=== PATIENT | female | born 1955 | race African-American/Black ===

== ENCOUNTER 2019-03-15 11:57 | Inpatient (IN) | payer MEDICAID ==
[~2019-03-15] VITALS: Ht 162.6 cm; Wt 83.0 kg
[2019-03-15] VITALS (11 sets, daily range): BP systolic 100–129
[~2019-03-15 11:57] MED LIST: BACL20TA GT; COL250 GT; CRAN450T7 GT; FAMO-132 PO; KETAMINE 30 MG/3 ML SYRINGE IV ONE; LEVE500V GT; LR 1,000 ML IV.SOLN IV ONE; MIDAZOLAM HCL 5 MG/5 ML VIAL IVP ONE; NS IRRIG SOLN 1000 ML IR ONE; POTA20TA83 GT; PROP50TA3 GT; ROCURONIUM BROMIDE 10 MG/ML (ZEMURON) IV ONE; SEVOFLURANE 15 MIN GAS INH ONE; fentaNYL CITRATE 250 MCG/5 ML AMP IV ONE; fentaNYL CITRATE/PF 100 MCG/2 ML AMP IVP ONE
--- NOTE | 2019-03-15 12:10 | NUR ---
Placed in room 1 . Placed on environmental monitoring specialist, blood pressure machine and pulse oximeter. To gown for exam. Side rails up.
--- NOTE | 2019-03-15 12:15 | NUR ---
pt arrived from [facility]. request the pt come to the ED for low Hgb of 5.2. Pt is on a chronic vent. Pt is nonverbal. Responds to voice. Able to open her eyes
--- NOTE | 2019-03-15 12:30 | NUR ---
Current vent settings AC 10, TV 500, Peep 5, FiO2 40%. O2 sat is 100%
[2019-03-15 12:41] LABS: BILIRUBIN,URINE NEGATIVE (NEGATIVE); BLOOD, URINE NEGATIVE (NEGATIVE); CLARITY/URINE CLEAR (CLEAR); COLOR,URINE YELLOW (YELLOW); GLUCOSE,URINE NEGATIVE (NEGATIVE); KETONES,URINE NEGATIVE (NEGATIVE); LEUKOCYTE ESTERASE ,URINE TRACE (NEGATIVE); NITRITE, URINE POSITIVE (NEGATIVE); PROTEIN URINE NEGATIVE (NEGATIVE); UROBILINOGEN,URINE 0.2 (0.2-1.0)
--- NOTE | 2019-03-15 12:46 | NUR ---
Inserted 156fr kellogg cath. UA collected and sent to the lab
--- NOTE | 2019-03-15 13:00 | NUR ---
# 20 gauge angiocath placed to LAC. Use of asceptic technique. Opsite placed over site. Blood return noted. Blood for lab drawn from site. Flushed with 10 cc of normal saline. No evidence of infiltration noted. Patient tolerated well.
[2019-03-15 13:02] LABS: RBC,URINE 0-3 /HPF (0-3)
[2019-03-15 13:03] LABS: BACTERIA,URINE MODERATE /HPF (None Seen)
[2019-03-15 13:06] LABS: BASOPHILS % (AUTO) 0.7 % (0.0-2.0); EOSINOPHILS # (AUTO) 0.2 K/uL (0.0-0.4); EOSINOPHILS % (AUTO) 3.3 % (0.0-4.0); HEMATOCRIT 22.2 % (36-48); LYMPHOCYTES # (AUTO) 2.5 K/uL (1.0-5.5); LYMPHOCYTES % (AUTO) 38.6 % (20.5-51.5); MEAN CORPUSCULAR HEMOGLOBIN 17 pg (27-31); MEAN CORPUSCULAR HGB CONC 26 % (32-36); MEAN CORPUSCULAR VOLUME 63 fL (79.0-98.0); MONOCYTES # (AUTO) 0.5 K/uL (0.0-1.0); MONOCYTES % (AUTO) 7.1 % (1.7-9.3); NEUTROPHILS # (AUTO) 3.3 K/uL (1.8-7.7); NEUTROPHILS % (AUTO) 50.3 % (40.0-70.0); PLATELET COUNT (AUTO) 379 K/uL (130-430); RED BLOOD CELL COUNT(AUTO) 3.54 MIL/uL (4.2-6.2); RED CELL DISTRIBUTION WIDTH 19.9 % (9.0-15.0); WHITE BLOOD COUNT (AUTO) 6.5 K/uL (4.8-10.8)
[2019-03-15 13:10] LABS: HEMOGLOBIN 5.9 g/dL (12.0-16.0)
[2019-03-15 13:23] LABS: CALCIUM 8.5 mg/dL (8.4-11.0); CHLORIDE 104 mmol/L (98-107); CREATININE 0.66 mg/dL (0.55-1.30); GLUCOSE 90 mg/dL (70-99); INR 1.1 (0.8-1.2); POTASSIUM 3.7 mmol/L (3.5-5.1); PROTHROMBIN TIME 10.8 SECS (9.5-12.5); SODIUM SERUM 136 mmol/L (136-145); UREA NITROGEN, BLOOD 11 mg/dL (8-21)
[2019-03-15 13:24] LABS: ANION GAP < 3 (5-15); GFR AFRICAN AMERICAN 117 mL/min (>90)
[2019-03-15 13:29] LABS: ALANINE AMINOTRANSFERASE 62 U/L (12-78); ALBUMIN 2.7 g/dL (3.4-4.8); ASPARTATE AMINOTRANSFERASE 75 U/L (10-37); TOTAL BILIRUBIN 0.2 mg/dL (0.0-1.0)
--- NOTE | 2019-03-15 14:08 | NUR ---
Currently infusing Levaquin per MD order. IV is patent and flushing well.
[2019-03-15] MEDS ORDERED: LEVOFLOXACIN 500 MG/D5W 100 ML IV ONE (14:15)
[2019-03-15] MEDS ORDERED: KCL 20 mEq in D5/0.45NS 1000mL 1,000 ML IV ONE (14:45)
--- NOTE | 2019-03-15 14:45 | NUR ---
Currently waiting for an ICU bed. Spoke w/ hSeree ROONEY.
[2019-03-15] MEDS ORDERED: FER300L GT (14:58)
[2019-03-15] MEDS ORDERED: ATRMDI INH ×2 (14:58)
[2019-03-15] MEDS ORDERED: DEXT30DR6 EACH EYE (14:58)
[2019-03-15] MEDS ORDERED: LEVE100S2 GT (14:58)
[2019-03-15] MEDS ORDERED: ALBU2.5V7 INH ×2 (14:58)
--- NOTE | 2019-03-15 14:58 | NUR ---
Medication reconciliation completed with information provided by [facility]. Any prior medication reconciliation on file was reviewed and corrected.
--- NOTE | 2019-03-15 15:55 | NUR ---
Opening Patient received via gurney and placed in ICU-6. Patient connected to child monitor with NSR. Patient on a ventilator with settings of AC 10, tidal volume 500, FiO2 40%, and PEEP 5. No signs of distress noted. Patient has a left forearm 20 gauge patent and saline locked. Patient has a g-tube clamped at this time. Patient has a kellogg catheter in place draining yellow urine. Patient skin non-intact. Safety precautions enforced.
--- NOTE | 2019-03-15 16:00 | NUR ---
Transfer to ICU bed 6 via ACLS protocol. Licensed nurse present. IV present no signs or symptoms of infiltration. Bedside report given Valerie VILLALBA
--- NOTE | 2019-03-15 16:01 | NUR ---
CONSULT PULMO. DR. YUN CALLED SPOKE TO DONAL DIALED [phone] CREWS
--- NOTE | 2019-03-15 16:02 | NUR ---
CONSULT GI DR. HOOKER CALLED SPOKE TO REJI DIALED [phone] CREWS
[2019-03-15] MEDS ORDERED: NACL 0.9% 1,000 ML IV SCH (17:00)
[2019-03-15 18:00] LABS: HEMATOCRIT 22.6 % (36-48); HEMOGLOBIN 5.9 g/dL (12.0-16.0)
--- NOTE | 2019-03-15 18:15 | NUR ---
MD Rounds Dr. Mckeon @ bedside. New orders received.
--- NOTE | 2019-03-15 18:30 | NUR ---
MD Rounds Dr. Mariano @ bedside. New orders received.
--- NOTE | 2019-03-15 18:45 | NUR ---
MD Rounds Dr. Houston @ bedside. New orders received.
[2019-03-15] MEDS ORDERED: LORazepam 2 MG/ML VIAL IVP PRN (19:15)
[2019-03-15] MEDS ORDERED: IPRATROPIUM BROM 0.5 MG/2.5 ML VIAL.NEB (ATROVENT) INH PRN (19:15)
[2019-03-15] MEDS ORDERED: PIPERACILLIN/TAZO 3.375/DEX-IS 50 ML IV ONE (19:30)
[2019-03-15] MEDS ORDERED: PANTOPRAZOLE SODIUM 80 MG in NS 100 ML IV ONE (19:30)
[2019-03-15] MEDS: IPRATROPIUM BROM 0.5 MG/2.5 ML VIAL.NEB (ATROVENT) INH SCH (19:43)
[2019-03-15] MEDS: ALBUTEROL SULFATE 0.083% 2.5 MG/3 ML VIAL.NEB INH SCH (19:43)
[2019-03-15] MEDS: D5LR 1,000 ML IV SCH (20:00)
--- NOTE | 2019-03-15 20:00 | NUR ---
AT 1917 P.M, RECEIVED NURSING REPORT FROM LESA ALCANTARA R.N
[2019-03-15] MEDS: PANTOPRAZOLE SODIUM 40 MG in NS 50 ML IV SCH (20:40)
[2019-03-15] MEDS: FERROUS SULFATE 300 MG/5 ML UDC GT SCH (21:00)
[2019-03-15] MEDS ORDERED: PANTOPRAZOLE SODIUM 40 MG/VIAL (PROTONIX) IVP SCH (21:00)
[2019-03-15] MEDS: BACLOFEN 10 MG TABLET GT SCH (21:00)
[2019-03-15] MEDS: LevETIRAcetam 500 MG/5 ML UDC ORAL LIQUID GT SCH (21:00)
--- NOTE | 2019-03-15 22:00 | NUR ---
ORDERED WILL FOLLOWUP EGD IN TOMORROW 0800 A.M, AT 2150 P.M, CALLED PATIENT,S DAUGHTER ALESSIA, GOT PHONE CONSENT IN THE CHART
[2019-03-15] MEDS: PEG 400/HYPROMELLOSE/GLYCERIN 15 ML DROPS EACH EYE SCH (22:24)
[2019-03-15 22:56] LABS: HEMATOCRIT 19.9 % (36-48); HEMOGLOBIN 5.3 g/dL (12.0-16.0)
[2019-03-15] MEDS: PIPERACILLIN/TAZO 3.375/DEX-IS 50 ML IV SCH (23:22)
[2019-03-15 23:26] LABS: TOTAL IRON BIND. CAPACITY 352 ug/dL (250-450)
--- NOTE | 2019-03-15 23:30 | NUR ---
AT 2215 P.M, FINISHED INSERTED PICC LINE IN LEFT UPPER ARM BY PICC LINE NURSE JOHNY Garcia, ORDERED FOLLOW UP STAT CHEST X-RAY AT 2225 P.M, AFTER X-RAY RESULT , IS O.K FOR USE
[2019-03-16] VITALS (24 sets, daily range): BP systolic 97–138
--- NOTE | 2019-03-16 00:30 | NUR ---
AT 0007 A.M, ORDERED GIVE BLOOD TRANSFUSION P-RBC FIRST UNIT, NO S/S OF ADVERSE REACTION AT THIS TIME, KEEP CLOSE MONITOR
[2019-03-16] MEDS: ALBUTEROL SULFATE 0.083% 2.5 MG/3 ML VIAL.NEB INH SCH ×4 (01:18→19:20)
[2019-03-16] MEDS: IPRATROPIUM BROM 0.5 MG/2.5 ML VIAL.NEB (ATROVENT) INH SCH ×4 (01:18→19:20)
[2019-03-16] MEDS: PANTOPRAZOLE SODIUM 40 MG in NS 50 ML IV SCH ×5 (01:49→22:01)
--- NOTE | 2019-03-16 03:30 | NUR ---
AT 0300 A.M, FINISHED BLOOD TRANSFUSION P-RBC FIRST UNIT, NO S/S OF ADVERSE REACTION, AT 0317 A.M, START BLOOD TRANSFUSION P-RBC SECOND UNIT, NO S/S OF ADVERSE REACTION AT THIS TIME, KEEP CLOSE MONITOR
[2019-03-16] MEDS: D5LR 1,000 ML IV SCH (05:14)
[2019-03-16] MEDS: PIPERACILLIN/TAZO 3.375/DEX-IS 50 ML IV SCH ×4 (05:14→23:46)
--- NOTE | 2019-03-16 05:30 | NUR ---
AT 0530 A.M FINISHED BLOOD TRANSFUSION, NO S/S OF ADVERSE REACTION, PATIENT HAD ONE TIME BOWEL MOVEMENT: TARRY STOOL
[2019-03-16 07:06] LABS: BASOPHILS # (AUTO) 0.1 K/uL (0.0-0.2); EOSINOPHILS # (AUTO) 0.2 K/uL (0.0-0.4); HEMOGLOBIN 7.8 g/dL (12.0-16.0)
[2019-03-16 07:13] LABS: EOSINOPHILS % (AUTO) 2.9 % (0.0-4.0); LYMPHOCYTES # (AUTO) 0.5 K/uL (1.0-5.5); LYMPHOCYTES % (AUTO) 6.4 % (20.5-51.5); MEAN CORPUSCULAR HEMOGLOBIN 21 pg (27-31); MEAN CORPUSCULAR HGB CONC 30 % (32-36); MEAN CORPUSCULAR VOLUME 69 fL (79.0-98.0); MONOCYTES # (AUTO) 0.4 K/uL (0.0-1.0); MONOCYTES % (AUTO) 5.5 % (1.7-9.3); NEUTROPHILS # (AUTO) 6.5 K/uL (1.8-7.7); NEUTROPHILS % (AUTO) 84.2 % (40.0-70.0); PLATELET COUNT (AUTO) 292 K/uL (130-430); RED BLOOD CELL COUNT(AUTO) 3.78 MIL/uL (4.2-6.2); RED CELL DISTRIBUTION WIDTH 26.8 % (9.0-15.0); WHITE BLOOD COUNT (AUTO) 7.7 K/uL (4.8-10.8)
--- NOTE | 2019-03-16 07:18 | NUR ---
GIVE COMPLETE NURSING REPORT TO DAY SHIFT PAUL Garcia
[2019-03-16 07:26] LABS: INR 1.1 (0.8-1.2); PROTHROMBIN TIME 11.4 SECS (9.5-12.5)
[2019-03-16] MEDS: MIDAZOLAM HCL 5 MG/5 ML VIAL ONE ×5 (07:35→08:53)
[2019-03-16] MEDS: MEPERIDINE HCL/PF 100 MG/ML AMP ONE ×3 (07:35→08:47)
[2019-03-16] MEDS ORDERED: SIMETHICONE 40 MG/0.6 ML ML ONE (07:35)
[2019-03-16 07:38] LABS: ALBUMIN 2.2 g/dL (3.4-4.8); CALCIUM 7.4 mg/dL (8.4-11.0); CREATININE 0.76 mg/dL (0.55-1.30); PHOSPHORUS 2.6 mg/dL (2.7-4.5); POTASSIUM 3.4 mmol/L (3.5-5.1); TOTAL BILIRUBIN 1.2 mg/dL (0.0-1.0)
--- NOTE | 2019-03-16 07:59 | NUR ---
report recieved/pt being prepped for egd/gi nurses in room, pt is not coherent/pupils equal eusebio/pt contracted and not following commands/consent from daughter in chart/pt h/h stable, pt RT next door awaiting MD/pt vs stable/trache stable/pt npo for now/holding til post procedure//mw
--- NOTE | 2019-03-16 08:45 | NUR ---
RT NOTES Standby for EGD procedure, T.T remained secure/patent. Pt's saturation remained 100% t/o the procedure.
--- NOTE | 2019-03-16 08:57 | NUR ---
Nutrition Update Nate Scale 13 noted. Pt admitted for lower GI bleed. Diet: NPO BMI: 31.2 kg/m2 RD to follow per nutrition care standards.
[2019-03-16] MEDS ORDERED: POTASSIUM CHLORIDE 40 MEQ, LIDOCAINE JECT 2% PF 100 MG 50 MG in NS 250 ML IV ONE (10:00)
[2019-03-16] MEDS: PEG 400/HYPROMELLOSE/GLYCERIN 15 ML DROPS EACH EYE SCH ×2 (10:01→22:02)
[2019-03-16] MEDS: POTASSIUM CHLORIDE 20 MEQ/PKT PACKET GT SCH (10:02)
[2019-03-16] MEDS: FERROUS SULFATE 300 MG/5 ML UDC GT SCH ×2 (10:02→22:40)
[2019-03-16] MEDS: BACLOFEN 10 MG TABLET GT SCH ×2 (10:02→22:40)
[2019-03-16] MEDS: LevETIRAcetam 500 MG/5 ML UDC ORAL LIQUID GT SCH ×2 (10:02→22:40)
[2019-03-16] MEDS: SOD FERRIC GLUC COMPLEX/SUC 125 MG in NS 100 ML IV SCH (11:32)
[2019-03-16] MEDS: MVI 10 ML in D5LR 1,000 ML IV SCH ×2 (11:45→19:55)
--- NOTE | 2019-03-16 13:40 | NUR ---
SS Note: DURABLE MEDICAL EQUIPMENT TECHNICIAN was referred to see pt or phone collateral for assessment. DURABLE MEDICAL EQUIPMENT TECHNICIAN verified and update demographic information. Person to Notify is Deana Chun @ [phone], and NOK is Warren Chun @ [phone]. DURABLE MEDICAL EQUIPMENT TECHNICIAN phoned Deana Cuhn (dtr) @ [phone] who states pt had a heart attack in 2003 and has been in and out of hospitals and sub-acute's since. Pt has been comatose and on vent since. Pt has been a resident at [facility] since 2006. When discharged, family wishes for pt to go back to [facility]. Pt is not on dialysis. Pt does not have an advanced directive or POLST and is interested in formulating one; DURABLE MEDICAL EQUIPMENT TECHNICIAN left POLST form at bedside and informed family. SS will remain available for additional support when needed.
--- NOTE | 2019-03-16 13:59 | NUR ---
Dietitian Recommendations * Consider EN support if/when medically appropriate: Vital AF 1.2 at 50 ml/hr, Free Water Flush: 200 ml Q4h via GT Provides: 1440 kcal/day, 90 gm protein/day, and 2173 ml free water/day Meets: 90% of lower end of estimated caloric needs and 82% of estimated protein needs LP, RD Please refer to Nutrition Assessment for details. Addendum: 03/16/19 at [address] Amended: Links added.
[2019-03-16 16:37] LABS: HEMATOCRIT 26.6 % (36-48); HEMOGLOBIN 7.8 g/dL (12.0-16.0)
--- NOTE | 2019-03-16 19:16 | NUR ---
Late entry due to pt care: Pt arrived from ICU via bed in stable condition. Pt opens her eyes, but she is non-verbal. Pt has tracheostomy tube in place and connected to mechanical ventilator with settings of AC 10, TV 500, FIO2 40% and Peep 5. No respiratory distress noted. IVF of D5LR with MVI is infusing well via WILLIAMS PICC at 120ml/hr. Protonix Drip is also infusing well via PICC's second lumen at 10ml/hr. PICC dressing is dry and intact. G tube is clamped with 0ml residual. Capellan cath to gravity drainage is draining clear yellowish urine.
[2019-03-16] MEDS ORDERED: MVI 10 ML in D5LR 1,000 ML IV SCH (19:30)
--- NOTE | 2019-03-16 21:00 | NUR ---
Pt remains non-verbal and she is tolerating vent settings well. No respiratory distress noted. Oxygen saturation is 100%. Fall and safety precautions are in place.
--- NOTE | 2019-03-16 21:45 | NUR ---
No orders seen for G Tube Feeding starting time or date and if okay to give medications through the G tube. Will page Dr. Love.
--- NOTE | 2019-03-16 21:47 | NUR ---
Paged Dr. Love s/w Mary Alice
--- NOTE | 2019-03-16 22:10 | NUR ---
Dr. Love called back and stated it is okay to give medications through G Tube, but not to start GT feeding yet until he sees pt tomorrow.
--- NOTE | 2019-03-17 | NUR ---
G tube remains clamped. Pt is tolerating vent settings well. No acute distress noted at this time. IVF with MVI and Protonix drip are infusing well via WILLIAMS PICC. Fall, seizure and safety precautions are in place.
[2019-03-17] MEDS: ALBUTEROL SULFATE 0.083% 2.5 MG/3 ML VIAL.NEB INH SCH ×4 (00:45→21:02)
[2019-03-17] MEDS: IPRATROPIUM BROM 0.5 MG/2.5 ML VIAL.NEB (ATROVENT) INH SCH ×4 (00:45→21:02)
[2019-03-17 00:51] VITALS: BP_SYST 127
--- NOTE | 2019-03-17 02:00 | NUR ---
Pt is tolerating vent settings well. No respiratory distress or seizure activity noted. G tube remains clamped with the dressing dry and intact. IVF with MVI and Protonix drip are infusing well. Fall, seizure and safety precautions are in place.
[2019-03-17] MEDS: PANTOPRAZOLE SODIUM 40 MG in NS 50 ML IV SCH ×5 (02:37→23:41)
[2019-03-17] MEDS: MVI 10 ML in D5LR 1,000 ML IV SCH ×2 (03:26→14:03)
--- NOTE | 2019-03-17 04:00 | NUR ---
Pt is sleeping without any distress noted. IVF and Protonix drips are infusing well. Pt is tolerating vent settings and no respiratory distress noted. Fall, seizure and safety precautions are in place.
[2019-03-17] MEDS: PIPERACILLIN/TAZO 3.375/DEX-IS 50 ML IV SCH ×3 (05:16→17:33)
--- NOTE | 2019-03-17 06:21 | NUR ---
Pt is awake and resting quietly in bed. Pt remains non-verbal. All pt's needs were attended to. IVF and Protonix Drip are infusing well via WILLIAMS PICC. Pt is tolerating vent settings well and G Tube remains clamped. Fall, seizure and safety precautions are in place. Will endorse to day shift nurse.
--- NOTE | 2019-03-17 06:46 | NUR ---
RN called [facility] and spoke with Monisha who stated pt has not received flu vaccine this year.
[2019-03-17 07:31] LABS: EOSINOPHILS # (AUTO) 0.4 K/uL (0.0-0.4); HEMOGLOBIN 8.5 g/dL (12.0-16.0); MONOCYTES # (AUTO) 0.5 K/uL (0.0-1.0); MONOCYTES % (AUTO) 9.3 % (1.7-9.3); RETICULOCYTE COUNT 3.3 % (0.5-1.5)
--- NOTE | 2019-03-17 07:32 | NUR ---
Rn rounding Report was endorsed by night nurse. Patient is laying in bed no signs of any distress,breathing is equal and non labored. patient has all safety precautions in pace. patient is on ventilator as ordered. iv fluid running as ordered. patient has no other needs at this time. will continue to monitor.
[2019-03-17 07:34] LABS: ALBUMIN 2.3 g/dL (3.4-4.8); CALCIUM 7.4 mg/dL (8.4-11.0); CREATININE 0.85 mg/dL (0.55-1.30); POTASSIUM 3.8 mmol/L (3.5-5.1); TOTAL BILIRUBIN 0.7 mg/dL (0.0-1.0)
[2019-03-17 07:37] VITALS: BP_SYST 118
[2019-03-17 07:38] LABS: BASOPHILS % (AUTO) 0.3 % (0.0-2.0); HEMATOCRIT 29.7 % (36-48); LYMPHOCYTES # (AUTO) 1.7 K/uL (1.0-5.5); LYMPHOCYTES % (AUTO) 30.5 % (20.5-51.5); MEAN CORPUSCULAR HEMOGLOBIN 20 pg (27-31); MEAN CORPUSCULAR HGB CONC 29 % (32-36); MEAN CORPUSCULAR VOLUME 71 fL (79.0-98.0); NEUTROPHILS % (AUTO) 52.9 % (40.0-70.0); PLATELET COUNT (AUTO) 300 K/uL (130-430); RED CELL DISTRIBUTION WIDTH 26.8 % (9.0-15.0); WHITE BLOOD COUNT (AUTO) 5.6 K/uL (4.8-10.8)
[2019-03-17] MEDS: BACLOFEN 10 MG TABLET GT SCH ×2 (08:41→20:45)
[2019-03-17] MEDS: FERROUS SULFATE 300 MG/5 ML UDC GT SCH ×2 (08:41→20:44)
[2019-03-17] MEDS: POTASSIUM CHLORIDE 20 MEQ/PKT PACKET GT SCH (08:41)
[2019-03-17] MEDS: LevETIRAcetam 500 MG/5 ML UDC ORAL LIQUID GT SCH ×2 (08:41→20:45)
[2019-03-17] MEDS: PEG 400/HYPROMELLOSE/GLYCERIN 15 ML DROPS EACH EYE SCH ×2 (08:42→20:44)
--- NOTE | 2019-03-17 08:42 | NUR ---
medication Patients scheduled medication given per order. patient is awake and no signs of any distress,breathing is equal and non labored. patient has all safety precautions in place. no other needs at this time. GI at bedside.
[2019-03-17] MEDS ORDERED: FLU VACC QS2019-20 36MOS UP/PF 60 MCG/0.5 ML SYRINGE I.M. PRN (09:00)
[2019-03-17 10:16] LABS: FOLATE (FOLIC ACID) >20.0 ng/mL (>3.0)
[2019-03-17] MEDS: SOD FERRIC GLUC COMPLEX/SUC 125 MG in NS 100 ML IV SCH (11:22)
--- NOTE | 2019-03-17 11:23 | NUR ---
at bed side Patient is awake and shows no signs of any distress, breathing is equal and non labored. patient has all safety precautions in place. no other needs at this time.
[2019-03-17 12:48] VITALS: BP_SYST 100
--- NOTE | 2019-03-17 13:00 | NUR ---
Medication Patient is awake and no signs of any distress,breathing is equal and non labored. patient has all safety precautions in place. scheduled medication given as ordered. patient has no other needs at this time. will continue to monitor.
--- NOTE | 2019-03-17 14:04 | NUR ---
Medication Patients scheduled medication given as ordered. patient shows no signs of any distress, breathing is equal and non labored. patient has all safety precautions in place. seizure precautions are also in place. patient has no other needs at this time. will continue to monitor.
[2019-03-17] MEDS: 0.45% NACL 1,000 ML IV SCH (15:39)
--- NOTE | 2019-03-17 15:41 | NUR ---
iv fluid Patients iv fluid, started as ordered. patient has all safety , and seizure precautions in place. no signs of distress,breathing is equal and nonlabored. no other needs at this time. will continue to monitor.
--- NOTE | 2019-03-17 16:37 | NUR ---
Wound Evaluation: Wound Consult ordered for Low Nate Score. Patient evaluated for a low Nate score of an 11. Patient was awake, obtunded and received in a Hampton Bed with an Atmos-Air 9000 mattress. Patient needs to be turned in bed. Recommend reposition patient side to side only every 2 hours with pillow support. Elevate, off-load and float bilateral heels with pillows. Offload pressure areas with pillows for pressure re-distribution. Perform skin care and monitor skin integrity Q shift. Use moisture barrier cream on moisture susceptible areas QID and PRN for soiling. Place patient on a low air-loss mattress. Skin assessment: 1. Sacral-Coccygeal area: Scar tissue, present on admission. Recommend: Cleanse involved area with mild soap and water. Pat dry. Apply Hydraguard barrier cream to involved area. Cover with foam dressing. Perform site care daily, and prn for dressing soiling or dislodgment.
[2019-03-17 16:57] LABS: HEMOGLOBIN 7.7 g/dL (12.0-16.0)
[2019-03-17] MEDS ORDERED: BISACODYL 5 MG TABLET.DR (DULCOLAX) PO ONE ×2 (17:00)
[2019-03-17 17:08] LABS: HEMATOCRIT 26.9 % (36-48)
--- NOTE | 2019-03-17 17:21 | NUR ---
Medication Patients scheduled medication given per order. patient is awake and non labored breathing or signs of distress, patient has all safety precautions and seizure precautions in place. will continue to monitor.
[2019-03-17] MEDS ORDERED: GOLYTELY / COLYTE SOLUTION 4 LITERS PO ONE ×2 (18:00)
[2019-03-17 18:22] VITALS: BP_SYST 101
--- NOTE | 2019-03-17 19:04 | NUR ---
rn closing note Called patients daughter to get consent for colonoscopy patients daughter states md hs not called her yet. informed her we need to have md talk to her before we are able to get consent. patient scheduled medication given as ordered. patient has all safety and seizure precautions in place. patient shows no signs of any distress, breathing is equal non labored. paged economic forecaster GI , to inform of correct number of daughter [phone]. patient has no other needs at this time.
--- NOTE | 2019-03-17 19:25 | NUR ---
OPENING NOTES Bedside report received from dayshift nurse. Patient received lying in bed, eyes closed, appears to be asleep, no s/s of acute distress noted. Breathing is even and unlabored. Trach to vent attached, settings at: AC 10, FiO2 40%, TV 500 ml, PEEP 5. Patient tolerating well, SPO2 100. HOB raised. Capellan attached, secured and draining by gravity. PICC line on left upper arm, dressing intact, clean and dry. Seizure pads attached. Bed alarm on. Bed is locked and at lowest position. Will continue to monitor.
[2019-03-17 20:00] VITALS: BP_SYST 116
--- NOTE | 2019-03-17 21:00 | NUR ---
ROUNDS Patient in bed, no s/s of acute distress noted. Breathing even and unlabored. IVF infusing well. All needs met. Bed alarm on. Will continue to monitor.
--- NOTE | 2019-03-17 23:00 | NUR ---
ROUNDS Patient in bed sleeping. No sings of discomfort noted. Chest rise and fall even bilaterally. Trach to vent attached. IVF infusing well. All needs met at this time. Bed alarm on. Will continue to monitor.
[2019-03-18] VITALS (7 sets, daily range): BP systolic 99–118
[2019-03-18] MEDS: PIPERACILLIN/TAZO 3.375/DEX-IS 50 ML IV SCH ×5 (00:56→23:28)
[2019-03-18] MEDS: 0.45% NACL 1,000 ML IV SCH ×3 (00:56→21:59)
--- NOTE | 2019-03-18 01:00 | NUR ---
ROUNDS Patient in bed sleeping. No s/s of acute distress noted. Breathing even and unlabored. IVF infusing well. Bed alarm on. Will continue to monitor.
[2019-03-18] MEDS: ALBUTEROL SULFATE 0.083% 2.5 MG/3 ML VIAL.NEB INH SCH ×4 (01:39→20:38)
[2019-03-18] MEDS: IPRATROPIUM BROM 0.5 MG/2.5 ML VIAL.NEB (ATROVENT) INH SCH ×4 (01:40→20:38)
--- NOTE | 2019-03-18 03:00 | NUR ---
TRANSFERRED TO AIR MATTRESS/PERICARE Patient transferred to air mattress at this time, assisted by DRY TRANSFER WORKER,RN, AN, and RT. Addie care rendered by RN and DRY TRANSFER WORKER. Patient tolerated well. IVF infusing well. HOB raised. Trach to vent attached, SPO2 at 99. All needs met. Bed alarm on. Will continue to monitor.
[2019-03-18] MEDS: PANTOPRAZOLE SODIUM 40 MG in NS 50 ML IV SCH ×5 (04:22→23:29)
--- NOTE | 2019-03-18 05:00 | NUR ---
TAP WATER ENEMA Tap water enema done at this time. Patient's output is light green with scant sediments. Patient tolerated well. IVF infusing well. All needs met. Bed alarm on. Will continue to monitor.
--- NOTE | 2019-03-18 06:43 | NUR ---
CLOSING NOTES/SPOKE TO DR MILLER Spoke with Dr. Miller, informed him that consent has yet to be signed and output was light green with scant sediments. Dr. Miller stated that Dr. Love will come in and talk to patient's family members and asked if patient took all of the GOLYTELY, informed him that the patient got all of the GOLYTELY, and he replied ," it should be ok". Patient shows no s/s of acute distress. Breathing even and unlabored. Trach to vent attached. IVF infusing well. Capellan attached, secured, and draining by gravity. HOB raised. Seizure pads attached. All needs met throughout shift. Fall and safety precautions maintained throughout the shift. Will continue to monitor until patient care is endorsed to oncoming dayshift nurse.
[2019-03-18] MEDS ORDERED: MEPERIDINE HCL/PF 100 MG/ML AMP ONE ×2 (06:58→06:59)
[2019-03-18] MEDS ORDERED: MIDAZOLAM HCL 5 MG/5 ML VIAL ONE ×2 (06:59)
[2019-03-18] MEDS ORDERED: SIMETHICONE 40 MG/0.6 ML ML ONE (07:00)
[2019-03-18 07:21] LABS: BASOPHILS # (AUTO) 0.1 K/uL (0.0-0.2); BASOPHILS % (AUTO) 0.7 % (0.0-2.0); EOSINOPHILS # (AUTO) 0.4 K/uL (0.0-0.4); EOSINOPHILS % (AUTO) 5.4 % (0.0-4.0); HEMATOCRIT 28.6 % (36-48); HEMOGLOBIN 8.3 g/dL (12.0-16.0); LYMPHOCYTES # (AUTO) 1.7 K/uL (1.0-5.5); LYMPHOCYTES % (AUTO) 25.1 % (20.5-51.5); MEAN CORPUSCULAR HEMOGLOBIN 20 pg (27-31); MEAN CORPUSCULAR HGB CONC 29 % (32-36); MEAN CORPUSCULAR VOLUME 70 fL (79.0-98.0); MONOCYTES # (AUTO) 0.8 K/uL (0.0-1.0); MONOCYTES % (AUTO) 11.1 % (1.7-9.3); NEUTROPHILS # (AUTO) 3.9 K/uL (1.8-7.7); NEUTROPHILS % (AUTO) 57.7 % (40.0-70.0); PLATELET COUNT (AUTO) 284 K/uL (130-430); RED BLOOD CELL COUNT(AUTO) 4.08 MIL/uL (4.2-6.2); RED CELL DISTRIBUTION WIDTH 27.5 % (9.0-15.0); WHITE BLOOD COUNT (AUTO) 6.8 K/uL (4.8-10.8)
--- NOTE | 2019-03-18 07:37 | NUR ---
Opening Note received bedside SBAR report from slot shift manager RN, patient resting in bed, respirations even and unlabored on mechanical ventilator, no acute distress noted, side rails padded, kellogg catheter draining to gravity, educated patient on use of call light and asked to call for assistance, call light in reach, bed in low and locked position, bed alarm on.
[2019-03-18 07:53] LABS: CALCIUM 7.7 mg/dL (8.4-11.0); CREATININE 0.79 mg/dL (0.55-1.30); POTASSIUM 3.4 mmol/L (3.5-5.1)
[2019-03-18 07:54] LABS: ALBUMIN 2.4 g/dL (3.4-4.8); TOTAL BILIRUBIN 0.7 mg/dL (0.0-1.0)
--- NOTE | 2019-03-18 08:34 | NUR ---
Colonoscopy Dr. Love at bedside for colonoscopy, GI floating labor gang supervisor at bedside, respiratory therapist at bedside for respiratory support, no acute distress noted.
[2019-03-18] MEDS ORDERED: MEPERIDINE HCL/PF 100 MG/ML AMP IV ONE ×2 (09:00→09:04)
[2019-03-18] MEDS ORDERED: MIDAZOLAM HCL 5 MG/5 ML VIAL IVP ONE ×2 (09:00→09:04)
--- NOTE | 2019-03-18 09:26 | NUR ---
Colonoscopy colonoscopy completed at this time, respirations even and unlabored on mechanical ventilator, no acute distress noted, per Dr. Ivan kang to give patient medications via g-tube at this time.
--- NOTE | 2019-03-18 09:36 | NUR ---
CT scan per radiology they will not be able to complete the CT scan due to contracted legs, informed pearl Murillo per Dr. Love.
[2019-03-18] MEDS: SOD FERRIC GLUC COMPLEX/SUC 125 MG in NS 100 ML IV SCH (09:47)
[2019-03-18] MEDS: BACLOFEN 10 MG TABLET GT SCH ×2 (09:47→22:01)
[2019-03-18] MEDS: POTASSIUM CHLORIDE 20 MEQ/PKT PACKET GT SCH (09:47)
[2019-03-18] MEDS: FERROUS SULFATE 300 MG/5 ML UDC GT SCH ×2 (09:47→22:00)
[2019-03-18] MEDS: LevETIRAcetam 500 MG/5 ML UDC ORAL LIQUID GT SCH ×2 (09:47→22:00)
[2019-03-18] MEDS: PEG 400/HYPROMELLOSE/GLYCERIN 15 ML DROPS EACH EYE SCH ×2 (09:47→22:00)
--- NOTE | 2019-03-18 12:10 | NUR ---
RN Rounds patient resting in bed, respirations even and unlabored on mechanical ventilator, no acute distress noted.
--- NOTE | 2019-03-18 13:08 | NUR ---
Physician Spoke with Family Dr. Mariano speaking with patients daughter Deana on telephone providing update on patients plan of care.
--- NOTE | 2019-03-18 14:02 | NUR ---
Repositioned patient repositioned and face cleaned with damp washcloth, tolerated well, no acute distress noted.
--- NOTE | 2019-03-18 16:09 | NUR ---
RN Rounds patient resting in bed, respirations even and unlabored on mechanical ventilator, kellogg catheter draining to gravity, no acute distress noted.
--- NOTE | 2019-03-18 18:33 | NUR ---
Spoke with Physician spoke with Dr. Hansen, he is aware of consult and will be in to see the patient.
--- NOTE | 2019-03-18 19:19 | NUR ---
Closing Note bedside SBAR report given to receiving RN, patient resting in bed, respirations even and unlabored on mechanical ventilator, no acute distress noted, side rails padded, kellogg catheter draining to gravity, educated patient on use of call light and asked to call for assistance, call light in reach, bed in low and locked position, bed alarm on, care endorsed to security shift supervisor RN.
--- NOTE | 2019-03-18 19:20 | NUR ---
OPENING NOTES Receive report from AM nurse. Patient is awake, non verbal. NO acute respiratory distress noted, HOB slightly elevated, on mechanical ventilator. No signs of pain and discomfort noted. Patient in NPO except for oral medication per MD order. Padded rails. SCD's operating well. Capellan catheter is draining by gravity. Call light within reach, educated to use call light when assistance is needed.Bed in locked and in lowest position. Safety precautions in place, will continue to monitor
--- NOTE | 2019-03-18 22:01 | NUR ---
MED PASS/SUCTIONED Medication given though G-tube, on NPO, except PO medication. Suctioned patient, patient tolerated well. All needs met and attended. Will continue to monitor.
--- NOTE | 2019-03-19 | NUR ---
RN ROUNDS Patient appears to be sleeping at this time. No signs of respiratory distress noted, breathing even and unlabored, on mechanical ventilator, operating well. IVF infusing well. Will continue to monitor patient.
[2019-03-19] MEDS: ALBUTEROL SULFATE 0.083% 2.5 MG/3 ML VIAL.NEB INH SCH ×4 (01:05→19:59)
[2019-03-19] MEDS: IPRATROPIUM BROM 0.5 MG/2.5 ML VIAL.NEB (ATROVENT) INH SCH ×4 (01:05→19:59)
--- NOTE | 2019-03-19 02:12 | NUR ---
RN ROUNDS Patient asleep at this time. No signs of respiratory distress and discomfort noted, breathing even and unlabored. On mechanical ventilator, operating well. IVF infusing well. Will continue to monitor patient
[2019-03-19 04:02] VITALS: BP_SYST 112
[2019-03-19] MEDS: PANTOPRAZOLE SODIUM 40 MG in NS 50 ML IV SCH ×4 (05:04→21:24)
[2019-03-19] MEDS: PIPERACILLIN/TAZO 3.375/DEX-IS 50 ML IV SCH ×4 (05:05→23:46)
--- NOTE | 2019-03-19 05:20 | NUR ---
ORAL CARE/PROTONIX/ZOSYN Due medication given. Patient tolerated well. Oral care done, patient tolerated well. Safety precautions in place. All needs met and attended. Suctioned trach. No signs of respiratory distress noted. No signs of discomfort noted. Will continue to monitor.
[2019-03-19] MEDS: 0.45% NACL 1,000 ML IV SCH ×3 (06:30→21:25)
--- NOTE | 2019-03-19 06:58 | NUR ---
CLOSING NOTES Patient eyes open, looked when called by name, non verbal. No signs of respiratory distress and discomfort noted. Capellan catheter draining by gravity. IVF infusing well. On mechanical ventilator operating well. SCD's attached and operating well. Call light within reach. Bed locked and lowest position. Safety precautions in place. All needs met through out the shift will continue to monitor until endorse to oncoming nurse.
--- NOTE | 2019-03-19 08:00 | NUR ---
Rounds Patient open eyes to verbal stimuli on mechanical ventilator , minimal secretion oxygen saturation 100%,, aspiration /seizure precaution, repositioned, with spastic quadriplegia , all extremities supported by pillow, will monitor.
[2019-03-19 08:03] LABS: BASOPHILS % (AUTO) 0.6 % (0.0-2.0); EOSINOPHILS # (AUTO) 0.3 K/uL (0.0-0.4); EOSINOPHILS % (AUTO) 4.9 % (0.0-4.0); HEMATOCRIT 29.8 % (36-48); HEMOGLOBIN 8.3 g/dL (12.0-16.0); LYMPHOCYTES # (AUTO) 1.5 K/uL (1.0-5.5); LYMPHOCYTES % (AUTO) 28.7 % (20.5-51.5); MEAN CORPUSCULAR HEMOGLOBIN 21 pg (27-31); MEAN CORPUSCULAR HGB CONC 28 % (32-36); MEAN CORPUSCULAR VOLUME 75 fL (79.0-98.0); MONOCYTES # (AUTO) 0.6 K/uL (0.0-1.0); NEUTROPHILS # (AUTO) 2.8 K/uL (1.8-7.7); NEUTROPHILS % (AUTO) 54.8 % (40.0-70.0); PLATELET COUNT (AUTO) 254 K/uL (130-430); RED BLOOD CELL COUNT(AUTO) 3.99 MIL/uL (4.2-6.2); WHITE BLOOD COUNT (AUTO) 5.2 K/uL (4.8-10.8)
[2019-03-19 08:10] VITALS: BP_SYST 113
[2019-03-19 08:10] LABS: ALBUMIN 2.1 g/dL (3.4-4.8); CALCIUM 7.5 mg/dL (8.4-11.0); CREATININE 0.72 mg/dL (0.55-1.30); POTASSIUM 3.9 mmol/L (3.5-5.1); TOTAL BILIRUBIN 0.8 mg/dL (0.0-1.0)
[2019-03-19] MEDS: BACLOFEN 10 MG TABLET GT SCH ×2 (08:19→21:27)
[2019-03-19] MEDS: PEG 400/HYPROMELLOSE/GLYCERIN 15 ML DROPS EACH EYE SCH ×2 (08:19→21:26)
[2019-03-19] MEDS: LevETIRAcetam 500 MG/5 ML UDC ORAL LIQUID GT SCH (08:19)
[2019-03-19] MEDS: POTASSIUM CHLORIDE 20 MEQ/PKT PACKET GT SCH (08:19)
[2019-03-19] MEDS: FERROUS SULFATE 300 MG/5 ML UDC GT SCH ×2 (08:19→21:26)
[2019-03-19] MEDS: SOD FERRIC GLUC COMPLEX/SUC 125 MG in NS 100 ML IV SCH (09:49)
--- NOTE | 2019-03-19 11:00 | NUR ---
Perineal/oral care given ,Patient repositioned by staff every 2 hours with pillow support.
[2019-03-19] MEDS ORDERED: *TPN PER PHARMACY XX PRN (11:15)
[2019-03-19] MEDS ORDERED: DEXTROSE 50% JECT 50 ML DISP.SYRIN IVP PRN (11:15)
[2019-03-19] MEDS ORDERED: levETIRAcetam 500 MG in NS 100 ML IV ONE (12:15)
[2019-03-19 12:45] VITALS: BP_SYST 98
--- NOTE | 2019-03-19 15:45 | NUR ---
SKIN CARE/COMFORT Perineal /oral care given, trache care given by RT Mari Patient repositioned by staff every 2 hours with pillow support., head of bed kept semi fowlers.
--- NOTE | 2019-03-19 16:32 | NUR ---
Nutrition Follow Up RD reviewed pt's current EMR including diet Hx, physician notes, nursing notes, pertinent labs/m,eds/procedures, care trends and care activity. Current diet order: NPO Subjective Information: Pt s/p intubation. Pt had CT abd and pelvis scan to evaluate for metastasis, pending biopsy results of colon mass per physician notes. Pt noted to have dysphagia and history of G-tube. Pt resting comfortably, trach in place upon RD visit. Per DEEJAY Wynne, pt will start TPN soon, possibly tonight. Estimated Energy Expenditure (kcals/day) 1607 kcal/day (PSU 2009 for critical illness) Estimated Protein Required (g/day) 83-110 gm/day (1.5-2 gm/kg IBW for critical illness, obesity) Estimated Fluid Required (l/day) 2.5-2.9 L/day (30-35 ml/kg/day for adult maintenance) Problem/Etiology/Signs/Symptoms Inadequate enteral nutrition support related to critical illness as evidenced by current NPO status and inability to meet estimated nutritional requirements. *ongoing* Expected Outcomes/Goals - Monitor parental nutrition support, advancement of TF, labs trending WNL, normal GI function, and skin integrity/wt maintenance Dietitian Recommendations * If/when medically appropriate, consider TPN at 60ml/hr at D17%, AA6.0% with IL20% at 10ml/hr. This will provide 1678kcal and 86gPro, meeting 100% of kcal and 100% of protein est nutrition needs. GIR 0.9. Follow Up High Risk: F/U in 2-3days LT, RD
[2019-03-19 16:35] VITALS: BP_SYST 104
--- NOTE | 2019-03-19 16:54 | NUR ---
Dietitian Recommendations * If/when medically appropriate, consider TPN at 60ml/hr at D17%, AA6.0% with IL20% at 10ml/hr. This will provide 1678kcal and 86gPro, meeting 100% of kcal and 100% of protein est nutrition needs. GIR 0.9. Please see Nutrition Follow Up for further details. LT, RD
--- NOTE | 2019-03-19 17:15 | NUR ---
Hypoglycemia Blood sugar rechecked 68 mg/dl ,awake no sweating , D50 given slowly , Dr. Mariano informed post D50 sugar 111 mg/dl , will monitor.
--- NOTE | 2019-03-19 19:25 | NUR ---
OPENING NOTES Receive report from Sherrell VILLALBA. Patient is awake, non verbal. NO acute respiratory distress and discomfort noted, HOB slightly elevated, on mechanical ventilator. No signs of pain and discomfort noted. Padded rails. SCD's operating well. IVF's infusing well. Skin warm to touch. Capellan catheter is draining by gravity. Call light within reach. Bed in locked and in lowest position. Bed alarm on Safety precautions in place, will continue to monitor
[2019-03-19] MEDS ORDERED: SODIUM ACETATE IV SCH ×6 (21:00)
[2019-03-19] MEDS ORDERED: [UNRECOGNIZED DRUG - OTHER] IV SCH ×6 (21:00)
[2019-03-19] MEDS ORDERED: TPN CENTRAL IV SCH ×6 (21:00)
[2019-03-19] MEDS ORDERED: MVI IV SCH ×6 (21:00)
[2019-03-19] MEDS ORDERED: TRACE ELEMENTS IV SCH ×6 (21:00)
--- NOTE | 2019-03-19 21:27 | NUR ---
MED PASS Due Medication given. Patient tolerated well. Safety precautions in place. Will continue to monitor.
--- NOTE | 2019-03-19 21:28 | NUR ---
STARTED TPN AND LIPIDS Started TPN and Lipids, infusing well. Patient tolerating well. Will continue to monitor.
[2019-03-19] MEDS: FAT EMULSIONS 250 ML IV SCH (21:29)
[2019-03-19] MEDS: levETIRAcetam 500 MG in NS 100 ML IV SCH ×2 (21:39→22:01)
[2019-03-19] MEDS: INSULIN REGULAR, HUMAN 100 UNITS/ML, 10 ML VIAL (humuLIN R) SUBCUT PRN (22:16)
--- NOTE | 2019-03-19 22:30 | NUR ---
BS= 101. Skin warm and dry, No signs of respiratory distress noted. Repositioned for comfort. Safety precautions on place.Will continue to monitor
[2019-03-19 23:52] VITALS: BP_SYST 102
[2019-03-20] MEDS: PANTOPRAZOLE SODIUM 40 MG in NS 50 ML IV SCH ×4 (00:44→16:00)
[2019-03-20] MEDS: IPRATROPIUM BROM 0.5 MG/2.5 ML VIAL.NEB (ATROVENT) INH SCH ×4 (00:50→20:05)
[2019-03-20] MEDS: ALBUTEROL SULFATE 0.083% 2.5 MG/3 ML VIAL.NEB INH SCH ×4 (00:50→20:05)
--- NOTE | 2019-03-20 02:40 | NUR ---
PERINEAL CARE/BRISENO CARE Bed bath done with the help of TOLL TEST WORKER. Repositioned patient for comfort. Briseno and perineal care done. Change foam dressing in the healing wound in sacrum, no drainage and odor noted. Suctioning done as needed. Patient tolerated well. No signs of respiratory distress and discomfort noted. Safety precautions in place. Will continue to monitor
--- NOTE | 2019-03-20 04:03 | NUR ---
RN ROUNDS Patient appears to be sleeping. No signs of respiratory and discomfort noted. Breathing even and unlabored, on mechanical ventilator. IVF's infusing well. Safety precautions in place. Will continue to monitor patient.
[2019-03-20 05:01] VITALS: BP_SYST 109
--- NOTE | 2019-03-20 05:01 | NUR ---
SEIZURE HR 45 per Telemonitor, went and checked patient. Patient had an episode of seizure for 1 minute. Vital Signs were taken and recorded. Maintained aspiration precaution. Seizure pads in place. No respiratory distress noted. Will continue to monitor.
[2019-03-20] MEDS: PIPERACILLIN/TAZO 3.375/DEX-IS 50 ML IV SCH ×4 (05:17→23:40)
[2019-03-20] MEDS: INSULIN REGULAR, HUMAN 100 UNITS/ML, 10 ML VIAL (humuLIN R) SUBCUT PRN ×2 (05:29→23:42)
[2019-03-20 06:17] LABS: BASOPHILS # (AUTO) 0.1 K/uL (0.0-0.2); BASOPHILS % (AUTO) 1.3 % (0.0-2.0); EOSINOPHILS # (AUTO) 0.4 K/uL (0.0-0.4); EOSINOPHILS % (AUTO) 8.7 % (0.0-4.0); HEMATOCRIT 26.6 % (36-48); HEMOGLOBIN 7.8 g/dL (12.0-16.0); LYMPHOCYTES # (AUTO) 1.4 K/uL (1.0-5.5); MEAN CORPUSCULAR HEMOGLOBIN 21 pg (27-31); MEAN CORPUSCULAR HGB CONC 29 % (32-36); MEAN CORPUSCULAR VOLUME 72 fL (79.0-98.0); MONOCYTES # (AUTO) 0.5 K/uL (0.0-1.0); MONOCYTES % (AUTO) 10.3 % (1.7-9.3); NEUTROPHILS # (AUTO) 2.3 K/uL (1.8-7.7); NEUTROPHILS % (AUTO) 49.7 % (40.0-70.0); PLATELET COUNT (AUTO) 246 K/uL (130-430); RED BLOOD CELL COUNT(AUTO) 3.69 MIL/uL (4.2-6.2); RED CELL DISTRIBUTION WIDTH 28.8 % (9.0-15.0); WHITE BLOOD COUNT (AUTO) 4.7 K/uL (4.8-10.8)
--- NOTE | 2019-03-20 07:10 | NUR ---
CLOSING NOTES Patient appears to be asleep. Breathing even and unlabored. No signs of respiratory distress and discomfort noted. Capellan catheter draining by gravity. IVF, TPN, Lipids infusing well. On mechanical ventilator operating well. SCD's attached and operating well. Call light within reach. Bed locked and lowest position. Safety precautions in place. All needs met through out the shift will continue to monitor until endorse to oncoming nurse
[2019-03-20 07:12] LABS: ALBUMIN 2.1 g/dL (3.4-4.8); CALCIUM 7.6 mg/dL (8.4-11.0); CREATININE 0.75 mg/dL (0.55-1.30); PHOSPHORUS 1.9 mg/dL (2.7-4.5); TOTAL BILIRUBIN 0.4 mg/dL (0.0-1.0)
[2019-03-20 07:20] LABS: POTASSIUM 2.8 mmol/L (3.5-5.1)
--- NOTE | 2019-03-20 07:21 | NUR ---
Nicole Mariano for critical lab result spoke to
[2019-03-20] MEDS ORDERED: POTASSIUM CHLORIDE 40 MEQ in NS 250 ML IV ONE (07:30)
[2019-03-20 07:35] VITALS: BP_SYST 93
[2019-03-20] MEDS: FERROUS SULFATE 300 MG/5 ML UDC GT SCH ×2 (08:36→20:58)
[2019-03-20] MEDS: levETIRAcetam 500 MG in NS 100 ML IV SCH (08:36)
[2019-03-20] MEDS: BACLOFEN 10 MG TABLET GT SCH ×2 (08:36→20:58)
[2019-03-20] MEDS: PEG 400/HYPROMELLOSE/GLYCERIN 15 ML DROPS EACH EYE SCH ×2 (08:37→20:59)
[2019-03-20] MEDS: 0.45% NACL 1,000 ML IV SCH (08:48)
[2019-03-20] MEDS: SOD FERRIC GLUC COMPLEX/SUC 125 MG in NS 100 ML IV SCH (09:56)
[2019-03-20 12:00] VITALS: BP_SYST 109
--- NOTE | 2019-03-20 12:10 | NUR ---
1140 TITRATED FIO2 DOWN TO 30% PER MD HERNANDEZ. SPO2 99%, HR 85. WILL CONTINUE TO MONITOR PT.
[2019-03-20] MEDS ORDERED: K PHOS 30 MM in NS 250 ML IV ONE (13:00)
--- NOTE | 2019-03-20 14:42 | NUR ---
BT INITIATION:H/H 78.8 /26.6 Consent signed per agreeing to administration of blood. Blood has been type and crossmatched. Blood sent from blood bank. Information on unit of blood checked against patient wristband at bedside by two nurses. All information matches. Patient or responsible alliance party informed of potential complications associated with blood transfusion. Informed of possible transfusion reaction symptoms. Aware of need to notify nurse at once of itching, shortness of breath, flushing, feeling of impending doom, or other symptoms not previously present. Vital signs taken within 5 minutes prior to initiation of transfusion. RN will remain with patient for first 15 minutes of transfusion at which time vital signs will be re-assessed.
[2019-03-20 15:52] VITALS: BP_SYST 130
--- NOTE | 2019-03-20 16:27 | NUR ---
Patient FIO2 30% tolerating well oxygen saturation 99% , no sign of acute distress ; 1 unit of PRBC still infusing no sign of blood transfusion reaction, will monitor.
--- NOTE | 2019-03-20 17:00 | NUR ---
Blood transfusion completed no sign of fluid overload or transfusion reaction ,with good urine output, vitals sign stable.
--- NOTE | 2019-03-20 17:30 | NUR ---
Patient had a bowel movement loose stool dark color moderate amount , perineal/oral given , dressing sacral area dry/intact , skin cream barrier applied , repositoned , all extremities supported by pillow , will monitor.
--- NOTE | 2019-03-20 19:13 | NUR ---
OPENING NOTES Receive report from AM nurse. Patient appears to be sleeping, breathing even and unlabored, patient is non verbal. NO acute respiratory distress and discomfort noted, HOB slightly elevated, on mechanical ventilator. No signs of pain and discomfort noted. Padded rails. IVF's infusing well. Skin warm to touch. Capellan catheter is draining by gravity. SCD's operating well. Call light within reach. Bed in locked and in lowest position. Bed alarm on. Safety precautions in place, will continue to monitor
[2019-03-20 20:53] VITALS: BP_SYST 121
--- NOTE | 2019-03-20 20:59 | NUR ---
MED PASS/HUNG NEW TPN/LIPIDS Lipids, TPN hung at this time. Patient tolerated well. On ventilator, operating well. No signs of respiratory distress noted. No signs of discomfort noted. Safety precautions in place. Will continue to monitor.
[2019-03-20] MEDS ORDERED: 0.45% NACL 1,000 ML IV SCH (21:00)
[2019-03-20] MEDS ORDERED: TRACE ELEMENTS IV SCH ×9 (21:00)
[2019-03-20] MEDS ORDERED: TPN CENTRAL IV SCH ×9 (21:00)
[2019-03-20] MEDS ORDERED: MVI IV SCH ×9 (21:00)
[2019-03-20] MEDS: FAT EMULSIONS 250 ML IV SCH (21:00)
[2019-03-20] MEDS ORDERED: SODIUM ACETATE IV SCH ×9 (21:00)
[2019-03-20] MEDS ORDERED: [UNRECOGNIZED DRUG - OTHER] IV SCH ×9 (21:00)
--- NOTE | 2019-03-20 23:10 | NUR ---
ORAL CARE/ SUCTIONED Suctioned patient and oral care done. Patient tolerated well. No signs of respiratory distress and discomfort noted. Repositioned for comfort. Safety precautions in place. Will continue to monitor.
[2019-03-21] MEDS: ALBUTEROL SULFATE 0.083% 2.5 MG/3 ML VIAL.NEB INH SCH ×4 (01:05→19:35)
[2019-03-21] MEDS: IPRATROPIUM BROM 0.5 MG/2.5 ML VIAL.NEB (ATROVENT) INH SCH ×4 (01:05→19:35)
--- NOTE | 2019-03-21 01:09 | NUR ---
RN ROUNDS Patient asleep at this time. No signs of respiratory distress and discomfort noted, breathing even and unlabored. On mechanical ventilator, operating well. IVF's infusing well. Will continue to monitor patient
--- NOTE | 2019-03-21 03:50 | NUR ---
RN ROUNDS Patient appears to be sleeping. No signs of respiratory distress and discomfort noted, chest raised and fall evenly. On mechanical ventilator, operating well. IVF's infusing well. Will continue to monitor patient
[2019-03-21] MEDS: PIPERACILLIN/TAZO 3.375/DEX-IS 50 ML IV SCH ×4 (05:07→23:23)
[2019-03-21] MEDS: INSULIN REGULAR, HUMAN 100 UNITS/ML, 10 ML VIAL (humuLIN R) SUBCUT PRN (05:10)
--- NOTE | 2019-03-21 05:10 | NUR ---
BS checked 114
--- NOTE | 2019-03-21 07:00 | NUR ---
CLOSING NOTES Patient asleep, no signs and symptoms of acute distress noted, all needs met throughout the shift. Safety precautions maintained. Will endorse.
--- NOTE | 2019-03-21 07:25 | NUR ---
AM ROUNDS: BEDSIDE REPORT GIVEN BY NIGHT NURSE SANJIV/DARLYN.ON TRACH VENT DEPENDENT,FIO2=30%,TOLERATED WELL.LEFT UPPER ARM PICC LINE ,TPN AND LIPIDS RUNNING WELL. QUADRIPLEGIC. G TUBE CLAMPED,FOR MEDS USE ORDERED. BRISENO IN SITU.NON RESPONSIVE. RESTING THIS TIME. BED LOCKED AT LOWEST POSITION. CONDITION GUARDED.
[2019-03-21 08:11] LABS: BASOPHILS # (AUTO) 0.1 K/uL (0.0-0.2); BASOPHILS % (AUTO) 1.1 % (0.0-2.0); EOSINOPHILS # (AUTO) 0.5 K/uL (0.0-0.4); EOSINOPHILS % (AUTO) 9.8 % (0.0-4.0); HEMOGLOBIN 9.5 g/dL (12.0-16.0); LYMPHOCYTES # (AUTO) 1.9 K/uL (1.0-5.5); LYMPHOCYTES % (AUTO) 34.9 % (20.5-51.5); MEAN CORPUSCULAR HEMOGLOBIN 22 pg (27-31); MEAN CORPUSCULAR HGB CONC 30 % (32-36); MEAN CORPUSCULAR VOLUME 74 fL (79.0-98.0); MONOCYTES # (AUTO) 0.7 K/uL (0.0-1.0); MONOCYTES % (AUTO) 12.4 % (1.7-9.3); NEUTROPHILS # (AUTO) 2.3 K/uL (1.8-7.7); NEUTROPHILS % (AUTO) 41.8 % (40.0-70.0); PLATELET COUNT (AUTO) 254 K/uL (130-430); RED BLOOD CELL COUNT(AUTO) 4.32 MIL/uL (4.2-6.2); RED CELL DISTRIBUTION WIDTH 30.2 % (9.0-15.0); WHITE BLOOD COUNT (AUTO) 5.5 K/uL (4.8-10.8)
[2019-03-21 08:43] LABS: ALBUMIN 2.2 g/dL (3.4-4.8); CALCIUM 8.1 mg/dL (8.4-11.0); CREATININE 0.78 mg/dL (0.55-1.30); PHOSPHORUS 2.4 mg/dL (2.7-4.5); POTASSIUM 3.3 mmol/L (3.5-5.1); TOTAL BILIRUBIN 0.4 mg/dL (0.0-1.0)
[2019-03-21] MEDS: FERROUS SULFATE 300 MG/5 ML UDC GT SCH ×2 (08:59→21:46)
[2019-03-21] MEDS: PANTOPRAZOLE SODIUM 40 MG/VIAL (PROTONIX) IVP SCH (08:59)
[2019-03-21] MEDS: BACLOFEN 10 MG TABLET GT SCH ×2 (08:59→21:47)
[2019-03-21] MEDS: PEG 400/HYPROMELLOSE/GLYCERIN 15 ML DROPS EACH EYE SCH ×2 (08:59→21:47)
[2019-03-21] MEDS: levETIRAcetam 500 MG in NS 100 ML IV SCH ×2 (09:00→21:47)
[2019-03-21] MEDS: SOD FERRIC GLUC COMPLEX/SUC 125 MG in NS 100 ML IV SCH (09:18)
[2019-03-21 09:20] VITALS: BP_SYST 138
[2019-03-21 09:21] VITALS: BP_SYST 138
--- NOTE | 2019-03-21 09:50 | NUR ---
MEDS/G TUBE: NO RESIDUALS PRIOR TO GIVING MEDS.CRUSHED MEDS GIVEN PER G TUBE. FLUSHED WITH WATER AFTER GIVING MEDS.NO PROBLEM.
--- NOTE | 2019-03-21 11:49 | NUR ---
Blood Sugar: Blood sugar taken,no insulin needed per sliding scale.
[2019-03-21 12:34] VITALS: BP_SYST 120
--- NOTE | 2019-03-21 13:15 | NUR ---
RN ROUNDS: STILL ON FIO2 =30%,TOLERATED WELL. CONTINUE TO MONITOR.
[2019-03-21] MEDS ORDERED: KCL 40 mEq in 100 mL (PREMIX) 100 ML IV ONE (16:15)
[2019-03-21 16:17] VITALS: BP_SYST 121
--- NOTE | 2019-03-21 17:03 | NUR ---
BLOOD SUGAR: BLOOD SUGAR TAKEN,NO INSULIN NEEDED PER SLIDING SCALE.
[2019-03-21] MEDS ORDERED: K PHOS 15 MM in NS 250 ML IV ONE (17:30)
--- NOTE | 2019-03-21 18:35 | NUR ---
END OF SHIFT: CALLED PATIENT'S DAUGHTER ALESSIA,LEFT MESSAGE THRU HER PHONE #[phone] TO CALL US BACK FOR CONSENT FOR SURGERY. WITH SAME VENT SETTINGS.PATIENT TOLERATED WELL.G TUBE CLAMPED,FOR MEDS USED ONLY THIS TIME. TPN/LIPIDS ON GOING. NO ACUTE DISTRESS. PRACTICE GUIDELINE MET THROUGH OUT THE SHIFT.
--- NOTE | 2019-03-21 19:39 | NUR ---
Pt is awake and non-verbal. Pt has tracheostomy tube in place and connected to mechanical ventilator with settings of AC 10, TV 500, FIO2 30% and Peep 5. No respiratory distress noted. TPN and Lipids are infusing well via WILLIAMS PICC at 52ml/hr and 10ml/hr respectively. PICC dressing is dry and intact. G tube is clamped with 0ml residual. Capellan cath to gravity drainage is draining clear yellowish urine. Fall, seizure and safety precautions are in place.
[2019-03-21 20:00] VITALS: BP_SYST 124
[2019-03-21] MEDS ORDERED: [UNRECOGNIZED DRUG - OTHER] IV SCH ×9 (21:00)
[2019-03-21] MEDS ORDERED: MVI IV SCH ×9 (21:00)
[2019-03-21] MEDS ORDERED: TPN CENTRAL IV SCH ×9 (21:00)
[2019-03-21] MEDS ORDERED: TRACE ELEMENTS IV SCH ×9 (21:00)
[2019-03-21] MEDS ORDERED: SODIUM ACETATE IV SCH ×9 (21:00)
--- NOTE | 2019-03-21 21:00 | NUR ---
Pt is tolerating vent settings well. No respiratory distress or seizure activity noted. G tube remains clamped with the dressing dry and intact. TPN and Lipids are infusing well via WILLIAMS PICC. Fall, seizure and safety precautions are in place.
[2019-03-21] MEDS: FAT EMULSIONS 250 ML IV SCH (21:50)
--- NOTE | 2019-03-21 23:00 | NUR ---
Pt is sleeping without any distress noted and pt is tolerating vent settings well. No respiratory distress or seizure activity noted. TPN and Lipids are infusing well via WILLIAMS PICC. Fall, seizure and safety precautions are in place.
[2019-03-22] MEDS: IPRATROPIUM BROM 0.5 MG/2.5 ML VIAL.NEB (ATROVENT) INH SCH ×4 (01:00→20:01)
[2019-03-22] MEDS: ALBUTEROL SULFATE 0.083% 2.5 MG/3 ML VIAL.NEB INH SCH ×4 (01:00→20:00)
--- NOTE | 2019-03-22 03:00 | NUR ---
Pt is sleeping without any distress noted. TPN and Lipids are are infusing well via WILLIAMS PICC. Pt is tolerating vent settings and no respiratory distress noted. Fall, seizure and safety precautions are in place.
--- NOTE | 2019-03-22 05:00 | NUR ---
Pt is awake and resting in bed without any distress noted. Pt is tolerating vent settings well.
[2019-03-22] MEDS: PIPERACILLIN/TAZO 3.375/DEX-IS 50 ML IV SCH (05:43)
--- NOTE | 2019-03-22 06:48 | NUR ---
Pt is awake and remains non-verbal. All pt's needs were attended to. TPN and Lipids are infusing well via WILLIAMS PICC. Pt is tolerating vent settings well and G Tube remains clamped. Fall, seizure and safety precautions are in place. Will endorse to day shift nurse.
--- NOTE | 2019-03-22 07:25 | NUR ---
sbar report received at this time. patient aphasic. non verbal. has mechanical ventilator ac 10, tv 500, peep 5 and Fi02 30%. lungs bilaterally diminished at the bases. has left arm upper picc line with tpn at 60 and lipids 10cc/hr infusing on well. has kellogg catheter draining well. clear yellow urine. has bilateral scds on. still npo status. hourly monitorting.
[2019-03-22 07:31] LABS: ALBUMIN 2.1 g/dL (3.4-4.8); CALCIUM 7.9 mg/dL (8.4-11.0); CREATININE 0.75 mg/dL (0.55-1.30); PHOSPHORUS 2.9 mg/dL (2.7-4.5); POTASSIUM 3.5 mmol/L (3.5-5.1); TOTAL BILIRUBIN 0.3 mg/dL (0.0-1.0)
[2019-03-22 07:40] VITALS: BP_SYST 101
--- NOTE | 2019-03-22 07:58 | NUR ---
has g tube clamped.
[2019-03-22] MEDS: PEG 400/HYPROMELLOSE/GLYCERIN 15 ML DROPS EACH EYE SCH ×2 (09:00→22:40)
--- NOTE | 2019-03-22 09:00 | NUR ---
DUE MEDICATION GIVEN.
--- NOTE | 2019-03-22 10:30 | NUR ---
dr fung came made orders for surgery in am.
[2019-03-22] MEDS ORDERED: BISACODYL 5 MG TABLET.DR (DULCOLAX) PO ONE (10:45)
[2019-03-22] MEDS ORDERED: MAGNESIUM CITRATE 300 ML ORAL SOLUTION PO ONE (10:45)
--- NOTE | 2019-03-22 11:27 | NUR ---
started bowel preparation with dulcolax tablets, neomycin tablet, flagyl tablet and magnesium citrate. via g tube flush with water.
[2019-03-22] MEDS ORDERED: NEOMYCIN SULFATE 500 MG TABLET PO ONE (11:45)
[2019-03-22] MEDS ORDERED: metroNIDAZOLE 500 MG TABLET PO ONE (11:45)
[2019-03-22] MEDS: FERROUS SULFATE 300 MG/5 ML UDC GT SCH ×2 (11:56→22:38)
[2019-03-22] MEDS: SOD FERRIC GLUC COMPLEX/SUC 125 MG in NS 100 ML IV SCH (11:57)
[2019-03-22] MEDS: PANTOPRAZOLE SODIUM 40 MG/VIAL (PROTONIX) IVP SCH (11:57)
[2019-03-22] MEDS: BACLOFEN 10 MG TABLET GT SCH ×2 (11:58→22:38)
[2019-03-22] MEDS: levETIRAcetam 500 MG in NS 100 ML IV SCH ×2 (11:59→22:41)
--- NOTE | 2019-03-22 12:00 | NUR ---
latest bs 101 mg/dl. no coverage given.
[2019-03-22 12:27] VITALS: BP_SYST 126
--- NOTE | 2019-03-22 14:00 | NUR ---
oral care and suctioning done. frequently with the rt and rn
[2019-03-22] MEDS ORDERED: NEOMYCIN SULFATE 500 MG TABLET PO SCH (15:00)
--- NOTE | 2019-03-22 15:39 | NUR ---
Nutrition F/U RD reviewed pt's current EMR including diet Hx, physician notes, nursing notes, pertinent labs/m,eds/procedures, care trends, and care activity. Current diet order: NPO x4 days Current Nutrition Support: TPN D40, AA8.5% at 60 ml/hr, IL20% at 10 ml/hr daily via central line Subjective Information: Pt was seen resting in bed, +trach to vent, +non-verbal, w/ TPN infusing at 60 ml/hr, IL20% at 10 ml/hr via central line. 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 NEW Estimated Energy Expenditure (kcals/day) 4309-5328 kcal/day (MSJ x 1.2-1.5 d/t possible CA and pending Sx) Estimated Protein Required (g/day) 83-110 gm/day (1.5-2 gm/kg IBW for critical illness, obesity, pending Sx) NEW Estimated Fluid Required (l/day) 1.7-2 L/day (1 ml/kcal/day for adult maintenance) Problem/Etiology/Signs/Symptoms Inadequate enteral nutrition support related to critical illness as evidenced by current NPO status and inability to meet estimated nutritional requirements. *ongoing* Expected Outcomes/Goals - Monitor parental nutrition support, advancement of TF, labs trending WNL, normal GI function, and skin integrity/wt maintenance Dietitian Recommendations * Recommend continuing TPN D40, AA8.5% at 70 ml/hr, IL20% at 10 ml/hr daily via central line Provides: 1908 kcal/day, 71 gm protein/day, 1920 ml total volume/day, and GIR: 2.8 gm CHO/kg/min Meets: 92% of upper end of estimated caloric needs and 86% of lower end of estimated protein needs Follow Up High Risk: F/U in 2-3 days
--- NOTE | 2019-03-22 15:46 | NUR ---
Dietitian Recommendations * Recommend continuing TPN D40%, AA8.5% at 70 ml/hr, IL20% at 10 ml/hr daily via central line Provides: 1908 kcal/day, 71 gm protein/day, 1920 ml total volume/day, and GIR: 2.8 gm CHO/kg/min Meets: 92% of upper end of estimated caloric needs and 86% of lower end of estimated protein needs LP, RD Please refer to Nutrition F/U for details.
--- NOTE | 2019-03-22 16:19 | NUR ---
pre op checklist started and please complete
[2019-03-22 16:32] VITALS: BP_SYST 121
--- NOTE | 2019-03-22 17:34 | NUR ---
LATEST BS 88MG/DL. NO COVERAGE GIVEN. TURN TO SIDES.
--- NOTE | 2019-03-22 18:40 | NUR ---
turn to sides. made comfortable. hob elevated.
--- NOTE | 2019-03-22 19:20 | NUR ---
endorsed to incoming nurse Samiar RN/Enio student nurse
--- NOTE | 2019-03-22 19:25 | NUR ---
Opening notes: Pt is awake and non-verbal. Pt has tracheostomy tube in place and connected to mechanical ventilator with settings of AC 10, TV 500, FIO2 30% and Peep 5. No respiratory distress noted. TPN and Lipids are infusing well via WILLIAMS PICC at 60ml/hr and 10ml/hr respectively. PICC dressing is dry and intact. G tube is clamped with 0ml residual. Capellan cath to gravity drainage is draining clear yellowish urine. Fall, seizure and safety precautions are in place.
--- NOTE | 2019-03-22 19:45 | NUR ---
PICC dsg change: WILLIAMS PICC dsg was changed, utilizing sterile technique. Caps on both lumens were also changed.
[2019-03-22 20:00] VITALS: BP_SYST 153
[2019-03-22] MEDS ORDERED: TRACE ELEMENTS IV SCH ×9 (21:00)
[2019-03-22] MEDS ORDERED: MVI IV SCH ×9 (21:00)
[2019-03-22] MEDS ORDERED: [UNRECOGNIZED DRUG - OTHER] IV SCH ×9 (21:00)
[2019-03-22] MEDS ORDERED: TPN CENTRAL IV SCH ×9 (21:00)
[2019-03-22] MEDS ORDERED: SODIUM ACETATE IV SCH ×9 (21:00)
--- NOTE | 2019-03-22 22:15 | NUR ---
Wound Care: Sacral/coccygeal scar-tissue dressing change done. Area was cleansed with normal saline and pat dried. Hydraguard cream was applied to the area and covered with foam dressing. No drainage or odor noted. Addendum: 03/23/19 at 0207 by SN Mikel SN G-Tube site dressing was changed. Small amount of pinkish drainage noted. No odor noted. Site was cleansed with normal saline and pat dried, followed by pre-cut drain sponge dressing.
[2019-03-22] MEDS: NEOMYCIN SULFATE 500 MG TABLET PO SCH (22:38)
[2019-03-22] MEDS: metroNIDAZOLE 500 MG TABLET PO SCH (22:39)
[2019-03-22] MEDS: FAT EMULSIONS 250 ML IV SCH (22:51)
--- NOTE | 2019-03-23 | NUR ---
Pt is sleeping and tolerating vent settings well. No respiratory distress or seizure activity noted. G tube remains clamped with the dressing dry and intact. TPN and Lipids are infusing well via WILLIAMS PICC. Fall, seizure and safety precautions are in place.
[2019-03-23] MEDS: IPRATROPIUM BROM 0.5 MG/2.5 ML VIAL.NEB (ATROVENT) INH SCH ×4 (00:57→19:53)
[2019-03-23] MEDS: ALBUTEROL SULFATE 0.083% 2.5 MG/3 ML VIAL.NEB INH SCH ×4 (00:57→19:52)
--- NOTE | 2019-03-23 02:00 | NUR ---
Patient is sleeping. No signs of distress noted. Fall, seizure, and safety precautions are in place.
--- NOTE | 2019-03-23 02:10 | NUR ---
Pt is tolerating vent settings well. No respiratory distress or seizure activity noted. G tube remains clamped with the dressing dry and intact. Fall, seizure and safety precautions are in place.
--- NOTE | 2019-03-23 05:40 | NUR ---
Pt was incontinent of large amount of watery brownish green stool. Addie care was given. Sacral/coccygeal scar-tissue dressing change was done due to soilage. The site was cleansed with normal saline and pat dried. Hydraguard cream was applied to the area and covered with foam dressing. No drainage or odor noted.
[2019-03-23 06:13] LABS: INR 1.1 (0.8-1.2); PROTHROMBIN TIME 11.1 SECS (9.5-12.5)
[2019-03-23 06:21] LABS: HEMATOCRIT 33.7 % (36-48); HEMOGLOBIN 10.1 g/dL (12.0-16.0); MEAN CORPUSCULAR HEMOGLOBIN 23 pg (27-31); MEAN CORPUSCULAR HGB CONC 30 % (32-36); MEAN CORPUSCULAR VOLUME 77 fL (79.0-98.0); RED CELL DISTRIBUTION WIDTH 30.5 % (9.0-15.0)
[2019-03-23 06:25] LABS: ALBUMIN 2.3 g/dL (3.4-4.8); CALCIUM 7.7 mg/dL (8.4-11.0); CREATININE 0.69 mg/dL (0.55-1.30); PHOSPHORUS 2.9 mg/dL (2.7-4.5); POTASSIUM 3.4 mmol/L (3.5-5.1); TOTAL BILIRUBIN 0.4 mg/dL (0.0-1.0)
--- NOTE | 2019-03-23 07:45 | NUR ---
am notes received pt in bed. res even and unlabored. vitals stable. pt has tracheostomy tube [facility] to [facility] vent settingAC 10, TV500,FIO2 30,PEEP. tolerating well. hob elevated no s/s of distress noted.karen picc line dressing dry and intact. tpn and lipid infusing as ordered. no s/s of infiltartion noted.fall ald safety precautions in place call light with in reach, will continue to monitor
[2019-03-23 09:38] LABS: ATYPICAL LYMPHOCYTES % 0 % (0-0); BAND % (MANUAL) 0 % (0-6); BASOPHILS % (MANUAL) 0 % (0-2); EOSINOPHILS % (MANUAL) 4 % (0-7); LYMPHOCYTES % (MANUAL) 36 % (20-46)
[2019-03-23 09:40] LABS: PLATELET COUNT (AUTO) 262 K/uL (130-430)
[2019-03-23 09:41] LABS: MONOCYTES % (MANUAL) 10 % (0-11)
[2019-03-23] MEDS: PANTOPRAZOLE SODIUM 40 MG/VIAL (PROTONIX) IVP SCH (10:22)
[2019-03-23] MEDS: FERROUS SULFATE 300 MG/5 ML UDC GT SCH ×2 (10:22→22:57)
[2019-03-23] MEDS: levETIRAcetam 500 MG in NS 100 ML IV SCH ×2 (10:23→23:05)
[2019-03-23] MEDS: metroNIDAZOLE 500 MG TABLET PO SCH ×3 (10:23→22:58)
[2019-03-23] MEDS: NEOMYCIN SULFATE 500 MG TABLET PO SCH ×3 (10:24→22:58)
[2019-03-23] MEDS: BACLOFEN 10 MG TABLET GT SCH ×2 (10:24→22:57)
[2019-03-23] MEDS ORDERED: DIATR MEGLU/DIATRIZ SOD 30 ML SOLUTION PO ONE (10:38)
[2019-03-23] MEDS: PEG 400/HYPROMELLOSE/GLYCERIN 15 ML DROPS EACH EYE SCH ×2 (10:44→22:57)
[2019-03-23 11:06] VITALS: BP_SYST 124
--- NOTE | 2019-03-23 11:45 | NUR ---
Nutrition Note RD relayed recent TPN rec to pharmD: TPN D40%, AA8.5% at 70 ml/hr, IL20% at 10 ml/hr daily via central line.
--- NOTE | 2019-03-23 12:00 | NUR ---
ROUNDS PT STABLE NOTIN ACUTE DISTRESS. TOLERATING VENT WITH SAME SETTING. SAFETY AND FALL PRECAUTIONS IN PLACE. DAUGHTER AT BED SIDE. POC DISCUSSED. VERBALIZED UNDER STANDING.TPN AND LIPD CONYINUE INFUSING WELL. G TUBE FLUSHED NO RESIDUAL NOTED. WILL CONTINUE TO MONITOR
[2019-03-23] MEDS: SOD FERRIC GLUC COMPLEX/SUC 125 MG in NS 100 ML IV SCH (12:22)
[2019-03-23] MEDS ORDERED: POTASSIUM CHLORIDE 40 MEQ in D5W 250 ML IV ONE (14:00)
[2019-03-23 15:56] VITALS: BP_SYST 116
--- NOTE | 2019-03-23 16:00 | NUR ---
rounds PT STABLE NOTIN ACUTE DISTRESS. TOLERATING VENT WITH SAME SETTING. SAFETY AND FALL PRECAUTIONS IN PLACE. DAUGHTER AT BED SIDE. TPN AND LIPD CONTINUE INFUSING WELL. SEEN BY DR ALVAREZ .WILL CONTINUE TO MONITOR
--- NOTE | 2019-03-23 17:01 | NUR ---
BLOOD SUGAR BLOOD SUGAR 126 NO COVERAGE NEEDED. PT RESTING COMFORTABLY. NO S/S OF DISTRESS NOTED
--- NOTE | 2019-03-23 19:30 | NUR ---
closing notes PT STABLE NOTIN ACUTE DISTRESS. TOLERATING VENT WITH SAME SETTING. SAFETY AND FALL PRECAUTIONS IN PLACE.TPN AND LIPiD CONTINUE INFUSING WELL. HOB ELEVATED. REPOSITIONED WITH PILLOW. REPORT GIVEN TO NIGHT NURSE
[2019-03-23 20:00] VITALS: BP_SYST 138
--- NOTE | 2019-03-23 20:00 | NUR ---
Pt is awake and non-verbal. Pt has tracheostomy tube in place and connected to mechanical ventilator with settings of AC 10, TV 500, FIO2 30% and Peep 5. No respiratory distress noted. TPN and Lipids are infusing well via WILLIAMS PICC at 70ml/hr and 10ml/hr respectively. PICC dressing is dry and intact. G tube is clamped with 0ml residual. Capellan cath to gravity drainage is draining clear yellowish urine. Fall, seizure and safety precautions are in place.
[2019-03-23] MEDS ORDERED: TPN CENTRAL IV SCH ×9 (21:00)
[2019-03-23] MEDS ORDERED: [UNRECOGNIZED DRUG - OTHER] IV SCH ×9 (21:00)
[2019-03-23] MEDS ORDERED: SODIUM CHLORIDE IV SCH ×9 (21:00)
[2019-03-23] MEDS ORDERED: NA PHOS IV SCH ×9 (21:00)
--- NOTE | 2019-03-23 22:30 | NUR ---
Sacral/coccygeal scar-tissue dressing change done. Area was cleansed with normal saline and pat dried. Hydraguard cream was applied to the area and covered with foam dressing. No drainage or odor noted. Photo of the site was taken.
[2019-03-23] MEDS: FAT EMULSIONS 250 ML IV SCH (23:13)
[2019-03-24] VITALS (23 sets, daily range): BP systolic 117–163
--- NOTE | 2019-03-24 01:00 | NUR ---
Patient is sleeping comfortably in bed. No signs of distress noted. Fall, seizure, and safety precautions are in place.
[2019-03-24] MEDS: ALBUTEROL SULFATE 0.083% 2.5 MG/3 ML VIAL.NEB INH SCH ×4 (01:44→20:21)
[2019-03-24] MEDS: IPRATROPIUM BROM 0.5 MG/2.5 ML VIAL.NEB (ATROVENT) INH SCH ×4 (01:45→20:21)
--- NOTE | 2019-03-24 03:00 | NUR ---
TPN and Lipids are infusing well in WILLIAMS. Pt is tolerating vent settings well. No respiratory distress or seizure activity noted. G tube remains clamped with the dressing dry and intact. Fall, seizure and safety precautions are in place.
--- NOTE | 2019-03-24 05:30 | NUR ---
Sacral/coccygeal scar-tissue dressing change was done due to soilage of the dressing with bowel movement. Area was cleansed with normal saline and pat dried. Hydraguard cream was applied to the area and covered with foam dressing. No drainage or odor noted.
--- NOTE | 2019-03-24 06:30 | NUR ---
Pt is awake and resting quietly in bedl. All pt's needs were attended to. TPN and Lipids are infusing well via WILLIAMS PICC. Pt is tolerating vent settings well and G Tube remains clamped. Fall, seizure and safety precautions are in place. Will endorse to day shift nurse.
[2019-03-24] MEDS ORDERED: 0.45% NACL 1,000 ML IV SCH (07:15)
[2019-03-24 07:16] LABS: BASOPHILS # (AUTO) 0.1 K/uL (0.0-0.2); BASOPHILS % (AUTO) 1.6 % (0.0-2.0); EOSINOPHILS # (AUTO) 0.3 K/uL (0.0-0.4); EOSINOPHILS % (AUTO) 6.2 % (0.0-4.0); HEMATOCRIT 33.1 % (36-48); HEMOGLOBIN 9.9 g/dL (12.0-16.0); LYMPHOCYTES # (AUTO) 2.1 K/uL (1.0-5.5); LYMPHOCYTES % (AUTO) 38.4 % (20.5-51.5); MEAN CORPUSCULAR HEMOGLOBIN 23 pg (27-31); MEAN CORPUSCULAR HGB CONC 30 % (32-36); MEAN CORPUSCULAR VOLUME 76 fL (79.0-98.0); MONOCYTES # (AUTO) 0.5 K/uL (0.0-1.0); MONOCYTES % (AUTO) 9.5 % (1.7-9.3); NEUTROPHILS # (AUTO) 2.4 K/uL (1.8-7.7); PLATELET COUNT (AUTO) 261 K/uL (130-430); RED BLOOD CELL COUNT(AUTO) 4.35 MIL/uL (4.2-6.2); RED CELL DISTRIBUTION WIDTH 31.2 % (9.0-15.0); WHITE BLOOD COUNT (AUTO) 5.5 K/uL (4.8-10.8)
--- NOTE | 2019-03-24 07:25 | NUR ---
Pt was taken to OR via bed in stable condition. Pt was accompanied by 1 OR nurse and 2 Respiratory Therapists. Pt was on continuous cardiac monitoring during transfer to OR. coil builder was given to Drill Sharpener Operator.
--- NOTE | 2019-03-24 07:30 | NUR ---
RN OPENING NOTE RECEIVED SBAR REPORT AT BEDSIDE BY ENDORSING NURSE. PT IS NOT AT BEDSIDE, SHE HAS BEEN TRANSPORTED TO PRE-OP FOR SCHEDULED SX
[2019-03-24 07:32] LABS: CREATININE 0.68 mg/dL (0.55-1.30); PHOSPHORUS 2.1 mg/dL (2.7-4.5); POTASSIUM 3.8 mmol/L (3.5-5.1)
[2019-03-24 07:33] LABS: NEUTROPHILS % (AUTO) 44.3 % (40.0-70.0)
--- NOTE | 2019-03-24 08:20 | NUR ---
VERBAL CONSENT FOR ANESTHESIA SECURED PT'S DAUGHTER, ALESSIA, PROVIDED CONSENT OVER THE TELEPHONE, WITNESSED BY TWO RNS.
[2019-03-24] MEDS ORDERED: LR 1,000 ML IV SCH (08:49)
[2019-03-24] MEDS: PEG 400/HYPROMELLOSE/GLYCERIN 15 ML DROPS EACH EYE SCH ×2 (09:00→20:20)
[2019-03-24] MEDS: BACLOFEN 10 MG TABLET GT SCH ×2 (09:00→20:18)
[2019-03-24] MEDS: FERROUS SULFATE 300 MG/5 ML UDC GT SCH ×2 (09:00→20:20)
[2019-03-24] MEDS ORDERED: ONDANSETRON HCL 4 MG/2 ML VIAL IVP PRN ×2 (09:00→13:45)
[2019-03-24] MEDS: NEOMYCIN SULFATE 500 MG TABLET PO SCH ×3 (09:00→20:19)
[2019-03-24] MEDS ORDERED: MORPHINE 4 MG/ML INJ. SYRINGE IVP PRN ×3 (09:00)
--- NOTE | 2019-03-24 09:45 | NUR ---
Pt arrived from OR Pt placed in ICU 8, connected to in room monitor. Vent in room connected to pt via trach. No signs of acute distress. Surgical dressing on abd is dry and intact. Will continue to stay bedside with pt.
--- NOTE | 2019-03-24 10:20 | NUR ---
Seizure Pads Removed previous seizure precaution pads and applied a new set.
[2019-03-24] MEDS: PANTOPRAZOLE SODIUM 40 MG/VIAL (PROTONIX) IVP SCH (11:02)
[2019-03-24] MEDS: levETIRAcetam 500 MG in NS 100 ML IV SCH ×2 (11:03→20:18)
[2019-03-24] MEDS: D5LR 1,000 ML IV SCH (11:18)
[2019-03-24] MEDS ORDERED: NA PHOS 15 MM in NS 250 ML IV ONE (11:30)
[2019-03-24] MEDS ORDERED: COMMUNICATION ORDER XX ONE (11:30)
[2019-03-24] MEDS: metroNIDAZOLE 500 mg/NS 100 ML IV SCH ×2 (12:24→20:17)
--- NOTE | 2019-03-24 12:40 | NUR ---
PATIENT RESTING: Patient resting quietly. No acute distress noted. Vital signs within normal range.
--- NOTE | 2019-03-24 13:16 | NUR ---
Paged Dr. Mariano, spoke to Lance, awaiting MD call back.
[2019-03-24] MEDS ORDERED: ACETAMINOPHEN 650 MG/20.3 ML UDC PO PRN (13:45)
--- NOTE | 2019-03-24 14:45 | NUR ---
Hand off report received from day shift DYE MIXER.
[2019-03-24] MEDS: MORPHINE 2 MG/ML INJ. SYRINGE IVP PRN ×2 (15:17→18:24)
--- NOTE | 2019-03-24 16:00 | NUR ---
Provided oral care. Pt tolerated well. Scant sputum amount.
--- NOTE | 2019-03-24 19:10 | NUR ---
SHIFT REPORT Provided handoff report to night RN using SBAR
--- NOTE | 2019-03-24 19:25 | NUR ---
Pt resting comfortably, no signs of distress or pain. Bedside with night RN. Bed locked in lowest position and call light in place with side rail padding.
--- NOTE | 2019-03-24 19:30 | NUR ---
PM ASSESSMENT REPORT RECEIVED FROM JARED RN. PT RECEIVED IN BED WITH EYES OPEN, RESPONDING TO VERBAL STIMULATION. PT TRACH TO VENT, SETTINGS: AC 10, TV 500, FIO2 50%, PEEP 5. ST ON MONITOR. WILLIAMS PICC IN PLACE INFUSING D5 LR @ 100 CC/HR. G-TUBE IN PLACE CLAMPED. ABD DRESSING IN PLACE FOR SURGICAL INCISION, DRESSING CDI. BRISENO CATH IN PLACE DRAINING YELLOW URINE TO GRAVITY. SCDS IN PLACE. HOB ELEVATED, BED IN LOWEST POSITION, CALL LIGHT IN REACH. WILL CONTINUE TO MONITOR PT.
[2019-03-24] MEDS ORDERED: TPN CENTRAL IV SCH ×9 (21:00)
[2019-03-24] MEDS ORDERED: SODIUM CHLORIDE IV SCH ×9 (21:00)
[2019-03-24] MEDS ORDERED: [UNRECOGNIZED DRUG - OTHER] IV SCH ×9 (21:00)
[2019-03-24] MEDS ORDERED: NA PHOS IV SCH ×9 (21:00)
[2019-03-24] MEDS: MORPHINE 4 MG/ML INJ. SYRINGE IVP PRN (21:45)
--- NOTE | 2019-03-24 23:00 | NUR ---
FLU SHOT PER PTS DAUGHTER ALESSIA, SHE WANTS HER MOM "TO GET A LITTLE BETTER FROM SURGERY" BEFORE SHE GETS A FLU SHOT. WILL ENDORSE TO ONCOMING NURSE.
[2019-03-25] VITALS (29 sets, daily range): BP systolic 115–158
[2019-03-25] MEDS: D5LR 1,000 ML IV SCH ×3 (00:06→17:33)
[2019-03-25] MEDS: MORPHINE 4 MG/ML INJ. SYRINGE IVP PRN ×3 (04:40→14:17)
[2019-03-25] MEDS: metroNIDAZOLE 500 mg/NS 100 ML IV SCH ×2 (04:41→22:51)
[2019-03-25 05:45] LABS: BASOPHILS # (AUTO) 0.1 K/uL (0.0-0.2); BASOPHILS % (AUTO) 0.6 % (0.0-2.0); EOSINOPHILS % (AUTO) 0.2 % (0.0-4.0); HEMATOCRIT 32.1 % (36-48); HEMOGLOBIN 9.7 g/dL (12.0-16.0); LYMPHOCYTES # (AUTO) 1.6 K/uL (1.0-5.5); LYMPHOCYTES % (AUTO) 9.9 % (20.5-51.5); MEAN CORPUSCULAR HEMOGLOBIN 23 pg (27-31); MEAN CORPUSCULAR HGB CONC 30 % (32-36); MEAN CORPUSCULAR VOLUME 76 fL (79.0-98.0); MONOCYTES % (AUTO) 6.5 % (1.7-9.3); NEUTROPHILS % (AUTO) 82.8 % (40.0-70.0); PLATELET COUNT (AUTO) 247 K/uL (130-430); RED BLOOD CELL COUNT(AUTO) 4.22 MIL/uL (4.2-6.2); RED CELL DISTRIBUTION WIDTH 32.6 % (9.0-15.0); WHITE BLOOD COUNT (AUTO) 15.7 K/uL (4.8-10.8)
[2019-03-25 06:06] LABS: CALCIUM 7.8 mg/dL (8.4-11.0); CREATININE 0.75 mg/dL (0.55-1.30); PHOSPHORUS 2.5 mg/dL (2.7-4.5); POTASSIUM 4.3 mmol/L (3.5-5.1)
--- NOTE | 2019-03-25 07:10 | NUR ---
Shift report Received shift report from night RN using SBAR.
--- NOTE | 2019-03-25 07:26 | NUR ---
ENDORSEMENT BEDSIDE REPORT GIVEN TO KRUPA/JARED RN USING SBAR APPROACH.
[2019-03-25] MEDS: ALBUTEROL SULFATE 0.083% 2.5 MG/3 ML VIAL.NEB INH SCH ×3 (07:40→20:26)
[2019-03-25] MEDS: IPRATROPIUM BROM 0.5 MG/2.5 ML VIAL.NEB (ATROVENT) INH SCH ×3 (07:40→20:27)
--- NOTE | 2019-03-25 08:30 | NUR ---
Performed oral care. Pt is clenching teeth and is uncooperative. Will reassess again later.
--- NOTE | 2019-03-25 08:30 | NUR ---
AM Assessment Pt is alert with random eye movement. PT is posturing to her right side with contractures of right arm and bilateral lower extremities. Left arm is decerebrate. No signs of edema. Pt right left eye NOT PERRLA. Pt bed is locked and in the lowest position. HR is Sinus Tach 127 BPM. Will administer PRN pain medication.
--- NOTE | 2019-03-25 08:40 | NUR ---
MD Rounds Dr Hansen Bedside. removed surgical dressing and ordered to replace dressing. MD also stated to continue NPO status until further notice.
[2019-03-25] MEDS: PEG 400/HYPROMELLOSE/GLYCERIN 15 ML DROPS EACH EYE SCH ×2 (09:00→20:48)
[2019-03-25] MEDS: levETIRAcetam 500 MG in NS 100 ML IV SCH ×2 (09:01→20:35)
[2019-03-25] MEDS: PANTOPRAZOLE SODIUM 40 MG/VIAL (PROTONIX) IVP SCH (09:02)
[2019-03-25] MEDS: FERROUS SULFATE 300 MG/5 ML UDC GT SCH ×2 (09:02→20:47)
[2019-03-25] MEDS: BACLOFEN 10 MG TABLET GT SCH ×2 (09:04→20:46)
[2019-03-25] MEDS: NEOMYCIN SULFATE 500 MG TABLET PO SCH ×3 (09:04→20:47)
[2019-03-25] MEDS ORDERED: metroNIDAZOLE 500 mg/NS 100 ML IV ONE (09:45)
[2019-03-25] MEDS ORDERED: CEFEPIME 1 GM in D5W 50 ML IV ONE (09:45)
--- NOTE | 2019-03-25 10:13 | NUR ---
RT Note: 1000 Decreased FiO2 from 50% to 40% per titration order. Pt tolerating change well. SpO2 is between 98% to 100%. RN made aware.
--- NOTE | 2019-03-25 10:53 | NUR ---
LATE ENTRY-- Discharge Planning: DCP faxed pt referral to [facility] (f [phone] p [phone]) on 03/24/2019. DCP spoke to Constantine on 03/25/20199 if patient DC'd on weekend she will go to bed 32B
--- NOTE | 2019-03-25 11:33 | NUR ---
RT Note: 1133 Titrated FiO2 from 40% to 30%. Pt tolerating change well. Will continue to monitor. RN made aware. Addendum: 03/25/19 at 1155 by Tennille Voss RT Amended: Links added.
--- NOTE | 2019-03-25 12:00 | NUR ---
Performed Oral Care. Pt tolerated well.
[2019-03-25] MEDS ORDERED: metroNIDAZOLE 500 mg/NS 100 ML IV SCH (14:00)
[2019-03-25] MEDS: LORazepam 2 MG/ML VIAL IVP PRN (14:17)
--- NOTE | 2019-03-25 15:05 | NUR ---
Wound Re-Evaluation: Wound Consult ordered for Low Nate Score. Patient evaluated for a low Nate score of a 13. Patient was awake, obtunded and received in a [place] Bed with an IsoFlex SERGIO mattress with low air-loss therapy. Patient needs to be turned in bed. Recommend reposition patient side to side only every 2 hours with pillow support. Elevate, off-load and float bilateral heels with pillows. Offload pressure areas with pillows for pressure re-distribution. Perform skin care and monitor skin integrity Q shift. Use moisture barrier cream on moisture susceptible areas QID and PRN for soiling. Place patient on a low air-loss mattress. Skin assessment: 1. Sacral-Coccygeal area: Scar tissue, present on admission. Skin still intact. Recommend continue: Cleanse involved area with mild soap and water. Pat dry. Apply Hydraguard barrier cream to involved area. Cover with foam dressing. Perform site care daily, and prn for dressing soiling or dislodgment.
[2019-03-25] MEDS ORDERED: METOPROLOL TARTRATE 25 MG TABLET GT ONE (16:00)
--- NOTE | 2019-03-25 16:30 | NUR ---
Changed sacral dressing. Cleans with NS, wiped dry. Applied hydraguard with a foam dressing. Performed CHG, changed bedding, gown, cleaned perineal Capellan care.
[2019-03-25] MEDS ORDERED: NACL 0.9% 1,000 ML IV ONE (17:15)
--- NOTE | 2019-03-25 17:20 | NUR ---
Nutrition F/U RD reviewed pt's current EMR including diet Hx, physician notes, nursing notes, pertinent labs/meds/procedures, care trends, and care activity. Current diet order: NPO x1 day Subjective Information: Pt was seen resting in bed, +trach to vent, +non-verbal. Bed scale wt 215.5X - may be inaccurate d/t linens. RN reported pt will remain NPO until MD evaluation possible plan to re-start TPN per surgeon. Pt is POD 1 s/p hemicolectomy Sx on 03/24/19. Pt is not meeting her nutritional requirements. NEW: Estimated Energy Expenditure (kcals/day) 1680 kcal/day ([id number]: CBW for critical illness and intubation) Estimated Protein Required (g/day) 83-110 gm/day (1.5-2 gm/kg IBW for critical illness, obesity, pending Sx) NEW Estimated Fluid Required (l/day) 1.7-2 L/day (1 ml/kcal/day for adult maintenance) Problem/Etiology/Signs/Symptoms Inadequate enteral nutrition support related to critical illness as evidenced by current NPO status and inability to meet estimated nutritional requirements. *ongoing* Expected Outcomes/Goals - Monitor parental nutrition support, advancement of TF, labs trending WNL, normal GI function, and skin integrity/wt maintenance Dietitian Recommendations * Continue NPO if/when medically appropriate * Consider TPN D40%, AA8.5% at 60 ml/hr (goal rate), IL20% at 10 ml/hr daily via central line Provides: 1704 kcal/day, 61 gm protein/day, 1680 ml total volume/day, and GIR: 2.4 gm CHO/kg/min Meets: 101% of upper end of estimated caloric needs and 73% of lower end of estimated protein needs Follow Up High Risk: F/U in 2-3 days Signed: 03/25/19 at 1721 by Demi DIMAS <Co-Signature Required> Co-Signed: 03/25/19 at [address]
--- NOTE | 2019-03-25 17:24 | NUR ---
Dietitian Recommendations * Continue NPO if/when medically appropriate * Consider TPN D40%, AA8.5% at 60 ml/hr (goal rate), IL20% at 10 ml/hr daily via central line Provides: 1704 kcal/day, 61 gm protein/day, 1680 ml total volume/day, and GIR: 2.4 gm CHO/kg/min Meets: 101% of upper end of estimated caloric needs and 73% of lower end of estimated protein needs LP, RD Please refer to Nutrition F/U for details. Signed: 03/25/19 at 1725 by Demi DIMAS <Co-Signature Required> Co-Signed: 03/25/19 at [address]
--- NOTE | 2019-03-25 19:22 | NUR ---
ASSUMPTION OF CARE RECEIVED BED SIDE REPORT WAS GIVEN BY ICU NURSE AT THIS TIME.
--- NOTE | 2019-03-25 19:22 | NUR ---
Transferred Pt transferred to TELE 110-A, report given bedside to night RN.
--- NOTE | 2019-03-25 19:25 | NUR ---
INITIAL ASSESSMENT PATIENT IS LAYING IN BED AND STABLE. NO SIGNS OR SYMPTOMS OF RESPIRATORY DISTRESS NOTED. PATIENT UNSUCCESSFULLY DEMONSTRATES USAGE OF CALL LIGHT AT THIS TIME DUE TO LIMITED MOBILITY. WILL CONTINUE TO EDUCATE AND ROUND. PLAN OF CARE IS DISCUSSED WITH THE PATIENT AT THIS TIME. BED IS LOCKED, ALARMED, AND AT THE LOWEST POSITION. RESPIRATORY, FALL, SEIZURE, SAFETY, AND ASPIRATION PRECAUTIONS WILL BE PLACED THROUGHOUT THE SHIFT.
[2019-03-25] MEDS: METOPROLOL TARTRATE 25 MG TABLET GT SCH (20:47)
--- NOTE | 2019-03-25 21:25 | NUR ---
ROUNDING PATIENT IS STABLE AND LAYING IN BED. NO SIGNS OR SYMPTOMS OF RESPIRATORY DISTRESS NOTED. CALL LIGHT IS WITHIN REACH. BED IS LOCKED, ALARMED, AND AT THE LOWEST POSITION. WILL CONTINUE TO MONITOR.
[2019-03-25] MEDS: CEFEPIME 1 GM in D5W 50 ML IV SCH (21:44)
--- NOTE | 2019-03-25 23:25 | NUR ---
ROUNDING PATIENT IS SLEEPING AND STABLE IN BED. NO SIGNS OR SYMPTOMS OF RESPIRATORY DISTRESS NOTED. CALL LIGHT IS WITHIN REACH. BED IS LOCKED, ALARMED, AND AT THE LOWEST POSITION. WILL CONTINUE TO MONITOR.
--- NOTE | 2019-03-26 | NUR ---
ROUNDING PATIENT IS SLEEPING AND IS STABLE. NO SIGNS OR SYMPTOMS OF RESPIRATORY DISTRESS. CALL LIGHT IS WITHIN REACH. BED IS LOCKED AND AT THE LOWEST POSITION. WILL CONTINUE TO MONITOR.
[2019-03-26] MEDS: ALBUTEROL SULFATE 0.083% 2.5 MG/3 ML VIAL.NEB INH SCH ×4 (01:13→19:42)
[2019-03-26] MEDS: IPRATROPIUM BROM 0.5 MG/2.5 ML VIAL.NEB (ATROVENT) INH SCH ×4 (01:14→19:42)
[2019-03-26 01:30] VITALS: BP_SYST 122
[2019-03-26] MEDS: D5LR 1,000 ML IV SCH ×3 (02:21→20:25)
[2019-03-26] MEDS: metroNIDAZOLE 500 mg/NS 100 ML IV SCH ×3 (05:32→23:49)
[2019-03-26] MEDS ORDERED: metroNIDAZOLE 500 mg/NS 100 ML IV ONE (05:44)
--- NOTE | 2019-03-26 06:05 | NUR ---
CLOSING NOTES PATIENT IS RESTING IN BED AND IS STABLE. NO SIGNS OR SYMPTOMS OF RESPIRATORY DISTRESS DURING THE SHIFT. FALL, SAFETY, RESPIRATORY, SEIZURE AND ASPIRATION PRECAUTION HAS BEEN PLACED THROUGHOUT THE SHIFT. BED IS LOCKED, ALARMED, AND AT THE LOWEST POSITION. CALL LIGHT IS WITHIN REACH. WILL CONTINUE TO MONITOR UNTIL BED SIDE REPORT IS GIVEN TO AM NURSE AT BED SIDE.
[2019-03-26 06:17] VITALS: BP_SYST 122
[2019-03-26 07:01] LABS: ALBUMIN 1.8 g/dL (3.4-4.8); CALCIUM 7.9 mg/dL (8.4-11.0); CREATININE 0.82 mg/dL (0.55-1.30); TOTAL BILIRUBIN 1.2 mg/dL (0.0-1.0)
[2019-03-26 07:33] LABS: BASOPHILS # (AUTO) 0.1 K/uL (0.0-0.2); BASOPHILS % (AUTO) 0.5 % (0.0-2.0); EOSINOPHILS % (AUTO) 0.1 % (0.0-4.0); HEMATOCRIT 32.6 % (36-48); LYMPHOCYTES % (AUTO) 14.2 % (20.5-51.5); MEAN CORPUSCULAR HEMOGLOBIN 24 pg (27-31); MEAN CORPUSCULAR HGB CONC 31 % (32-36); MONOCYTES # (AUTO) 1.3 K/uL (0.0-1.0); MONOCYTES % (AUTO) 9.2 % (1.7-9.3); NEUTROPHILS # (AUTO) 10.7 K/uL (1.8-7.7); PLATELET COUNT (AUTO) 185 K/uL (130-430); RED BLOOD CELL COUNT(AUTO) 4.15 MIL/uL (4.2-6.2); RED CELL DISTRIBUTION WIDTH 33.7 % (9.0-15.0); WHITE BLOOD COUNT (AUTO) 14.1 K/uL (4.8-10.8)
[2019-03-26 07:45] LABS: MEAN CORPUSCULAR VOLUME 78 fL (79.0-98.0)
[2019-03-26 08:00] VITALS: BP_SYST 106
[2019-03-26] MEDS: CEFEPIME 1 GM in D5W 50 ML IV SCH ×2 (09:56→20:26)
[2019-03-26] MEDS: levETIRAcetam 500 MG in NS 100 ML IV SCH ×2 (09:57→23:01)
[2019-03-26] MEDS: FERROUS SULFATE 300 MG/5 ML UDC GT SCH ×2 (09:57→20:30)
[2019-03-26] MEDS: BACLOFEN 10 MG TABLET GT SCH ×2 (09:57→20:28)
[2019-03-26] MEDS: PANTOPRAZOLE SODIUM 40 MG/VIAL (PROTONIX) IVP SCH (09:58)
[2019-03-26] MEDS: METOPROLOL TARTRATE 25 MG TABLET GT SCH ×2 (09:59→20:29)
[2019-03-26] MEDS: NEOMYCIN SULFATE 500 MG TABLET PO SCH ×3 (09:59→20:28)
[2019-03-26] MEDS: PEG 400/HYPROMELLOSE/GLYCERIN 15 ML DROPS EACH EYE SCH ×2 (10:00→20:30)
[2019-03-26 11:29] VITALS: BP_SYST 109
[2019-03-26] MEDS ORDERED: FUROSEMIDE 20 MG/2 ML VIAL IVP ONE ×2 (11:45→12:30)
[2019-03-26] MEDS ORDERED: DEXTROSE 50% JECT 50 ML DISP.SYRIN IVP PRN (12:00)
[2019-03-26] MEDS ORDERED: *TPN PER PHARMACY XX PRN (12:00)
--- NOTE | 2019-03-26 12:28 | NUR ---
CONSULTATION PAGED REASON FOR CONSULTATION:CA COLON WAS CONSULT CALLED?Y PERSON WHO WAS NOTIFIED:CYRUS CONSULTING PHYSICIAN:HECTOR BALDERRAMA EXTRACORPOREAL TECHNICIAN SPECIALTY:LONG DISTANCE OPERATOR PHONE NUMBER:[phone] REQUESTING PHYSICIAN:SARAH BETH SALDAÑA
[2019-03-26] MEDS ORDERED: MULTIVITAMINS,THERAPEUTIC 5 ML UDC GT SCH (13:15)
[2019-03-26] MEDS ORDERED: MULTIVIT-MINERALS/FERROUS GLUC 15 ML UDC GT ONE (13:45)
[2019-03-26 15:08] VITALS: BP_SYST 117
[2019-03-26] MEDS: MAG-AL HYDROX/SIMETH 30 ML UDC GT SCH ×2 (15:25→23:01)
[2019-03-26] MEDS: ERGOCALCIFEROL 8000 UNITS/ML ORAL SOLUTION, 60 ML BOTTLE GT SCH ×2 (15:28→20:32)
[2019-03-26 19:40] VITALS: BP_SYST 117
--- NOTE | 2019-03-26 19:40 | NUR ---
INITIAL ASSESSMENT PATIENT IS LAYING IN BED AND STABLE. NO SIGNS OR SYMPTOMS OF RESPIRATORY DISTRESS NOTED. PATIENT UNSUCCESSFULLY DEMONSTRATES USAGE OF CALL LIGHT AT THIS TIME DUE TO LIMITED MOBILITY. WILL CONTINUE TO ROUND AND ASSESS. PLAN OF CARE IS DISCUSSED WITH THE PATIENT AT THIS TIME. BED IS LOCKED, ALARMED, AND AT THE LOWEST POSITION. RESPIRATORY, FALL, SEIZURE, SAFETY, AND ASPIRATION PRECAUTIONS WILL BE PLACED THROUGHOUT THE SHIFT.
[2019-03-26] MEDS: MULTIVIT-MINERALS/FERROUS GLUC 15 ML UDC GT SCH (20:30)
--- NOTE | 2019-03-26 21:40 | NUR ---
ROUNDING PATIENT IS SLEEPING AND IS STABLE. NO SIGNS OR SYMPTOMS OF RESPIRATORY DISTRESS. CALL LIGHT IS WITHIN REACH. BED IS LOCKED, ALARMED, AND AT THE LOWEST POSITION. WILL CONTINUE TO MONITOR.
[2019-03-27] MEDS: IPRATROPIUM BROM 0.5 MG/2.5 ML VIAL.NEB (ATROVENT) INH SCH ×4 (01:42→19:50)
[2019-03-27] MEDS: ALBUTEROL SULFATE 0.083% 2.5 MG/3 ML VIAL.NEB INH SCH ×2 (01:42→07:38)
[2019-03-27 02:40] VITALS: BP_SYST 110
--- NOTE | 2019-03-27 03:40 | NUR ---
ROUNDING PATIENT IS SLEEPING IN BED WITH FAMILY MEMBER BY BEDSIDE. PATIENT IS STABLE AND SHOWS NO SIGNS OR SYMPTOMS OF RESPIRATORY DISTRESS. CALL LIGHT IS WITHIN REACH. BED IS LOCKED, ALARMED, AND AT THE LOWEST POSITION. WILL CONTINUE TO MONITOR. Addendum: 03/28/19 at 0504 by Jayla Flowers RN FAMILY MEMBER IS NOT BY BEDSIDE.
--- NOTE | 2019-03-27 04:15 | NUR ---
CARRI PATIENT IS SLEEPING IN BED WITH FAMILY MEMBER BY BEDSIDE. PATIENT IS STABLE AND SHOWS NO SIGNS OR SYMPTOMS OF RESPIRATORY DISTRESS. CALL LIGHT IS WITHIN REACH. BED IS LOCKED, ALARMED, AND AT THE LOWEST POSITION. WILL CONTINUE TO MONITOR. Addendum: 03/28/19 at 0505 by Jayla Flowers RN FAMILY MEMBER IS NOT BY BEDSIDE
[2019-03-27] MEDS: metroNIDAZOLE 500 mg/NS 100 ML IV SCH ×2 (05:05→13:25)
[2019-03-27] MEDS: MAG-AL HYDROX/SIMETH 30 ML UDC GT SCH ×3 (05:12→22:06)
[2019-03-27] MEDS: ERGOCALCIFEROL 8000 UNITS/ML ORAL SOLUTION, 60 ML BOTTLE GT SCH ×3 (05:13→22:10)
[2019-03-27 07:16] LABS: BASOPHILS # (AUTO) 0.1 K/uL (0.0-0.2); BASOPHILS % (AUTO) 0.5 % (0.0-2.0); HEMATOCRIT 35.7 % (36-48); LYMPHOCYTES # (AUTO) 1.2 K/uL (1.0-5.5); LYMPHOCYTES % (AUTO) 7.5 % (20.5-51.5); MEAN CORPUSCULAR HEMOGLOBIN 24 pg (27-31); MEAN CORPUSCULAR HGB CONC 31 % (32-36); MEAN CORPUSCULAR VOLUME 77 fL (79.0-98.0); MONOCYTES # (AUTO) 0.8 K/uL (0.0-1.0); MONOCYTES % (AUTO) 5.5 % (1.7-9.3); NEUTROPHILS # (AUTO) 13.4 K/uL (1.8-7.7); NEUTROPHILS % (AUTO) 86.5 % (40.0-70.0); PLATELET COUNT (AUTO) 289 K/uL (130-430); RED BLOOD CELL COUNT(AUTO) 4.64 MIL/uL (4.2-6.2); RED CELL DISTRIBUTION WIDTH 34.2 % (9.0-15.0); WHITE BLOOD COUNT (AUTO) 15.5 K/uL (4.8-10.8)
[2019-03-27 07:27] LABS: ALBUMIN 1.7 g/dL (3.4-4.8); CALCIUM 7.8 mg/dL (8.4-11.0); PHOSPHORUS 2.4 mg/dL (2.7-4.5); POTASSIUM 3.4 mmol/L (3.5-5.1); TOTAL BILIRUBIN 1.3 mg/dL (0.0-1.0)
[2019-03-27 08:00] VITALS: BP_SYST 125
--- NOTE | 2019-03-27 08:00 | NUR ---
PT OPENS EYES WHEN STIMULATE, ON TRACH SAT AT 96-97, ST ON CAST IRON DIPPER, PT IS OBESE, DRESSING ON THE ABDOMEN, DRY AND INTACT, VERY HYPOACTIVE BOWEL SOUNDS ON ALL QUADRANT, ABDOMEN DISTENDED, , BRISENO CATH IN PLACE DRAING DARK MILKA URINE, IV FLUID INFUSING ON LEFT PICC LINE, DRESSING ON PIC DRY AND INTACT, REVIEWED PLAN OF CARE, CALL LIGHT WITHIN REACH
[2019-03-27] MEDS: METOPROLOL TARTRATE 25 MG TABLET GT SCH ×2 (08:05→22:14)
[2019-03-27] MEDS: PEG 400/HYPROMELLOSE/GLYCERIN 15 ML DROPS EACH EYE SCH ×2 (08:41→22:07)
[2019-03-27] MEDS: BACLOFEN 10 MG TABLET GT SCH ×2 (08:42→22:06)
[2019-03-27] MEDS: NEOMYCIN SULFATE 500 MG TABLET PO SCH ×3 (08:42→22:06)
[2019-03-27] MEDS: FERROUS SULFATE 300 MG/5 ML UDC GT SCH ×2 (08:43→22:06)
[2019-03-27] MEDS: MULTIVIT-MINERALS/FERROUS GLUC 15 ML UDC GT SCH (08:51)
[2019-03-27] MEDS: CEFEPIME 1 GM in D5W 50 ML IV SCH ×2 (08:53→21:56)
[2019-03-27] MEDS: PANTOPRAZOLE SODIUM 40 MG/VIAL (PROTONIX) IVP SCH (08:53)
--- NOTE | 2019-03-27 09:00 | NUR ---
MD RAOUL YUN IS ASSESSING PT AT BEDSIDE AND PT IS ST ON STROKE BELT SANDER OPERATOR, AND BREATHING TREATMENT WAS NOT GIVEN
[2019-03-27] MEDS: levETIRAcetam 500 MG in NS 100 ML IV SCH ×2 (09:57→23:24)
--- NOTE | 2019-03-27 10:37 | NUR ---
Nutrition F/U RD reviewed pt's current EMR including diet Hx, physician notes, nursing notes, pertinent labs/meds/procedures, care trends and care activity. Current Diet Order/Nutrition Support: NPO x 9 days + D40% AA8.5% at 42ml/hr, IL20% at 10ml/hr via central line Subjective information: RD received TPN notification. Pt seen in bed. RD s/w Kellie yoderD, and she stated that TPN will start today at 1800 and to infuse at a rate of 42ml/hr. RD verbalized recommendation. PharmD to note. Pt w/ increased protein needs for wound healing. Pt may benefit from an increase in amino acid concentration to better meet nutrient needs. Current PO intake: N/A on TPN NEW: Estimated Energy Expenditure (kcals/day) 9584-0167 kcal/day (MSJ x 1.2-1.3 for vent support) Estimated Protein Required (g/day) 83-110 gm/day (1.5-2 gm/kg IBW for critical illness, obesity, pending Sx) Estimated Fluid Required (l/day) 1.7-2 L/day (1 ml/kcal/day for adult maintenance) Problem/Etiology/Signs/Symptoms Inadequate enteral nutrition support related to critical illness as evidenced by current NPO status and inability to meet estimated nutritional requirements. *no longer applicable, on TPN* Expected Outcomes/Goals - Monitor parental nutrition support and intake w/ goal of pt meeting at least 75% of estimated needs, labs trending WNL, normal GI function, and skin integrity/wt maintenance Dietitian Recommendations * Continue NPO per MD orders. * Recommend: TPN D40%, AA10% at 60 ml/hr (goal rate), IL20% at 10 ml/hr daily via central line Provides: 1747 kcal/day, 72 gm protein/day, 1680 ml total volume/day, and GIR: 2.4 gm CHO/kg/min Meets: 97% of upper end of estimated caloric needs and 87% of lower end of estimated protein needs Follow Up High Risk: F/U in 2-3 days
--- NOTE | 2019-03-27 10:49 | NUR ---
Dietitian Recommendations * Continue NPO per MD orders. * Recommend: TPN D40%, AA10% at 60 ml/hr (goal rate), IL20% at 10 ml/hr daily via central line Provides: 1747 kcal/day, 72 gm protein/day, 1680 ml total volume/day, and GIR: 2.4 gm CHO/kg/min Meets: 97% of upper end of estimated caloric needs and 87% of lower end of estimated protein needs Please see nutrition F/U note for details. EUGENE, RD
--- NOTE | 2019-03-27 12:00 | NUR ---
ROUNDS REPOSITIONED PT FOR COMFORT, AFEBRILE, SAT AT 94-96 %, CALL LIGHT WITHIN REACH
[2019-03-27 12:51] VITALS: BP_SYST 124
[2019-03-27] MEDS: LevALBUTEROL HCL 1.25 MG/0.5 ML *CONC.* VIAL.NEB (XOPENEX CONC.) INH SCH ×2 (13:40→19:50)
--- NOTE | 2019-03-27 14:00 | NUR ---
BM PT HAD SMALL AMOUNT OF DARK BROWN LOOSE STOOL, CLEANED PT AND REPOSITIONED FOR COMFORT
[2019-03-27] MEDS ORDERED: KCL 40 mEq in 100 mL (PREMIX) 100 ML IV ONE (15:00)
[2019-03-27] MEDS ORDERED: POTASSIUM CHLORIDE 40 MEQ in NS 250 ML IV ONE (15:02)
--- NOTE | 2019-03-27 15:10 | NUR ---
DRESSING CHANGE CHANGED DRESSING ON THE ABDOMEN.
[2019-03-27 16:00] VITALS: BP_SYST 105
--- NOTE | 2019-03-27 18:25 | NUR ---
CLOSING PT REMAINS STABLE, NOT IN DISTRESS. ON VENT, ST 105-112 ON MORTGAGE CONSULTANT, CALL LIGHT WITHIN REACH
[2019-03-27 19:40] VITALS: BP_SYST 148
[2019-03-27] MEDS ORDERED: TPN CENTRAL IV SCH ×9 (21:00)
[2019-03-27] MEDS ORDERED: [UNRECOGNIZED DRUG - OTHER] IV SCH ×9 (21:00)
[2019-03-27] MEDS ORDERED: MVI IV SCH ×9 (21:00)
[2019-03-27] MEDS ORDERED: MAGNESIUM SULFATE IV SCH ×9 (21:00)
[2019-03-27] MEDS ORDERED: D5LR 1,000 ML IV SCH (21:00)
[2019-03-27] MEDS ORDERED: TRACE ELEMENTS IV SCH ×9 (21:00)
[2019-03-27] MEDS: FAT EMULSIONS 250 ML IV SCH (22:09)
--- NOTE | 2019-03-27 23:40 | NUR ---
ROUNDING PATIENT IS LAYING IN BED AND IS STABLE. HYGIENE CARE IS PROVIDED AT THIS TIME. PATIENT IS REPOSITION FOR COMFORT. PATIENT TOLERATED WELL. NO SIGNS OR SYMPTOMS OF RESPIRATORY DISTRESS. CALL LIGHT IS WITHIN REACH. BED IS LOCKED, ALARMED, AND AT THE LOWEST POSITION. WILL CONTINUE TO MONITOR.
[2019-03-28 00:18] VITALS: BP_SYST 154
[2019-03-28] MEDS: metroNIDAZOLE 500 mg/NS 100 ML IV SCH ×4 (00:32→22:27)
[2019-03-28] MEDS ORDERED: cefTRIAXone 1 GM IVPB PREMIX 0 ML IV ONE (00:58)
[2019-03-28] MEDS: IPRATROPIUM BROM 0.5 MG/2.5 ML VIAL.NEB (ATROVENT) INH SCH ×4 (01:19→19:42)
[2019-03-28] MEDS: LevALBUTEROL HCL 1.25 MG/0.5 ML *CONC.* VIAL.NEB (XOPENEX CONC.) INH SCH ×4 (01:19→19:42)
[2019-03-28] MEDS: MAG-AL HYDROX/SIMETH 30 ML UDC GT SCH ×3 (05:12→22:27)
[2019-03-28] MEDS: ERGOCALCIFEROL 8000 UNITS/ML ORAL SOLUTION, 60 ML BOTTLE GT SCH ×3 (05:12→20:27)
[2019-03-28] MEDS: INSULIN REGULAR, HUMAN 100 UNITS/ML, 10 ML VIAL (humuLIN R) SUBCUT PRN ×2 (05:34→12:14)
--- NOTE | 2019-03-28 07:15 | NUR ---
Assumed care of patient, SBAR report and plan of care received from night time nanny RN
[2019-03-28 07:30] LABS: BASOPHILS % (AUTO) 0.5 % (0.0-2.0); HEMATOCRIT 35.3 % (36-48); HEMOGLOBIN 10.8 g/dL (12.0-16.0); MEAN CORPUSCULAR HEMOGLOBIN 24 pg (27-31); MEAN CORPUSCULAR HGB CONC 31 % (32-36); MEAN CORPUSCULAR VOLUME 77 fL (79.0-98.0); MONOCYTES # (AUTO) 0.9 K/uL (0.0-1.0); MONOCYTES % (AUTO) 8.5 % (1.7-9.3); NEUTROPHILS # (AUTO) 8.5 K/uL (1.8-7.7); PLATELET COUNT (AUTO) 405 K/uL (130-430); RED BLOOD CELL COUNT(AUTO) 4.57 MIL/uL (4.2-6.2); RED CELL DISTRIBUTION WIDTH 33.5 % (9.0-15.0)
[2019-03-28 07:38] LABS: ALBUMIN 1.6 g/dL (3.4-4.8); CREATININE 1.01 mg/dL (0.55-1.30); PHOSPHORUS 2.1 mg/dL (2.7-4.5); POTASSIUM 3.6 mmol/L (3.5-5.1); TOTAL BILIRUBIN 0.9 mg/dL (0.0-1.0)
[2019-03-28 07:44] LABS: WHITE BLOOD COUNT (AUTO) 10.5 K/uL (4.8-10.8)
[2019-03-28 07:47] LABS: CALCIUM 7.6 mg/dL (8.4-11.0)
[2019-03-28 08:00] VITALS: BP_SYST 159
[2019-03-28] MEDS: FERROUS SULFATE 300 MG/5 ML UDC GT SCH ×2 (08:50→20:30)
[2019-03-28] MEDS: NEOMYCIN SULFATE 500 MG TABLET PO SCH ×3 (08:50→20:32)
[2019-03-28] MEDS: PEG 400/HYPROMELLOSE/GLYCERIN 15 ML DROPS EACH EYE SCH ×2 (08:50→20:33)
[2019-03-28] MEDS: levETIRAcetam 500 MG in NS 100 ML IV SCH ×2 (08:51→20:33)
[2019-03-28] MEDS: BACLOFEN 10 MG TABLET GT SCH ×2 (08:51→20:32)
[2019-03-28] MEDS: METOPROLOL TARTRATE 25 MG TABLET GT SCH ×2 (08:51→20:46)
[2019-03-28] MEDS: PANTOPRAZOLE SODIUM 40 MG/VIAL (PROTONIX) IVP SCH (08:51)
[2019-03-28] MEDS: CEFEPIME 1 GM in D5W 50 ML IV SCH ×2 (08:52→20:28)
--- NOTE | 2019-03-28 09:00 | NUR ---
RN ROUNDS: Patient awake, non verbal, bedridden. Patient has a Trach with Vent running at AC10. Upper LT arm PICC line intact and patent with TPN and Lipids running. Seizure precautions in place. No signs of pain noted. No signs of distress noted.
--- NOTE | 2019-03-28 11:00 | NUR ---
RN ROUNDS: Patient remains AOx0-1, non verbal. Patient opens eyes spontaneously, seems to respond to name. Breathing is even and unlabored, on vent. Seizure precautions in place. Bed is locked in lowest position. HOB elevated 30 deg.
[2019-03-28] MEDS: SOD FERRIC GLUC COMPLEX/SUC 125 MG in NS 100 ML IV SCH (11:57)
[2019-03-28 12:53] VITALS: BP_SYST 143
--- NOTE | 2019-03-28 13:00 | NUR ---
RN ROUNDS: Patient remains AOx1 and non verbal. Patient is total care, patient turned side to side Q 2hrs and prn. Heels floated. Patient is on vent, breathing is even and unlabored. No signs of distress noted.
[2019-03-28] MEDS ORDERED: K PHOS 15 MM in NS 250 ML IV ONE (13:45)
--- NOTE | 2019-03-28 15:00 | NUR ---
RN ROUNDS: Wound care completed per wound care guidelines, incision intact, retention sutures intact and clean, no signs of infection noted, minimal drainage noted, dressings changed and dated, patient tolerated well with minimal discomfort.
--- NOTE | 2019-03-28 16:21 | NUR ---
Nutrition Note: TF Recommendation RD received voicemail from Dr. Mariano this afternoon regarding plans for TF, and requested RD evaluation. RD reviewed pt's EMR and most recent Nutrition F/U note. Recommend Jevity 1.5 at 50 ml/hr (goal rate), Free Water Flush: 200 ml Q6h via GT. RD notified pt's primary RN. RD to continue to follow as per nutrition care standards. Addendum: 03/28/19 at [address] TF regimen provides 1800 kcal/day, 77 gm protein/day, and 1760 ml total free water/day, which meets 100% of upper end of estimated caloric needs and 93% of lower end of estimated protein needs.
[2019-03-28 16:54] VITALS: BP_SYST 138
--- NOTE | 2019-03-28 17:00 | NUR ---
RN ROUNDS: Patient turned side to side Q 2hrs and prn. Heels floated. Oral care and Pericare provided. No BM so far this shift. Patient is on vent, breathing is even and unlabored. No signs of distress noted.
--- NOTE | 2019-03-28 19:15 | NUR ---
ENDORSEMENT: SBAR report given and plan of care endorsed to rn shift mgr RN
[2019-03-28 20:00] VITALS: BP_SYST 142
[2019-03-28] MEDS: FAT EMULSIONS 250 ML IV SCH (20:32)
--- NOTE | 2019-03-28 20:46 | NUR ---
MEDICATION PASS SCHEDULED MEDICATIONS GIVEN ORDERED. NO S/S OF DISTRESS. GTUBE SHOWED RESIDUAL OF 8 ML. GTUBE IS PATENT AND FLUSHES WELL. UPPER LEFT ARM PICC IS INFUSING WELL. NEW BAGS OF TPN AND LIPIDS HUNG AND ARE INFUSING AT ORDERED RATE. NO S/S OF DISTRESS. SAFETY AND ASPIRATION PRECAUTIONS MAINTAINED. WILL MONITOR.
[2019-03-28] MEDS ORDERED: MAGNESIUM SULFATE IV SCH ×9 (21:00)
[2019-03-28] MEDS ORDERED: TPN CENTRAL IV SCH ×9 (21:00)
[2019-03-28] MEDS ORDERED: TRACE ELEMENTS IV SCH ×9 (21:00)
[2019-03-28] MEDS ORDERED: [UNRECOGNIZED DRUG - OTHER] IV SCH ×9 (21:00)
--- NOTE | 2019-03-28 23:25 | NUR ---
ACCUCHECK BLOOD SUGAR OF 136, NO INSULIN COVERAGE INDICATED PER SLIDING SCALE.
[2019-03-29 00:10] VITALS: BP_SYST 119
[2019-03-29] MEDS: IPRATROPIUM BROM 0.5 MG/2.5 ML VIAL.NEB (ATROVENT) INH SCH ×4 (00:49→19:45)
[2019-03-29] MEDS: LevALBUTEROL HCL 1.25 MG/0.5 ML *CONC.* VIAL.NEB (XOPENEX CONC.) INH SCH ×4 (00:49→19:45)
--- NOTE | 2019-03-29 01:45 | NUR ---
CLEANED/REPOSITIONED PT INCONTINENT OF BOWELS. INCONTINENCE CARE RENDERED WITH HIRAL WARNER. COMPLETE LINEN AND GOWN CHANGE. PT REPOSITIONED WITH PILLOW SUPPORT. ORAL CARE AND SUCTIONING ALSO PROVIDED, PT TOLERATED WELL. SAFETY, FALL, AND ASPIRATION PRECAUTIONS ARE IN PLACE. WILL CONT TO MONITOR.
--- NOTE | 2019-03-29 03:27 | NUR ---
RN ROUNDS: PT IS SLEEPING AND IS STABLE CONDITION AT THIS TIME. NO SIGNS OR SYMPTOMS OF RESPIRATORY DISTRESS NOTED, BREATHING IS UNLABORED TO VENT SETTINGS. CALL LIGHT IS WITHIN REACH. BED IS LOCKED, ALARMED, AND AT THE LOWEST POSITION. WILL CONTINUE TO MONITOR.
--- NOTE | 2019-03-29 04:52 | NUR ---
PICC DRESSING CHANGE DONE USING STERILE TECHNIQUE. PT TOLERATED WELL.
[2019-03-29] MEDS: MAG-AL HYDROX/SIMETH 30 ML UDC GT SCH ×3 (05:21→22:22)
[2019-03-29] MEDS: ERGOCALCIFEROL 8000 UNITS/ML ORAL SOLUTION, 60 ML BOTTLE GT SCH ×3 (05:21→22:24)
[2019-03-29] MEDS: metroNIDAZOLE 500 mg/NS 100 ML IV SCH ×3 (05:22→22:57)
--- NOTE | 2019-03-29 05:24 | NUR ---
ACCUCHECK/INCONTINENCE CARE BLOOD SUGAR 139, NO INSULIN COVERAGE PER SLIDING SCALE. INCONTINENCE CARE RENDERED, FRESH LINEN PROVIDED, PT REPOSITIONED WITH PILLOW SUPPORT. PT TOLERATED WELL. NO S/S OF DISTRESS. SAFETY, ASPIRATION AND SEIZURE PRECAUTIONS MAINTAINED. WILL MONITOR.
[2019-03-29 07:59] LABS: ALBUMIN 1.4 g/dL (3.4-4.8); CALCIUM 7.3 mg/dL (8.4-11.0); CREATININE 0.8 mg/dL (0.55-1.30); PHOSPHORUS 1.9 mg/dL (2.7-4.5); POTASSIUM 3.3 mmol/L (3.5-5.1)
[2019-03-29 08:00] VITALS: BP_SYST 114
[2019-03-29] MEDS: PANTOPRAZOLE SODIUM 40 MG/VIAL (PROTONIX) IVP SCH (10:52)
[2019-03-29] MEDS: FERROUS SULFATE 300 MG/5 ML UDC GT SCH ×2 (10:53→22:22)
[2019-03-29] MEDS: METOPROLOL TARTRATE 25 MG TABLET GT SCH ×2 (10:54→22:22)
[2019-03-29] MEDS: BACLOFEN 10 MG TABLET GT SCH ×2 (10:54→22:21)
[2019-03-29] MEDS: CEFEPIME 1 GM in D5W 50 ML IV SCH ×2 (11:03→22:21)
[2019-03-29] MEDS: levETIRAcetam 500 MG in NS 100 ML IV SCH ×2 (11:04→22:23)
[2019-03-29] MEDS: PEG 400/HYPROMELLOSE/GLYCERIN 15 ML DROPS EACH EYE SCH ×2 (11:04→22:25)
[2019-03-29] MEDS: ENOXAPARIN SODIUM 40 MG/0.4 ML SYRINGE SUBCUT SCH (11:29)
[2019-03-29] MEDS ORDERED: POTASSIUM CHLORIDE 20 MEQ/PKT PACKET GT ONE (12:15)
[2019-03-29] MEDS ORDERED: K PHOS 15 MM in NS 250 ML IV ONE (12:15)
[2019-03-29] MEDS: SOD FERRIC GLUC COMPLEX/SUC 125 MG in NS 100 ML IV SCH (12:29)
[2019-03-29 12:52] VITALS: BP_SYST 129
[2019-03-29 16:18] VITALS: BP_SYST 123
--- NOTE | 2019-03-29 19:30 | NUR ---
OPENING NOTES Received atient is resting, no signs of acute respiratory distress, trach dependent and trach in place. G tube in place, running Jevity 1.5 at 40 cc/hr, patient tolerating well, residual of 2ml. IVF running to Left Upper arm PICC, intact, running TPN and Lipids and antibiotics. Capellan catheter in place, draining by gravity, no kinks or loops. Seizure precautions in place, Call light within reach, bed alarm on, and bed at lowest position. Will continue to monitor.
[2019-03-29] MEDS ORDERED: [UNRECOGNIZED DRUG - OTHER] IV SCH ×11 (21:00)
[2019-03-29] MEDS ORDERED: TPN CENTRAL IV SCH ×11 (21:00)
[2019-03-29] MEDS ORDERED: MAGNESIUM SULFATE IV SCH ×11 (21:00)
[2019-03-29] MEDS ORDERED: TRACE ELEMENTS IV SCH ×11 (21:00)
[2019-03-29] MEDS: FAT EMULSIONS 250 ML IV SCH (22:28)
--- NOTE | 2019-03-29 22:30 | NUR ---
Patient is resting, no signs of acute respiratory distress, eyes open, turned. Will continue to monitor.
[2019-03-30] MEDS: LevALBUTEROL HCL 1.25 MG/0.5 ML *CONC.* VIAL.NEB (XOPENEX CONC.) INH SCH ×4 (01:18→19:30)
[2019-03-30] MEDS: IPRATROPIUM BROM 0.5 MG/2.5 ML VIAL.NEB (ATROVENT) INH SCH ×4 (01:18→19:30)
[2019-03-30 01:23] VITALS: BP_SYST 135
--- NOTE | 2019-03-30 02:14 | NUR ---
Patient is resting, no signs of acute respiratory distress after suctioning. Will continue to monitor.
--- NOTE | 2019-03-30 04:15 | NUR ---
Water flush given, 1ml of residual of tube feeding, tolerating well. Incontinence care performed and wound/ incision care performed, as dressing was soiled. Will continue to monitor.
[2019-03-30] MEDS: MAG-AL HYDROX/SIMETH 30 ML UDC GT SCH ×3 (05:59→22:18)
[2019-03-30] MEDS: metroNIDAZOLE 500 mg/NS 100 ML IV SCH ×3 (05:59→22:22)
[2019-03-30] MEDS: ERGOCALCIFEROL 8000 UNITS/ML ORAL SOLUTION, 60 ML BOTTLE GT SCH ×3 (06:00→22:21)
[2019-03-30 07:27] LABS: BASOPHILS % (AUTO) 0.3 % (0.0-2.0); EOSINOPHILS # (AUTO) 0.1 K/uL (0.0-0.4); EOSINOPHILS % (AUTO) 0.6 % (0.0-4.0); HEMATOCRIT 32.7 % (36-48); HEMOGLOBIN 9.9 g/dL (12.0-16.0); LYMPHOCYTES # (AUTO) 0.9 K/uL (1.0-5.5); LYMPHOCYTES % (AUTO) 10.6 % (20.5-51.5); MEAN CORPUSCULAR HEMOGLOBIN 24 pg (27-31); MEAN CORPUSCULAR HGB CONC 30 % (32-36); MEAN CORPUSCULAR VOLUME 79 fL (79.0-98.0); MONOCYTES % (AUTO) 11.2 % (1.7-9.3); NEUTROPHILS # (AUTO) 6.9 K/uL (1.8-7.7); NEUTROPHILS % (AUTO) 77.3 % (40.0-70.0); PLATELET COUNT (AUTO) 409 K/uL (130-430); RED BLOOD CELL COUNT(AUTO) 4.16 MIL/uL (4.2-6.2); RED CELL DISTRIBUTION WIDTH 32.8 % (9.0-15.0); WHITE BLOOD COUNT (AUTO) 8.9 K/uL (4.8-10.8)
--- NOTE | 2019-03-30 07:30 | NUR ---
Patient is resting, no signs of acute respiratory distress, trach dependent and trach in place. G tube in place, running Jevity 1.5 at 40 cc/hr, patient tolerating well, residual of 2ml. IVF running to Left Upper arm PICC, intact, running TPN and Lipids and antibiotics. Capellan catheter in place, draining by gravity, no kinks or loops. Seizure precautions in place, Call light within reach, bed alarm on, and bed at lowest position. Dressing of abdomen changed after cleansed with normal saline. All needs met throughout shift. Endorsed care to DEEJAY López.
[2019-03-30 07:50] LABS: ALBUMIN 1.4 g/dL (3.4-4.8); CALCIUM 7.3 mg/dL (8.4-11.0); CREATININE 0.67 mg/dL (0.55-1.30); PHOSPHORUS 1.9 mg/dL (2.7-4.5); POTASSIUM 3.4 mmol/L (3.5-5.1); TOTAL BILIRUBIN 0.6 mg/dL (0.0-1.0)
--- NOTE | 2019-03-30 07:50 | NUR ---
OPENING NOTE RECEIVED PATIENT AWAKE IN BED. NO FACIAL GRIMACING NOTED. CONT ON TRACH TO VENT; JOSE SETTINGS. NO ACUTE DISTRESS. NO SOB. RESPIRATION EVEN AND UNLABORED. SKIN WARM AND DRY TO TOUCH. PICC LINE TO LEFT UPPER ARM INTACT AND PATENT. ABDOMEN IS DISTENDED WITH GTUBE TO LEFT ABDOMEN AND NOTED ABDOMINAL INCISION S/P ABDOMINAL HEMICOLECTOMY. GTUBE RESIDUAL 275 CC; GTUBE FEEDING HELD WITH PATIENTS HOB KEPT UP. BRISENO CATH INTACT AND PATENT DRAINING MILKA URINE. BED IN LOW AND LOCKED POSITION. S[place]AILL UPX3. KEPT CLEAN AND DRY. CONT TO MONITOR
[2019-03-30 08:00] VITALS: BP_SYST 123
[2019-03-30] MEDS: FERROUS SULFATE 300 MG/5 ML UDC GT SCH ×2 (08:08→22:18)
[2019-03-30] MEDS: PANTOPRAZOLE SODIUM 40 MG/VIAL (PROTONIX) IVP SCH (08:08)
[2019-03-30] MEDS: levETIRAcetam 500 MG in NS 100 ML IV SCH ×2 (08:09→20:36)
[2019-03-30] MEDS: BACLOFEN 10 MG TABLET GT SCH ×2 (08:10→22:20)
[2019-03-30] MEDS: POTASSIUM CHLORIDE 20 MEQ/PKT PACKET GT SCH (08:10)
[2019-03-30] MEDS: METOPROLOL TARTRATE 25 MG TABLET GT SCH ×2 (08:14→22:21)
[2019-03-30] MEDS: CEFEPIME 1 GM in D5W 50 ML IV SCH ×2 (08:15→21:13)
[2019-03-30] MEDS: PEG 400/HYPROMELLOSE/GLYCERIN 15 ML DROPS EACH EYE SCH ×2 (08:15→22:21)
[2019-03-30] MEDS: ENOXAPARIN SODIUM 40 MG/0.4 ML SYRINGE SUBCUT SCH (08:17)
--- NOTE | 2019-03-30 09:05 | NUR ---
seen and examined by at bedside
--- NOTE | 2019-03-30 11:00 | NUR ---
WOUND CARE INCONTINENCE CARE PROVIDED. DRESSING CHANGED FOR BUTTOCK. REPOSITIONED FOR COMFORT. ALL NEEDS MET. CONT TO MONITOR
[2019-03-30] MEDS: SOD FERRIC GLUC COMPLEX/SUC 125 MG in NS 100 ML IV SCH (11:03)
[2019-03-30 12:00] VITALS: BP_SYST 125
[2019-03-30] MEDS: LORazepam 2 MG/ML VIAL IVP PRN (12:45)
--- NOTE | 2019-03-30 13:08 | NUR ---
SEEN AND EXAMINED BY REPORTED TO MD ABOUT ABDOMINAL DISTENTION AND RESIDUAL. MD AWARE OF ABDOMINAL XRAY. REPORTED TO MD BLOOD GLUCOSE WAS 151 mg/dL WITH INSULIN HELD DUE TO GTUBE FEEDING HELD; MD LANDIS. IF CLEARED BY DR.WALI LANDIS TO TRANSFER PATIENT.
--- NOTE | 2019-03-30 14:30 | NUR ---
PICC LINE PICC LINE DRESSING CHANGED PER PROTOCOL AND PATIENT TOLERATED WELL
--- NOTE | 2019-03-30 15:44 | NUR ---
/JOHNATHAN REPORTED TO ABDOMEN XRAY RESULT AND REPORTED PATIENT HAD 2 BOWEL MOVEMENT, IMPROVED ABDOMINAL DISTENTION AND GTUBE RESIDUAL IS 50 CC AND PATIENT IS TOLERATING GTF. IS OKAY TO DISCHARGE PATIENT AND PATIENT TO FOLLOW UP WITH IN HIM IN 2-3 WEEKS
[2019-03-30 16:05] VITALS: BP_SYST 114
--- NOTE | 2019-03-30 16:13 | NUR ---
Nutrition F/U RD reviewed pt's current EMR including diet Hx, physician notes, nursing notes, pertinent labs/meds/procedures, care trends and care activity. Current Diet Order/Nutrition Support: Jevity 1.5 at 50 ml/hr, Prosource TID, Free Water Flush: 200 ml Q6h via GT x0 days Subjective information: Pt was seen w/ RN providing care at bedside at time of RD visit. TF was seen infusing at Jevity 1.5 at 50 ml/hr -- 6 ml infused. Per RN, pt's TF was infusing overnight at rate of 40 ml/hr, and upon shift change this morning, pt was found w/ 275 ml of residuals, and attending physician and surgeon were notified. TF had been held up until this afternoon. Pt also had BM x2 per RN report. Pending D/C to subacute per EMR. Pt's attending added Prosource TID to pt's TF regimen today. Current TF regimen continues appropriate, however, pt may benefit from prokinetic agent for improved gut motility. Estimated Energy Expenditure (kcals/day) 3851-7826 kcal/day (MSJ x 1.2-1.3 for vent support) Estimated Protein Required (g/day) 83-110 gm/day (1.5-2 gm/kg IBW for critical illness, obesity, pending Sx) Estimated Fluid Required (l/day) 1.7-2 L/day (1 ml/kcal/day for adult maintenance) Problem/Etiology/Signs/Symptoms Inadequate enteral nutrition support related to critical illness as evidenced by current NPO status and inability to meet estimated nutritional requirements. *no longer applicable, on TPN* Expected Outcomes/Goals - Monitor parental nutrition support and intake w/ goal of pt meeting at least 75% of estimated needs, labs trending WNL, normal GI function, and skin integrity/wt maintenance Dietitian Recommendations * Recommend continuing Jevity 1.5 at 50 ml/hr, Prosource TID, Free Water Flush: 200 ml Q6h via GT Provides: 1980 kcal/day, 122 gm protein/day, and 1760 ml free water/day Meets: 110% of upper end of estimated caloric needs and 111% of upper end of estimated protein needs * Consider prokinetic agent Follow Up High Risk: F/U in 2-3 days Addendum: 03/30/19 at [address] RD received TPN notification that TPN was D/C this afternoon as well -- confirmed by DEEJAY.
--- NOTE | 2019-03-30 16:21 | NUR ---
Dietitian Recommendations * Recommend continuing Jevity 1.5 at 50 ml/hr, Prosource TID, Free Water Flush: 200 ml Q6h via GT Provides: 1980 kcal/day, 122 gm protein/day, and 1760 ml free water/day Meets: 110% of upper end of estimated caloric needs and 111% of upper end of estimated protein needs * Consider prokinetic agent LP, RD Please refer to Nutrition F/U for details.
--- NOTE | 2019-03-30 17:22 | NUR ---
BLOOD GLUCOSE 90 mg/dL WITH NO INSULIN COVERAGE NEEDED. NO S/SX HYPOGLYCEMIA NOTED. TOLERATING GTUBE FEEDING. ALL NEEDS MET. CONT TO MONITOR
[2019-03-30 19:30] VITALS: BP_SYST 114
--- NOTE | 2019-03-30 19:35 | NUR ---
CLOSING NOTE PATIENT STABLE. VITALS STABLE. NO ACUTE DISTRESS. JOSE VENT ORDERED. JOSE GTF ORDERED. BRISENO CATH DRAINING MIL[place] URINE. ALL NEEDS MET. CALL LIGHT IN REACH. ENDORSED CARE TO SUSANA VILLALBA.
--- NOTE | 2019-03-30 20:00 | NUR ---
Pt is awake and non-verbal. Pt has tracheostomy tube in place and connected to mechanical ventilator with settings of AC 10, TV 500, FIO2 30% and Peep 5. No respiratory distress noted. Abdominal dressing moistened with moderate amount of brownish drainage and the dressing will be changed. GT feeding of Jevity 1.5 is infusing well at 50ml/hr. G tube dressing is dry and intact. PICC in WILLIAMS is saline locked with the dressing dry and intact. Capellan cath to gravity drainage is draining yellowish urine. Fall, seizure and safety precautions are in place.
--- NOTE | 2019-03-30 20:30 | NUR ---
Abdominal dressing was changed. Moderated amount of brownish drainage noted. Retention sutures and ellen are in place. Incision was cleansed with normal saline and pat dried. ABD pads were applied to the incision and then secured with 2 inches paper tape.
[2019-03-30] MEDS ORDERED: SODIUM ACETATE IV SCH ×10 (21:00)
[2019-03-30] MEDS ORDERED: [UNRECOGNIZED DRUG - OTHER] IV SCH ×10 (21:00)
[2019-03-30] MEDS ORDERED: POTASSIUM ACETATE IV SCH ×10 (21:00)
[2019-03-30] MEDS ORDERED: K PHOS IV SCH ×10 (21:00)
[2019-03-30] MEDS ORDERED: TPN CENTRAL IV SCH ×10 (21:00)
--- NOTE | 2019-03-30 22:00 | NUR ---
Pt is tolerating vent settings and GT feeding well. Fall, seizure and safety precautions are in place.
[2019-03-31] VITALS (7 sets, daily range): BP systolic 111–126
--- NOTE | 2019-03-31 | NUR ---
Patient is sleeping comfortably in bed. No respiratory distress noted. Fall, seizure, and safety precautions are in place.
[2019-03-31] MEDS: LevALBUTEROL HCL 1.25 MG/0.5 ML *CONC.* VIAL.NEB (XOPENEX CONC.) INH SCH ×4 (00:40→20:08)
[2019-03-31] MEDS: IPRATROPIUM BROM 0.5 MG/2.5 ML VIAL.NEB (ATROVENT) INH SCH ×4 (00:40→20:08)
--- NOTE | 2019-03-31 02:00 | NUR ---
Pt is awake and resting in bed without any distress noted. Pt is tolerating vent settings well. Pt was suctioned both orally and via tracheostomy. G Tube feeding is infusing well.
--- NOTE | 2019-03-31 03:30 | NUR ---
Abdominal dressing was changed. Moderated amount of brownish drainage noted. Retention sutures and ellen are in place. Incision was cleansed with normal saline and pat dried. ABD pads were applied to the incision and then secured with 2 inches paper tape. Sacral/coccygeal scar-tissue dressing change was done due to soilage of the dressing with bowel movement. Area was cleansed with normal saline and pat dried. Hydraguard cream was applied to the area and covered with foam dressing. No drainage or odor noted.
--- NOTE | 2019-03-31 05:30 | NUR ---
Pt is resting quietly in bed and tolerating GT Feeding. Pt is also tolerating vent settings well. Fall, seizure and safety precautions are in place.
[2019-03-31] MEDS: MAG-AL HYDROX/SIMETH 30 ML UDC GT SCH ×3 (06:23→22:00)
[2019-03-31] MEDS: metroNIDAZOLE 500 mg/NS 100 ML IV SCH ×3 (06:23→22:00)
[2019-03-31] MEDS: ERGOCALCIFEROL 8000 UNITS/ML ORAL SOLUTION, 60 ML BOTTLE GT SCH ×3 (06:25→21:15)
--- NOTE | 2019-03-31 06:50 | NUR ---
Pt is awake and resting comfortably in bed. All pt's needs, including oral and tracheal suctioning, maria del rosario care, wound care and oral care were attended to. GTF is infusing well. Pt is tolerating vent settings well. Will endorse to day shift nurse.
--- NOTE | 2019-03-31 08:00 | NUR ---
ASSUMPTION OF CARE: RECEIVED PT AWAKE, NON-VERBAL, DX:RISK FOR FLUID VOLUME DEFICIT, R/T GI BLEED, NO S/S OF DISTRESS, VSS, AFEBRILE, CURRENT H/H=9.9/32.7, TOLERATING WELL, IV SITE MIDLINE TO WILLIAMS INTACT, PATENT, NO REDNESS OR SWELLING, POSITIONED ON AIR MATTRESS, NO INDICATION OF PAIN OR DISCOMFORT, GT FEEDING @ 50CC/HR WITH MINIMUM RESIDUAL <5CC, MID ABD INCISION COVERED WITH CLEAN, DRY DRSG NO DRAINAGE OR BLEEDING NOTED, HAS TRACH TO VENT, WITH NO SIGN OF RESPIRATORY DISTRESS, TOLERATING WELL, SIDE RAILS UP X3, CALL LIGHT WITHIN REACH, NURSE WILL ROUND Q1HR, AND PRN, WILL CONT' TO MONITOR AND ASSESS.
--- NOTE | 2019-03-31 09:00 | NUR ---
HIDE HOUSE SUPERVISOR: MORNING MEDS GIVEN, PER ORDERED BY Black, TOLERATED WELL, NO CHANGES IN CONDITION NOTED, WILL CONT' TO MONITOR AND ASSESS.
[2019-03-31] MEDS: levETIRAcetam 500 MG in NS 100 ML IV SCH ×2 (09:12→21:00)
[2019-03-31] MEDS: CEFEPIME 1 GM in D5W 50 ML IV SCH ×2 (09:12→21:00)
[2019-03-31] MEDS: BACLOFEN 10 MG TABLET GT SCH ×2 (09:13→21:00)
[2019-03-31] MEDS: PANTOPRAZOLE SODIUM 40 MG/VIAL (PROTONIX) IVP SCH (09:13)
[2019-03-31] MEDS: POTASSIUM CHLORIDE 20 MEQ/PKT PACKET GT SCH (09:13)
[2019-03-31] MEDS: FERROUS SULFATE 300 MG/5 ML UDC GT SCH ×2 (09:13→21:00)
[2019-03-31] MEDS: METOPROLOL TARTRATE 25 MG TABLET GT SCH ×2 (09:14→21:00)
[2019-03-31] MEDS: PEG 400/HYPROMELLOSE/GLYCERIN 15 ML DROPS EACH EYE SCH ×2 (09:15→21:00)
[2019-03-31] MEDS: ENOXAPARIN SODIUM 40 MG/0.4 ML SYRINGE SUBCUT SCH (09:16)
[2019-03-31 09:32] LABS: CALCIUM 7.5 mg/dL (8.4-11.0); CREATININE 0.74 mg/dL (0.55-1.30); PHOSPHORUS 1.7 mg/dL (2.7-4.5); POTASSIUM 4.2 mmol/L (3.5-5.1)
[2019-03-31 10:11] LABS: BASOPHILS # (AUTO) 0.2 K/uL (0.0-0.2); BASOPHILS % (AUTO) 1.7 % (0.0-2.0); EOSINOPHILS # (AUTO) 0.2 K/uL (0.0-0.4); EOSINOPHILS % (AUTO) 1.7 % (0.0-4.0); HEMATOCRIT 32.5 % (36-48); HEMOGLOBIN 9.7 g/dL (12.0-16.0); LYMPHOCYTES # (AUTO) 1.9 K/uL (1.0-5.5); LYMPHOCYTES % (AUTO) 15.8 % (20.5-51.5); MEAN CORPUSCULAR HEMOGLOBIN 24 pg (27-31); MEAN CORPUSCULAR HGB CONC 30 % (32-36); MEAN CORPUSCULAR VOLUME 80 fL (79.0-98.0); MONOCYTES % (AUTO) 8.8 % (1.7-9.3); NEUTROPHILS # (AUTO) 8.5 K/uL (1.8-7.7); PLATELET COUNT (AUTO) 455 K/uL (130-430); RED BLOOD CELL COUNT(AUTO) 4.06 MIL/uL (4.2-6.2); RED CELL DISTRIBUTION WIDTH 32.8 % (9.0-15.0); WHITE BLOOD COUNT (AUTO) 11.9 K/uL (4.8-10.8)
[2019-03-31] MEDS: SOD FERRIC GLUC COMPLEX/SUC 125 MG in NS 100 ML IV SCH (10:46)
--- NOTE | 2019-03-31 12:00 | NUR ---
GLUCOSE MONITORING: BLOOD SUGAR CHTLO=339, NO COVERAGE REQUIRED, TOLERATING G-TUBE FEEDING, REPOSITIONED FOR COMFORT, WILL CONT' TO MONITOR AND ASSESS.
--- NOTE | 2019-03-31 15:11 | NUR ---
Discharge Planning: DCP tried to arrange transportation, patient has Medical and travels ALS trach/vent patient. [employer] ([phone]) medical will doesn't cover, private pay would be 879.55 and [facility] ([phone]) not able to transport. DCP reached out to [facility] to see if [facility] would consider paying.
--- NOTE | 2019-03-31 18:00 | NUR ---
GLUCOSE MONITORING: BLOOD SUGAR LEVEL=98, NO COVERAGE REQUIRED, WILL CONT WITH POC.
--- NOTE | 2019-03-31 19:55 | NUR ---
PM SHIFT ASSESSMENT Received patient awake, no distress noted, has trach with mech vent. Radha midline noted, intact and patent, dressing changed to mid abd incision, gtube feeding ongoing, kellogg catheter secured and to gravity draining yellow urine, patient repositioned and turned with pillow support. fall and safety measures in place, will monitor.
--- NOTE | 2019-03-31 22:00 | NUR ---
MED PASS Due medications administered via gtube, no residual noted, aspiration precautions maintained, due antibiotics administered via midline, bed bath and incontinence care provided, turned and repositioned, oral care provided.
--- NOTE | 2019-04-01 01:00 | NUR ---
RN ROUNDS Patient resting quietly, no distress noted, blood sugar check this am of 107, no coverage needed, vitals stable, turned and repositioned, safety measures in place.
[2019-04-01 02:12] VITALS: BP_SYST 103
--- NOTE | 2019-04-01 03:30 | NUR ---
RN ROUNDS Patient asleep, breathing is even and unlabored, turned and repositioned, safety measures maintained, will monitor.
[2019-04-01] MEDS: IPRATROPIUM BROM 0.5 MG/2.5 ML VIAL.NEB (ATROVENT) INH SCH ×4 (04:05→19:31)
[2019-04-01] MEDS: LevALBUTEROL HCL 1.25 MG/0.5 ML *CONC.* VIAL.NEB (XOPENEX CONC.) INH SCH ×3 (04:06→19:32)
[2019-04-01] MEDS: ERGOCALCIFEROL 8000 UNITS/ML ORAL SOLUTION, 60 ML BOTTLE GT SCH ×3 (05:22→21:15)
[2019-04-01] MEDS: metroNIDAZOLE 500 mg/NS 100 ML IV SCH (05:22)
[2019-04-01] MEDS: MAG-AL HYDROX/SIMETH 30 ML UDC GT SCH ×3 (05:22→22:00)
--- NOTE | 2019-04-01 06:21 | NUR ---
RN ROUNDS Patient awake, no distress noted, due medications administered, blood sugar check this am of 95, hygiene care provided, turned and repositioned, fall and safety measure maintained through out the shift, will monitor until report given to am nurse.
--- NOTE | 2019-04-01 06:40 | NUR ---
INITIAL ASSESSMENT PATIENT IS LAYING IN BED AND STABLE. NO SIGNS OR SYMPTOMS OF RESPIRATORY DISTRESS NOTED. PATIENT UNSUCCESSFULLY DEMONSTRATES USAGE OF CALL LIGHT AT THIS TIME DUE TO LIMITED MOBILITY. WILL CONTINUE TO ROUND AND ASSESS. PLAN OF CARE IS DISCUSSED WITH THE PATIENT AT THIS TIME. BED IS LOCKED, ALARMED, AND AT THE LOWEST POSITION. RESPIRATORY, FALL, SEIZURE, SAFETY, AND ASPIRATION PRECAUTIONS WILL BE PLACED THROUGHOUT THE SHIFT. Addendum: 04/02/19 at 0753 by Jayla Flowers RN NOTE INTENDED FOR DIFFERENT TIME
--- NOTE | 2019-04-01 07:34 | NUR ---
Opening Note received bedside SBAR report from power and recovery shift engineer RN, patient resting in bed, respirations even and unlabored on mechanical ventilator, no acute distress noted, side rails padded, room close to nurses station, educated patient on use of call light and asked to call for assistance, call light in reach, bed in low and locked position, bed alarm on.
[2019-04-01 08:00] VITALS: BP_SYST 117
--- NOTE | 2019-04-01 08:56 | NUR ---
Physician Rounds Dr. Jean at bedside examining patient, informed her that per pharmacy patients antibiotic orders are expiring today.
[2019-04-01] MEDS: levETIRAcetam 500 MG in NS 100 ML IV SCH ×2 (09:14→22:22)
[2019-04-01] MEDS: POTASSIUM CHLORIDE 20 MEQ/PKT PACKET GT SCH (09:14)
[2019-04-01] MEDS: PANTOPRAZOLE SODIUM 40 MG/VIAL (PROTONIX) IVP SCH (09:14)
[2019-04-01] MEDS: PEG 400/HYPROMELLOSE/GLYCERIN 15 ML DROPS EACH EYE SCH ×2 (09:15→22:22)
[2019-04-01] MEDS: FERROUS SULFATE 300 MG/5 ML UDC GT SCH ×2 (09:15→21:00)
[2019-04-01] MEDS: BACLOFEN 10 MG TABLET GT SCH ×2 (09:15→21:00)
[2019-04-01] MEDS: ENOXAPARIN SODIUM 40 MG/0.4 ML SYRINGE SUBCUT SCH (09:17)
[2019-04-01] MEDS: METOPROLOL TARTRATE 25 MG TABLET GT SCH ×2 (09:32→21:00)
[2019-04-01 10:12] LABS: BASOPHILS # (AUTO) 0.1 K/uL (0.0-0.2); BASOPHILS % (AUTO) 0.7 % (0.0-2.0); EOSINOPHILS # (AUTO) 0.3 K/uL (0.0-0.4); EOSINOPHILS % (AUTO) 2.4 % (0.0-4.0); HEMATOCRIT 29.5 % (36-48); HEMOGLOBIN 9.1 g/dL (12.0-16.0); LYMPHOCYTES # (AUTO) 1.8 K/uL (1.0-5.5); LYMPHOCYTES % (AUTO) 15.8 % (20.5-51.5); MEAN CORPUSCULAR HEMOGLOBIN 25 pg (27-31); MEAN CORPUSCULAR HGB CONC 31 % (32-36); MEAN CORPUSCULAR VOLUME 79 fL (79.0-98.0); MONOCYTES # (AUTO) 0.9 K/uL (0.0-1.0); MONOCYTES % (AUTO) 8.1 % (1.7-9.3); NEUTROPHILS # (AUTO) 8.4 K/uL (1.8-7.7); PLATELET COUNT (AUTO) 539 K/uL (130-430); RED BLOOD CELL COUNT(AUTO) 3.72 MIL/uL (4.2-6.2); RED CELL DISTRIBUTION WIDTH 33.7 % (9.0-15.0); WHITE BLOOD COUNT (AUTO) 11.5 K/uL (4.8-10.8)
[2019-04-01 10:26] LABS: CALCIUM 7.3 mg/dL (8.4-11.0); CREATININE 0.75 mg/dL (0.55-1.30); POTASSIUM 4.2 mmol/L (3.5-5.1)
[2019-04-01 10:29] LABS: PHOSPHORUS 1.8 mg/dL (2.7-4.5)
[2019-04-01] MEDS: SOD FERRIC GLUC COMPLEX/SUC 125 MG in NS 100 ML IV SCH (10:38)
--- NOTE | 2019-04-01 11:45 | NUR ---
RN Rounds patient resting in bed, respirations even and unlabored on mechanical ventilator, no acute distress noted.
[2019-04-01 12:00] VITALS: BP_SYST 120
--- NOTE | 2019-04-01 13:16 | NUR ---
Discharge Planning: JOHNATHAN arranged transportation to [facility] ([phone]) Rm 32B, with [facility] ([phone]) 5:30pm P/U. Patient will go with a NEAL approved by Heather andinoelroy Ryanen [phone] aided in arrangement. DCP made CM and charge nurse aware. Addendum: 04/01/19 at 1424 by Bre Ramos DP DCP received a call from [email or web address] ([phone]) P/U 4:00pm per Fletcher DCP made nurse aware of change.
[2019-04-01] MEDS: ALBUTEROL SULFATE 0.083% 2.5 MG/3 ML VIAL.NEB INH PRN (13:45)
--- NOTE | 2019-04-01 15:05 | NUR ---
Wound Care wound care completed to sacrum, moderate amount of stool like drainage noted from abdominal wound, charge machine operator aware, paged Dr. Mariano and Dr. Hansen, awaiting call back.
[2019-04-01 16:00] VITALS: BP_SYST 118
--- NOTE | 2019-04-01 16:10 | NUR ---
Spoke with Physician Spoke with Dr. Mariano, informed him of stool like drainage from abdominal incision seen by two RN's, informed him that ambulance is here for pickup to transfer to [facility], per Dr. Mariano hold transfer and inform Dr. Hansen, second page sent out to Dr. Hansen. Addendum: 04/01/19 at 1937 by Marybeth Cobos RN abd pad dressing applied to abdomen.
--- NOTE | 2019-04-01 18:30 | NUR ---
Paged Surgeon third page to Dr. Hansen, awaiting call back.
--- NOTE | 2019-04-01 19:20 | NUR ---
Closing Note bedside SBAR report given to receiving RN, patient resting in bed, respirations even and unlabored on mechanical ventilator, no acute distress noted, moderate amount of brown drainage noted from abdominal incision, side rails padded, educated patient on use of call light and asked to call for assistance, call light in reach, bed in low and locked position, bed alarm on, care endorsed to third shift lieutenant RN.
[2019-04-01 19:40] VITALS: BP_SYST 141
--- NOTE | 2019-04-01 19:55 | NUR ---
INITIAL ASSESSMENT PATIENT IS LAYING IN BED AND STABLE. NO SIGNS OR SYMPTOMS OF RESPIRATORY DISTRESS NOTED. PATIENT SHOWS NO PAIN PER FLACC SCALE USED. PATIENT UNSUCCESSFULLY DEMONSTRATES USAGE OF CALL LIGHT AT THIS TIME DUE TO COGNITIVE IMPAIRMENT. WILL CONTINUE TO ROUND AND ASSESS FREQUENTLY. PLAN OF CARE IS DISCUSSED WITH THE PATIENT AT THIS TIME. BED IS LOCKED, ALARMED, AND AT THE LOWEST POSITION. FALL, SAFETY, RESPIRATORY, AND ASPIRATION, AND SEIZURE PRECAUTIONS WILL BE TAKEN THROUGHOUT THE SHIFT.
--- NOTE | 2019-04-01 20:56 | NUR ---
PAGED PAGED SAMI SHIELDS AT [phone] SPOKE WITH RODRIGUEZ.
--- NOTE | 2019-04-01 21:53 | NUR ---
COMMUNICATION WITH DR. MISHA CABRAL HAS PAGED BACK AT THIS TIME, PATIENT'S STOOL DRAINAGE COMING FROM HER INCISIONAL SITE WAS COMMUNICATED. GAVE NEW ORDERS. HAS ORDERED FOR ALL G-TUBE MEDICATIONS TO BE HELD AND TO ORDER TPN PER PHARMACY PROTOCOL. ORDERS READ BACK, VERIFIED, AND WILL BE COMMUNICATED.
--- NOTE | 2019-04-01 22:30 | NUR ---
WOUND & HYGIENE CARE COLOSTOMIES PLACED OVER PATIENT'S INCISIONAL SITE WHICH IS DRAINING STOOL AT THIS TIME PER DR. CABRAL'S ORDERS. ABDOMINAL BINDER ALSO PLACED FOR PATIENT AT THIS TIME PER MD ORDER. G-TUBE CLAMPED. WOUND CARE AND HYGIENE CARE ALSO PROVIDED AT THIS TIME. PATIENT TOLERATED WELL. PATIENT IS REPOSITIONED FOR COMFORT, SHE IS STABLE, NO SIGNS OF RESPIRATORY DISTRESS. BED IS LOCKED, ALARMED, AND AT THE LOWEST LEVEL.
--- NOTE | 2019-04-02 | NUR ---
COMMUNICATION WITH DR. ANTONIO ALVAREZ HAS PAGED BACK AT THIS TIME, PATIENT'S CHANGE IN G TUBE FEEDING COMMUNICATED. GAVE NEW ORDERS. ORDERS READ BACK, VERIFIED, AND WILL BE FOLLOWED.
--- NOTE | 2019-04-02 00:30 | NUR ---
NOTE PATIENT IS RESTING IN BED, STABLE, NO SIGNS OF RESPIRATORY DISTRESS. BED IS LOCKED, ALARMED, AND AT THE LOWEST LEVEL.
[2019-04-02 00:35] VITALS: BP_SYST 110
[2019-04-02] MEDS: IPRATROPIUM BROM 0.5 MG/2.5 ML VIAL.NEB (ATROVENT) INH SCH ×4 (01:46→19:54)
[2019-04-02] MEDS: LevALBUTEROL HCL 1.25 MG/0.5 ML *CONC.* VIAL.NEB (XOPENEX CONC.) INH SCH ×4 (01:46→20:05)
--- NOTE | 2019-04-02 02:30 | NUR ---
ORAL CARE PROVIDED ORAL CARE PROVIDED FOR PATIENT AT THIS TIME, PATIENT TOLERATED WELL. SHE IS REPOSITIONED FOR COMFORT, SHE IS STABLE, NO SIGNS OF RESPIRATORY DISTRESS. BED IS LOCKED, ALARMED, AND AT THE LOWEST LEVEL.
[2019-04-02] MEDS: D5LR 1,000 ML IV SCH ×3 (03:17→20:45)
--- NOTE | 2019-04-02 04:10 | NUR ---
NOTE PATIENT IS SLEEPING, STABLE, NO SIGNS OF RESPIRATORY DISTRESS. BED IS LOCKED, ALARMED, AND AT THE LOWEST LEVEL.
[2019-04-02] MEDS: ERGOCALCIFEROL 8000 UNITS/ML ORAL SOLUTION, 60 ML BOTTLE GT SCH ×3 (05:15→21:15)
--- NOTE | 2019-04-02 05:15 | NUR ---
NOTE PATIENT IS SLEEPING, STABLE, NO SIGNS OF RESPIRATORY DISTRESS. BED IS LOCKED, ALARMED, AND AT THE LOWEST LEVEL.
[2019-04-02] MEDS: MAG-AL HYDROX/SIMETH 30 ML UDC GT SCH ×3 (06:00→22:00)
[2019-04-02 07:26] LABS: BASOPHILS # (AUTO) 0.1 K/uL (0.0-0.2); BASOPHILS % (AUTO) 0.5 % (0.0-2.0); EOSINOPHILS # (AUTO) 0.2 K/uL (0.0-0.4); EOSINOPHILS % (AUTO) 1.5 % (0.0-4.0); HEMATOCRIT 30.6 % (36-48); HEMOGLOBIN 9.3 g/dL (12.0-16.0); LYMPHOCYTES % (AUTO) 17.5 % (20.5-51.5); MEAN CORPUSCULAR HEMOGLOBIN 24 pg (27-31); MEAN CORPUSCULAR HGB CONC 30 % (32-36); MEAN CORPUSCULAR VOLUME 79 fL (79.0-98.0); MONOCYTES % (AUTO) 8.9 % (1.7-9.3); NEUTROPHILS # (AUTO) 8.4 K/uL (1.8-7.7); NEUTROPHILS % (AUTO) 71.6 % (40.0-70.0); PLATELET COUNT (AUTO) 541 K/uL (130-430); RED BLOOD CELL COUNT(AUTO) 3.88 MIL/uL (4.2-6.2); RED CELL DISTRIBUTION WIDTH 33.4 % (9.0-15.0); WHITE BLOOD COUNT (AUTO) 11.7 K/uL (4.8-10.8)
--- NOTE | 2019-04-02 07:45 | NUR ---
OPENING NOTE RECEIVED PATIENT IN BED; AROUSABLE. TRACH TO VENT; JOSE SETTINGS. NO ACUTE DISTRESS. NO SOB. HOB UP. GTUBE INTACT AND PATENT; GTUBE FEEDING HELD DUE TO LEAKAGE FROM SURGICAL SITE PER REPORT. NOTED COLOSTOMY BAGS OVER SURGICAL SITE AND HELD BY ABDOMINAL BINDER. TPN WAS ORDERED FOR PATIENT; AWAITING FOR PHARMACY TO FILL. PICC LINE TO LEFT UPPER ARM INTACT AND PATENT. BRISENO CATH INTACT AND PATENT DRAINING YELLOW URINE. BED IN LOW AND LOCKED POSITION. PADDED SIDERAIL UPX3. ALL NEEDS MET. CONT TO MONITOR
[2019-04-02] MEDS ORDERED: *TPN PER PHARMACY XX PRN (08:15)
[2019-04-02 08:27] LABS: CALCIUM 7.4 mg/dL (8.4-11.0); CREATININE 0.69 mg/dL (0.55-1.30); POTASSIUM 4.5 mmol/L (3.5-5.1)
[2019-04-02 08:31] LABS: ALBUMIN 1.5 g/dL (3.4-4.8); PHOSPHORUS 2.3 mg/dL (2.7-4.5); TOTAL BILIRUBIN 0.3 mg/dL (0.0-1.0)
--- NOTE | 2019-04-02 09:10 | NUR ---
DR.WALI SHIELDS CALLED AND ORDERED FLEXISEAL AND SMALL BOWEL FOLLOW THROUGH WITH GASTROGRAFIN; CLARIFIED AND VERIFIED ORDER. CONT TO MONITOR
[2019-04-02] MEDS: POTASSIUM CHLORIDE 20 MEQ/PKT PACKET GT SCH (09:39)
[2019-04-02] MEDS: levETIRAcetam 500 MG in NS 100 ML IV SCH ×2 (09:39→22:48)
[2019-04-02] MEDS: BACLOFEN 10 MG TABLET GT SCH ×2 (09:39→21:00)
[2019-04-02] MEDS: METOPROLOL TARTRATE 25 MG TABLET GT SCH ×2 (09:40→21:00)
[2019-04-02] MEDS: PANTOPRAZOLE SODIUM 40 MG/VIAL (PROTONIX) IVP SCH (09:40)
[2019-04-02] MEDS: FERROUS SULFATE 300 MG/5 ML UDC GT SCH ×2 (09:40→21:00)
[2019-04-02] MEDS: ENOXAPARIN SODIUM 40 MG/0.4 ML SYRINGE SUBCUT SCH (09:41)
[2019-04-02] MEDS: PEG 400/HYPROMELLOSE/GLYCERIN 15 ML DROPS EACH EYE SCH ×2 (09:44→22:52)
[2019-04-02] MEDS ORDERED: GASTROGRAFIN 120 ML ONE (10:36)
[2019-04-02] MEDS: SOD FERRIC GLUC COMPLEX/SUC 125 MG in NS 100 ML IV SCH (10:43)
--- NOTE | 2019-04-02 11:45 | NUR ---
SEEN AND EXAMINED BY AT BEDSIDE. CONT WITH SMALL BOWEL FOLLOW THROUGH; MD AWARE
--- NOTE | 2019-04-02 12:21 | NUR ---
BLOOD GLUCOSE 90 mg/dL WITH NO INSULIN COVERAGE NEEDED ORDERED. TEACHING DONE ON DM. HOB UP. ALL NEEDS MET. CONT TO MONITOR. CALL LIGHT IN REACH
[2019-04-02 12:40] VITALS: BP_SYST 119
[2019-04-02 14:42] VITALS: BP_SYST 128
--- NOTE | 2019-04-02 15:00 | NUR ---
NOTE WOUNDCARE PROVIDED, JOSE WELL. KEPT CLEAN AND DRY. ALL NEEDS MET. CONT TO MONITOR
--- NOTE | 2019-04-02 15:44 | NUR ---
Nutrition Follow Up RD reviewed pt's current EMR including diet hx, physician notes, nursing notes, pertinent labs/meds/procedures, care trends and care activity. Current Order: TPN D40/AA8.5% at 42ml/hr with IL20% at 10ml x 0 days Provides 2214kcal, 86gPro, GIR 3.4. Medical History: Pt had high residuals with G-tube feeding, small bowel follow through ordered. Pt had stool like drainage from abd incision, discharge was held per nursing notes. Subjective Information: Pt seen resting in bed, non communicative, no family at bedside. TPN to be initiated today. Estimated Energy Expenditure (kcals/day) 0662-6155 kcal/day (MSJ x 1.2-1.3 for vent support) Estimated Protein Required (g/day) 83-110 gm/day (1.5-2 gm/kg IBW for critical illness, obesity, pending Sx) Estimated Fluid Required (l/day) 1.7-2 L/day (1 ml/kcal/day for adult maintenance) Problem/Etiology/Signs/Symptoms Inadequate enteral nutrition support related to critical illness as evidenced by current NPO status and inability to meet estimated nutritional requirements. *no longer applicable, on TPN* Altered GI function related to current medical condition as evidenced by inability to tolerate enteral enfusion, now on TPN. *new* Expected Outcomes/Goals - Monitor parental nutrition support and intake w/ goal of pt meeting at least 75% of estimated needs, labs trending WNL, normal GI function, and skin integrity/wt maintenance Dietitian Recommendations 1. Continue TPN D40/AA8.5% at 42ml/hr with IL20% at 10ml 2. Current TPN meets 123% of kcal and 100% of protein est nutrition needs Follow Up High Risk: F/U in 2-3 days LT, RD
--- NOTE | 2019-04-02 16:07 | NUR ---
Dietitian Recommendations 1. Continue TPN D40/AA8.5% at 42ml/hr with IL20% at 10ml 2. Current TPN meets 123% of kcal and 100% of protein est nutrition needs Please see Nutrition Follow Up for further details. LT, RD
[2019-04-02 16:09] VITALS: BP_SYST 120
--- NOTE | 2019-04-02 17:30 | NUR ---
BLOOD GLUCOSE 87 mg/dL WITH NO INSULIN COVERAGE NEEDED. HOB UP. KEPT CLEAN AND DRY. CONT TO MONITOR
--- NOTE | 2019-04-02 19:20 | NUR ---
OPENING NOTE Received patient resting in bed w/ eyes open No s/sx of distress, nonlabored breathing on Ventilator w/ settings; AC 500, R 10, FIO2 30%, PEEP 5. PIIC to WILLIAMS. Seizure pads on side rails, bed is locked in lowest position, side rails up 3x, bed alarm on and call light w/in reach. Updated board.
--- NOTE | 2019-04-02 19:38 | NUR ---
CLOSING NOTE PATIENT IS STABLE. JOSE VENT SETTING. NO ACUTE DISTRESS. PICC LINE TO WILLIAMS. GTUBE INTACT AND PATENT. ABDOMINAL BINDER IN PLACE. BRISENO CATH AND FLEXISEAL INTACT AND PATENT. ALL NEEDS ANTICIPATED AND MET. CALL LIGHT IN REACH. CONT TO MONITOR. ENDORSED TO TERRI VILLALBA.
[2019-04-02] MEDS: ALBUTEROL SULFATE 0.083% 2.5 MG/3 ML VIAL.NEB INH PRN (19:54)
[2019-04-02 20:00] VITALS: BP_SYST 116
[2019-04-02] MEDS ORDERED: TRACE ELEMENTS IV SCH ×6 (21:00)
[2019-04-02] MEDS ORDERED: [UNRECOGNIZED DRUG - OTHER] IV SCH ×6 (21:00)
[2019-04-02] MEDS ORDERED: TPN CENTRAL IV SCH ×6 (21:00)
[2019-04-02] MEDS ORDERED: NA PHOS IV SCH ×6 (21:00)
[2019-04-02] MEDS ORDERED: MVI IV SCH ×6 (21:00)
[2019-04-02] MEDS: FAT EMULSIONS 250 ML IV SCH (22:48)
[2019-04-03 00:23] VITALS: BP_SYST 127
[2019-04-03] MEDS: IPRATROPIUM BROM 0.5 MG/2.5 ML VIAL.NEB (ATROVENT) INH SCH ×4 (01:37→19:00)
[2019-04-03] MEDS: LevALBUTEROL HCL 1.25 MG/0.5 ML *CONC.* VIAL.NEB (XOPENEX CONC.) INH SCH ×4 (01:37→19:00)
--- NOTE | 2019-04-03 02:30 | NUR ---
ORAL CARE PROVIDED ORAL CARE PROVIDED FOR PATIENT AT THIS TIME, PATIENT TOLERATED WELL. SHE IS REPOSITIONED FOR COMFORT, SHE IS STABLE, NO SIGNS OF RESPIRATORY DISTRESS. BED IS LOCKED, ALARMED, AND AT THE LOWEST LEVEL. Addendum: 04/03/19 at 0553 by Eulalia Johnson RN NOTE INTENDED FOR DIFFERENT TIME
--- NOTE | 2019-04-03 03:45 | NUR ---
Dressing change applied 5 colostomy bags side by side to form one and applied to abdominal incision site to collect drainage. covered with abdominal pad and applied abdominal binder.
[2019-04-03] MEDS: ERGOCALCIFEROL 8000 UNITS/ML ORAL SOLUTION, 60 ML BOTTLE GT SCH ×3 (05:15→21:15)
[2019-04-03] MEDS: MAG-AL HYDROX/SIMETH 30 ML UDC GT SCH ×3 (06:00→22:00)
[2019-04-03] MEDS: D5LR 1,000 ML IV SCH (06:45)
[2019-04-03 07:09] LABS: BASOPHILS % (AUTO) 0.3 % (0.0-2.0); EOSINOPHILS # (AUTO) 0.2 K/uL (0.0-0.4); EOSINOPHILS % (AUTO) 1.5 % (0.0-4.0); HEMATOCRIT 33.4 % (36-48); HEMOGLOBIN 10.2 g/dL (12.0-16.0); LYMPHOCYTES % (AUTO) 16.1 % (20.5-51.5); MEAN CORPUSCULAR HEMOGLOBIN 25 pg (27-31); MEAN CORPUSCULAR HGB CONC 31 % (32-36); MEAN CORPUSCULAR VOLUME 81 fL (79.0-98.0); MONOCYTES # (AUTO) 1.1 K/uL (0.0-1.0); MONOCYTES % (AUTO) 8.4 % (1.7-9.3); NEUTROPHILS # (AUTO) 9.2 K/uL (1.8-7.7); NEUTROPHILS % (AUTO) 73.7 % (40.0-70.0); PLATELET COUNT (AUTO) 603 K/uL (130-430); RED BLOOD CELL COUNT(AUTO) 4.13 MIL/uL (4.2-6.2); RED CELL DISTRIBUTION WIDTH 33.6 % (9.0-15.0); WHITE BLOOD COUNT (AUTO) 12.5 K/uL (4.8-10.8)
[2019-04-03 07:42] LABS: CALCIUM 7.7 mg/dL (8.4-11.0); CREATININE 0.66 mg/dL (0.55-1.30); POTASSIUM 3.9 mmol/L (3.5-5.1)
[2019-04-03 07:51] VITALS: BP_SYST 117
[2019-04-03 07:52] LABS: ALBUMIN 1.7 g/dL (3.4-4.8); PHOSPHORUS 4.1 mg/dL (2.7-4.5); TOTAL BILIRUBIN 0.3 mg/dL (0.0-1.0)
--- NOTE | 2019-04-03 07:55 | NUR ---
OPENING NOTE RECEIVED PATIENT RESTING IN BED, AWAKE. NO S/SX PAIN. CONT TRACH TO VENT; JOSE SETTINGS. NO ACUTE DISTRESS. PICC LINE TO WILLIAMS. GTUBE INTACT AND PATENT. ABDOMINAL INCISION WITH COVERED COLOSTOMY BAG; AWARE. ABDOMINAL BINDER IN PLACE. BRISENO CATH INTACT AND PATENT DRAINING YELLOW URINE. FLEXISEAL INTACT AND PATENT. BED IN LOW AND LOCKED POSITION. SIDERAIL UPX3. BED ALARM ON. ALL NEEDS ANTICIPATED AND MET BY STAFF. CALL LIGHT IN REACH. CONT TO MONITOR WITH FREQUENT VISUAL CHECK
[2019-04-03] MEDS: METOPROLOL TARTRATE 25 MG TABLET GT SCH ×2 (08:10→21:00)
[2019-04-03] MEDS: POTASSIUM CHLORIDE 20 MEQ/PKT PACKET GT SCH (08:10)
[2019-04-03] MEDS: BACLOFEN 10 MG TABLET GT SCH ×2 (08:10→21:00)
[2019-04-03] MEDS: FERROUS SULFATE 300 MG/5 ML UDC GT SCH ×2 (08:10→21:00)
[2019-04-03] MEDS: levETIRAcetam 500 MG in NS 100 ML IV SCH ×2 (08:18→22:24)
[2019-04-03] MEDS: PANTOPRAZOLE SODIUM 40 MG/VIAL (PROTONIX) IVP SCH (08:18)
[2019-04-03] MEDS: PEG 400/HYPROMELLOSE/GLYCERIN 15 ML DROPS EACH EYE SCH ×2 (08:19→22:25)
[2019-04-03] MEDS: ENOXAPARIN SODIUM 40 MG/0.4 ML SYRINGE SUBCUT SCH (08:20)
--- NOTE | 2019-04-03 09:18 | NUR ---
SPOKE TO AND REPORTED SMALL BOWEL XRAY RESULT RECEIVED ORDER FOR "EXPLORATORY LAPAROTOMY POSSIBLE ILEOSTOMY"; CLARIFIED AND VERIFIED. MD WILL CALL FIRE SUPPORT MAN FOR OR
[2019-04-03] MEDS: SOD FERRIC GLUC COMPLEX/SUC 125 MG in NS 100 ML IV SCH (10:50)
--- NOTE | 2019-04-03 11:15 | NUR ---
BLOOD GLUCOSE IS 119 mg/dL WITH NO INSULIN COVERAGE NEEDED. TEACHING DONE ON DM
[2019-04-03 12:25] VITALS: BP_SYST 108
--- NOTE | 2019-04-03 13:00 | NUR ---
NOTE WOUND CARE PROVIDED, JOSE WELL. REPOSITIONED FOR COMFORT. CONT TO MONITOR
--- NOTE | 2019-04-03 15:00 | NUR ---
CHG BATH DONE
[2019-04-03 16:10] VITALS: BP_SYST 140
--- NOTE | 2019-04-03 17:08 | NUR ---
BLOOD GLUCOSE 98 mg/dL WITH NO INSULIN COVERAGE NEEDED AT THIS TIME. TOLERATING TPN ORDERED. ALL NEEDS MET. CONT TO MONITOR
--- NOTE | 2019-04-03 18:56 | NUR ---
CLOSING NOTE SURGERY FOR "EXPLORATORY LAPAROTOMY POSSIBLE ILEOSTOMY" WILL BE POSTPONED UNTIL TOMORROW MORNING AT 0730 PER TELEPHONE ENGINEER. PATIENT IS STABLE. NO ACUTE DISTRESS. JOSE VENT SETTINGS. HOB UP. JOSE TPN ORDERED. GTUBE IN PLACE. ABDOMINAL BINDER IN PLACE. BRISENO AND FLEXISEAL INTACT AND PATENT. ALL NEEDS MET. CONT TO MONITOR. WILL ENDORSE TO ONCOMING SHIFT.
[2019-04-03 20:00] VITALS: BP_SYST 120
[2019-04-03] MEDS ORDERED: NA PHOS IV SCH ×8 (21:00)
[2019-04-03] MEDS ORDERED: MVI IV SCH ×8 (21:00)
[2019-04-03] MEDS ORDERED: TRACE ELEMENTS IV SCH ×8 (21:00)
[2019-04-03] MEDS ORDERED: [UNRECOGNIZED DRUG - OTHER] IV SCH ×8 (21:00)
[2019-04-03] MEDS ORDERED: TPN CENTRAL IV SCH ×8 (21:00)
--- NOTE | 2019-04-03 22:10 | NUR ---
TPN TPN was started, changed tubing and set as ordered.
[2019-04-03] MEDS: FAT EMULSIONS 250 ML IV SCH (22:29)
[2019-04-04] VITALS (26 sets, daily range): BP systolic 105–144
[2019-04-04] MEDS: LevALBUTEROL HCL 1.25 MG/0.5 ML *CONC.* VIAL.NEB (XOPENEX CONC.) INH SCH ×4 (00:45→19:40)
[2019-04-04] MEDS: IPRATROPIUM BROM 0.5 MG/2.5 ML VIAL.NEB (ATROVENT) INH SCH ×4 (00:45→19:39)
--- NOTE | 2019-04-04 04:17 | NUR ---
patient care Provided suction, assessed ventilator, repositioned.
[2019-04-04] MEDS: ERGOCALCIFEROL 8000 UNITS/ML ORAL SOLUTION, 60 ML BOTTLE GT SCH ×3 (05:15→20:47)
--- NOTE | 2019-04-04 05:30 | NUR ---
patient care Patient was provided with bed bath and CHG bath to prep for surgery. provided suction. Abdominal dressing is dry and intact it is collecting drainage, emptied 200 ml of blood tinged, foul odor liquid.
[2019-04-04] MEDS: MAG-AL HYDROX/SIMETH 30 ML UDC GT SCH ×3 (06:00→21:36)
--- NOTE | 2019-04-04 06:30 | NUR ---
fingerstick blood gt fingerstick BGT done with result of 111. Safety, seizure, aspiration precautions in place.
--- NOTE | 2019-04-04 07:10 | NUR ---
to surgery OR team here for patient. Disconnected TPN, SCD's and RT here for transport.
[2019-04-04 07:24] LABS: BASOPHILS # (AUTO) 0.1 K/uL (0.0-0.2); BASOPHILS % (AUTO) 0.6 % (0.0-2.0); EOSINOPHILS # (AUTO) 0.2 K/uL (0.0-0.4); EOSINOPHILS % (AUTO) 1.5 % (0.0-4.0); HEMATOCRIT 31.3 % (36-48); HEMOGLOBIN 9.7 g/dL (12.0-16.0); LYMPHOCYTES # (AUTO) 2.3 K/uL (1.0-5.5); LYMPHOCYTES % (AUTO) 17.8 % (20.5-51.5); MEAN CORPUSCULAR HEMOGLOBIN 25 pg (27-31); MEAN CORPUSCULAR HGB CONC 31 % (32-36); MEAN CORPUSCULAR VOLUME 80 fL (79.0-98.0); MONOCYTES # (AUTO) 1.2 K/uL (0.0-1.0); MONOCYTES % (AUTO) 9.3 % (1.7-9.3); NEUTROPHILS % (AUTO) 70.8 % (40.0-70.0); PLATELET COUNT (AUTO) 701 K/uL (130-430); RED CELL DISTRIBUTION WIDTH 33.7 % (9.0-15.0); WHITE BLOOD COUNT (AUTO) 12.7 K/uL (4.8-10.8)
[2019-04-04 07:49] LABS: ALBUMIN 1.6 g/dL (3.4-4.8); CALCIUM 7.7 mg/dL (8.4-11.0); CREATININE 0.66 mg/dL (0.55-1.30); PHOSPHORUS 2.8 mg/dL (2.7-4.5); POTASSIUM 3.5 mmol/L (3.5-5.1); TOTAL BILIRUBIN 0.3 mg/dL (0.0-1.0)
--- NOTE | 2019-04-04 09:35 | NUR ---
RECEIVE PATIENT FROM PRINCIPAL QUALITY ENGINEER SOONY. INITIAL ASSESSMENT DONE. RESPONSE TO PAIN STIMULI ONLY. PATIENT IS QUADRIPHLEGIC AND HX OF ANOXIC ENCEPHALOPATHY. ON TRACH TO VENT, TOLERATING CURRENT SETTINGS WELL. O2 SAT 99-100%. ST ON MONITOR. SBP IN 120'S. NO ECTOPY NOTED. LEFT UA PICC LINE PATENT AND INTACT WITH IVF INFUSING WELL. PEG TUBE PATENT, INTACT, AND CLAMPED. RIGHT ILEOSTOMY PATENT AND INTACT. NOTED BRISENO CATH AND RECTAL TUBE, PATENT, INTACT, AND TO GRAVITY BAG. HOB ELEVATED. UPDATED OF PLAN OF CARE. WILL CONTINUE TO MONITOR.
[2019-04-04] MEDS: PEG 400/HYPROMELLOSE/GLYCERIN 15 ML DROPS EACH EYE SCH ×2 (10:27→20:28)
[2019-04-04] MEDS: FERROUS SULFATE 300 MG/5 ML UDC GT SCH ×2 (10:28→20:27)
[2019-04-04] MEDS: BACLOFEN 10 MG TABLET GT SCH ×2 (10:28→20:27)
[2019-04-04] MEDS: POTASSIUM CHLORIDE 20 MEQ/PKT PACKET GT SCH (10:28)
[2019-04-04] MEDS: METOPROLOL TARTRATE 25 MG TABLET GT SCH ×2 (10:29→20:27)
[2019-04-04] MEDS: PANTOPRAZOLE SODIUM 40 MG/VIAL (PROTONIX) IVP SCH (10:29)
[2019-04-04] MEDS: levETIRAcetam 500 MG in NS 100 ML IV SCH ×2 (10:29→20:48)
[2019-04-04] MEDS: ENOXAPARIN SODIUM 40 MG/0.4 ML SYRINGE SUBCUT SCH (10:30)
[2019-04-04] MEDS ORDERED: NS 500 ML IV ONE (10:45)
--- NOTE | 2019-04-04 10:45 | NUR ---
DR YUN IS IN THE ROOM. UPDATED OF STATUS. NEW ORDERS RECEIVE.
[2019-04-04] MEDS ORDERED: metroNIDAZOLE 500 mg/NS 100 ML IV ONE (11:00)
[2019-04-04] MEDS: SOD FERRIC GLUC COMPLEX/SUC 125 MG in NS 100 ML IV SCH (11:29)
--- NOTE | 2019-04-04 12:00 | NUR ---
REASSESSMENT DONE. NEURO STATUS STILL THE SAME. NO SIGNS OF PAIN OR AGITATION. TOLERATING CURRENT VENTILATOR SETTINGS WELL. O2 SAT 100%. ST ON MONITOR. SBP IN 110'S-140'S. NO ECTOPY NOTED. HOB ELEVATED. UPDATED OF PLAN OF CARE. WILL CONTINUE TO MONITOR.
[2019-04-04] MEDS: PIPERACILLIN/TAZO 3.375/DEX-IS 50 ML IV SCH ×2 (12:39→17:53)
[2019-04-04 12:47] LABS: HEMATOCRIT 34.9 % (36-48); HEMOGLOBIN 10.7 g/dL (12.0-16.0); MEAN CORPUSCULAR HEMOGLOBIN 25 pg (27-31); MEAN CORPUSCULAR HGB CONC 31 % (32-36); MEAN CORPUSCULAR VOLUME 80 fL (79.0-98.0); RED BLOOD CELL COUNT(AUTO) 4.36 MIL/uL (4.2-6.2); RED CELL DISTRIBUTION WIDTH 33.7 % (9.0-15.0); WHITE BLOOD COUNT (AUTO) 21.5 K/uL (4.8-10.8)
[2019-04-04 12:50] LABS: ALBUMIN 1.5 g/dL (3.4-4.8); CALCIUM 7.4 mg/dL (8.4-11.0); CREATININE 0.71 mg/dL (0.55-1.30); POTASSIUM 4.1 mmol/L (3.5-5.1); TOTAL BILIRUBIN 0.4 mg/dL (0.0-1.0)
[2019-04-04 12:52] LABS: PLATELET COUNT (AUTO) 864 K/uL (130-430)
[2019-04-04 13:51] LABS: BAND % (MANUAL) 13 % (0-6); BASOPHILS % (MANUAL) 0 % (0-2); EOSINOPHILS % (MANUAL) 0 % (0-7); LYMPHOCYTES % (MANUAL) 7 % (20-46); MONOCYTES % (MANUAL) 4 % (0-11)
--- NOTE | 2019-04-04 14:00 | NUR ---
RESTING IN BED. NO SIGNS OF PAIN OR AGITATION NOTED. TOLERATING VENTILATOR WELL. O2 SAT 100%. ST ON MONITOR. SBP IN 100'S-130'S. NO ECTOPY NOTED. HOB ELEVATED. WILL CONTINUE TO MONITOR.
--- NOTE | 2019-04-04 16:00 | NUR ---
REASSESSMENT DONE. NEURO STATUS UNCHANGED. NO SIGNS OF PAIN OR AGITATION. TOLERATING CURRENT VENTILATOR SETTINGS WELL. O2 SAT 100%. ST ON MONITOR. SBP IN 110'S-130'S. NO ECTOPY NOTED. HOB ELEVATED. UPDATED OF PLAN OF CARE. WILL CONTINUE TO MONITOR.
--- NOTE | 2019-04-04 16:02 | NUR ---
Wound Re-Evaluation: Wound Consult ordered for Low Nate Score. Patient evaluated for a low Nate score of a 13. Patient was awake, obtunded and received in a Danube Bed with an IsoFlex SERGIO mattress with low air-loss therapy. Patient needs to be turned in bed. Skin assessment: 1. Sacral-Coccygeal area: Scar tissue, present on admission. Skin still intact. Recommend continue: Cleanse involved area with mild soap and water. Pat dry. Apply Hydraguard barrier cream to involved area. Cover with foam dressing. Perform site care daily, and prn for dressing soiling or dislodgment. Recommend continue: Reposition patient side to side only every 2 hours with pillow support. Elevate, off-load and float bilateral heels with pillows. Offload pressure areas with pillows for pressure re-distribution. Perform skin care and monitor skin integrity Q shift. Use moisture barrier cream on moisture susceptible areas QID and PRN for soiling. Maintain patient on a low air-loss mattress.
[2019-04-04] MEDS: INSULIN REGULAR, HUMAN 100 UNITS/ML, 10 ML VIAL (humuLIN R) SUBCUT PRN (17:51)
--- NOTE | 2019-04-04 18:00 | NUR ---
GIVEN PARTIAL BATH AND LINENS ARE CHANGE. TOLERATED THE PROCEDURE WELL. NO SIGNS OF PAIN OR AGITATION NOTED. TOLERATING VENTILATOR WELL. O2 SAT 100%. ST ON MONITOR. SBP IN 120'S-140. NO ECTOPY NOTED. HOB ELEVATED. WILL CONTINUE TO MONITOR.
--- NOTE | 2019-04-04 19:30 | NUR ---
Bedside report was obtained from day shift nurse. Pt is awake and non-verbal. Pt has tracheostomy tube in place and connected to mechanical ventilator with settings of AC 10, TV 500, FIO2 30% and Peep 5. No respiratory distress noted. TPN and Lipids are infusing well via WILLIAMS PICC at 42ml/hr and 10ml/hr respectively. PICC dressing is dry and intact. G tube is clamped with 0ml residual. Abd dressing noted with small amount of old blood stain and abdominal binder is in place. Rt ileostomy bag noted with moderate amount of greenish drainage. Rt abd BARBI drain noted with small amount of pinkish drainage. Rectal tube is in place with small amount of liquid brownish stool noted in the drainage bag. Capelaln cath to gravity drainage is draining clear yellowish urine. Fall, seizure and safety precautions are in place.
--- NOTE | 2019-04-04 19:35 | NUR ---
REPORT GIVEN TO INCOMING PHYSICIAN IN PRIVATE PRACTICE RN, DEEJAY MEZA.
[2019-04-04] MEDS: MORPHINE 4 MG/ML INJ. SYRINGE IVP PRN (20:27)
--- NOTE | 2019-04-04 20:27 | NUR ---
Morphine 4mg given IV for facial grimacing with relief.
[2019-04-04] MEDS: FAT EMULSIONS 250 ML IV SCH (20:49)
[2019-04-04] MEDS ORDERED: POTASSIUM ACETATE IV SCH ×9 (21:00)
[2019-04-04] MEDS ORDERED: K PHOS IV SCH ×9 (21:00)
[2019-04-04] MEDS ORDERED: [UNRECOGNIZED DRUG - OTHER] IV SCH ×9 (21:00)
[2019-04-04] MEDS ORDERED: SODIUM CHLORIDE IV SCH ×9 (21:00)
[2019-04-04] MEDS ORDERED: TPN CENTRAL IV SCH ×9 (21:00)
[2019-04-04] MEDS: metroNIDAZOLE 500 mg/NS 100 ML IV SCH (21:36)
--- NOTE | 2019-04-04 21:59 | NUR ---
Pt is resting quietly in bed. No facial grimacing or respiratory distress or seizure activity noted.
[2019-04-05] VITALS (28 sets, daily range): BP systolic 92–130
--- NOTE | 2019-04-05 00:11 | NUR ---
Accucheck 127 and skin remains warm and dry to touch. No Insulin coverage needed. TPN and Lipids are infusing well. No seizure activity or respiratory distress noted.
[2019-04-05] MEDS: PIPERACILLIN/TAZO 3.375/DEX-IS 50 ML IV SCH ×5 (00:12→23:20)
[2019-04-05] MEDS: IPRATROPIUM BROM 0.5 MG/2.5 ML VIAL.NEB (ATROVENT) INH SCH ×4 (00:39→19:39)
[2019-04-05] MEDS: LevALBUTEROL HCL 1.25 MG/0.5 ML *CONC.* VIAL.NEB (XOPENEX CONC.) INH SCH ×4 (00:40→19:39)
[2019-04-05] MEDS: MORPHINE 4 MG/ML INJ. SYRINGE IVP PRN ×2 (02:08→13:45)
--- NOTE | 2019-04-05 02:08 | NUR ---
Pt appears to be in pain and noted with facial grimacing. Morphine 4mg given IV with relief. TPN and lipids are infusing well.
--- NOTE | 2019-04-05 05:00 | NUR ---
Sacral/coccygeal scar-tissue dressing change was done. Area was cleansed with mild soap and water, then pat dried. Hydraguard cream was applied to the area and covered with foam dressing. No drainage or odor noted.
[2019-04-05] MEDS: ERGOCALCIFEROL 8000 UNITS/ML ORAL SOLUTION, 60 ML BOTTLE GT SCH ×3 (05:40→20:16)
[2019-04-05] MEDS: MAG-AL HYDROX/SIMETH 30 ML UDC GT SCH ×3 (05:40→23:18)
--- NOTE | 2019-04-05 05:43 | NUR ---
Accucheck 116 and no Insulin coverage noted. Skin remains warm and dry to touch. TPN and Lipids are infusing well via WILLIAMS PICC.
[2019-04-05 06:33] LABS: BASOPHILS # (AUTO) 0.2 K/uL (0.0-0.2); BASOPHILS % (AUTO) 0.9 % (0.0-2.0); EOSINOPHILS # (AUTO) 0.1 K/uL (0.0-0.4); EOSINOPHILS % (AUTO) 0.5 % (0.0-4.0); HEMATOCRIT 32.9 % (36-48); HEMOGLOBIN 10.4 g/dL (12.0-16.0); LYMPHOCYTES # (AUTO) 2.1 K/uL (1.0-5.5); LYMPHOCYTES % (AUTO) 7.4 % (20.5-51.5); MEAN CORPUSCULAR HEMOGLOBIN 25 pg (27-31); MEAN CORPUSCULAR HGB CONC 32 % (32-36); MEAN CORPUSCULAR VOLUME 80 fL (79.0-98.0); MONOCYTES % (AUTO) 7.1 % (1.7-9.3); NEUTROPHILS # (AUTO) 23.7 K/uL (1.8-7.7); NEUTROPHILS % (AUTO) 84.1 % (40.0-70.0); RED CELL DISTRIBUTION WIDTH 34.2 % (9.0-15.0); WHITE BLOOD COUNT (AUTO) 28.1 K/uL (4.8-10.8)
[2019-04-05] MEDS: metroNIDAZOLE 500 mg/NS 100 ML IV SCH ×3 (06:34→23:20)
[2019-04-05 06:45] LABS: CALCIUM 7.1 mg/dL (8.4-11.0); CREATININE 1.15 mg/dL (0.55-1.30); POTASSIUM 4.1 mmol/L (3.5-5.1)
[2019-04-05 06:51] LABS: ALBUMIN 1.4 g/dL (3.4-4.8); PHOSPHORUS 2.8 mg/dL (2.7-4.5); TOTAL BILIRUBIN 0.4 mg/dL (0.0-1.0)
--- NOTE | 2019-04-05 07:15 | NUR ---
Bedside report was given to day shift nurse.
[2019-04-05 07:34] LABS: PLATELET COUNT (AUTO) 754 K/uL (130-430)
--- NOTE | 2019-04-05 07:50 | NUR ---
AM ASSESSMENT. TURNED PATIENT AND REPOSITIONED IN BED, HEAD OF BED AT 35 DEGREE ANGLE, ORAL CARE DONE, PT AFEBRILE, DRESSING TO ABDOMEN WITH DRY STAIN, S/P EXPLOR LAP, BARBI DRAIN, ILEOSTOMY INTACT. ABDOMINAL BINDER REPLACED, HYPOACTIVE BOWEL SOUNDS, FLEXISEAL DRAINING LOOSE STOOL.
[2019-04-05] MEDS: PANTOPRAZOLE SODIUM 40 MG/VIAL (PROTONIX) IVP SCH (08:59)
[2019-04-05] MEDS: POTASSIUM CHLORIDE 20 MEQ/PKT PACKET GT SCH (08:59)
[2019-04-05] MEDS: METOPROLOL TARTRATE 25 MG TABLET GT SCH ×2 (09:00→20:11)
[2019-04-05] MEDS: BACLOFEN 10 MG TABLET GT SCH ×2 (09:01→20:11)
[2019-04-05] MEDS: FERROUS SULFATE 300 MG/5 ML UDC GT SCH ×2 (09:01→20:10)
[2019-04-05] MEDS: PEG 400/HYPROMELLOSE/GLYCERIN 15 ML DROPS EACH EYE SCH ×2 (09:02→20:13)
[2019-04-05] MEDS: ENOXAPARIN SODIUM 40 MG/0.4 ML SYRINGE SUBCUT SCH (09:03)
[2019-04-05] MEDS: levETIRAcetam 500 MG in NS 100 ML IV SCH ×2 (09:06→20:10)
[2019-04-05] MEDS ORDERED: ALBUMIN HUMAN 5% 250 ML IV ONE (09:15)
[2019-04-05] MEDS ORDERED: 0.45% NACL 1,000 ML IV SCH (09:15)
[2019-04-05] MEDS: NACL 0.9% 1,000 ML IV SCH ×2 (09:51→19:46)
--- NOTE | 2019-04-05 13:00 | NUR ---
FEEDING. INITIATED JEVITY FEEDING AT 20 ML PER HR VIA G TUBE ORDERED, TAPERED TPN/LIPIDS.
--- NOTE | 2019-04-05 13:45 | NUR ---
PAIN. MEDICATED WITH MORPHINE 4 MG IVP FOR COMFORT, HEART RATE IN THE 110'S, REPOSITIONED IN BED.
--- NOTE | 2019-04-05 16:10 | NUR ---
NURSING. RECHECKED GASTRIC RESIDUAL, NONE ASPIRATED, TPN/LIPIDS DISCONTINUED.
--- NOTE | 2019-04-05 16:54 | NUR ---
Nutrition F/U RD reviewed pt's current EMR including diet hx, physician notes, nursing notes, pertinent labs/meds/procedures, care trends, and care activity. Admission Dx: Lower GI bleeding PMH: anoxic encephalopathy, seizure disorder, HTN, spastic quadriplegia, dysphagia, GT feeding, morbid obesity per physician notes Current Nutrition Support Orders: TPN D40%, AA8.5% at 42 ml/hr, IL20% at 10ml daily via central line Provides: 1336 kcal/day, 43 gm protein/day, 1248 ml total volume/day, and GIR: 1.7 gm CHO/kg/min Meets: 81% of lower end of estimated caloric needs and 52% of lower end of estimated protein needs -AND- Jevity 1.5 at 20 ml/hr, Free Water Flush: 200 q6h via GT Provides: 720 kcal/day, 31 gm protein/day, and 1165 ml free water/day Meets: 43% of lower end of estimated caloric needs and 37% of lower end of estimated protein needs Subjective Information: Per EMR, pt is POD 1 s/p exploratory laparotomy, extensive lysis of adhesion, repair of the anastomotic leak, diverting ileostomy, and peritoneal lavage. Pt remains aphasic/intubated per EMR. Pt started on TF today. Estimated Energy Expenditure (kcals/day) 5468-7460 kcal/day (MSJ x 1.2-1.3 for vent support) Estimated Protein Required (g/day) 83-110 gm/day (1.5-2 gm/kg IBW for critical illness, obesity, Sx healing) Estimated Fluid Required (l/day) 1.7-2 L/day (1 ml/kcal/day for adult maintenance) Problem/Etiology/Signs/Symptoms Inadequate enteral nutrition support related to critical illness as evidenced by current NPO status and inability to meet estimated nutritional requirements. *no longer applicable, on TPN/EN support* Altered GI function related to current medical condition as evidenced by inability to tolerate enteral enfusion, now on TPN. *ongoing) Expected Outcomes/Goals - Monitor parental nutrition support and intake w/ goal of pt meeting at least 75% of estimated needs, labs trending WNL, normal GI function, and skin integrity/wt maintenance Dietitian Recommendations * Recommend continuing Jevity 1.5 at 20 ml/hr, Free Water Flush: 200 q6h via GT * Consider tapering off TPN support and increasing TF rate if/when medically appropriate Follow Up High Risk: F/U in 2-3 days
--- NOTE | 2019-04-05 17:07 | NUR ---
Dietitian Recommendations * Recommend continuing Jevity 1.5 at 20 ml/hr, Free Water Flush: 200 q6h via GT * Consider tapering off TPN support and increasing TF rate if/when medically appropriate LP, RD Please refer to Nutrition F/U for details.
--- NOTE | 2019-04-05 19:15 | NUR ---
REPORT. GIVEN TO HOT STONE SETTER NURSE.
--- NOTE | 2019-04-05 19:30 | NUR ---
PM ASSESSMENT Pt in bed with eyes closed resting comfortably. No signs of acute distress or discomfort noted. Sinus tach seen on the monitor. Pt is trach to vent, settings: AC 10, TV 500, Fio2 30% and PEEP of 5. Pt tolerating settings well with O2 sats @ 100% and even and unlabored breathing noted. Pt has WILLIAMS PICC infusing NS @ 100 cc/hr, c/d/i. Gtube noted infusing Jevity tubefeeding. Ileostomy noted draining loose brown fluid. Flexiseal noted draining loose stool. BARBI drain noted to pt's R side, draining serosanguineous fluid. SCD's noted to pt's bilateral lower extremities. Bed is locked and in lowest position, call light within reach, will cont to monitor pt.
--- NOTE | 2019-04-05 21:50 | NUR ---
PT TRANSFER Pt transferred to [facility] via gursan juan along with RT. Report given to receiving RN using SBAR format and pt care was endorsed. No signs of acute distress or discomfort noted.
--- NOTE | 2019-04-05 22:30 | NUR ---
RN ROUNDS/TRANSFER Patient awake, in no distress, has trach with vent, placed in room 134a, resumed gt feeding and IVF, patient has abdominal binder to abdomen, ileostomy to right lower abdomen and 1 oscar drain with serosanguineous drainage. Patient has kellogg catheter and flexiseal in place and to gravity. Fall and seizure precautions in place, will monitor.
--- NOTE | 2019-04-05 23:53 | NUR ---
RN ROUNDS/MED PASS Patient sleeping, due antibiotics administered via picc line, due medications administered via gtube, flushed with 100 ml of water, blood sugar check this pm of 76. Patient turned and repositioned with pillow support, safety measures in place.
--- NOTE | 2019-04-06 00:29 | NUR ---
RN ROUNDS Patient sleeping, vital signs stable. IVF and gt feeding ongoing, safety measures in place.
[2019-04-06] MEDS: LevALBUTEROL HCL 1.25 MG/0.5 ML *CONC.* VIAL.NEB (XOPENEX CONC.) INH SCH ×4 (01:25→19:50)
[2019-04-06] MEDS: IPRATROPIUM BROM 0.5 MG/2.5 ML VIAL.NEB (ATROVENT) INH SCH ×4 (01:26→19:51)
[2019-04-06 01:44] VITALS: BP_SYST 103
--- NOTE | 2019-04-06 02:02 | NUR ---
RN ROUNDS Patient sleeping, breathing is even and unlabored, repositioned and turned, IVF and gt feeding ongoing, safety measures in place.
--- NOTE | 2019-04-06 04:11 | NUR ---
RN ROUNDS Patient sleeping, breathing is even and unlabored, repositioned and turned, IVF and gt feeding ongoing, safety measures in place.
[2019-04-06] MEDS: NACL 0.9% 1,000 ML IV SCH (05:28)
[2019-04-06] MEDS: ERGOCALCIFEROL 8000 UNITS/ML ORAL SOLUTION, 60 ML BOTTLE GT SCH ×3 (05:28→22:28)
[2019-04-06] MEDS: MAG-AL HYDROX/SIMETH 30 ML UDC GT SCH (05:29)
[2019-04-06] MEDS: PIPERACILLIN/TAZO 3.375/DEX-IS 50 ML IV SCH ×3 (05:29→17:19)
[2019-04-06] MEDS: metroNIDAZOLE 500 mg/NS 100 ML IV SCH ×3 (05:29→22:52)
[2019-04-06 06:17] LABS: BASOPHILS # (AUTO) 0.2 K/uL (0.0-0.2); BASOPHILS % (AUTO) 0.8 % (0.0-2.0); EOSINOPHILS # (AUTO) 0.4 K/uL (0.0-0.4); EOSINOPHILS % (AUTO) 2.3 % (0.0-4.0); HEMATOCRIT 27.2 % (36-48); HEMOGLOBIN 8.5 g/dL (12.0-16.0); LYMPHOCYTES # (AUTO) 1.7 K/uL (1.0-5.5); LYMPHOCYTES % (AUTO) 9.3 % (20.5-51.5); MEAN CORPUSCULAR HEMOGLOBIN 26 pg (27-31); MEAN CORPUSCULAR HGB CONC 31 % (32-36); MEAN CORPUSCULAR VOLUME 82 fL (79.0-98.0); MONOCYTES # (AUTO) 1.8 K/uL (0.0-1.0); MONOCYTES % (AUTO) 9.5 % (1.7-9.3); NEUTROPHILS # (AUTO) 14.6 K/uL (1.8-7.7); NEUTROPHILS % (AUTO) 78.1 % (40.0-70.0); PLATELET COUNT (AUTO) 608 K/uL (130-430); RED BLOOD CELL COUNT(AUTO) 3.32 MIL/uL (4.2-6.2); RED CELL DISTRIBUTION WIDTH 33.8 % (9.0-15.0); WHITE BLOOD COUNT (AUTO) 18.7 K/uL (4.8-10.8)
--- NOTE | 2019-04-06 06:17 | NUR ---
RN ROUNDS/MED PASS Patient awake, in no distress, due antibiotics administered via picc line, due medications administered via gtube, flushed with 200 ml of water, blood sugar check this am of 89. Patient turned and repositioned with pillow support, safety measures in place.
[2019-04-06 06:28] LABS: INR 1.4 (0.8-1.2); PROTHROMBIN TIME 14.1 SECS (9.5-12.5)
[2019-04-06 06:40] LABS: ALBUMIN 1.4 g/dL (3.4-4.8); CREATININE 0.91 mg/dL (0.55-1.30); PHOSPHORUS 2.6 mg/dL (2.7-4.5); POTASSIUM 3.6 mmol/L (3.5-5.1); TOTAL BILIRUBIN 0.3 mg/dL (0.0-1.0)
[2019-04-06 06:52] LABS: CALCIUM 6.8 mg/dL (8.4-11.0)
[2019-04-06 07:42] VITALS: BP_SYST 108
--- NOTE | 2019-04-06 07:44 | NUR ---
OPENING NOTES, RECEIVED PT IN BED, NO S/S OF PAIN, NO RESP DISTRESS, PT ON TRACH TO VENT [place] #8, TV 500, FIO2 30, AC 10, PEEP 5. TACHYPNEIC AT 23 WITH O2 SAT OF 100%. NO RESIDUAL NOTED ON G-TUBE, BRISENO DRAINING YELLOW URINE, BARBI DRAINS SEROUSANGUINOUS FLUID. ABDOMINAL BINDER ON. PICC DRESSING INTACT AND PICC IS PATENT. WILL CONT TO MONITOR PT.
[2019-04-06] MEDS: PANTOPRAZOLE SODIUM 40 MG/VIAL (PROTONIX) IVP SCH (08:59)
[2019-04-06] MEDS: PEG 400/HYPROMELLOSE/GLYCERIN 15 ML DROPS EACH EYE SCH ×2 (08:59→22:28)
[2019-04-06] MEDS: FERROUS SULFATE 300 MG/5 ML UDC GT SCH ×2 (09:00→22:26)
[2019-04-06] MEDS: POTASSIUM CHLORIDE 20 MEQ/PKT PACKET GT SCH (09:00)
[2019-04-06] MEDS: BACLOFEN 10 MG TABLET GT SCH ×2 (09:00→22:25)
[2019-04-06] MEDS: METOPROLOL TARTRATE 25 MG TABLET GT SCH ×2 (09:01→22:27)
[2019-04-06] MEDS: ENOXAPARIN SODIUM 40 MG/0.4 ML SYRINGE SUBCUT SCH (09:03)
[2019-04-06] MEDS: levETIRAcetam 500 MG in NS 100 ML IV SCH ×2 (09:05→22:25)
[2019-04-06] MEDS ORDERED: NACL 0.9% 1,000 ML IV SCH (09:30)
[2019-04-06] MEDS ORDERED: PHYTONADIONE 10 MG/ML AMP SUBCUT ONE (10:15)
[2019-04-06 12:05] VITALS: BP_SYST 133
--- NOTE | 2019-04-06 13:00 | NUR ---
dr bates here and made aware of the calcium level. md said dont worry about it and he will take care of it.
--- NOTE | 2019-04-06 13:10 | NUR ---
G-TUBE FEEDING RATE CHANGE TO 30 CC PER HOUR.
--- NOTE | 2019-04-06 13:20 | NUR ---
Nutrition Consult RD was approached by Dr. Mariano who inquired about what low-fiber TF formula is currently available for pt as pt is s/p ileostomy revision -- RD recommended Osmolite TF formula. Currently [facility] only has Osmolite 1.5 TF formula available. This will be used as a replacement for Osmolite 1.2 until new stock arrives. Dr. Mariano modified pt's TF formula from Jevity to Osmolite today.
[2019-04-06] MEDS ORDERED: MULTIVITAMINS,THERAPEUTIC 5 ML UDC GT SCH (13:30)
[2019-04-06] MEDS ORDERED: FERROUS SULFATE 300 MG/5 ML UDC GT ONE (13:30)
[2019-04-06] MEDS ORDERED: CALCIUM CHLORIDE 1 GM in NS 100 ML IV ONE (13:30)
[2019-04-06] MEDS: CALCIUM CARBONATE 500 MG/ TAB.CHEW GT SCH ×2 (15:36→22:25)
[2019-04-06 16:00] VITALS: BP_SYST 130
--- NOTE | 2019-04-06 16:00 | NUR ---
PICC DRESSING CHANGED ASEPTICALLY. PT TOLERATED WELL.
--- NOTE | 2019-04-06 18:52 | NUR ---
FEEDING RATE CHANGED TO 40 CC PER HOUR ORDER BY DR ALVAREZ.
--- NOTE | 2019-04-06 18:53 | NUR ---
CLOSING NOTES PT HAS BEEN STABLE, NO UNTOWARD INCIDENT. PT SUCTIONED PRN AND REPOSITIONED [id number]. ORAL CARE DONE, PICC LINE DRESSING CHANGED. WOUND PHOTO TAKE ON THE SACRAL SKIN TEAR. WILL ENDORSE TO NIGHT NURSE.
--- NOTE | 2019-04-06 19:30 | NUR ---
opening note received patient resting in bed w/ eyes open. no s/sx of distress, nonlabored breathing on ventilator w/ settings as ordered, safety seizures and aspiration precautions in place
[2019-04-06 20:00] VITALS: BP_SYST 119
--- NOTE | 2019-04-06 22:20 | NUR ---
medications due medications given via G-tube. Patient tolerated.
[2019-04-06] MEDS: MULTIVIT-MINERALS/FERROUS GLUC 15 ML UDC GT SCH (22:26)
[2019-04-07] MEDS: PIPERACILLIN/TAZO 3.375/DEX-IS 50 ML IV SCH ×4 (00:24→17:07)
--- NOTE | 2019-04-07 00:30 | NUR ---
free water noted 5 ml residual, gave 200 ml free water flush, tolerated
[2019-04-07] MEDS: IPRATROPIUM BROM 0.5 MG/2.5 ML VIAL.NEB (ATROVENT) INH SCH ×4 (00:35→20:27)
[2019-04-07] MEDS: LevALBUTEROL HCL 1.25 MG/0.5 ML *CONC.* VIAL.NEB (XOPENEX CONC.) INH SCH ×4 (00:35→20:27)
[2019-04-07 01:52] VITALS: BP_SYST 116
--- NOTE | 2019-04-07 02:30 | NUR ---
rounds nonlabored breathing on ventilator, no s/sx of distress
--- NOTE | 2019-04-07 04:30 | NUR ---
patient care, Assessed ventilator setting, oral care and suction. CHG bath and linen change
[2019-04-07] MEDS: ERGOCALCIFEROL 8000 UNITS/ML ORAL SOLUTION, 60 ML BOTTLE GT SCH ×3 (06:09→21:02)
[2019-04-07] MEDS: metroNIDAZOLE 500 mg/NS 100 ML IV SCH ×3 (06:16→21:13)
--- NOTE | 2019-04-07 06:30 | NUR ---
medications due antibiotics given, repositioned, fingerstick blood glucose done w/ result of 88 mg/dL
[2019-04-07 06:43] LABS: BASOPHILS # (AUTO) 0.1 K/uL (0.0-0.2); EOSINOPHILS # (AUTO) 0.6 K/uL (0.0-0.4); EOSINOPHILS % (AUTO) 3.8 % (0.0-4.0); HEMATOCRIT 28.1 % (36-48); HEMOGLOBIN 9.1 g/dL (12.0-16.0); LYMPHOCYTES # (AUTO) 1.3 K/uL (1.0-5.5); LYMPHOCYTES % (AUTO) 8.8 % (20.5-51.5); MEAN CORPUSCULAR HEMOGLOBIN 26 pg (27-31); MEAN CORPUSCULAR HGB CONC 32 % (32-36); MEAN CORPUSCULAR VOLUME 82 fL (79.0-98.0); MONOCYTES # (AUTO) 1.2 K/uL (0.0-1.0); MONOCYTES % (AUTO) 8.4 % (1.7-9.3); NEUTROPHILS # (AUTO) 11.6 K/uL (1.8-7.7); PLATELET COUNT (AUTO) 664 K/uL (130-430); RED BLOOD CELL COUNT(AUTO) 3.44 MIL/uL (4.2-6.2); RED CELL DISTRIBUTION WIDTH 33.5 % (9.0-15.0); WHITE BLOOD COUNT (AUTO) 14.9 K/uL (4.8-10.8)
[2019-04-07 07:35] LABS: ALBUMIN 1.4 g/dL (3.4-4.8); CREATININE 0.81 mg/dL (0.55-1.30); PHOSPHORUS 2.4 mg/dL (2.7-4.5); POTASSIUM 3.6 mmol/L (3.5-5.1); TOTAL BILIRUBIN 0.3 mg/dL (0.0-1.0)
[2019-04-07 07:36] LABS: INR 1.3 (0.8-1.2); PROTHROMBIN TIME 12.7 SECS (9.5-12.5)
--- NOTE | 2019-04-07 07:50 | NUR ---
opening note patient is resting in bed, no signs of distress at this time, educated call or contact centre coach light system and plan of care, patient nonverbal, patient open eyes and puckers her lips, vent settings AC 10, TV 500, FiO2 30%, PEEP 5, tube feeding running and patient tolerating well, patient has kellogg catheter, BARBI drain, and a flexiseal, no other needs at this time, fall/safety precautions in place.
[2019-04-07 08:03] VITALS: BP_SYST 115
[2019-04-07] MEDS: levETIRAcetam 500 MG in NS 100 ML IV SCH ×2 (08:34→21:07)
[2019-04-07] MEDS: MULTIVIT-MINERALS/FERROUS GLUC 15 ML UDC GT SCH ×2 (08:34→21:03)
[2019-04-07] MEDS: PANTOPRAZOLE SODIUM 40 MG/VIAL (PROTONIX) IVP SCH (08:35)
[2019-04-07] MEDS: FERROUS SULFATE 300 MG/5 ML UDC GT SCH ×3 (08:35→21:01)
[2019-04-07] MEDS: CALCIUM CARBONATE 500 MG/ TAB.CHEW GT SCH ×3 (08:36→21:03)
[2019-04-07] MEDS: POTASSIUM CHLORIDE 20 MEQ/PKT PACKET GT SCH (08:36)
[2019-04-07] MEDS: BACLOFEN 10 MG TABLET GT SCH ×2 (08:36→21:01)
[2019-04-07] MEDS: PEG 400/HYPROMELLOSE/GLYCERIN 15 ML DROPS EACH EYE SCH ×2 (08:36→21:14)
[2019-04-07] MEDS: METOPROLOL TARTRATE 25 MG TABLET GT SCH ×2 (08:36→21:02)
[2019-04-07] MEDS: ENOXAPARIN SODIUM 40 MG/0.4 ML SYRINGE SUBCUT SCH (08:38)
--- NOTE | 2019-04-07 09:15 | NUR ---
tube feeding bottle changed Osmolite 1.5 new bottle hung, patient tolerating well at this time, no signs of distress at this time, fall/safety precautions in place.
[2019-04-07] MEDS ORDERED: PHYTONADIONE 10 MG/ML AMP SUBCUT ONE (12:00)
--- NOTE | 2019-04-07 12:15 | NUR ---
MEDICATIONS patient is resting in bed, educated on medication uses and side effects, patient is nonverbal, patient is tolerating well, no other needs at this time, fall/safety precautions in place.
[2019-04-07] MEDS: NACL 0.9% 1,000 ML IV SCH (12:16)
[2019-04-07 12:45] VITALS: BP_SYST 115
--- NOTE | 2019-04-07 13:31 | NUR ---
ENDORSED CARE to DEEJAY Small, I was not able to do wound care yet on patient, endorsed wound care to DEEJAY Small, patient has no signs of distress at this time.
--- NOTE | 2019-04-07 13:36 | NUR ---
CONTINUUM OF CARE: RECEIVED FROM MAIRA VILLALBA. WILL CONTINUE PLAN OF CARE.
--- NOTE | 2019-04-07 14:20 | NUR ---
Nutrition F/U RD reviewed pt's current EMR including diet hx, physician notes, nursing notes, pertinent labs/meds/procedures, care trends, and care activity. Admission Dx: Lower GI bleeding PMH: anoxic encephalopathy, seizure disorder, HTN, spastic quadriplegia, dysphagia, GT feeding, morbid obesity per physician notes Current Nutrition Support Orders: Osmolite at 1.5 at 60 ml/hr, Free Water Flush: 200 q6h via GT Provides: 2160 kcal/day, 90 gm protein/day, and 2240 ml free water/day Meets: 120% of upper end of estimated caloric needs and 100% of lower end of estimated protein needs Subjective Information: Per EMR, TPN discontinued. Upon RD visit, Osmolite 1.5 at 60ml/hr running at bedside with 200ml infused. Pt resting in bed, no signs of distress. Trach in place. Per nursing notes, pt is tolerating current TF with 5ml residuals. Estimated Energy Expenditure (kcals/day) 7114-6609 kcal/day (MSJ x 1.2-1.3 for vent support) Estimated Protein Required (g/day) 83-110 gm/day (1.5-2 gm/kg IBW for critical illness, obesity, Sx healing) Estimated Fluid Required (l/day) 1.7-2 L/day (1 ml/kcal/day for adult maintenance) Problem/Etiology/Signs/Symptoms Inadequate enteral nutrition support related to critical illness as evidenced by current NPO status and inability to meet estimated nutritional requirements. *ongoing* Altered GI function related to current medical condition as evidenced by inability to tolerate enteral enfusion, now on TPN. *resolved* Expected Outcomes/Goals - Monitor enteral nutrition support and intake w/ goal of pt meeting at least 75% of estimated needs, labs trending WNL, normal GI function, and skin integrity/wt maintenance Dietitian Recommendations * Recommend changing to Osmolite 1.5 at 55ml/hr with Free Water Flush: 200 q6h via GT * Provides 1980kcal and 83gPro total * Meets 110% upper end of kcal and 100% lower end of protein est nutrition needs. Follow Up High Risk: F/U in 2-3 days LT, RD
--- NOTE | 2019-04-07 14:30 | NUR ---
Dietitian Recommendations * Recommend changing to Osmolite 1.5 at 55ml/hr with Free Water Flush: 200 q6h via GT * Provides 1980kcal and 83gPro total * Meets 110% upper end of kcal and 100% lower end of protein est nutrition needs. Please see Nutrition Follow Up for further details. LT, RD
--- NOTE | 2019-04-07 18:18 | NUR ---
END OF SHIFT NOTE: IV ABX ADMINISTERED, IV FLUIDS INFUSING. PT NONVERBAL, AWAKE IN BED. TRACH IN PLACE. WOUNDCARE HAS NOT BEEM DONE. WILL ENDORSE TO CONTAINER REPAIRER NURSE.
--- NOTE | 2019-04-07 19:10 | NUR ---
CHANGE OF SHIFT; pt. on trach via vent. no acute distress. IVF infusing and G tube feed intact. bed alarm on. will reassess later.
--- NOTE | 2019-04-07 19:20 | NUR ---
CHANGE OF SHIFT; pt. sleeping when received, dinner tray still at bedside. no acute distress. off monitor and no IVMD aware. call light at bedside. Addendum: 04/07/19 at 1947 by Libia Vazquez RN wrong pt.
[2019-04-07 20:30] VITALS: BP_SYST 122
--- NOTE | 2019-04-07 20:30 | NUR ---
NOTES: pt. on a vent via trach #8 portex, settings @ 30 % FIO2, TV 500 AC rate 10 Peep 5 cm. suctioned via trach with some light yellowish mucus secretions. pt. contracte both upper and lower extremities, with generalized edema, very tight skin. abdomen distended with colostomy and J snyder , drsg. intact with abdominal binder S/P Ex lap rt. hemicolectomy/lysis opf adhesion/anastomic leak and diverting ileostomy, with flexiseal to drainage with greenish brownish stool. G tube intact, no residual from feeding, resume tube feeding of Osmolite 1.5 @ 60 cc/hr. IV NS @ 40 cc/hr via PICC line on left arm. kellogg cath to OSD. clinical team lead shows sinus tach.
--- NOTE | 2019-04-07 21:00 | NUR ---
NOTES: pt. colostomy leaking, got wet, complete hs care done. due meds per g tube, flushed. oral care done. repositioned.HOB elevated.
--- NOTE | 2019-04-07 23:00 | NUR ---
NOTES: pt. eyes closed. suctioned via trach.keep HOB elevated. condition observed.
[2019-04-08] MEDS: LevALBUTEROL HCL 1.25 MG/0.5 ML *CONC.* VIAL.NEB (XOPENEX CONC.) INH SCH ×4 (00:37→19:39)
[2019-04-08] MEDS: IPRATROPIUM BROM 0.5 MG/2.5 ML VIAL.NEB (ATROVENT) INH SCH ×4 (00:37→19:39)
[2019-04-08 00:47] VITALS: BP_SYST 115
--- NOTE | 2019-04-08 01:00 | NUR ---
NOTES: BS checked 89. colostomy bag changed and abdominal dressing changed, incision intact with retention sutures, keep abdominal binder. drained J snyder @ 50 cc serous clear drainage. condition continue to monitor.
[2019-04-08] MEDS: PIPERACILLIN/TAZO 3.375/DEX-IS 50 ML IV SCH ×4 (01:18→17:41)
--- NOTE | 2019-04-08 03:11 | NUR ---
NOTES: pt. sleeping, no acute distress. cardiac pattern unchanged. continue to monitor.
--- NOTE | 2019-04-08 05:00 | NUR ---
NOTES: pt. repositioned, partial am care done with REHAB SPECIALIST. suctioned and oral care done. IVF patent, due IV antibiotic start infusing. G tube feeding continuous , free water given as scheduled.
[2019-04-08] MEDS: ERGOCALCIFEROL 8000 UNITS/ML ORAL SOLUTION, 60 ML BOTTLE GT SCH ×3 (05:30→20:57)
[2019-04-08] MEDS: metroNIDAZOLE 500 mg/NS 100 ML IV SCH ×3 (05:32→21:31)
--- NOTE | 2019-04-08 06:00 | NUR ---
NOTES: oral care done, same settings on the vent. G tube feeding continuous. IVF patent, kellogg cath to OSD, rectal tube with loose brown stool, j snyder intact. for further care and assistance. repositioned. remain contracted both upper and lower extremities. call light at bedside. bed alarm on.
--- NOTE | 2019-04-08 06:39 | NUR ---
CLOSING NOTES; pt. calm and eyes closed, awakens on stimulation. trach site clean, vent settings @ 30 % FIO2 TV 500 Peep 5 AC rate 10 with spontaneous breathing, suction prn. kept HOB elevated. G tube feeding continuous. IVF patent via PICC line on left upper arm. kellogg, J snyder and rectal tube intact. condition guarded. will endorse to incoming shift.
--- NOTE | 2019-04-08 07:40 | NUR ---
Opening Notes SBAR report received at bedside, patient received lying in bed, awake and non-verbal. O travel to vent well tolerated AC at 10, Peep at 5, Fi02 at 30% and tidal volume of 500. No moaning or grimacing noted. Trach in place and intact, g-tube intact and in place, tolerating feeding well. BARBI drain in place with sanguineous drains, Capellan catheter in place and intact, draining yellow urine via gravity. PICC line in place and intact. Rectal tube in place and intact with loose stool noted. Colostomy back in place. Call light within the reach. Fall precaution observed, bed at lowest position, bed alarm on. Will continue to monitor.
[2019-04-08 07:58] LABS: BASOPHILS # (AUTO) 0.1 K/uL (0.0-0.2); BASOPHILS % (AUTO) 0.7 % (0.0-2.0); EOSINOPHILS # (AUTO) 0.2 K/uL (0.0-0.4); EOSINOPHILS % (AUTO) 2.1 % (0.0-4.0); LYMPHOCYTES # (AUTO) 1.5 K/uL (1.0-5.5); LYMPHOCYTES % (AUTO) 12.4 % (20.5-51.5); MEAN CORPUSCULAR HEMOGLOBIN 26 pg (27-31); MEAN CORPUSCULAR HGB CONC 31 % (32-36); MEAN CORPUSCULAR VOLUME 83 fL (79.0-98.0); MONOCYTES # (AUTO) 1.4 K/uL (0.0-1.0); MONOCYTES % (AUTO) 11.6 % (1.7-9.3); NEUTROPHILS # (AUTO) 8.8 K/uL (1.8-7.7); NEUTROPHILS % (AUTO) 73.2 % (40.0-70.0); PLATELET COUNT (AUTO) 615 K/uL (130-430); RED CELL DISTRIBUTION WIDTH 33.2 % (9.0-15.0)
[2019-04-08 08:05] LABS: INR 1.3 (0.8-1.2); PROTHROMBIN TIME 13.3 SECS (9.5-12.5)
[2019-04-08 08:09] LABS: CALCIUM 7.3 mg/dL (8.4-11.0); CREATININE 0.79 mg/dL (0.55-1.30); POTASSIUM 3.6 mmol/L (3.5-5.1)
[2019-04-08] MEDS: PEG 400/HYPROMELLOSE/GLYCERIN 15 ML DROPS EACH EYE SCH ×2 (09:00→20:57)
--- NOTE | 2019-04-08 09:20 | NUR ---
Rn ROUNDS Patient lying comfortably, trach to vent intact and in place, no sob, no acute distress. No moaning or grimacing. IVF infusing well. Call light within the reach.
[2019-04-08] MEDS: levETIRAcetam 500 MG in NS 100 ML IV SCH ×2 (09:53→20:56)
[2019-04-08] MEDS: ENOXAPARIN SODIUM 40 MG/0.4 ML SYRINGE SUBCUT SCH (09:53)
[2019-04-08] MEDS: CALCIUM CARBONATE 500 MG/ TAB.CHEW GT SCH ×3 (09:54→20:56)
[2019-04-08] MEDS: FERROUS SULFATE 300 MG/5 ML UDC GT SCH ×3 (09:54→20:56)
[2019-04-08] MEDS: BACLOFEN 10 MG TABLET GT SCH ×2 (09:54→20:56)
[2019-04-08] MEDS: POTASSIUM CHLORIDE 20 MEQ/PKT PACKET GT SCH (09:54)
[2019-04-08] MEDS: PANTOPRAZOLE SODIUM 40 MG/VIAL (PROTONIX) IVP SCH (09:54)
[2019-04-08] MEDS: MULTIVIT-MINERALS/FERROUS GLUC 15 ML UDC GT SCH ×2 (09:55→20:57)
[2019-04-08] MEDS: METOPROLOL TARTRATE 25 MG TABLET GT SCH ×2 (09:56→21:02)
--- NOTE | 2019-04-08 10:20 | NUR ---
Dr. Jean Rounds Seen and examined by . Will follow-up for any new orders.
[2019-04-08 11:03] VITALS: BP_SYST 115
[2019-04-08 12:03] VITALS: BP_SYST 128
[2019-04-08] MEDS: NACL 0.9% 1,000 ML IV SCH (12:37)
--- NOTE | 2019-04-08 13:00 | NUR ---
Dr. Mariano Seen and examined by Dr. Mariano, will follow- up for any new orders.
--- NOTE | 2019-04-08 15:00 | NUR ---
System down System was down, all due meds given as ordered, well tolerated. MAR signed.
[2019-04-08 16:43] VITALS: BP_SYST 123
--- NOTE | 2019-04-08 17:00 | NUR ---
RN ROUNDS Patient trach to vent, tolerating well, respiration even and unlabored. Alert and awake, non-verbal, no moaning or grimacing noted. Call light within the reach.
--- NOTE | 2019-04-08 19:25 | NUR ---
OPENING NOTE RECEIVED CARE OF PT AND SBAR REPORT. PT RESTING IN BED, AWAKE. NO S/SX PAIN. PT BREATHING IS UNLABORED, TRACH TO VENT; JOSE SETTINGS WELL. NO ACUTE DISTRESS. PICC LINE TO WILLIAMS. GTUBE INTACT AND PATENT. COLOSTOMY BAG INTACT. ABDOMINAL BINDER IN PLACE. BRISENO CATH INTACT AND PATENT DRAINING YELLOW URINE. FLEXISEAL INTACT AND PATENT. BED IN LOW AND LOCKED POSITION. SIDERAIL UPX3. BED ALARM ON. ALL NEEDS ANTICIPATED AND MET BY STAFF. CALL LIGHT IN REACH. WILL CONT TO MONITOR WITH FREQUENT VISUAL CHECK
--- NOTE | 2019-04-08 19:52 | NUR ---
Closing Notes SBAR report given at bedside, patient currently lying in bed, eyes closed but easily awaken with verbal and tactile stimuli. On trach to vent with the same setting, well tolerated, respiration is even and unlabored. IVF infusing well. Capellan catheter in place and intact draining yellow urine via gravity. BARBI drain and colostomy bag intact and in place.. Fall precaution observed. Call light within the reach. Endorsed to the next shift.
[2019-04-08 20:00] VITALS: BP_SYST 131
--- NOTE | 2019-04-08 21:31 | NUR ---
SCHEDULED FLAGYL FLAGYL ADMINISTERED ORDERED. NO S/S OF ADVERSE REACTION. SAFETY MAINTAINED. WILL MONITOR.
--- NOTE | 2019-04-08 23:05 | NUR ---
RN ROUNDS PT RESTING IN BED, EYES ARE CLOSED. PT TOLERATING VENT SETTINGS WELL, NO S/S OF RESPIRATORY DISTRESS. PT REPOSITIONED WITH PILLOW SUPPORT. IVF AND GT FEEDING ELIAS INFUSING AT ORDERED RATE. BRISENO IS INTACT AND DRAINING TO GRAVITY. SAFETY PRECAUTIONS MAINTAINED. WILL MONITOR.
[2019-04-09] MEDS: LevALBUTEROL HCL 1.25 MG/0.5 ML *CONC.* VIAL.NEB (XOPENEX CONC.) INH SCH ×3 (00:13→13:59)
[2019-04-09] MEDS: IPRATROPIUM BROM 0.5 MG/2.5 ML VIAL.NEB (ATROVENT) INH SCH ×3 (00:13→13:59)
[2019-04-09] MEDS: PIPERACILLIN/TAZO 3.375/DEX-IS 50 ML IV SCH ×3 (00:44→12:04)
--- NOTE | 2019-04-09 00:46 | NUR ---
ACCUCHECK/ZOSYN SCHEDULED CAROLYN EAGLE. NO S/S OF ADVERSE REACTION. BLOOD SUGAR OF 106, NO INSULIN COVERAGE PER SLIDING SCALE.
--- NOTE | 2019-04-09 02:00 | NUR ---
RN ROUNDS PT RESTING IN BED, EYES ARE CLOSED. PT TOLERATING VENT SETTING, NO S/S OF RESPIRATORY DISTRESS. PT REPOSITIONED WITH PILLOW SUPPORT. IVF AND GT FEEDING ELIAS INFUSING AT ORDERED RATE. BRISENO IS INTACT AND DRAINING TO GRAVITY. SAFETY PRECAUTIONS MAINTAINED. WILL MONITOR.
[2019-04-09 03:57] VITALS: BP_SYST 114
--- NOTE | 2019-04-09 04:00 | NUR ---
RESTING PT RESTING IN BED, WITH EYES CLOSED. PT TOLERATING VENT SETTINGS, NO SOB, NO S/S OF RESPIRATORY DISTRESS. PT REPOSITIONED WITH PILLOW SUPPORT. IVF AND GT FEEDING ELIAS INFUSING AT ORDERED RATE. BRISENO IS INTACT AND DRAINING TO GRAVITY. SAFETY PRECAUTIONS MAINTAINED. WILL MONITOR.
[2019-04-09] MEDS: ERGOCALCIFEROL 8000 UNITS/ML ORAL SOLUTION, 60 ML BOTTLE GT SCH ×2 (05:05→13:24)
--- NOTE | 2019-04-09 05:07 | NUR ---
ACCUCHECK/ORAL CARE BLOOD SUGAR OF 117, NO INSULIN PER SLIDING SCALE. ORAL CARE RENDERED. PT CLEANED AND REPOSITIONED FOR COMFORT. SAFETY AND ASPIRATION PRECAUTIONS MAINTAINED.
[2019-04-09] MEDS: NACL 0.9% 1,000 ML IV SCH (05:36)
[2019-04-09] MEDS: metroNIDAZOLE 500 mg/NS 100 ML IV SCH ×2 (05:36→13:26)
--- NOTE | 2019-04-09 07:17 | NUR ---
Closing Notes Patient currently lying in bed, eyes closed but easily awaken with verbal and tactile stimuli. On trach to vent with the same setting, well tolerated, respiration is even and unlabored to vent settings: AC 10, FiO2 30%, TV 500 PEEP 5. IVF infusing well. Capellan catheter in place and intact draining yellow urine via gravity. BARBI drain and colostomy bag intact and in place.. Fall precaution observed. Call light within the reach. Endorsed to the next shift.
--- NOTE | 2019-04-09 07:35 | NUR ---
Initial notes: Patient awake, alert and oriented to name. Stable. [facility] vent setting TV 500 F102 30% PEEP 5 AC10. PICC line in placed. Ileostomy and flexiseal in placed. Catheter draining by gravity. Seizure and safety measures in placed. Addendum: 04/09/19 at 0817 by Kaley Avila RN Gtube in placed running at Osmolite 1.5 600 cc/hr.
[2019-04-09 08:00] VITALS: BP_SYST 120
[2019-04-09] MEDS: PEG 400/HYPROMELLOSE/GLYCERIN 15 ML DROPS EACH EYE SCH (09:51)
[2019-04-09] MEDS: MULTIVIT-MINERALS/FERROUS GLUC 15 ML UDC GT SCH (09:52)
[2019-04-09] MEDS: CALCIUM CARBONATE 500 MG/ TAB.CHEW GT SCH ×2 (09:52→16:12)
[2019-04-09] MEDS: FERROUS SULFATE 300 MG/5 ML UDC GT SCH ×2 (09:52→16:12)
[2019-04-09] MEDS: POTASSIUM CHLORIDE 20 MEQ/PKT PACKET GT SCH (09:52)
[2019-04-09] MEDS: METOPROLOL TARTRATE 25 MG TABLET GT SCH (09:53)
[2019-04-09] MEDS: BACLOFEN 10 MG TABLET GT SCH (09:53)
[2019-04-09] MEDS: PANTOPRAZOLE SODIUM 40 MG/VIAL (PROTONIX) IVP SCH (09:55)
[2019-04-09] MEDS: ENOXAPARIN SODIUM 40 MG/0.4 ML SYRINGE SUBCUT SCH (09:55)
[2019-04-09] MEDS: levETIRAcetam 500 MG in NS 100 ML IV SCH (09:57)
--- NOTE | 2019-04-09 10:00 | NUR ---
ROUNDS: ORAL CARE/TRACH SUCTION PROVIDED. CLEANED AND REPOSITIONED THE PATIENT.
--- NOTE | 2019-04-09 10:56 | NUR ---
ILEOSTOMY BAG: LEAK AT THE ILEOSTOMY BAG, CLEANED AND CHANGED THE BAG.
[2019-04-09 12:52] VITALS: BP_SYST 120
--- NOTE | 2019-04-09 13:17 | NUR ---
surgical services assistant: Spoke to Constantine at [facility]. He is waiting to hear about pt. DC back to [facility]. [employer] called Rn asked if they could get DC order. Shortly after, [employer] recieved msg. from Wilmer Roche, DC is in. [employer] faxed updated report to Constantine at [facility]. [employer] called [facility] ambulance for Critical Care due to pt. having trach/vent. They cannont do this type of transport in [facility]. [employer] walked over packet to Rn station. WILMER Doran will have RN work on ambulance transport for today. [employer] will remain available as needed.
--- NOTE | 2019-04-09 14:00 | NUR ---
D/C F/C,BARBI AND FLEXISEAL: REMOVED BARBI. F/C AND FLEXISEAL PER MD ORDER.
--- NOTE | 2019-04-09 14:36 | NUR ---
TERESITA ESCALONA: REPORT GIVEN TO DEEJAY POE OF TERESITA ESCALONA.
[2019-04-09 14:44] VITALS: BP_SYST 120
--- NOTE | 2019-04-09 15:00 | NUR ---
AMBULANCE: AMBULANCE CAME BUT NOT EQUIP TO TAKE THE PATIENT. PATIENT NEEDS ACLS. WILL COME BACK AT 17:00
[2019-04-09 17:00] VITALS: BP_SYST 129
--- NOTE | 2019-04-09 17:00 | NUR ---
PT TRANSFERRED TERESITA ESCALONA Report given to TERESITA ESCALONA at [facility] POE. Transfer packet with Transfer Orders and Medication Reconciliation form given to EMT with report. Exit care provided. [facility] ID band removed, replaced with ID band with pt's name and . Patient on mech vent. RT is with ambulance crew. PICC LINE, intact AND PATENT FOR IV ANTIBIOTIC. Ileostomy bag in placed. NO PERSONAL belongings. Patient left floor via gurney escorted by EMT in no distress.
== END 2019-04-09 16:55 | DRG 230 ==
LOC: SED 11:57 → SIC 14:35 → STU 03-16 19:31 → SIC 03-24 09:40 → STU 03-25 18:50 → SIC 04-04 09:47 → STU 04-05 21:59
PROVIDERS: ADMIT Internal Medicine; ATTEND Internal Medicine
PROC: 5A1955Z Respiratory Ventilation, Greater than 96 Consecutive Hours (ICD-10-PCS; principal; 2019-03-15)
PROC: 02HV33Z Insertion of Infusion Device into Superior Vena Cava, Percutaneous Approach (ICD-10-PCS; 2019-03-15)
PROC: B548ZZA Ultrasonography of Superior Vena Cava, Guidance (ICD-10-PCS; 2019-03-15)
PROC: 0D20XUZ Change Feeding Device in Upper Intestinal Tract, External Approach (ICD-10-PCS; 2019-03-16)
PROC: 30233N1 Transfusion of Nonautologous Red Blood Cells into Peripheral Vein, Percutaneous Approach (ICD-10-PCS; 2019-03-16)
PROC: 0DB68ZX Excision of Stomach, Via Natural or Artificial Opening Endoscopic, Diagnostic (ICD-10-PCS; 2019-03-16)
PROC: 0DBL8ZX Excision of Transverse Colon, Via Natural or Artificial Opening Endoscopic, Diagnostic (ICD-10-PCS; 2019-03-18)
PROC: 0DTF0ZZ Resection of Right Large Intestine, Open Approach (ICD-10-PCS; 2019-03-24)
PROC: 0DQB0ZZ Repair Ileum, Open Approach (ICD-10-PCS; 2019-04-04)
DX: C18.9 Malignant neoplasm of colon, unspecified (principal); A41.9 Sepsis, unspecified organism; G93.1 Anoxic brain damage, not elsewhere classified; G82.50 Quadriplegia, unspecified; Z99.11 Dependence on respirator [ventilator] status; E44.0 Moderate protein-calorie malnutrition; K65.9 Peritonitis, unspecified; J96.10 Chronic respiratory failure, unspecified whether with hypoxia or hypercapnia; K63.2 Fistula of intestine; R18.8 Other ascites; K29.71 Gastritis, unspecified, with bleeding; E66.01 Morbid (severe) obesity due to excess calories; D64.9 Anemia, unspecified; K94.23 Gastrostomy malfunction; E03.9 Hypothyroidism, unspecified; E87.1 Hypo-osmolality and hyponatremia; E87.6 Hypokalemia; F19.10 Other psychoactive substance abuse, uncomplicated; G40.909 Epilepsy, unspecified, not intractable, without status epilepticus; I10 Essential (primary) hypertension; K21.9 Gastro-esophageal reflux disease without esophagitis; K56.7 Ileus, unspecified; N39.0 Urinary tract infection, site not specified; E56.1 Deficiency of vitamin K; K64.8 Other hemorrhoids; T81.31XA Disruption of external operation (surgical) wound, not elsewhere classified, initial encounter; K91.89 Other postprocedural complications and disorders of digestive system; Y83.6 Removal of other organ (partial) (total) as the cause of abnormal reaction of the patient, or of later complication, without mention of misadventure at the time of the procedure; Y92.230 Patient room in hospital as the place of occurrence of the external cause; Y83.8 Other surgical procedures as the cause of abnormal reaction of the patient, or of later complication, without mention of misadventure at the time of the procedure; Y73.8 Miscellaneous gastroenterology and urology devices associated with adverse incidents, not elsewhere classified; Z85.038 Personal history of other malignant neoplasm of large intestine; Z86.73 Personal history of transient ischemic attack (TIA), and cerebral infarction without residual deficits; Z68.31 Body mass index [BMI] 31.0-31.9, adult; Z79.899 Other long term (current) drug therapy; Z88.1 Allergy status to other antibiotic agents; Z88.2 Allergy status to sulfonamides
CPT/HCPCS: 36415; 36600; 43239; 45380; 45381; 71045; 74018; 74250-TC; 80048; 80053; 81000-TC; 82140-TC; 82330; 82378; 82607; 82728; 82746; 82803-TC; 82962; 83010; 83540-TC; 83550-TC; 83605; 83735-TC; 83880; 84100-TC; 84439; 84478-TC; 84484; 85007; 85018-TC; 85025; 85027; 85044-TC; 85610-TC; 85730-TC; 86870; 86886; 86900; 86901; 86905; 86920; 87040-TC; 87081; 87086; 88305; 88307; 88309; 93005; 94002; 94003; 94640; 94760; 96365; 99291; A4409; A5061; C1751; C9113; G0378; J0610; J0692; J0696; J1650; J1815; J1940; J1953; J1956; J2060; J2175; J2250; J2270; J2543; J2916; J3010; J3430; J3475; J3480; J3490; J7030; J7040; J7050; J7060; J7120; J7131; J7612; J7613; L8699; P9021; P9041; Q9963; Q9964

== ENCOUNTER 2019-04-16 17:01 | Inpatient (IN) | payer MEDICAID ==
[~2019-04-16] VITALS: Ht 162.6 cm; Wt 90.7 kg
[~2019-04-16 17:01] MED LIST changes: +ALBU2.5V7 INH; +ATRMDI INH; -COL250 GT; +DEXT30DR6 EACH EYE; +FER300L GT; -KETAMINE 30 MG/3 ML SYRINGE IV ONE; +LEVE100S2 GT; -LEVE500V GT; -LR 1,000 ML IV.SOLN IV ONE; -MIDAZOLAM HCL 5 MG/5 ML VIAL IVP ONE; -NS IRRIG SOLN 1000 ML IR ONE; -PROP50TA3 GT; -ROCURONIUM BROMIDE 10 MG/ML (ZEMURON) IV ONE; -SEVOFLURANE 15 MIN GAS INH ONE; -fentaNYL CITRATE 250 MCG/5 ML AMP IV ONE; -fentaNYL CITRATE/PF 100 MCG/2 ML AMP IVP ONE
--- NOTE | 2019-04-16 17:09 | NUR ---
Placed in room [address] flusher driver, blood pressure machine and pulse oximeter. To gown for exam. Side rails up.
--- NOTE | 2019-04-16 17:09 | NUR ---
ER at bedside examining patient.
[2019-04-16 17:11] VITALS: BP_SYST 131; BP_SYST 141
--- NOTE | 2019-04-16 17:11 | NUR ---
RN assesses pt, RT at bedside connecting Ventilator. pt is residential care CP, vent pt. Report of abdominal distention and vomiting. Left upper arm picc line in place. pt is stable on VS.
[2019-04-16] MEDS ORDERED: NACL 0.9% 1,000 ML IV ONE (17:25)
[2019-04-16] MEDS ORDERED: MORPHINE 4 MG/ML INJ. SYRINGE IVP ONE (17:30)
--- NOTE | 2019-04-16 17:42 | NUR ---
Call received from daughter Stuart, who left phone number [phone] for updates/more information. She states she may call back again later.
[2019-04-16 18:03] LABS: BASOPHILS # (AUTO) 0.1 K/uL (0.0-0.2); BASOPHILS % (AUTO) 0.5 % (0.0-2.0); EOSINOPHILS # (AUTO) 0.3 K/uL (0.0-0.4); EOSINOPHILS % (AUTO) 2.4 % (0.0-4.0); HEMATOCRIT 33.5 % (36-48); HEMOGLOBIN 10.6 g/dL (12.0-16.0); LYMPHOCYTES # (AUTO) 1.7 K/uL (1.0-5.5); LYMPHOCYTES % (AUTO) 14.7 % (20.5-51.5); MEAN CORPUSCULAR HEMOGLOBIN 26 pg (27-31); MEAN CORPUSCULAR HGB CONC 32 % (32-36); MEAN CORPUSCULAR VOLUME 83 fL (79.0-98.0); MONOCYTES # (AUTO) 1.3 K/uL (0.0-1.0); MONOCYTES % (AUTO) 11.5 % (1.7-9.3); NEUTROPHILS # (AUTO) 8.2 K/uL (1.8-7.7); NEUTROPHILS % (AUTO) 70.9 % (40.0-70.0); PLATELET COUNT (AUTO) 534 K/uL (130-430); RED BLOOD CELL COUNT(AUTO) 4.06 MIL/uL (4.2-6.2); RED CELL DISTRIBUTION WIDTH 31.8 % (9.0-15.0); WHITE BLOOD COUNT (AUTO) 11.6 K/uL (4.8-10.8)
[2019-04-16 18:10] LABS: CREATININE 0.65 mg/dL (0.55-1.30); POTASSIUM 3.4 mmol/L (3.5-5.1)
[2019-04-16 18:16] LABS: ALBUMIN 1.4 g/dL (3.4-4.8); TOTAL BILIRUBIN 0.3 mg/dL (0.0-1.0)
[2019-04-16 19:15] LABS: BILIRUBIN,URINE NEGATIVE (NEGATIVE); BLOOD, URINE 3+ (NEGATIVE); CLARITY/URINE CLEAR (CLEAR); COLOR,URINE YELLOW (YELLOW); GLUCOSE,URINE NEGATIVE (NEGATIVE); KETONES,URINE NEGATIVE (NEGATIVE); LEUKOCYTE ESTERASE ,URINE NEGATIVE (NEGATIVE); NITRITE, URINE NEGATIVE (NEGATIVE); PH,URINE 5.5 (5.0-8.0); PROTEIN URINE NEGATIVE (NEGATIVE); UROBILINOGEN,URINE 0.2 (0.2-1.0)
[2019-04-16 19:24] LABS: BACTERIA,URINE FEW /HPF (None Seen); MUCUS,URINE 1+ /LPF (None Seen); WBC,URINE 0-3 /HPF (0-3)
[2019-04-16] MEDS ORDERED: metroNIDAZOLE 500 mg/NS 100 ML IV ONE (20:00)
[2019-04-16] MEDS ORDERED: PIPERACILLIN/TAZO 3.375 GM in NS 50 ML IV ONE (20:00)
[2019-04-16 20:22] LABS: INR 1.5 (0.8-1.2); PROTHROMBIN TIME 14.5 SECS (9.5-12.5)
--- NOTE | 2019-04-16 21:52 | NUR ---
Pt to CT via stretcher on nuclear monitoring technician accompanied by X-ray tech, ACLS RN, and RT.
--- NOTE | 2019-04-16 22:00 | NUR ---
TO CT OF ABDOMEN AND PELVIS.
[2019-04-16] MEDS ORDERED: ONDANSETRON HCL 4 MG/2 ML VIAL IVP ONE (22:15)
--- NOTE | 2019-04-17 | NUR ---
SLEPT INTERMITTENTLY. NO DISTRESS NOTED.
[2019-04-17] MEDS ORDERED: *TPN PER PHARMACY XX PRN (00:15)
[2019-04-17] MEDS ORDERED: D5LR 1,000 ML IV ONE (00:15)
--- NOTE | 2019-04-17 03:05 | NUR ---
Blood Cx x 2 not indicated as collected. Called lab and informed that Blood Cx x 2 were collected at 1735 and 1725.
[2019-04-17] MEDS ORDERED: metroNIDAZOLE 500 mg/NS 100 ML IV ONE ×2 (03:26→06:00)
[2019-04-17] MEDS ORDERED: PIPERACILLIN/TAZOBACTAM 3.375 GM/VIAL (ZOSYN) IV ONE (03:27)
--- NOTE | 2019-04-17 04:15 | NUR ---
Flagyl IVPB given IV by RN started @ 0336, completed @ 4504. Zosyn IVPB given IV by RN started @ 0339, completed @ 4043.
--- NOTE | 2019-04-17 05:21 | NUR ---
DOZES ON AND OFF. GRIMACES AT TIMES. VITALS 115/66, 113, 18, 99.1.
--- NOTE | 2019-04-17 07:25 | NUR ---
Report received from DEEJAY Matias.
--- NOTE | 2019-04-17 07:45 | NUR ---
IVF LR started infusing by RN @ 7116, completed @ 03.
--- NOTE | 2019-04-17 07:59 | NUR ---
Pharmacy aware of dose for 0600 Flagyl. Too soon to give per marii Newberry.
--- NOTE | 2019-04-17 08:21 | NUR ---
Spoke with Rohith regarding Primaxine order. Unable to order, restricted. Direct conversion of Meropenem 1g q8h. Paged Dr. Mariano regarding change in orders.
--- NOTE | 2019-04-17 08:22 | NUR ---
Patient will be admitted to care of Dr. Mariano. Admitted to Telemetry unit. Will go to room 134A. Complete and up to date summary report printed. SBAR report to be given at bedside with opportunity for questions.
--- NOTE | 2019-04-17 08:25 | NUR ---
CONSULTATION PAGED/CALLED Reason for Consultation: VENT Person Who was Notified: MARY Consulting Physician: JAMA HERNANDEZ IS HERE AND AWARE Bobbin Loose End Finder Specialty: PULMO Ordering Physician:ANTONIO
--- NOTE | 2019-04-17 08:29 | NUR ---
CONSULTATION PAGED/CALLED Reason for Consultation: VENT/ABSESS Person Who was Notified: Consulting Physician: JOON Stock Letterer Specialty: Ordering Physician: ANTONIO PER ER THEY ALREADY TALKED TO HIM
--- NOTE | 2019-04-17 08:39 | NUR ---
ADMISSION NOTES, RECEIVED PT FROM E.R C/O DEEJAY GATES, PT IS AA, NON VERBAL, ON TRACH TO VENT, NOTED ABDOMEN IS DISTENDED. DISGNOSIS IS SMALL BOWEL OBSTRUCTION UNDER DR ALVAREZ. PT MADE COMFORTABLE IN BED BY DEEJAY HINOJOSA AND HIRAL GREEN.
[2019-04-17 09:07] VITALS: BP_SYST 135
--- NOTE | 2019-04-17 09:19 | NUR ---
DR ALVAREZ CALLED BACK AND MADE AWARE THAT PROMAXIN ABX HE GAVE THRU ER IS NO AVAILABLE PER RX. GAVE ORDER TO CONSULT DR SHULTZ.
--- NOTE | 2019-04-17 10:00 | NUR ---
CONSULTATION PAGED/CALLED Reason for Consultation: SBO Person Who was Notified: FLORENCIO Consulting Physician: DR. SHULTZ Pneumatic Tester Specialty: ID Ordering Physician: DR. ALVAREZ
[2019-04-17 10:22] LABS: ALBUMIN 1.3 g/dL (3.4-4.8); CALCIUM 7.6 mg/dL (8.4-11.0); CREATININE 0.67 mg/dL (0.55-1.30); PHOSPHORUS 2.6 mg/dL (2.7-4.5); POTASSIUM 3.4 mmol/L (3.5-5.1); TOTAL BILIRUBIN 0.2 mg/dL (0.0-1.0)
[2019-04-17 10:39] VITALS: BP_SYST 135
[2019-04-17 11:25] VITALS: BP_SYST 151
[2019-04-17] MEDS ORDERED: POTASSIUM CHLORIDE 40 MEQ in D5W 250 ML IV ONE (13:15)
[2019-04-17] MEDS ORDERED: K PHOS 30 MM in NS 250 ML IV ONE (13:15)
[2019-04-17] MEDS: metroNIDAZOLE 500 mg/NS 100 ML IV SCH ×2 (14:32→21:55)
[2019-04-17 16:33] VITALS: BP_SYST 129
--- NOTE | 2019-04-17 19:20 | NUR ---
CHANGE OF SHIFT; pt. non verbal, opens eyes but not following any commands, on vent via trach. will reassess later. bed alarm on. call light at bedside.
[2019-04-17] MEDS: FAT EMULSIONS 250 ML IV SCH (20:21)
[2019-04-17 20:30] VITALS: BP_SYST 136
[2019-04-17] MEDS ORDERED: [UNRECOGNIZED DRUG - OTHER] IV SCH ×8 (21:00)
[2019-04-17] MEDS ORDERED: MAGNESIUM SULFATE IV SCH ×8 (21:00)
[2019-04-17] MEDS ORDERED: K PHOS IV SCH ×8 (21:00)
[2019-04-17] MEDS ORDERED: SODIUM ACETATE IV SCH ×8 (21:00)
[2019-04-17] MEDS ORDERED: TPN CENTRAL IV SCH ×8 (21:00)
--- NOTE | 2019-04-17 21:00 | NUR ---
NOTES: complete hs care done with J2EE ANDROID DEVELOPER. pt. incontinent of urine, bed is wet. kept dry, z tonie applied on sacral, both groin area. IV TPN /Lipids started as ordered via PICC line on left upper arm. repositioned, turn on her left side. pt. pia contracted both upper and lower extremities. HOB elevated. coccyx area with pressure sore, foam dressing intact, wound consult already ordered by day shift, on air mattress.
--- NOTE | 2019-04-17 22:00 | NUR ---
NOTES: repositioned. condition observed.
[2019-04-17] MEDS: PIPERACILLIN/TAZO 4.5GM/DEX-IS 100 ML IV SCH (22:53)
--- NOTE | 2019-04-18 00:30 | NUR ---
NOTES: pt. eyes closed. sleeping. g tube to low intermittent suction with mucoid beige colored drainage. IV antibiotics given via PICC line. ileostomy on rt. lower quadrant with loose brownish/greenish stool. abdominal dressing with binder intact.
--- NOTE | 2019-04-18 02:00 | NUR ---
NOTES: condition unchanged, continue to monitor.
[2019-04-18 02:09] VITALS: BP_SYST 120
--- NOTE | 2019-04-18 04:00 | NUR ---
NOTES: condition guarded. cardiac pattern unchanged. oral care done, suction via trach and orally with thick mucus secretions. ileostomy drained loose greenish brown stool.
[2019-04-18] MEDS: metroNIDAZOLE 500 mg/NS 100 ML IV SCH ×3 (05:17→22:18)
--- NOTE | 2019-04-18 05:30 | NUR ---
NOTES: partial am care done, incontinent of urine, noted some bloody secretions. maria del rosario care done, dressing on sacral area changed, soaked with urine. kept dry. G tube drained 300 cc beige colored drainage. repositioned.
[2019-04-18] MEDS: PIPERACILLIN/TAZO 4.5GM/DEX-IS 100 ML IV SCH ×3 (06:13→22:18)
--- NOTE | 2019-04-18 06:30 | NUR ---
CLOSING NOTES; IV TPN/Lipids infusing at same rate. g tube to low int. suction. vent settings at same rate. needs further care and assistance. bed alarm on. on seizure and fall precautions. will endorse to incoming shift. kept NPO.
--- NOTE | 2019-04-18 07:15 | NUR ---
Nutrition Update Nate Scale 10 noted. Pt admitted for SBO Diet: NPO BMI: 34.3 kg/m2 RD to follow per nutrition care standards.
--- NOTE | 2019-04-18 07:30 | NUR ---
AM ROUNDS: PATIENT AWAKE,NON VERBAL.VENT DEPENDENT,AC=10,FIO2=35%,YS=581,PEEP=5.TOLERATING THE VENT SETTINGS THIS TIME. LEFT UPPER ARM PIC LINE,TPN AND LIPIDS RUNNING.BILATERAL SCD,S ON LE. BED LOCKED AT LOWEST POSITION. SAFETY MEASURES RENDERED.CONDITION GUARDED.
[2019-04-18 07:41] VITALS: BP_SYST 118
[2019-04-18 08:22] LABS: CALCIUM 7.1 mg/dL (8.4-11.0); POTASSIUM 3.7 mmol/L (3.5-5.1)
[2019-04-18 08:23] LABS: ALBUMIN 1.1 g/dL (3.4-4.8); CREATININE 0.59 mg/dL (0.55-1.30); PHOSPHORUS 2.7 mg/dL (2.7-4.5); TOTAL BILIRUBIN 0.2 mg/dL (0.0-1.0)
--- NOTE | 2019-04-18 10:00 | NUR ---
TURNING: PT VOIDED,CARE RENDERED.TURNED TO SIDES WITH A LOT OF ASSISTANCE.
--- NOTE | 2019-04-18 11:46 | NUR ---
Dietitian Recommendations *Recommend: D40% AA 8.5% at 80ml/hr (goal rate), IL20% at 10ml/hr via central line. Provides 2114 kcal, 82 gm protein and 2160ml fluids per day. Meets: 101% of est calorie needs and 99% of upper end of est protiein needs. Please see Nutritional Assessment for details. EUGENE, KYRA RD s/w pharmD 04/18/19 1018
[2019-04-18 12:14] VITALS: BP_SYST 130
[2019-04-18 12:45] LABS: BASOPHILS % (AUTO) 0.7 % (0.0-2.0); EOSINOPHILS # (AUTO) 0.1 K/uL (0.0-0.4); EOSINOPHILS % (AUTO) 2.1 % (0.0-4.0); HEMATOCRIT 30.7 % (36-48); HEMOGLOBIN 9.9 g/dL (12.0-16.0); LYMPHOCYTES % (AUTO) 22.1 % (20.5-51.5); MEAN CORPUSCULAR HEMOGLOBIN 27 pg (27-31); MEAN CORPUSCULAR HGB CONC 32 % (32-36); MEAN CORPUSCULAR VOLUME 82 fL (79.0-98.0); MONOCYTES # (AUTO) 0.7 K/uL (0.0-1.0); MONOCYTES % (AUTO) 15.8 % (1.7-9.3); NEUTROPHILS # (AUTO) 2.8 K/uL (1.8-7.7); NEUTROPHILS % (AUTO) 59.3 % (40.0-70.0); PLATELET COUNT (AUTO) 414 K/uL (130-430); RED BLOOD CELL COUNT(AUTO) 3.72 MIL/uL (4.2-6.2); RED CELL DISTRIBUTION WIDTH 30.8 % (9.0-15.0); WHITE BLOOD COUNT (AUTO) 4.7 K/uL (4.8-10.8)
--- NOTE | 2019-04-18 15:00 | NUR ---
WOUND CARE: SAL WEAVER EVALUATED WOUNDS AT SACRAL AREA AND MIDLINE INCISIONS. CLEANSE NS APPLIED TO MIDLINE INCISION ,PAT DRY,APPLIED HYDROGEL TO WOUND BED, AND COVERED WITH FOAM DRESSING. SACRAL AREA,CLEANSE WITH NS,PAT DRY,HYDROGEL TO WOUND BED,Z-GUARD TO OMAR WOUND AREA.COVERED WITH SACRAL FOAM DRESSING.
--- NOTE | 2019-04-18 15:36 | NUR ---
Wound Evaluation: Wound consult ordered by Dr. Mariano. Thank you, Dr. Mariano, for the consult. Patient received in a Abdi bed with an Isoflex SERGIO mattress with low air loss therapy initiated, awake, obtunded. Nate score is a 10. Patient needs to be turned in bed. Past medical history: Anoxic Brain Injury, ventilator dependent, Colon Cancer, GT feeding, GERD, PUD, profound Anemia secondary to Colon Cancer, lower GI bleeding, colonic mass/colon carcinoma with ulceration, right hemicolectomy on 03/24/19, acute blood loss anemia, iron deficiency anemia, acute gastritis, respiratory failure, Seizure disorder, anoxic encephalopathy, hypothyroidism, spastic quadriplegia, dysphagia on G-tube feeding, obesity, moderate protein malnutrition, hypocalcemia, anasarca, ileus, enterocutaneous fistula, exploratory laparoscopy and ileostomy on 04/04/19, sepsis, peritonitis. Recent labs: WBC 4.7, RBC 3.72, hemoglobin 9.9, hematocrit 30.7, chloride 110, BUN 3, creatinine 0.59, GFR 133, glucose 128, calcium 7.1, albumin 1.1, PT 14.5, INR 1.5. Microbiology: Urine culture results negative. MRSA screen results in progress. Skin assessment: 1. Inferior aspect of patient side's left lateral Abdominal surgical incision: Small dehisced area of incision, present on admission. Wound bed has 100% pink tissue. No odor, no drainage. Periwound intact. Surrounding tissue has dark brown discoloration. Site measures 0.5 cm x 0.4 cm. 2. Abdomen, left medial to site 1: Small wound, inferior to retention suture, present on admission. Wound bed has 100% yellow tissue. No odor, no drainage. Periwound intact. Site measures 1.0 cm x 0.3 cm. 3. Mid abdomen, left medial to site 2: Wound, possibly from retention suture, present on admission. Wound bed has 60% red tissue, 40% yellow tissue. No odor, no drainage. Periwound intact. Site measures 11.0 cm x 2.0 cm. 4. Abdomen, left lateral to site 3: Wound, superior to retention suture, present on admission. Wound bed has 100% red tissue. No odor, scant sanguineous drainage. Periwound intact. Site measures 1.7 cm x 0.5 cm. 5. Abdomen, inferior to site 4: Wound, present on admission. Wound bed has 75% pink tissue, 20% yellow tissue, 5% white tissue. No odor, no drainage. Periwound intact. 6. Abdomen (patient's right side), superior to Ileostomy site: Wound, present on admission. Wound bed has 95% pink tissue, 5% yellow tissue. No odor, no drainage. Periwound intact. Site measures 0.7 cm x 0.7 cm. Recommend: Cleanse open areas with normal saline. Pat dry. Apply SurePrep to maria del rosario-wounds. Apply Venelex ointment to open wound beds. Cover with non-adhesive foam dressings. Cover sites with ABD pad. Secure with paper tape. Secure with abdominal binder. Perform wound care daily, and prn for dressing soiling or dislodgment. 7. Abdomen: Surgical incision (horizontal), present on admission. Site is approximated except for a small spot on right lateral aspect of incision (please see Site 4). 18 ellen present. Site measures 0.5 cm x 26.0 cm. Recommend: Cleanse open area with normal saline. Pat dry. Apply SurePrep to maria del rosario-wounds. Apply Venelex ointment to open wound beds. Cover incision with oil emulsion dressings. Cover sites with ABD pad. Secure with paper tape. Secure with abdominal binder. Perform wound care daily, and prn for dressing soiling or dislodgment. 8. Sacral-Coccygeal area: Pressure Injury, present on admission. Wound bed has 40% red tissue, 30% yellow slough, 15% black slough, 15% pink tissue. Mild odor, skin yellow drainage. Periwound intact, erythematous. Surrounding tissue has scar tissue. Site has multiple small wounds surrounding area that are included in the management. Wound measures 9.0 cm x 8.5 cm by 1.2 cm. Recommend: Cleanse wound normal Saline. Apply moisture barrier cream to maria del rosario-wound. Apply Venelex ointment to wound bed. Pack wound with 1/2 inch iodoform packing strip. Cover with Sacral foam dressing. Perform wound care daily, and prn for dressing soiling or dislodgment. 9. Right Buttock, right lateral and inferior to grouped wounds in Site 1: Stage II pressure ulcer, present on admission. Wound bed has 55% red tissue, 40% yellow tissue, 5% black tissue. No odor, no drainage. Periwound intact, surrounding tissue has scar tissue. Wound measures 0.8 cm x 0.7 cm. Recommend: Cleanse wound with normal Saline. Apply moisture barrier cream to maria del rosario-wound. Apply Venelex ointment to wound bed. Cover with Sacral foam dressing. Perform wound care daily, and prn for dressing soiling or dislodgment. Recommend reposition patient side to side only every 2 hours with pillow support. Elevate, off-load and float bilateral heels with pillows. Offload pressure areas with pillows for pressure re-distribution. Perform skin care and monitor skin integrity Q shift. Use moisture barrier cream on moisture susceptible areas QID and PRN for soiling. Maintain patient on a low air-loss mattress.
[2019-04-18 16:13] VITALS: BP_SYST 132
--- NOTE | 2019-04-18 16:30 | NUR ---
Social Service Note: TOOL DESIGN CHECKER received call from pt's dtr, Deana Chun ([phone]); pt's dtr was upset due to the fact that she was having difficulty obtaining information; TOOL DESIGN CHECKER contacted admitting to update facesheet to reflect that Deana Chun is the pt's dtr; TOOL DESIGN CHECKER forwarded phone call to pt's nurse so that dtr can be given a update. Pt's dtr also had some concerns that were forwarded to the patient experience intellectual property manager. Pt's facesheet from [facility] Canela has three family members listed.
--- NOTE | 2019-04-18 16:47 | NUR ---
CT SCAN TELEPHONE CONSENT: OBTAINED A CT SCAN GUIDED DRAINAGE ABSCESS FROM ALYSSIA AMADOR AND SECOND RN WITNESSED IT.ATTACHED TO CHART. PATIENT'S GUARDIAN (POA) SPOKE TO DR ALVAREZ FOR UP DATES OF THE PATIENT'S CONDITION.
--- NOTE | 2019-04-18 18:32 | NUR ---
CLOSING NOTES: WITH SAME VENT SETTING,WELL TOLERATED BY THE PATIENT. MIDLINE INCISION DRESSING INTACT.WITH ABDOMINAL BINDER ON. G-TUBE CONNECTED TO LIS DRAINING TO LARGE AMOUNT OF KEYS COLOR DISCHARGES. SACRAL WOUND DRESSING INTACT. PRACTICE GUIDELINE MET THROUGH THE SHIFT. SAFETY MEASURES RENDERED.
[2019-04-18 20:15] VITALS: BP_SYST 136
[2019-04-18] MEDS ORDERED: POTASSIUM ACETATE IV SCH ×9 (21:00)
[2019-04-18] MEDS ORDERED: TPN CENTRAL IV SCH ×9 (21:00)
[2019-04-18] MEDS: FAT EMULSIONS 250 ML IV SCH (21:00)
[2019-04-18] MEDS ORDERED: SODIUM ACETATE IV SCH ×9 (21:00)
[2019-04-18] MEDS ORDERED: K PHOS IV SCH ×9 (21:00)
[2019-04-18] MEDS ORDERED: [UNRECOGNIZED DRUG - OTHER] IV SCH ×9 (21:00)
--- NOTE | 2019-04-18 22:15 | NUR ---
TRACHEAL SUCTION upright position thick white sputum minimal ventilator alarming chest movement symmetrical skin also warm & dry .
--- NOTE | 2019-04-18 22:35 | NUR ---
TURNING RE - POSITIONING ON TWO HOUR SCHEDULE , off loading with pillows implemented kept clean also dry as needed position change tolerated .
[2019-04-19 00:50] VITALS: BP_SYST 128
--- NOTE | 2019-04-19 03:58 | NUR ---
COLLECTOMY BAG LOWER LEFT ABDOMEN CHANGE SITE CLEAN PINK TO RED OMAR WOUND WNL , PATIENT TOLERATED .
--- NOTE | 2019-04-19 04:00 | NUR ---
HOURLY ROUNDING patient awake non verbal HOB elevated frqent monitor for safety off loading with pillows tolerated .
--- NOTE | 2019-04-19 04:33 | NUR ---
SEIZURE PRECAUTIONS inplace side Rails padded frequent monitor for safety no visual seizure activity noted bed to loqw position .
[2019-04-19] MEDS: metroNIDAZOLE 500 mg/NS 100 ML IV SCH ×3 (06:11→20:44)
[2019-04-19] MEDS: PIPERACILLIN/TAZO 4.5GM/DEX-IS 100 ML IV SCH ×3 (06:11→21:23)
[2019-04-19 07:24] LABS: BASOPHILS % (AUTO) 0.6 % (0.0-2.0); EOSINOPHILS # (AUTO) 0.1 K/uL (0.0-0.4); EOSINOPHILS % (AUTO) 2.1 % (0.0-4.0); HEMATOCRIT 32.5 % (36-48); HEMOGLOBIN 10.3 g/dL (12.0-16.0); LYMPHOCYTES # (AUTO) 1.2 K/uL (1.0-5.5); LYMPHOCYTES % (AUTO) 21.9 % (20.5-51.5); MEAN CORPUSCULAR HEMOGLOBIN 26 pg (27-31); MEAN CORPUSCULAR HGB CONC 32 % (32-36); MEAN CORPUSCULAR VOLUME 83 fL (79.0-98.0); MONOCYTES # (AUTO) 0.9 K/uL (0.0-1.0); MONOCYTES % (AUTO) 16.4 % (1.7-9.3); NEUTROPHILS # (AUTO) 3.2 K/uL (1.8-7.7); PLATELET COUNT (AUTO) 419 K/uL (130-430); RED BLOOD CELL COUNT(AUTO) 3.94 MIL/uL (4.2-6.2); RED CELL DISTRIBUTION WIDTH 31.1 % (9.0-15.0); WHITE BLOOD COUNT (AUTO) 5.4 K/uL (4.8-10.8)
[2019-04-19 07:35] LABS: CALCIUM 7.3 mg/dL (8.4-11.0); CREATININE 0.59 mg/dL (0.55-1.30); PHOSPHORUS 2.5 mg/dL (2.7-4.5); POTASSIUM 3.2 mmol/L (3.5-5.1)
[2019-04-19 07:44] LABS: TOTAL IRON BIND. CAPACITY 55 ug/dL (250-450)
[2019-04-19 08:00] VITALS: BP_SYST 113
--- NOTE | 2019-04-19 08:00 | NUR ---
Initial notes: Patient awake and alert. Eyes opened and non verbal. Hook on mech vent with setting. TV 500 F102 35% peep 5. L arm PICC line in placed. G tube in placed. Ileostomy bag in placed. Safety and seizure precaution in placed.
[2019-04-19] MEDS: BALSAM PERU/CASTOR OIL 60 GM OINT...G. TP SCH (09:44)
--- NOTE | 2019-04-19 09:46 | NUR ---
rounds: patient eye open, non verbal. appears calm. No distress noted.
[2019-04-19 12:16] VITALS: BP_SYST 124
--- NOTE | 2019-04-19 14:00 | NUR ---
ROUNDS: Changed patient ileostomy bag. It was leaking. Changed dressing at the abdominal area. No active bleeding. Small drainage. Changed sacral dressing. Small amount of drainage. Changed gtube dressing. scant drainage.
[2019-04-19] MEDS ORDERED: K PHOS 15 MM in NS 250 ML IV ONE (14:15)
--- NOTE | 2019-04-19 14:58 | NUR ---
BRISENO CATH: # 16 FR Briseno catheter with 10 cc bulb inserted with use of sterile technique. Bulb inflated with 10 cc sterile water. Immediate return of 100 cc urine noted. Bedside drainage bag placed below level of bladder. Urine sample collected and sent to lab at 1500. Pt tolerated procedure well.
[2019-04-19 15:19] LABS: BILIRUBIN,URINE NEGATIVE (NEGATIVE); BLOOD, URINE NEGATIVE (NEGATIVE); CLARITY/URINE CLEAR (CLEAR); COLOR,URINE YELLOW (YELLOW); GLUCOSE,URINE NEGATIVE (NEGATIVE); KETONES,URINE NEGATIVE (NEGATIVE); LEUKOCYTE ESTERASE ,URINE NEGATIVE (NEGATIVE); NITRITE, URINE NEGATIVE (NEGATIVE); PH,URINE 7.5 (5.0-8.0); PROTEIN URINE NEGATIVE (NEGATIVE); UROBILINOGEN,URINE 0.2 (0.2-1.0)
[2019-04-19 16:06] VITALS: BP_SYST 119
--- NOTE | 2019-04-19 18:00 | NUR ---
rounds: Patient eyes open. resting, no distress noted.
--- NOTE | 2019-04-19 18:30 | NUR ---
CT not done: Followed up the CT earlier why it was not done. Tyron from radiology dept. said that CT guided per drain of abscess was not done due to no specific area where the surgeon wants to do the drain. They tried to call the office of Dr. Kirkpatrick multiple times.
--- NOTE | 2019-04-19 19:30 | NUR ---
Closing notes: Patient resting on bed. Stable. Needs attended. Same [facility] setting. PICC line in placed. Gtube in placed. Capellan Cath draining well by gravity. Safety measures in placed. Report given to DEEJAY Moulton.
--- NOTE | 2019-04-19 19:35 | NUR ---
OPENING NOTES RECEIVED PATIENT IN BED AWAKE FLAT AFFECT. TRACH TO VENT WITH AC SETTINGS TOLERATED. GT CONNECTED TO LIS WITH BROWN OUTPUT. TPN INFUSING ORDERED. WILLIAMS PICC LINE DRESSING CLEAN DRY AND INTACT. BED IN LOWEST LOCKED POSITION WITH ALARM ON. CALL LIGHT WITH IN REACH.
[2019-04-19 20:39] VITALS: BP_SYST 130
[2019-04-19] MEDS: FAT EMULSIONS 250 ML IV SCH (20:48)
--- NOTE | 2019-04-19 20:48 | NUR ---
TPN/LIPIDS NEW TPN AND LIPID BAG INFUSED ORDERED VERIFIED WITH ANOTHER RN. VITAL SIGNS STABLE.
[2019-04-19] MEDS ORDERED: SODIUM ACETATE IV SCH ×10 (21:00)
[2019-04-19] MEDS ORDERED: [UNRECOGNIZED DRUG - OTHER] IV SCH ×10 (21:00)
[2019-04-19] MEDS ORDERED: TPN CENTRAL IV SCH ×10 (21:00)
[2019-04-19] MEDS ORDERED: POTASSIUM ACETATE IV SCH ×10 (21:00)
--- NOTE | 2019-04-20 00:30 | NUR ---
ROUNDS PATIENT RESTING IN BED. NO DISTRESS NOTED.
[2019-04-20 03:02] VITALS: BP_SYST 118
--- NOTE | 2019-04-20 03:43 | NUR ---
ROUNDS PATIENT AWAKE IN BED. NO DISTRESS NOTED.
[2019-04-20 04:30] LABS: FOLATE (FOLIC ACID) 12.8 ng/mL (>3.0)
[2019-04-20] MEDS: PIPERACILLIN/TAZO 4.5GM/DEX-IS 100 ML IV SCH ×3 (05:01→22:01)
[2019-04-20] MEDS: metroNIDAZOLE 500 mg/NS 100 ML IV SCH ×3 (06:08→22:01)
--- NOTE | 2019-04-20 06:48 | NUR ---
CLOSING NOTES PATIENT RESTING IN BED. CURRENT VENT SETTINGS TOLERATED. TPN AND LIPIDS INFUSING ORDERED VIA WILLIAMS PICC LINE WITH DRESSING CLEAN/DRY AND INTACT. GT TO LOW INTERMITTENT SUCTION. ABDOMINAL DRESSING DRY AND INTACT WITH ABDOMINAL BINDER IN PLACED. PATIENT NEEDS ATTENDED. BED IN LOWEST LOCKED POSITION.
[2019-04-20 07:31] LABS: CALCIUM 7.3 mg/dL (8.4-11.0); CREATININE 0.6 mg/dL (0.55-1.30); PHOSPHORUS 2.4 mg/dL (2.7-4.5); POTASSIUM 3.3 mmol/L (3.5-5.1)
--- NOTE | 2019-04-20 08:00 | NUR ---
OPENING NOTE PATIENT RESTING IN BED, ALERT TO SELF, NONVERBAL, DOES NOT FOLLOW COMMANDS, ASSESSMENT COMPLETE, TRACH TO VENT, VENT SETTINGS AC 10, TV 500, FIO2 35%, PEEP OF 5, PATIENT TOLERATING WELL AT THIS TIME, G TUBE INTACT TO LOWER INTERMITTENT SUCTION, ABDOMINAL DRESSING CLEAN, DRY AND INTACT, ILEOSTOMY IN PLACE INTACT, BROWN/GREEN DRAINAGE NOTED, BRISENO CATHETER IN PLACE, DRAINING TO GRAVITY, PICC LINE IS PATENT AND INFUSING WELL, CONTINUING TO MONITOR, BED IN LOWEST POSITION, THREE SIDE RAILS UP, BED ALARM ON, FALL, ASPIRATION AND SEIZURE PRECAUTIONS IN PLACE.
[2019-04-20 08:21] VITALS: BP_SYST 129
[2019-04-20] MEDS ORDERED: IOHEXOL 100 ML IV ONE (09:20)
[2019-04-20] MEDS ORDERED: DIATR MEGLU/DIATRIZ SOD 30 ML SOLUTION PO ONE (09:21)
[2019-04-20] MEDS ORDERED: POTASSIUM CHLORIDE 40 MEQ in NS 250 ML IV ONE (10:00)
--- NOTE | 2019-04-20 10:02 | NUR ---
RN rounds patient resting in bed, no signs of distress, obtained consent for contrast from patient's daughter, per MD kang to administered oral contrast via G Tube and DC low-intermittent suction for now, noted and followed through, administering oral contrast 120ml via G tube at this time, patient tolerated, emptied ileostomy 100ml at this time, continuing to monitor, bed in lowest position ,three side rails up, bed alarm on, fall, aspiration and seizure precautions in place.
--- NOTE | 2019-04-20 11:14 | NUR ---
ROUNDS/MEDICATION PATIENT RESTING IN BED, AWAKE, BLOOD GLUCOSE CHECKED, NO INSULIN COVERAGE PER MD ORDERS, K RIDER HUNG AND INFUSING WELL, ADMINISTERED MORE OF CONTRAST VIA G TUBE, RADIOLOGY WOULD LIKE TO TAKE THE PATIENT SOON FOR CT SCAN, CONTINUING TO MONITOR PATIENT, BED IN LOWEST POSITION, THREE SIDE RAILS UP, BED ALARM ON, FALL, ASPIRATION, AND SEIZURE PRECAUTIONS IN PLACE.
--- NOTE | 2019-04-20 12:40 | NUR ---
RT NOTES Transported pt to CT bagging w/ 100% O2 via ambubag to trach, pt back on vent w/ same settings once in CT room. RN Joel at bedside.
--- NOTE | 2019-04-20 12:40 | NUR ---
PATIENT OFF THE UNIT TO CT SCAN, ACCOMPANIED BY RN AND RT, PATIENT IN STABLE CONDITION.
[2019-04-20 13:06] VITALS: BP_SYST 123
--- NOTE | 2019-04-20 14:10 | NUR ---
RT NOTES Transported pt from CT to 134A bagging w/ 100% O2 via ambubag to Trach tube. Pt back on vent w/ same settings once in the room. T.T remains secure/patent. No distress noted.
--- NOTE | 2019-04-20 14:15 | NUR ---
PATIENT BACK ON THE UNIT ACCOMPANIED BY RN AND RT, PATIENT BACK ON VENTILATOR, PATIENT IN STABLE CONDITION.
[2019-04-20] MEDS: BALSAM PERU/CASTOR OIL 60 GM OINT...G. TP SCH (15:26)
--- NOTE | 2019-04-20 15:40 | NUR ---
ROUNDS/MEDICATION PATIENT RESTING IN BED, EYES CLOSED, BREATHING IS EVEN, NO SIGNS OF DISTRESS, PERFORMED WOUND CARE TO ABDOMEN, PATIENT TOLERATED WELL, IV ANTIBIOTIC HUNG AND INFUSING WELL, HUNG LATE DUE TO PATIENT BEING OFF THE UNIT AND KRIDER FINISHING, PICC LINE IS PATENT, DSG IS CLEAN, DRY AND INTACT, CONTINUING TO MONITOR, BED IN LOWEST POSITION, THREE SIDE RAILS UP, BED ALARM ON, FALL, ASPIRATION AND SEIZURE PRECAUTIONS IN PLACE.
[2019-04-20 17:08] VITALS: BP_SYST 138
--- NOTE | 2019-04-20 17:11 | NUR ---
ROUNDS/MEDICATIONS PT AWAKE. CHEST RISE AND FALLING NOTED. NO ACUTE DISTRESS NOTED. BLOOD GLUCOSE TAKEN. 126 MG/DL. TOLERATED WELL. BED ALARM ON. BED IN LOWEST AND LOCKED POSITION. THREE SIDE RAILS UP. FALL, SEIZURE, AND ASPIRATION PRECAUTIONS IN PLACE. CONTINUE TO MONITOR.
--- NOTE | 2019-04-20 18:34 | NUR ---
CLOSING NOTE PT AWAKE. NO ACUTE DISTRESS NOTED. BED IN LOWEST AND LOCKED POSITION. ALL NEEDS MET. FALL AND ASPIRATION PRECAUTIONS IN PLACE. WILL ENDORSE TO NOC NURSE. THREE SIDE RAILS UP.
[2019-04-20 20:00] VITALS: BP_SYST 139
--- NOTE | 2019-04-20 20:00 | NUR ---
TRACH TO VENT. RESPONDS TO TACTILE AND NOXIOUS STIMULI. SUCTIONED WITH SCANT AMOUNT OF THIN WHITE MUCUS OBTAINED. ORAL CARE GIVEN. ARM CONTRACTED. GT TO LIS WITH BROWNISH SECRETIONS DRAINING. BRISENO CATH PATENT DRAINING CLOUDY MILKA URINE TO GRAVITY. WILLIAMS PICC LINE DRSG D/I. TPN AT 60CC/HR. INTRALIPIDS AT 10CC/HR. ABD'L DRSG D/I. SINUS RHYTHM.
[2019-04-20] MEDS ORDERED: POTASSIUM CHLORIDE IV SCH ×9 (21:00)
[2019-04-20] MEDS ORDERED: SODIUM ACETATE IV SCH ×9 (21:00)
[2019-04-20] MEDS ORDERED: [UNRECOGNIZED DRUG - OTHER] IV SCH ×9 (21:00)
[2019-04-20] MEDS ORDERED: K PHOS IV SCH ×9 (21:00)
[2019-04-20] MEDS ORDERED: TPN CENTRAL IV SCH ×9 (21:00)
[2019-04-20] MEDS: FAT EMULSIONS 250 ML IV SCH (21:59)
--- NOTE | 2019-04-20 22:00 | NUR ---
SUCTIONED. TURNED. HS CARE GIVEN. NEW LINES FOR TPN AND LIPIDS HUNG.
--- NOTE | 2019-04-21 | NUR ---
ACCU-CHEK 123, NO INSULIN COVERAGE DUE.
[2019-04-21 01:30] VITALS: BP_SYST 132
--- NOTE | 2019-04-21 02:00 | NUR ---
DOZES ON AND OFF. ORAL CARE. SUCTIONED.
--- NOTE | 2019-04-21 04:00 | NUR ---
1 LARGE WATERY BROWN STOOL DEFECATED. CLEANED. OMAR -CARE. BRISENO CARE. PARTIAL LINEN CHANGE. DOES NOT ASSIST WITH TURNING. JOSE PROC WELL.
[2019-04-21] MEDS: metroNIDAZOLE 500 mg/NS 100 ML IV SCH ×3 (05:29→22:15)
--- NOTE | 2019-04-21 06:00 | NUR ---
GT 300CC OUT. DRAIN RIGHT ABDOMEN 0 OUT. GOOD UO. ACCU-CHECK 131, NO INSULIN REEMA. REMAINS IN GUARDED CONDITION.
[2019-04-21] MEDS: PIPERACILLIN/TAZO 4.5GM/DEX-IS 100 ML IV SCH ×3 (06:06→22:15)
--- NOTE | 2019-04-21 08:00 | NUR ---
RN INITIAL NOTES RECEIVED PATIENT IN BED ALERT AWAKE OPENS EYES WHEN NAME IS CALLED , NON VERBAL ,NOOK ON [facility] VENT SETTING TV-500, FIO2 35% , PEEP 5 , NO DISTRESS SATING 100 % , WITH WILLIAMS PICC LINE 2 LUMEN, WITH TPN LIPID AND IVF TO KVO , WITH GTUBE INTERMITENT SUCTION , WITH FOEY CATH INTACT AND DRAINING , WITH COLOSTOMY INTACT, PATIENT IS CONTRACTED TO BOTH UPPER AND LOWER EXTREMETIES, WITH SCD TO LOWER EXTREMETIES, WILL CONT PLAN OF CARE . Addendum: 04/21/19 at 1120 by Savannah Abarca RN PERCUTANEOUS CATH TO RT UPPER QUADRANT TO DRAIN ABDOMINAL ABCESS NO DRAINAGE NOTED AT THIS TIME Addendum: 04/21/19 at 1937 by Savannah Abarca RN CORRECTION ITS NOT COLOSTOMY ERROR RIGHT IS PATIENT WITH ILEOSTOMY
[2019-04-21] MEDS: BALSAM PERU/CASTOR OIL 60 GM OINT...G. TP SCH (09:00)
[2019-04-21 09:20] VITALS: BP_SYST 104
[2019-04-21 09:49] LABS: BASOPHILS # (AUTO) 0.1 K/uL (0.0-0.2); BASOPHILS % (AUTO) 0.9 % (0.0-2.0); EOSINOPHILS # (AUTO) 0.3 K/uL (0.0-0.4); EOSINOPHILS % (AUTO) 3.7 % (0.0-4.0); HEMATOCRIT 32.4 % (36-48); HEMOGLOBIN 10.5 g/dL (12.0-16.0); LYMPHOCYTES # (AUTO) 1.4 K/uL (1.0-5.5); LYMPHOCYTES % (AUTO) 19.8 % (20.5-51.5); MEAN CORPUSCULAR HEMOGLOBIN 27 pg (27-31); MEAN CORPUSCULAR HGB CONC 32 % (32-36); MEAN CORPUSCULAR VOLUME 83 fL (79.0-98.0); MONOCYTES # (AUTO) 0.9 K/uL (0.0-1.0); NEUTROPHILS # (AUTO) 4.5 K/uL (1.8-7.7); NEUTROPHILS % (AUTO) 62.6 % (40.0-70.0); PLATELET COUNT (AUTO) 463 K/uL (130-430); RED BLOOD CELL COUNT(AUTO) 3.88 MIL/uL (4.2-6.2); RED CELL DISTRIBUTION WIDTH 30.7 % (9.0-15.0); WHITE BLOOD COUNT (AUTO) 7.2 K/uL (4.8-10.8)
--- NOTE | 2019-04-21 09:58 | NUR ---
ROUNDS AWAKE ROUNDS DONE NO DISTRESS , CONT WITH PLAN OF CARE, HOB MAINTAINED NO ASPIRATION NOTED Addendum: 04/21/19 at 1007 by Savannah Abarca RN CORRECTION PATIENT IS NOT ON BREATHING TREATMENT , WILL NOTIFY TOWER OPERATOR ON ROUNDS
[2019-04-21 10:10] LABS: CALCIUM 7.8 mg/dL (8.4-11.0); CREATININE 0.61 mg/dL (0.55-1.30); PHOSPHORUS 2.2 mg/dL (2.7-4.5); POTASSIUM 3.7 mmol/L (3.5-5.1)
--- NOTE | 2019-04-21 11:05 | NUR ---
PICC LINE DRESSING PATIENT PICC LINE DRESSING DONE TOLERATED NO S/S OF INFECTION
[2019-04-21 12:00] VITALS: BP_SYST 110
--- NOTE | 2019-04-21 13:43 | NUR ---
Nutrition F/U RD reviewed pt's current EMR including diet Hx, physician notes, nursing notes, pertinent labs/meds/procedures, care trends and care activity. Admitting Diagnosis: SBO Medical History Comment: Pt continues on vent support Fi02 35%, CT guided drainages were inserted, pt s/p exploratory laparotomy repair of leaking ileocolic anastomosis and loop ileostomy, and right hemicolectomy for carcinoma of the colon per MD note. TPN Order: D40% AA 8.5% at 80ml/hr (goal rate), IL20% at 10ml/hr via central line. Provides 2114 kcal, 82 gm protein and 2160ml fluids per day. Meets: 101% of est calorie needs and 99% of upper end of est protein needs. Subjective Information Pt is trach to vent, GT to LIS with 300ml output, 1 BM today per nursing note. Multiple pressure injuries noted per wound care note (04/18/19), TPN provides vitamins adequate to aid with wound healing. TPN seen running at 60ml/hr, RD notified RN Savannah of TPN order rate. RN to follow up. Skin Integrity Comment: Per wound care note (04/18/19): abd incision, small wound to the abd left medial site 1, site 3, site 3, site 4, ileostomy site wound, pressure injury to sacral coccygeal area, right buttock st 2 pressure ulcer. All present on admission. Estimated Energy Expenditure (kcals/day) 2092 kcal/day (MSJ x1.1x1.3 for sepsis and wound healing) Estimated Protein Required (g/day) 55-83 gm/day (1-1.5 gm/kg IBW for wound healing) Estimated Fluid Required (l/day) 2 L/day (1ml/calorie for maintenance) Problem/Etiology/Signs/Symptoms Inadequate nutrient intake r/t current TPN infusion AEB current TPN intake meets <65% of est needs. *ongoing* Increased nutrient needs related to wound healing as evidenced by multiple wounds and pressure injuries per wound care note (04/18/19) *new* Expected Outcomes/Goals Monitor TPN tolerance and intake w/ goal of pt meeting at least 80-100% of estimated nutritional needs, labs trending WNL, normal GI function, skin integrity/wt maintenance Dietitian Recommendations *Continue D40% AA 8.5% at 80ml/hr (goal rate), IL20% at 10ml/hr via central line. Provides 2114 kcal, 82 gm protein and 2160ml fluids per day. Meets: 101% of est calorie needs and 99% of upper end of est protiein needs. Follow Up High Risk: F/U in 2-3days LT, RD
--- NOTE | 2019-04-21 13:49 | NUR ---
Dietitian Recommendations *Continue D40% AA 8.5% at 80ml/hr (goal rate), IL20% at 10ml/hr via central line. Provides 2114 kcal, 82 gm protein and 2160ml fluids per day. Meets: 101% of est calorie needs and 99% of upper end of est protiein needs. Please see Nutrition Follow Up for further details. LT, RD
--- NOTE | 2019-04-21 14:08 | NUR ---
ROUNDS PATIENT CONT WITH TPN CONT WITH IV ATB ORDERED AND NO AR/SE NOTED , PATIENT REPOSITIONED AND DRESSING TO THE BUTTOCKS INTACT, BRISENO CATH DRAINING, SCD STILL TOLERATED , PICCLINE INTACT, COLOSTOMY DRAINED WITH WATERY STOOL, WILL CONT CARE
[2019-04-21 16:28] VITALS: BP_SYST 114
[2019-04-21] MEDS: ERGOCALCIFEROL 8000 UNITS/ML ORAL SOLUTION, 60 ML BOTTLE GT SCH ×2 (16:30→19:10)
[2019-04-21] MEDS: CYANOCOBALAMIN 1000 mCg TABLET GT ONE ×2 (16:45→18:44)
--- NOTE | 2019-04-21 18:59 | NUR ---
ENDORSEMENT WILL CON CARE FOR THE PATIENT CONT WITH GTUBE INTERMITTENT SUCTION GIVEN ERGOCALCIFEROL ORAL RASHAD PER DR ALVAREZ ORDER 2 DROP BY MOUTH , WILL MONITOR , CONT WITH MECH VENT , IVF , TPN, AND BRISENO CATH INTACT. FOR CLOSE MONITORING
[2019-04-21 20:00] VITALS: BP_SYST 126
[2019-04-21] MEDS ORDERED: TPN CENTRAL IV SCH ×9 (21:00)
[2019-04-21] MEDS ORDERED: K PHOS IV SCH ×9 (21:00)
[2019-04-21] MEDS ORDERED: [UNRECOGNIZED DRUG - OTHER] IV SCH ×9 (21:00)
[2019-04-21] MEDS ORDERED: POTASSIUM CHLORIDE IV SCH ×9 (21:00)
[2019-04-21] MEDS ORDERED: SODIUM ACETATE IV SCH ×9 (21:00)
[2019-04-21] MEDS: FAT EMULSIONS 250 ML IV SCH (22:18)
--- NOTE | 2019-04-22 00:40 | NUR ---
Patient in bed. Turned repositioned q2. No acute distress noted. HOB elevated. Will continue to monitor.
--- NOTE | 2019-04-22 01:50 | NUR ---
ROUNDING TACH WAS SUCTION AT THIS TIME. PATIENT TOLERATED WELL. REPOSITION FOR COMFORT. PATIENT IS STABLE. NO S/S OF RESPIRATORY DISTRESS. CALL LIGHT IS WITHIN REACH. BED IS LOCKED, ALARMED, AND AT THE LOWEST POSITION. WILL CONTINUE TO MONITOR Addendum: 04/23/19 at 0327 by Jayla Flowers RN WRONG DATE
[2019-04-22] MEDS: metroNIDAZOLE 500 mg/NS 100 ML IV SCH ×3 (05:48→21:52)
[2019-04-22] MEDS: PIPERACILLIN/TAZO 4.5GM/DEX-IS 100 ML IV SCH ×3 (05:49→23:02)
--- NOTE | 2019-04-22 07:50 | NUR ---
INITIAL NOTE RECEIVED PT IN BED, NO S/S OF DISTRESS OR SOB NOTED, PT HAS NO FACIAL GRIMACING NOTED FOR PAIN PT IN STABLE CONDITION, PT AAOX1, NON VERBAL. PROVIDED PT WITH REALITY ORIENTATION. PT ON A VENTILATOR AT PRESCRIBED SETTINGS. PT HAS A PICC LINE ON LEFT UPPER ARM, BOTH PORTS FLUSH AND HAVE BLOOD RETURN. TPN AND LIPIDS AT PRESCRIBED SETTINGS. F/C DRAINING VIA GRAVITY. PT HAS A DRESSING ON ABD, ABD BINDER IN PLACE. PT HAS A G TUBE ON LEFT ABD, CONNECTED TO LIS, NOTED LIGHT BROWN DRAINAGE. PT HAS AN ILEOSTOMY OF RIGHT ABD, NOTED GREEN DRAINAGE. PT HAS BILATERAL SCD'S IN PLACE. PT A RIGHT DRAIN, NOTED TO DRAINAGE. BED AT LOWEST POSITION, CALL LIGHT WITHIN REACH, WILL CONTINUE TO MONITOR PT FOR ANY CHANGES, FALL AND SAFETY PRECAUTIONS IN PLACE.
--- NOTE | 2019-04-22 08:45 | NUR ---
MD ROUNDS DR MISHA CHRISTINA, AWARE OF PATIENT'S CONDITION, PER MD TO TAKE OFF SUCTION FOR G TUBE AND MONITOR PT, MD CHANGED DRESSING ON ABD AND LOOKED AT DRAIN AND ILEOSTOMY, PER MD THEY LOOK FINE AND TO CONTINUE TO MONITOR. NO FEEDING ORDERED AT THIS TIME AND PT CONTINUES TO BE NPO.
[2019-04-22] MEDS: ERGOCALCIFEROL 8000 UNITS/ML ORAL SOLUTION, 60 ML BOTTLE GT SCH (09:00)
[2019-04-22] MEDS: CYANOCOBALAMIN 1000 mCg TABLET GT SCH (09:00)
[2019-04-22] MEDS: BALSAM PERU/CASTOR OIL 60 GM OINT...G. TP SCH ×2 (09:01→16:15)
[2019-04-22 09:15] VITALS: BP_SYST 126
[2019-04-22 09:37] LABS: HEMATOCRIT 32.4 % (36-48); HEMOGLOBIN 10.6 g/dL (12.0-16.0); MEAN CORPUSCULAR HEMOGLOBIN 27 pg (27-31); MEAN CORPUSCULAR HGB CONC 33 % (32-36); MEAN CORPUSCULAR VOLUME 82 fL (79.0-98.0); PLATELET COUNT (AUTO) 455 K/uL (130-430); RED BLOOD CELL COUNT(AUTO) 3.96 MIL/uL (4.2-6.2); RED CELL DISTRIBUTION WIDTH 30.3 % (9.0-15.0); WHITE BLOOD COUNT (AUTO) 6.7 K/uL (4.8-10.8)
[2019-04-22 10:13] LABS: ALBUMIN 1.6 g/dL (3.4-4.8); CALCIUM 7.6 mg/dL (8.4-11.0); CREATININE 0.62 mg/dL (0.55-1.30); PHOSPHORUS 2.3 mg/dL (2.7-4.5); TOTAL BILIRUBIN 0.3 mg/dL (0.0-1.0)
--- NOTE | 2019-04-22 10:30 | NUR ---
ROUNDS PT IN BED, NO S/S OF DISTRESS OR SOB NOTED, PT HAS NO C/O PAIN AT THIS TIME, PT IN STABLE CONDITION, PT RESTING COMFORTABLY, WILL CONTINUE TO MONITOR PT FOR ANY CHANGES.
[2019-04-22 10:46] LABS: BAND % (MANUAL) 0 % (0-6); BASOPHILS % (MANUAL) 0 % (0-2); EOSINOPHILS % (MANUAL) 1 % (0-7); LYMPHOCYTES % (MANUAL) 12 % (20-46); MONOCYTES % (MANUAL) 4 % (0-11)
[2019-04-22 12:38] VITALS: BP_SYST 131
[2019-04-22 16:35] VITALS: BP_SYST 139
--- NOTE | 2019-04-22 17:09 | NUR ---
CALL DR ANTONIO PEREZ AWAITING CALL BACK TO NOTIFY HIM THAT PATIENT'S BLOOD GLUCOSE WAS 160, NO INSULIN COVERAGE ORDERED. Addendum: 04/22/19 at 1923 by Kathy Castañeda RN MADE DR ALVAREZ AWARE THAT PT HAS NO COVERAGE FOR ACCUCHECK. PER NO NEED.
--- NOTE | 2019-04-22 18:33 | NUR ---
CLOSING NOTE PT IN BED, NO S/S OF DISTRESS OR SOB NOTED, PT HAS NO FACIAL GRIMACING NOTED FOR PAIN PT IN STABLE CONDITION. PT ON A VENTILATOR AT PRESCRIBED SETTINGS. PT HAS A PICC LINE ON LEFT UPPER ARM, BOTH PORTS FLUSH AND HAVE BLOOD RETURN. TPN AND LIPIDS AT PRESCRIBED SETTINGS. F/C DRAINING VIA GRAVITY. PT HAS A DRESSING ON ABD, ABD BINDER IN PLACE. PT HAS A G TUBE ON LEFT ABD CLAMPED. PT HAS AN ILEOSTOMY OF RIGHT ABD, STOMA BEEFY RED, NOTED GREEN DRAINAGE. PT HAS BILATERAL SCD'S IN PLACE. PT A RIGHT DRAIN, NOTED TO DRAINAGE. BED AT LOWEST POSITION, CALL LIGHT WITHIN REACH, WILL ENDORSE CARE OF PT TO INCOMING NURSE, FALL AND SAFETY PRECAUTIONS IN PLACE.
--- NOTE | 2019-04-22 18:35 | NUR ---
RADIOLOGY SPOKE WITH JONAS IN RADIOLOGY ABOUT READING THE ABD X RAY, SHE WILL HAVE IT READ, WILL HAVE NIGHT NURSE FOLLOW UP.
[2019-04-22 19:50] VITALS: BP_SYST 136
--- NOTE | 2019-04-22 19:50 | NUR ---
INITIAL NOTES PATIENT IS LAYING IN BED AND STABLE. NO S/S OF RESPIRATORY DISTRESS NOTED. PATIENT UNSUCCESSFULLY DEMONSTRATES USAGE OF CALL LIGHT AT THIS TIME DUE TO CONTRACTURES. WILL CONTINUE TO DO FREQUENT MONITORING AND EDUCATION. PLAN OF CARE IS DISCUSSED WITH PATIENT AT THIS TIME. BED IS LOCKED, ALARMED, AND AT THE LOWEST POSITION. FALL, SAFETY, ASPIRATION, RESPIRATORY, AND SEIZURE PRECAUTIONS WILL BE PLACED THROUGHOUT THE SHIFT.
[2019-04-22] MEDS ORDERED: K PHOS IV SCH ×9 (21:00)
[2019-04-22] MEDS ORDERED: [UNRECOGNIZED DRUG - OTHER] IV SCH ×9 (21:00)
[2019-04-22] MEDS ORDERED: SODIUM ACETATE IV SCH ×9 (21:00)
[2019-04-22] MEDS ORDERED: POTASSIUM CHLORIDE IV SCH ×9 (21:00)
[2019-04-22] MEDS ORDERED: TPN CENTRAL IV SCH ×9 (21:00)
[2019-04-22] MEDS: FAT EMULSIONS 250 ML IV SCH (21:06)
--- NOTE | 2019-04-22 21:50 | NUR ---
ROUNDING PATIENT IS STABLE AND RESTING IN BED. NO S/S OF RESPIRATORY DISTRESS NOTED. CALL LIGHT IN REACH. BED IS LOCKED, ALARMED, AND AT THE LOWEST POSITION. WILL CONTINUE TO MONITOR.
--- NOTE | 2019-04-22 23:50 | NUR ---
ROUNDING ORAL CARE WAS PROVIDED AT THIS TIME. PATIENT TOLERATED WELL. PATIENT IS STABLE. NO S/S OF RESPIRATORY DISTRESS NOTED. CALL LIGHT IS WITHIN REACH. BED IS LOCKED, ALARMED, AND AT THE LOWEST POSITION. WILL CONTINUE TO MONITOR.
[2019-04-23 00:39] VITALS: BP_SYST 128
--- NOTE | 2019-04-23 01:50 | NUR ---
ROUNDING TACH WAS SUCTION AT THIS TIME. PATIENT TOLERATED WELL. REPOSITION FOR COMFORT. PATIENT IS STABLE. NO S/S OF RESPIRATORY DISTRESS. CALL LIGHT IS WITHIN REACH. BED IS LOCKED, ALARMED, AND AT THE LOWEST POSITION. WILL CONTINUE TO MONITOR
[2019-04-23] MEDS: PIPERACILLIN/TAZO 4.5GM/DEX-IS 100 ML IV SCH ×3 (05:03→23:00)
--- NOTE | 2019-04-23 05:50 | NUR ---
ROUNDING PATIENT IS STABLE AND IN BED. NO S/S OF RESPIRATORY DISTRESS. CALL LIGHT IN REACH. BED IS LOCKED,ALARMED, AND AT THE LOWEST POSITION. WILL CONTINUE TO MONITOR.
[2019-04-23] MEDS: metroNIDAZOLE 500 mg/NS 100 ML IV SCH ×3 (06:18→22:07)
--- NOTE | 2019-04-23 06:50 | NUR ---
CLOSING NOTES PATIENT IS LAYING IN BED AND STABLE. NO S/S OF RESPIRATORY DISTRESS NOTED. BED IS LOCKED, ALARMED, AND AT THE LOWEST POSITION. FALL, SAFETY, ASPIRATION, RESPIRATORY, AND SEIZURE PRECAUTIONS WAS PLACED THROUGHOUT THE SHIFT. WILL CONTINUE TO MONITOR UNTIL REPORT IS GIVEN TO AM NURSE.
[2019-04-23 07:11] LABS: BASOPHILS # (AUTO) 0.1 K/uL (0.0-0.2); BASOPHILS % (AUTO) 1.4 % (0.0-2.0); EOSINOPHILS # (AUTO) 0.3 K/uL (0.0-0.4); EOSINOPHILS % (AUTO) 4.1 % (0.0-4.0); HEMATOCRIT 31.2 % (36-48); LYMPHOCYTES # (AUTO) 1.2 K/uL (1.0-5.5); LYMPHOCYTES % (AUTO) 18.4 % (20.5-51.5); MEAN CORPUSCULAR HEMOGLOBIN 27 pg (27-31); MEAN CORPUSCULAR HGB CONC 32 % (32-36); MEAN CORPUSCULAR VOLUME 85 fL (79.0-98.0); MONOCYTES # (AUTO) 0.9 K/uL (0.0-1.0); MONOCYTES % (AUTO) 14.1 % (1.7-9.3); NEUTROPHILS # (AUTO) 4.2 K/uL (1.8-7.7); PLATELET COUNT (AUTO) 393 K/uL (130-430); RED BLOOD CELL COUNT(AUTO) 3.65 MIL/uL (4.2-6.2); RED CELL DISTRIBUTION WIDTH 29.6 % (9.0-15.0); WHITE BLOOD COUNT (AUTO) 6.7 K/uL (4.8-10.8)
--- NOTE | 2019-04-23 07:20 | NUR ---
AM ROUNDS: OPENS EYES,NON VERBAL.ON TRACH VENT,FIO2=35%.TOLERATED VENT SETTINGS. G -TUBE CLAMPED.MID ABDOMEN DRESSING,CLEAN AND DRY. ABDOMINAL DRAIN AT RIGHT LOWER QUADRANT INTACT. LEFT UPPER ARM PICC LINE ,WITH TPN AND LIPIDS ON GOING.QUADRIPLEGIC. BRISENO IN SITU. NO ACUTE DISTRESS.
[2019-04-23 07:27] LABS: ALBUMIN 1.5 g/dL (3.4-4.8); CALCIUM 7.9 mg/dL (8.4-11.0); CREATININE 0.55 mg/dL (0.55-1.30); PHOSPHORUS 2.4 mg/dL (2.7-4.5); TOTAL BILIRUBIN 0.2 mg/dL (0.0-1.0)
[2019-04-23 07:40] VITALS: BP_SYST 130
--- NOTE | 2019-04-23 09:30 | NUR ---
RN ROUNDS; NO UNTOWARD MANIFESTATIONS NOTED. WITH SAME VENT SETTING. TOLERATED WELL. RIGHT ILEOSTOMY INTACT. ABD DRAIN,SCANTY OUTPUT. BRISENO INTACT. STABLE.
[2019-04-23] MEDS: ERGOCALCIFEROL 8000 UNITS/ML ORAL SOLUTION, 60 ML BOTTLE GT SCH (09:36)
[2019-04-23] MEDS: CYANOCOBALAMIN 1000 mCg TABLET GT SCH (09:37)
[2019-04-23] MEDS: BALSAM PERU/CASTOR OIL 60 GM OINT...G. TP SCH (09:37)
--- NOTE | 2019-04-23 12:43 | NUR ---
RN ROUNDS: WITH SAME VENT SETTINGS.GOOD SATURATION AND TOLERATED IT WELL. SUCTIONS SECRETIONS TRACHEALLY AND ORALLY. G TUBE CLAMPED. RIGHT LOWER ABD DRAIN INTACT. RIGHT QUADRANT AREA,ILEOSTOMY,WITH LIQUID GREENISH IN LARGE AMOUNT. LEFT UPPER ARM PICC LINE INTACT,TPN AND LIPIDS ON GOING. NOT IN ANY RESPIRATORY DISTRESS.
[2019-04-23 12:47] VITALS: BP_SYST 147
--- NOTE | 2019-04-23 14:30 | NUR ---
RN ROUNDS: PATIENT STABLE. WELL TOLERATED VENT SETTING,FIO2=35%. CONTINUE TO MONITOR.
[2019-04-23] MEDS ORDERED: NA PHOS 15 MM in NS 250 ML IV ONE (16:00)
--- NOTE | 2019-04-23 16:30 | NUR ---
WOUND CARE: CLEANSE NS MID ABDOMEN INCISION AND SACRAL WOUND,PAT DRY.APPLIED VENELEX OINTMENT TO WOUND BED,SURE PREP TO OMAR WOUND AREA,FOAM DRESSING AND ABD OVER IT.PUT SACRAL FOAM DRESSING TO SACRAL AREA.
[2019-04-23 16:51] VITALS: BP_SYST 140
--- NOTE | 2019-04-23 17:09 | NUR ---
BLOOD SUGAR: BLOOD SUGAR TAKEN,NO INSULIN NEEDED PER SLIDING SCALE.
--- NOTE | 2019-04-23 18:44 | NUR ---
Closing Notes: Patient with same vent settings,well tolerated. G-tube clamped. Mid abd dressing intact.Right ileostomy in place.Lower right quadrant abd drain,with scanty drainage. Capellan intact. Bed locked at lowest position. Condition guarded.
--- NOTE | 2019-04-23 19:30 | NUR ---
INITIAL ASSESSMENT PATIENT IS STABLE AND LAYING IN BED. NO S/S OF RESPIRATORY DISTRESS NOTED. CALL LIGHT IN REACH. PATIENT UNSUCCESSFUL DEMONSTRATES USAGE OF CALL LIGHT AT THIS TIME DUE TO CONTRACTURES. WILL CONTINUE TO DO FREQUENT MONITORING. FALL, SEIZURE, ASPIRATION, RESPIRATORY, AND SAFETY PRECAUTIONS WILL BE PLACED THROUGHOUT THE SHIFT. PLAN OF CARE IS DISCUSSED WITH PATIENT AT THIS TIME.
[2019-04-23 19:55] VITALS: BP_SYST 146
[2019-04-23] MEDS: FAT EMULSIONS 250 ML IV SCH (20:50)
[2019-04-23] MEDS ORDERED: [UNRECOGNIZED DRUG - OTHER] IV SCH ×9 (21:00)
[2019-04-23] MEDS ORDERED: TPN CENTRAL IV SCH ×9 (21:00)
[2019-04-23] MEDS ORDERED: SODIUM ACETATE IV SCH ×9 (21:00)
[2019-04-23] MEDS ORDERED: POTASSIUM CHLORIDE IV SCH ×9 (21:00)
[2019-04-23] MEDS ORDERED: K PHOS IV SCH ×9 (21:00)
--- NOTE | 2019-04-23 21:30 | NUR ---
ROUNDING PATIENT IS STABLE IN BED. NO S/S OF RESPIRATORY DISTRESS NOTED. BED IS LOCKED, ALARMED, AND AT THE LOWEST POSITION. CALL LIGHT IN REACH. WILL CONTINUE TO MONITOR.
--- NOTE | 2019-04-23 23:30 | NUR ---
ROUNDING TACH WAS SUCTION AT THIS TIME AND ORAL CARE PROVIDED. PATIENT TOLERATED WELL. REPOSITION FOR COMFORT. PATIENT IS STABLE. NO S/S OF RESPIRATORY DISTRESS. CALL LIGHT IS WITHIN REACH. BED IS LOCKED, ALARMED, AND AT THE LOWEST POSITION. WILL CONTINUE TO MONITOR
[2019-04-24 00:46] VITALS: BP_SYST 143
[2019-04-24] MEDS: PIPERACILLIN/TAZO 4.5GM/DEX-IS 100 ML IV SCH (05:27)
--- NOTE | 2019-04-24 06:06 | NUR ---
CLOSING NOTES PATIENT IS LAYING IN BED AND STABLE. NO S/S OF RESPIRATORY DISTRESS NOTED. PATIENT IS TOLERATING VENT WELL. BED IS LOCKED, ALARMED, AND AT THE LOWEST POSITION. FALL, SAFETY, ASPIRATION, RESPIRATORY, AND SEIZURE PRECAUTIONS WAS PLACED THROUGHOUT THE SHIFT. WILL CONTINUE TO MONITOR UNTIL REPORT IS GIVEN TO AM NURSE.
[2019-04-24 07:26] LABS: CALCIUM 7.8 mg/dL (8.4-11.0); CREATININE 0.54 mg/dL (0.55-1.30); PHOSPHORUS 2.5 mg/dL (2.7-4.5); POTASSIUM 3.8 mmol/L (3.5-5.1)
--- NOTE | 2019-04-24 07:30 | NUR ---
AM NOTES: RECEIVED PATIENT LYING ON THE BED,TRACH VENT DEPENDENT.FIO2=35%.LEFT UPPER ARM PICC LINE IN PLACE.TPN AND LIPIDS RUNNING WELL. G-TUBE CLAMPED.RIGHT ILEOSTOMY DRAINING TO GREENISH LIQUID. ABDOMINAL DRAIN INTACT,SCANTY OUTPUT. BILATERAL SD'S ON LE.BRISENO IN PLACE.PADDED SIDE RAILS ON ,SEIZURE PRECAUTION.NO ACUTE DISTRESS
[2019-04-24 09:00] VITALS: BP_SYST 112
[2019-04-24] MEDS: BALSAM PERU/CASTOR OIL 60 GM OINT...G. TP SCH (09:17)
[2019-04-24] MEDS: ERGOCALCIFEROL 8000 UNITS/ML ORAL SOLUTION, 60 ML BOTTLE GT SCH (09:17)
[2019-04-24] MEDS: CYANOCOBALAMIN 1000 mCg TABLET GT SCH (09:17)
--- NOTE | 2019-04-24 09:30 | NUR ---
RN ROUNDS: NO ACUTE DISTRESS. WITH SAME VENT SETTINGS,TOLERATED WELL,FIO2=35%. RIGHT ILEOSTOMY IN PLACE.ABDOMINAL DRAIN INTACT. BRISENO IN SITU.TPN/LIPIDS RUNNING WELL. CONTINUE TO MONITOR.
--- NOTE | 2019-04-24 11:33 | NUR ---
BLOOD SUGAR: BLOOD SUGAR TAKEN,NO INSULIN NEEDED PER SLIDING SCALE.
[2019-04-24 12:00] VITALS: BP_SYST 120
--- NOTE | 2019-04-24 14:35 | NUR ---
RN ROUNDS: PATIENT RESTING. WITH SAME VENT SETTINGS.GOOD SATURATION. NOT ANY DISTRESS. CONTINUE TO MONITOR.
--- NOTE | 2019-04-24 15:03 | NUR ---
Nutrition F/U RD reviewed pt's current EMR including diet Hx, physician notes, nursing notes, pertinent labs/meds/procedures, care trends and care activity. Admitting Diagnosis: SBO Medical History Comment: Pt continues on vent support, s/p CT guided drainages, s/p exploratory laparotomy repair of leaking ileocolic anastomosis and loop ileostomy, and exploratory laparotomy and right hemicolectomy for carcinoma of the colon per MD note. TPN Order: D20% AA 4.25% at 84.9ml/hr (goal rate), IL20% at 10ml/hr via central line. Provides 2214 kcal and 86 gm protein. Meets: 106% of est calorie needs and 104% of upper end of est protein needs. Subjective Information Pt is trach to vent, tolerating TPN well per nursing note. Multiple pressure injuries noted per wound care note (04/18/19), TPN provides vitamins adequate to aid with wound healing. Pt seen resting in bed, eyes open, but non communicative upon RD visit. TPN enfusing at bedside, RD verified rate and TPN order. Estimated Energy Expenditure (kcals/day) 2092 kcal/day (MSJ x1.1x1.3 for sepsis and wound healing) Estimated Protein Required (g/day) 55-83 gm/day (1-1.5 gm/kg IBW for wound healing) Estimated Fluid Required (l/day) 2 L/day (1ml/calorie for maintenance) Problem/Etiology/Signs/Symptoms Inadequate nutrient intake r/t current TPN infusion AEB current TPN intake meets <65% of est needs. (*resolved*) Expected Outcomes/Goals Monitor TPN tolerance and intake w/ goal of pt meeting at least 80-100% of estimated nutritional needs, labs trending WNL, normal GI function, skin integrity/wt maintenance Dietitian Recommendations *Continue D20% AA 4.25% at 84.9ml/hr (goal rate), IL20% at 10ml/hr via central line. Provides 2214 kcal and 86 gm protein. Meets: 106% of est calorie needs and 104% of upper end of est protein needs. Follow Up High Risk: F/U in 2-3days
--- NOTE | 2019-04-24 15:14 | NUR ---
Dietitian Recommendations *Continue D20% AA 4.25% at 84.9ml/hr, IL20% at 10ml/hr via central line. Provides 2214 kcal and 86 gm protein. Meets: 106% of est calorie needs and 104% of upper end of est protein needs. Please see Nutrition Follow Up for further details. LT, RD
[2019-04-24 16:46] VITALS: BP_SYST 128
--- NOTE | 2019-04-24 17:17 | NUR ---
WOUND CARE: TRANSVERSE INCISION OF ABDOMEN,CLEANSE WITH NS,PAT DRY.MINIMAL AMOUNT OF BLOODY DRAINAGE.APPLIED VENELEX OINTMENT TO WOUND BED,SURE PREP TO OMAR WOUND AREA.COVERED WITH FOAM DRESSING AND ABDOMINAL PADS X2,SECURED WITH ABDOMINAL BINDER. SACRAL WOUND CLEANSE WITH NS,PAT DRY.APPLIED VENELEX OINTMENT TO WOUND BED,PACK WITH 1/2 INCH IODOFORM,BARRIER CREAM TO OMAR WOUND AREA.COVERED WITH SACRAL FOAM DRESSING. G-TUBE SITE,CLEANSE WITH NS,PAT DRY AND COVERED WITH NON WOVEN DRAIN SPONGES.SECURED WITH ABDOMINAL BINDER.
--- NOTE | 2019-04-24 18:16 | NUR ---
END OF SHIFT: PATIENT TOLERATING VENT SETTINGS THE WHOLE SHIFT.FIO2=35%.GOOD SATURATION. G-TUBE CLAMPED.LEFT UPPER ARM PICC LINE,TPN AND LIPIDS ON GOING.RIGHT ILEOSTOMY IN PLACE,GREENISH LIQUID IN LARGE AMOUNT.BRISENO IN SITU. ABD DRAIN IN PLACE,NO OUTPUT. MD AWARE. PRACTICE GUIDELINES MET THROUGH OUT THE SHIFT. SAFETY MEASURES RENDERED.
[2019-04-24 20:00] VITALS: BP_SYST 117
[2019-04-24] MEDS: FAT EMULSIONS 250 ML IV SCH (20:08)
[2019-04-24] MEDS ORDERED: POTASSIUM CHLORIDE IV SCH ×10 (21:00)
[2019-04-24] MEDS ORDERED: SODIUM ACETATE IV SCH ×10 (21:00)
[2019-04-24] MEDS ORDERED: K PHOS IV SCH ×10 (21:00)
[2019-04-24] MEDS ORDERED: TPN CENTRAL IV SCH ×10 (21:00)
[2019-04-24] MEDS ORDERED: [UNRECOGNIZED DRUG - OTHER] IV SCH ×10 (21:00)
[2019-04-25 00:31] VITALS: BP_SYST 117
--- NOTE | 2019-04-25 05:49 | NUR ---
Patient turned q2. Gtube patent and intact. Gtube connected to low suction. HOB elevated. No acute distress noted. Will continue to monitor.
--- NOTE | 2019-04-25 07:37 | NUR ---
INITIAL NOTE PT AWAKE, NON VERBAL. NO ACUTE DISTRESS NOTED. PT ON VENT. IVF INFUSING WELL. BRISENO DRAINING TO GRAVITY. CALL LIGHT WITHIN REACH, BED IN LOW AND LOCKED POSITION WITH BED ALARM ON.
[2019-04-25 08:00] VITALS: BP_SYST 113
[2019-04-25] MEDS: CYANOCOBALAMIN 1000 mCg TABLET GT SCH (08:17)
[2019-04-25] MEDS: ERGOCALCIFEROL 8000 UNITS/ML ORAL SOLUTION, 60 ML BOTTLE GT SCH (08:18)
[2019-04-25] MEDS: BALSAM PERU/CASTOR OIL 60 GM OINT...G. TP SCH (08:18)
[2019-04-25 08:25] LABS: CALCIUM 8.2 mg/dL (8.4-11.0); CREATININE 0.55 mg/dL (0.55-1.30); POTASSIUM 4.1 mmol/L (3.5-5.1); TOTAL BILIRUBIN 0.2 mg/dL (0.0-1.0)
[2019-04-25 08:26] LABS: ALBUMIN 1.8 g/dL (3.4-4.8); PHOSPHORUS 2.6 mg/dL (2.7-4.5)
[2019-04-25 08:30] LABS: BASOPHILS # (AUTO) 0.1 K/uL (0.0-0.2); BASOPHILS % (AUTO) 0.7 % (0.0-2.0); EOSINOPHILS # (AUTO) 0.2 K/uL (0.0-0.4); HEMATOCRIT 33.1 % (36-48); HEMOGLOBIN 10.7 g/dL (12.0-16.0); LYMPHOCYTES # (AUTO) 1.4 K/uL (1.0-5.5); LYMPHOCYTES % (AUTO) 13.8 % (20.5-51.5); MEAN CORPUSCULAR HEMOGLOBIN 28 pg (27-31); MEAN CORPUSCULAR HGB CONC 32 % (32-36); MEAN CORPUSCULAR VOLUME 87 fL (79.0-98.0); MONOCYTES # (AUTO) 1.1 K/uL (0.0-1.0); NEUTROPHILS # (AUTO) 7.3 K/uL (1.8-7.7); NEUTROPHILS % (AUTO) 72.5 % (40.0-70.0); PLATELET COUNT (AUTO) 425 K/uL (130-430); RED BLOOD CELL COUNT(AUTO) 3.81 MIL/uL (4.2-6.2); RED CELL DISTRIBUTION WIDTH 29.5 % (9.0-15.0); WHITE BLOOD COUNT (AUTO) 10.1 K/uL (4.8-10.8)
--- NOTE | 2019-04-25 09:30 | NUR ---
RN ROUNDS PT RESTING, NO ACUTE DISTRESS NOTED, WILL CONTINUE TO MONITOR.
--- NOTE | 2019-04-25 10:33 | NUR ---
INCONTINENT/WOUND CARE PT INCONTINENT OF BOWEL, LOOSE GREEN. CHANGED PT AND LINEN. COLOSTOMY BAG CHANGED. PT TOLERATED WELL. REPOSITIONED FOR COMFORT.
--- NOTE | 2019-04-25 11:30 | NUR ---
RN ROUNDS PT AWAKE, NO ACUTE DISTRESS NOTED, WILL CONTINUE TO MONITOR.
[2019-04-25] MEDS: cefTRIAXone 1 GM in D5W 50 ML IV SCH (12:02)
[2019-04-25 12:29] VITALS: BP_SYST 139
--- NOTE | 2019-04-25 13:30 | NUR ---
RN ROUNDS PT AWAKE, NO ACUTE DISTRESS NOTED, REPOSITIONED FOR COMFORT. WILL CONTINUE TO MONITOR.
--- NOTE | 2019-04-25 15:30 | NUR ---
WOUND CARE WOUND CARE DONE ON ABDOMEN, PT TOLERATED WELL. ILEOSTOMY BAG CHANGED.
[2019-04-25 16:27] VITALS: BP_SYST 150
--- NOTE | 2019-04-25 17:30 | NUR ---
RN ROUNDS PT RESTING, NO ACUTE DISTRESS NOTED, WILL CONTINUE TO MONITOR.
--- NOTE | 2019-04-25 19:30 | NUR ---
CLOSING NOTE PT RESTING IN BED, NO ACUTE DISTRESS NOTED. IVF INFUSING WELL. CALL LIGHT WITHIN REACH, BED IN LOW AND LOCKED POSITION WITH BED ALARM ON. ALL NEEDS MET THROUGHOUT SHIFT. PT CARE ENDORSED TO FIREFIGHTER TYPE ONE RN.
--- NOTE | 2019-04-25 19:35 | NUR ---
Pt is awake and non-verbal. Pt has tracheostomy tube in place and connected to mechanical ventilator with settings of AC 10, TV 500, FIO2 35% and Peep 5. No respiratory distress noted. TPN and Lipids are infusing well via WILLIAMS PICC at 84.4ml/hr and 10ml/hr respectively. PICC dressing is dry and intact. G tube is clamped and connected to LIWS and scanty amount of brownish drainage noted in the tubing only. Abd foam dressings noted with some areas of the abdominal incision open to air. Abdominal ellen and retention sutures noted. Abdominal binder is also in place. Rt ileostomy bag noted with moderate amount of greenish liquid drainage. Rt abd drain noted with no drainage seen in the drainage bag. Capellan cath to gravity drainage is draining yellowish urine. Fall, seizure and safety precautions are in place.
[2019-04-25 20:00] VITALS: BP_SYST 141
--- NOTE | 2019-04-25 20:52 | NUR ---
Dr. Mariano notified of pt having 2.02 secs V-tach this shift. New orders obtained to change GT Pepcid and Keppra to IV.
[2019-04-25] MEDS ORDERED: [UNRECOGNIZED DRUG - OTHER] IV SCH ×10 (21:00)
[2019-04-25] MEDS ORDERED: K PHOS IV SCH ×10 (21:00)
[2019-04-25] MEDS ORDERED: TPN CENTRAL IV SCH ×10 (21:00)
[2019-04-25] MEDS ORDERED: POTASSIUM CHLORIDE IV SCH ×10 (21:00)
[2019-04-25] MEDS ORDERED: SODIUM ACETATE IV SCH ×10 (21:00)
[2019-04-25] MEDS: levETIRAcetam 500 MG in NS 100 ML IV SCH (21:00)
--- NOTE | 2019-04-25 22:00 | NUR ---
Pt is resting quietly in bed. TPN/Lipids are infusing well. Fall, seizure and safety precautions are in place.
[2019-04-25] MEDS: FAT EMULSIONS 250 ML IV SCH (22:47)
[2019-04-25] MEDS: FAMOTIDINE PF 20 MG/2 ML VIAL IVP SCH (22:48)
--- NOTE | 2019-04-26 | NUR ---
No acute distress noted. TPN and Lipids are infusing well.
[2019-04-26 00:20] VITALS: BP_SYST 148
--- NOTE | 2019-04-26 02:00 | NUR ---
Pt is resting quietly in bed. No seizure activity noted. TPN and Lipids are infusing well.
--- NOTE | 2019-04-26 04:00 | NUR ---
No distress noted at this time. Pt is tolerating vent settings well.
--- NOTE | 2019-04-26 05:30 | NUR ---
Sacral-coccygeal and right buttock dressings were changed. Wounds were cleansed with normal saline and pat dried. Barrier cream were applied to maria del rosario-wounds. Venelex ointment was applied to wound beds followed by coverage of wounds with 4x4 foam dressings. Sacral-coccygeal wound was packed with 1/2 inch Iodoform packing strip. Sacral foam dressings not available in the unit at this time. Wounds noted with small amount of pinkish drainage. No odor noted.
--- NOTE | 2019-04-26 06:30 | NUR ---
Pt is awake and not in any distress. All pt's needs were attended to. TPN and Lipids are infusing well. Pt is tolerating vent settings well. Will endorse to day shift nurse.
[2019-04-26 07:26] LABS: CREATININE 0.59 mg/dL (0.55-1.30); PHOSPHORUS 2.6 mg/dL (2.7-4.5); POTASSIUM 3.8 mmol/L (3.5-5.1)
[2019-04-26 08:00] VITALS: BP_SYST 120
--- NOTE | 2019-04-26 08:00 | NUR ---
AM ASSESSMENT. PT AWAKE, AFEBRILE, TRACH TO VENTILATOR, SUCTIONED VIA TRACH WITH SMALL AMOUNT OF WHITISH SECRETIONS, ORAL CARE FOLLOWED, ABDOMINAL BINDER IN PLACE, GTUBE TO LIS, REPOSITIONED IN BED, ON TPN AT 84 ML PER HR AND LIPIDS AT 10 ML PER HR THRU PICC LINE, ILEOSTOMY WITH LOOSE DRAINAGE, CATHETER ATTACHED TO RIGHT LOWER QUADRANT CONNECTED TO A BAG.
[2019-04-26] MEDS: cefTRIAXone 1 GM in D5W 50 ML IV SCH (09:37)
[2019-04-26] MEDS: FAMOTIDINE PF 20 MG/2 ML VIAL IVP SCH ×2 (09:37→23:05)
[2019-04-26] MEDS: CYANOCOBALAMIN 1000 mCg TABLET GT SCH (09:37)
[2019-04-26] MEDS: BALSAM PERU/CASTOR OIL 60 GM OINT...G. TP SCH (09:38)
[2019-04-26] MEDS ORDERED: DIATR MEGLU/DIATRIZ SOD 30 ML SOLUTION PO ONE (10:29)
--- NOTE | 2019-04-26 10:30 | NUR ---
SURGEON. DR CABRAL AT BEDSIDE EXAMINING PATIENT.
--- NOTE | 2019-04-26 10:45 | NUR ---
CONSENT. CALLED UP PT'S DAUGHTER ZAC GREWAL, FOR CT SCAN OF THE ABDOMEN USING IV AND ORAL CONTRAST, CONSENT OBTAINED.
[2019-04-26] MEDS: ERGOCALCIFEROL 8000 UNITS/ML ORAL SOLUTION, 60 ML BOTTLE GT SCH (11:00)
[2019-04-26] MEDS: levETIRAcetam 500 MG in NS 100 ML IV SCH ×2 (11:05→23:05)
[2019-04-26 12:00] VITALS: BP_SYST 153
[2019-04-26] MEDS ORDERED: IOHEXOL 100 ML IV ONE (14:16)
--- NOTE | 2019-04-26 14:40 | NUR ---
TO RADIOLOGY DEPT. TRANSPORTED PT VIA BED, FOR CT SCAN, ON PORTABLE CARDIAC MONITORING, R. T. BAGGING PT THRU TRACH, AND NURSE ACCOMPANYING PT.
--- NOTE | 2019-04-26 15:06 | NUR ---
TO [facility]. BROUGHT PT TO ROOM 134-A, NO SIGNS OF DISTRESS.
[2019-04-26 16:49] VITALS: BP_SYST 144
--- NOTE | 2019-04-26 18:00 | NUR ---
NURSING. PT AFEBRILE, AWAKE, NO SIGNS OF DISTRESS, NO VOMITING, REPOSITIONED Q2H, HEAD OF BED ELEVATED, SUCTIONED ORALLY NEEDED.
--- NOTE | 2019-04-26 19:30 | NUR ---
Bedside report was obtained from day shift nurse. Pt is awake and non-verbal. Pt has tracheostomy tube in place and connected to mechanical ventilator with settings of AC 10, TV 500, FIO2 35% and Peep 5. No respiratory distress noted. TPN and Lipids are infusing well via WILLIAMS PICC at 80ml/hr and 10ml/hr respectively. PICC dressing is dry and intact. G tube is clamped. Abd foam dressings noted with some areas of the abdominal incision open to air. Abdominal ellen and retention sutures noted. Abdominal binder is also in place. Rt ileostomy bag noted with small amount of greenish liquid drainage. Rt abd drain to gravity drainage noted with scanty amount of purulent drainage seen in the drainage bag. Capellan cath to gravity drainage is draining yellowish urine. Fall, seizure and safety precautions are in place.
[2019-04-26 20:00] VITALS: BP_SYST 132
[2019-04-26] MEDS ORDERED: POTASSIUM CHLORIDE IV SCH ×10 (21:00)
[2019-04-26] MEDS ORDERED: [UNRECOGNIZED DRUG - OTHER] IV SCH ×10 (21:00)
[2019-04-26] MEDS ORDERED: TPN CENTRAL IV SCH ×10 (21:00)
[2019-04-26] MEDS ORDERED: SODIUM ACETATE IV SCH ×10 (21:00)
--- NOTE | 2019-04-26 22:00 | NUR ---
No acute distress noted at this time. Pt is resting quietly in bed. TPN/Lipids are infusing well. Fall, seizure and safety precautions are in place.
[2019-04-26] MEDS: FAT EMULSIONS 250 ML IV SCH (23:07)
--- NOTE | 2019-04-26 23:13 | NUR ---
Accucheck 125. TPN and Lipids are infusing well. G Tube remains clamped. Fall, seizure and safety precautions are in place.
[2019-04-27] VITALS: BP_SYST 138
--- NOTE | 2019-04-27 01:00 | NUR ---
Pt is sleeping comfortably in bed. No seizure activity noted. TPN and Lipids are infusing well.
--- NOTE | 2019-04-27 03:00 | NUR ---
TPN and Lipids are infusing well. No acute distress noted at this time. Pt is tolerating vent settings well.
--- NOTE | 2019-04-27 05:00 | NUR ---
Pt is sleeping without any distress noted. Pt is tolerating vent settings well. TPN and Lipids are infusing well. Fall, seizure and safety precautions are in place.
[2019-04-27 07:09] LABS: BASOPHILS # (AUTO) 0.1 K/uL (0.0-0.2); BASOPHILS % (AUTO) 1.3 % (0.0-2.0); EOSINOPHILS # (AUTO) 0.2 K/uL (0.0-0.4); EOSINOPHILS % (AUTO) 2.1 % (0.0-4.0); HEMATOCRIT 34.6 % (36-48); HEMOGLOBIN 11.3 g/dL (12.0-16.0); LYMPHOCYTES # (AUTO) 1.9 K/uL (1.0-5.5); LYMPHOCYTES % (AUTO) 23.8 % (20.5-51.5); MEAN CORPUSCULAR HEMOGLOBIN 28 pg (27-31); MEAN CORPUSCULAR HGB CONC 33 % (32-36); MEAN CORPUSCULAR VOLUME 86 fL (79.0-98.0); MONOCYTES # (AUTO) 0.9 K/uL (0.0-1.0); MONOCYTES % (AUTO) 11.3 % (1.7-9.3); NEUTROPHILS % (AUTO) 61.5 % (40.0-70.0); PLATELET COUNT (AUTO) 427 K/uL (130-430); RED BLOOD CELL COUNT(AUTO) 4.04 MIL/uL (4.2-6.2); RED CELL DISTRIBUTION WIDTH 28.8 % (9.0-15.0)
--- NOTE | 2019-04-27 07:10 | NUR ---
Opening Note Patient received in bed at this time with no signs of distress noted. Patient trach to ventilator with settings of AC 10, TV 500, FiO2 35%, and PEEP 5. Patient not in pain. Safety precautions enforced. Call light in reach.
[2019-04-27 07:43] LABS: ALBUMIN 1.9 g/dL (3.4-4.8); BILIRUBIN,DIRECT 0.1 mg/dL (0.0-0.3); CALCIUM 7.5 mg/dL (8.4-11.0); CREATININE 0.63 mg/dL (0.55-1.30); PHOSPHORUS 3.3 mg/dL (2.7-4.5); POTASSIUM 3.8 mmol/L (3.5-5.1); TOTAL BILIRUBIN 0.3 mg/dL (0.0-1.0)
[2019-04-27 07:59] VITALS: BP_SYST 108
[2019-04-27 08:00] VITALS: BP_SYST 108
[2019-04-27] MEDS: BALSAM PERU/CASTOR OIL 60 GM OINT...G. TP SCH (09:00)
[2019-04-27] MEDS: ERGOCALCIFEROL 8000 UNITS/ML ORAL SOLUTION, 60 ML BOTTLE GT SCH (09:00)
[2019-04-27] MEDS: CYANOCOBALAMIN 1000 mCg TABLET GT SCH (09:00)
[2019-04-27] MEDS: FAMOTIDINE PF 20 MG/2 ML VIAL IVP SCH ×2 (09:15→22:17)
[2019-04-27] MEDS: cefTRIAXone 1 GM in D5W 50 ML IV SCH (09:16)
[2019-04-27] MEDS: levETIRAcetam 500 MG in NS 100 ML IV SCH ×2 (09:17→22:17)
--- NOTE | 2019-04-27 10:00 | NUR ---
Patient resting at this time with no signs of distress noted. Patient in no signs of pain.
[2019-04-27 12:00] VITALS: BP_SYST 115
--- NOTE | 2019-04-27 12:00 | NUR ---
Patient sleeping in bed at this time with no visible signs of distress.
--- NOTE | 2019-04-27 14:00 | NUR ---
Patient resting in bed at this time. No signs of distress noted.
[2019-04-27 16:00] VITALS: BP_SYST 129
--- NOTE | 2019-04-27 16:20 | NUR ---
Performed wound care as ordered by MD. Patient tolerated procedure well. Patient in no signs of distress.
--- NOTE | 2019-04-27 16:48 | NUR ---
Nutrition F/U RD reviewed pt's current EMR including diet Hx, physician notes, nursing notes, pertinent labs/meds/procedures, care trends and care activity. Admitting Diagnosis: SBO Medical History Comment: Pt continues on vent support, s/p CT guided drainages, s/p exploratory laparotomy repair of leaking ileocolic anastomosis and loop ileostomy, and exploratory laparotomy and right hemicolectomy for carcinoma of the colon per MD note. Nutrition Support Order: TPN D40%, AA8.5% at 80 ml/hr, IL20% at 10ml/hr via central line Subjective Information: Pt was seen resting in bed at time of RD visit. TPN was seen infusing as per physician orders. TPN support remains adequate/appropriate. Estimated Energy Expenditure (kcals/day) 2092 kcal/day (MSJ x1.1x1.3 for sepsis and wound healing) Estimated Protein Required (g/day) 55-83 gm/day (1-1.5 gm/kg IBW for wound healing) Estimated Fluid Required (l/day) 2 L/day (1ml/calorie for maintenance) Problem/Etiology/Signs/Symptoms Inadequate nutrient intake r/t current TPN infusion AEB current TPN intake meets <65% of est needs. (*resolved*) Expected Outcomes/Goals Monitor TPN tolerance and intake w/ goal of pt meeting at least 80-100% of estimated nutritional needs, labs trending WNL, normal GI function, skin integrity/wt maintenance Dietitian Recommendations * Recommend continuing TPN D40%, AA8.5% at 80 ml/hr, IL20% at 10ml/hr via central line Provides: 2114 kcal/day, 82 gm protein/day, 2160 ml free water/day, and GIR: 2.9 gm CHO/kg/min Meets: 101% of estimated caloric needs and 99% of upper end of estimated protein needs Follow Up High Risk: F/U in 2-3 days
--- NOTE | 2019-04-27 16:57 | NUR ---
Dietitian Recommendations * Recommend continuing TPN D40%, AA8.5% at 80 ml/hr, IL20% at 10ml/hr via central line Provides: 2114 kcal/day, 82 gm protein/day, 2160 ml free water/day, and GIR: 2.9 gm CHO/kg/min Meets: 101% of estimated caloric needs and 99% of upper end of estimated protein needs LP, RD Please refer to Nutrition F/U for details.
--- NOTE | 2019-04-27 18:37 | NUR ---
Closing Note Patient resting in bed at this time with no signs of distress. Patient reinforced to the room and use of call light. Safety precautions enforced.
--- NOTE | 2019-04-27 19:19 | NUR ---
Endorsement Patient endorsed to managed care liaison RN using SBAR format.
--- NOTE | 2019-04-27 19:20 | NUR ---
Late Entry due to patient care Pt was received lying in bed awake and non-verbal. Pt has tracheostomy tube in place and connected to mechanical ventilator with settings of AC 10, TV 500, FIO2 35% and Peep 5. No respiratory distress noted at this time. TPN and Lipids are infusing well via WILLIAMS PICC at 80ml/hr and 10ml/hr respectively. PICC dressing is dry and intact. G tube is clamped. Abd foam dressings noted with some areas of the abdominal incision open to air. Abdominal ellen and retention sutures noted. Abdominal binder is also in place. Rt ileostomy bag noted with small amount of greenish liquid drainage. Rt abd drain to gravity drainage noted with scanty amount of purulent drainage seen in the drainage bag. Capellan cath to gravity drainage is draining yellowish urine. Fall, seizure and safety precautions are in place.
[2019-04-27 20:00] VITALS: BP_SYST 124
[2019-04-27] MEDS ORDERED: [UNRECOGNIZED DRUG - OTHER] IV SCH ×12 (21:00)
[2019-04-27] MEDS ORDERED: SODIUM ACETATE IV SCH ×12 (21:00)
[2019-04-27] MEDS ORDERED: TPN CENTRAL IV SCH ×12 (21:00)
[2019-04-27] MEDS ORDERED: POTASSIUM CHLORIDE IV SCH ×12 (21:00)
--- NOTE | 2019-04-27 22:20 | NUR ---
Accucheck 125. Skin remains warm and dry to touch. TPN and Lipids are infusing well. Pt is resting quietly in bed. Fall, seizure and safety precautions are in place.
[2019-04-27] MEDS: FAT EMULSIONS 250 ML IV SCH (22:21)
--- NOTE | 2019-04-28 | NUR ---
Pt is sleeping comfortably in bed. No seizure activity noted. TPN and Lipids are infusing well. Pt is tolerating vent settings well.
[2019-04-28 01:53] VITALS: BP_SYST 118
--- NOTE | 2019-04-28 02:00 | NUR ---
Pt is sleeping without any distress noted. TPN and Lipids are infusing well. Fall and safety precautions are in place.
--- NOTE | 2019-04-28 04:00 | NUR ---
TPN and Lipids are infusing well. No acute distress noted at this time. Pt is tolerating vent settings well.
--- NOTE | 2019-04-28 05:31 | NUR ---
Accucheck 140. Skin remains warm and dry to touch. TPN and Lipids are infusing well. Pt is resting quietly in bed. Fall, seizure and safety precautions are in place.
--- NOTE | 2019-04-28 06:30 | NUR ---
Right lower abdominal Ileostomy bag was changed was done due to leakage. Stoma is reddish. Fall and safety precautions are in place.
--- NOTE | 2019-04-28 07:00 | NUR ---
Fall, seizure and safety precautions are in place. Pt is awake and not in any distress. All pt's needs were attended to. TPN and Lipids are infusing well. Pt is tolerating vent settings well. Will endorse to day shift nurse.
[2019-04-28 07:07] LABS: ALBUMIN 1.9 g/dL (3.4-4.8); CALCIUM 8.1 mg/dL (8.4-11.0); CREATININE 0.57 mg/dL (0.55-1.30); TOTAL BILIRUBIN 0.4 mg/dL (0.0-1.0)
--- NOTE | 2019-04-28 07:46 | NUR ---
rn opening note report was endorsed by night nurse. patient is laying in bed no signs of any distress, breathing is equal and non labored. patient has all safety and seizure precautions in place. patient has no other needs at this time. will continue to monitor.
[2019-04-28 08:00] VITALS: BP_SYST 140
[2019-04-28] MEDS: CYANOCOBALAMIN 1000 mCg TABLET GT SCH (08:26)
[2019-04-28] MEDS: ERGOCALCIFEROL 8000 UNITS/ML ORAL SOLUTION, 60 ML BOTTLE GT SCH (08:26)
[2019-04-28] MEDS: FAMOTIDINE PF 20 MG/2 ML VIAL IVP SCH ×2 (08:36→21:06)
[2019-04-28] MEDS: levETIRAcetam 500 MG in NS 100 ML IV SCH ×2 (08:38→21:09)
[2019-04-28] MEDS: BALSAM PERU/CASTOR OIL 60 GM OINT...G. TP SCH (08:39)
--- NOTE | 2019-04-28 08:47 | NUR ---
MEDICATION PATIENTS SCHEDULED MEDICATION GIVEN PER ORDER. PATIENT IS AWAKE AND LOOKING AT NURSE FLAT EFFECT UNABLE TO COMMUNICATE. PATIENT SHOWS NO SIGNS OF ANY DISTRESS, BREATHING IS EQUAL AND NON LABORED. PATIENT HAS ALL SAFETY AND SEIZURE PRECAUTIONS IN PLACE. WILL CONTINUE TO MONITOR.
[2019-04-28] MEDS: cefTRIAXone 1 GM in D5W 50 ML IV SCH (09:54)
--- NOTE | 2019-04-28 09:56 | NUR ---
MEDICATION PATIENTS SCHEDULED MEDICATION GIVEN PER ORDER. PATIENT IS AWAKE WITH EYES OPEN. PATIENT SHOWS NO SIGNS OF ANY DISTRESS, BREATHING IS EQUAL AND NON LABORED. PATIENT HAS ALL SAFETY AND SEIZURE PRECAUTIONS IN PLACE. WILL CONTINUE TO MONITOR.
[2019-04-28 10:00] VITALS: BP_SYST 118
--- NOTE | 2019-04-28 11:00 | NUR ---
RN ROUNDING PATIENT IS AWAKE WITH EYES OPEN TO SIGNS OF ANY DISTRESS, BREATHING EQUAL AND NON LABORED. PATIENT HAS ALL SAFETY PRECAUTIONS IN PLACE. AND SEIZURE PRECAUTIONS
[2019-04-28] MEDS ORDERED: CEFEPIME 1 GM in D5W 50 ML IV ONE (12:28)
[2019-04-28 12:43] VITALS: BP_SYST 116
--- NOTE | 2019-04-28 14:10 | NUR ---
wound care wound care done with christiano hyman. patient is awake and alert laying in bed no visible signs of distress,breathing is equal and non labored. patient has all safety precautions in place. seizure precautions in place. will continue to monitor
--- NOTE | 2019-04-28 15:18 | NUR ---
Wound Re-Evaluation: Patient received in a [place] bed with an Isoflex SERGIO mattress with low air loss therapy, awake, non-verbal. Nate score is an 11. Patient needs to be turned in bed. Past medical history: Anoxic Brain Injury, ventilator dependent, Colon Cancer, GT feeding, GERD, PUD, profound Anemia secondary to Colon Cancer, lower GI bleeding, colonic mass/colon carcinoma with ulceration, right hemicolectomy on 03/24/19, acute blood loss anemia, iron deficiency anemia, acute gastritis, respiratory failure, Seizure disorder, anoxic encephalopathy, hypothyroidism, spastic quadriplegia, dysphagia on G-tube feeding, obesity, moderate protein malnutrition, hypocalcemia, anasarca, ileus, enterocutaneous fistula, exploratory laparoscopy and ileostomy on 04/04/19, sepsis, peritonitis. Microbiology: MRSA screen results negative. Stool OB culture results positive. Abdominal abscess culture results in progress. Skin assessment: 1. Inferior aspect of patient side's left lateral Abdominal surgical incision: Small dehisced area of incision, present on admission. Wound bed has 100% red tissue. No odor, no drainage. Periwound intact. Surrounding tissue has dark brown discoloration. Site measures 3.5 cm x 1.3 cm. 2. Abdomen, left medial to site 1: Small wound, inferior to retention suture, present on admission. Wound bed has 90% red tissue, 10% pink tissue. No odor, no drainage. Periwound intact. Site measures 2.3 cm x 1.5 cm. 3. Mid abdomen, left medial to site 2: Wound, possibly from retention suture, present on admission. Wound bed has 100% pink scar tissue. No odor, no drainage. Periwound intact. Appears to have resolved. 4. Abdomen, left lateral to site 3: Wound, superior to retention suture, present on admission. Wound bed has 100% pink scar tissue. No odor, no drainage. Periwound intact. Appears to have resolved. 5. Abdomen, inferior to site 4: Wound, present on admission. Wound bed has 100% pink scar tissue. No odor, no drainage. Periwound intact. Appears to have resolved. 6. Abdomen (patient's right side), superior to Ileostomy site: Wound, present on admission. Wound bed has 100% red tissue. No odor, small-moderate brown drainage. Periwound intact. Site measures 1.5 cm x 1.1 cm. Recommend: Cleanse open areas with normal saline. Pat dry. Apply SurePrep to maria del rosario-wounds. Apply Venelex ointment to open wound beds. Cover with non-adhesive foam dressings. Cover sites with ABD pad. Secure with paper tape. Secure with abdominal binder. Perform wound care daily, and prn for dressing soiling or dislodgment. 7. Abdomen: Surgical incision (horizontal), present on admission. Site is approximated except for a small spot on right lateral aspect of incision (please see Site 4). 18 ellen present. Site measures 0.5 cm x 26.0 cm. Recommend continue: Cleanse open area with normal saline. Pat dry. Apply SurePrep to maria del rosario-wounds. Apply Venelex ointment to open wound beds. Cover incision with oil emulsion dressings. Cover sites with ABD pad. Secure with paper tape. Secure with abdominal binder. Perform wound care daily, and prn for dressing soiling or dislodgment. 8. Sacral-Coccygeal area: Unstageable Pressure Injury, present on admission. Wound bed has 30% pink tissue, 60% yellow slough, 10% black slough, 15% pink tissue. Mild odor, skin yellow drainage. Periwound intact, erythematous. Surrounding tissue has scar tissue. Site has multiple small wounds surrounding area that are included in the management. Wound measures 8.0 cm x 10.0 cm by 1.4 cm. Recommend: Cleanse wound normal Saline. Apply moisture barrier cream to maria del rosario-wound. Apply Venelex ointment to wound bed. Pack wound with TenderWet dressings. Cover with Sacral foam dressing. Perform wound care daily, and prn for dressing soiling or dislodgment. 9. Right Buttock, right lateral and inferior to grouped wounds in Site 1: Stage II pressure ulcer, present on admission. Wound bed has 40% red tissue, 60% pink tissue. No odor, no drainage. Periwound intact, surrounding tissue has scar tissue. Wound measures 1.8 cm x 1.6 cm. Recommend continue: Cleanse wound with normal Saline. Apply moisture barrier cream to maria del rosario-wound. Apply Venelex ointment to wound bed. Cover with Sacral foam dressing. Perform wound care daily, and prn for dressing soiling or dislodgment. 10. Right Knee: Abrasion. Site has 100% pink tissue. No odor, no drainage. Periwound intact. Wound measures 1.3 cm x 1.5 cm. Recommend: Cleanse wound normal Saline. Apply moisture barrier cream to maria del rosario-wound. Apply Venelex ointment to wound bed. Cover with foam dressing. Perform wound care daily, and prn for dressing soiling or dislodgment. Recommend continue: Reposition patient side to side only every 2 hours with pillow support. When turning patient, place one pillow underneath trunk and one pillow underneath Pelvis to allow Sacral area to float. Elevate, off-load and float bilateral heels with pillows. Offload pressure areas with pillows for pressure re-distribution. Perform skin care and monitor skin integrity Q shift. Use moisture barrier cream on moisture susceptible areas QID and PRN for soiling. Maintain patient on a low air-loss mattress. Addendum: 04/28/19 at 1535 by Dangelo Robison RN Addendum: Description for Site 9 should be: 9. Right Buttock, right lateral and inferior to grouped wounds in Site 8:
--- NOTE | 2019-04-28 16:00 | NUR ---
picc line dressing change patient is awake with eyes open no signs of any distress, breathing is equal and non labored. patients Picc line dressing changed as ordered. patient has all safety precautions and seizure precautions in place. patient shows no visible sings of distress, will continue to monitor.
[2019-04-28 16:50] VITALS: BP_SYST 128
--- NOTE | 2019-04-28 17:00 | NUR ---
CRITICAL LAB CULTURE CAME BACK POSITIVE FOR MDRO,DITCH TENDER, VRE. PAGING DR. DELGADILLO TO INFORM.
--- NOTE | 2019-04-28 17:45 | NUR ---
DR. ELIE SANTIAGO MADE AWARE OF CRITICAL RESULTS NO CHANGES IN ORDER, PATIENT WAS PLACED ON CONTACT ISOLATION.
--- NOTE | 2019-04-28 18:36 | NUR ---
rn closing note patient is awake eyes open. no visible signs of any distress, breathing is equal and non labored. patient shows no signs of any distress, breathing is equal and non labored. patient has all seizure precautions in place. patient has no other needs at this time.
--- NOTE | 2019-04-28 19:30 | NUR ---
Opening notes Received report. Patient is resting in bed. No signs of distress noted. Breathing even and unlabored tolerating current vent settings. PICC line patent and intact, infusing fluids. Abd drain noted with no drainage. Ileostomy noted with small amount of liquid stool. Capellan catheter in place, draining yellow urine. Bilateral SCDs in place. Call light with the patient. Safety precautions in place.
[2019-04-28 20:00] VITALS: BP_SYST 130
[2019-04-28] MEDS ORDERED: SODIUM CHLORIDE IV SCH ×12 (21:00)
[2019-04-28] MEDS ORDERED: TPN CENTRAL IV SCH ×12 (21:00)
[2019-04-28] MEDS ORDERED: [UNRECOGNIZED DRUG - OTHER] IV SCH ×12 (21:00)
[2019-04-28] MEDS ORDERED: SODIUM ACETATE IV SCH ×12 (21:00)
[2019-04-28] MEDS: CEFEPIME 1 GM in D5W 50 ML IV SCH (21:05)
[2019-04-28] MEDS: FAT EMULSIONS 250 ML IV SCH (21:07)
--- NOTE | 2019-04-28 22:00 | NUR ---
Medications/Feeding started given. Educated the action and side effects of medications. Patient tolerated well. No signs of adverse effects noted. Feeding started. No residual. Call light with the patient. Safety precautions in place.
[2019-04-29 00:23] VITALS: BP_SYST 124
--- NOTE | 2019-04-29 00:30 | NUR ---
Resting Patient resting, tolerating current vent settings. Feeding running. Call light with the patient. Safety precautions in place.
--- NOTE | 2019-04-29 02:30 | NUR ---
Resting Patient is resting in bed. No signs of distress noted. Breathing even and unlabored tolerating current vent settings. IVF and feeding infusing. Call light with the patient. Safety precautions in place.
--- NOTE | 2019-04-29 04:17 | NUR ---
Emesis Patient vomited. Hygiene care provided. No medications available for nausea/vomiting. Feeding on for now. No residual noted. Alex castro MD.
--- NOTE | 2019-04-29 06:33 | NUR ---
Closing notes Patient is resting in bed. No signs of distress noted. Breathing even and unlabored, tolerating current vent settings. PICC line patent and intact, infusing fluids. Feeding still on hold. Right Abd drain in place, no drainage noted. Ileostomy in place, small amount of liquid noted. Capellan catheter in place, drainage urine. All needs met throughout the shift. Call light with the patient. Safety precautions in place. Will endorse care to day shift RN.
[2019-04-29 07:12] LABS: BASOPHILS # (AUTO) 0.1 K/uL (0.0-0.2); BASOPHILS % (AUTO) 0.8 % (0.0-2.0); EOSINOPHILS # (AUTO) 0.1 K/uL (0.0-0.4); EOSINOPHILS % (AUTO) 1.4 % (0.0-4.0); HEMATOCRIT 34.3 % (36-48); HEMOGLOBIN 11.1 g/dL (12.0-16.0); LYMPHOCYTES # (AUTO) 1.6 K/uL (1.0-5.5); LYMPHOCYTES % (AUTO) 19.9 % (20.5-51.5); MEAN CORPUSCULAR HEMOGLOBIN 28 pg (27-31); MEAN CORPUSCULAR HGB CONC 32 % (32-36); MEAN CORPUSCULAR VOLUME 87 fL (79.0-98.0); MONOCYTES # (AUTO) 1.4 K/uL (0.0-1.0); NEUTROPHILS % (AUTO) 60.9 % (40.0-70.0); PLATELET COUNT (AUTO) 266 K/uL (130-430); RED BLOOD CELL COUNT(AUTO) 3.93 MIL/uL (4.2-6.2); RED CELL DISTRIBUTION WIDTH 28.3 % (9.0-15.0); WHITE BLOOD COUNT (AUTO) 8.3 K/uL (4.8-10.8)
[2019-04-29 07:35] VITALS: BP_SYST 134
[2019-04-29 07:56] LABS: ALBUMIN 1.7 g/dL (3.4-4.8); CALCIUM 8.2 mg/dL (8.4-11.0); CREATININE 0.46 mg/dL (0.55-1.30); POTASSIUM 4.1 mmol/L (3.5-5.1); TOTAL BILIRUBIN 0.4 mg/dL (0.0-1.0)
[2019-04-29 07:57] VITALS: BP_SYST 134
--- NOTE | 2019-04-29 08:00 | NUR ---
Note Pt resting in bed, extremities are all contracted at this time. Pt is mechanically ventilated. WILLIAMS PICC intact and patent infusing IVF's and TPN/Lipids at this time. No SOB/resp distress or pain/discomfort noted at this time. Pt has ileostomy on right side of abdomen and drain on right side (abscess region). Tele unit attached and intact at this time. Call light within reach. Pt next to nurses' station for close observation for needs and care. Call light within reach.
[2019-04-29] MEDS: cefTRIAXone 1 GM in D5W 50 ML IV SCH (09:01)
[2019-04-29] MEDS: ERGOCALCIFEROL 8000 UNITS/ML ORAL SOLUTION, 60 ML BOTTLE GT SCH (09:02)
[2019-04-29] MEDS: CYANOCOBALAMIN 1000 mCg TABLET GT SCH (09:04)
[2019-04-29] MEDS: CEFEPIME 1 GM in D5W 50 ML IV SCH ×2 (09:05→21:37)
--- NOTE | 2019-04-29 09:05 | NUR ---
Note Dr Hansen came to pt's bedside to do assessment. MD was notified that pt had large emesis at 4am and GT feedings were put on hold. Dr Hansen ordered Zofran IVP q6 PRN for further nausea/emesis.
[2019-04-29] MEDS: levETIRAcetam 500 MG in NS 100 ML IV SCH ×2 (09:06→21:38)
[2019-04-29] MEDS: BALSAM PERU/CASTOR OIL 60 GM OINT...G. TP SCH (09:23)
[2019-04-29] MEDS: FAMOTIDINE PF 20 MG/2 ML VIAL IVP SCH ×2 (09:24→21:38)
[2019-04-29] MEDS ORDERED: ONDANSETRON HCL 4 MG/2 ML VIAL IVP PRN (09:30)
--- NOTE | 2019-04-29 12:00 | NUR ---
Note Pt given medications through GT site and TPN/Lipids infusing well through WILLIAMS PICC at this time. No needs noted. RT doing resp and mechanical ventilation care as scheduled throughout the shift. Tele unit attached and intact at this time. Call light within reach.
[2019-04-29 12:30] VITALS: BP_SYST 143
[2019-04-29] MEDS ORDERED: METOCLOPRAMIDE HCL 10 MG/2 ML VIAL IVP ONE (14:00)
--- NOTE | 2019-04-29 15:10 | NUR ---
Note Dr Mariano on the floor at 1355 and assessment of pt was completed. was notified that pt had large emesis at 4am and and GT feedings were put on hold. Pt now resting in bed after meidactions and blood sugar check was completed at this time. Call light within reach.
[2019-04-29 16:45] VITALS: BP_SYST 135
[2019-04-29] MEDS ORDERED: *TOBRAMYCIN PER PHARMACY XX PRN (17:15)
[2019-04-29] MEDS: METOCLOPRAMIDE HCL 10 MG/2 ML VIAL IVP SCH ×2 (18:03→23:02)
--- NOTE | 2019-04-29 18:16 | NUR ---
CONSULTATION PAGED/CALLED Reason for Consultation: [] SACRAL WOUND ASSESSMENT AND POSS DEBRIDEMENT Person Who was Notified: [] DESIREE Consulting Physician: [] DR Brando CABRAL Power Wheelchair Mechanic Specialty: [] GEN SURGEON Ordering Physician: [] DR ALVAREZ
--- NOTE | 2019-04-29 18:50 | NUR ---
Note Pt was checked in q1' and PRN all shift for needs and care. No SOB/resp distress or pain/discomfort was noted all shift. Tele unit attached and intact. Pt is mechanically ventilated - RT doing resp care all shift as scheduled and requested. WILLIAMS PICC intact and patent infusing IVF's and TPN/Lipids all shift. Pt's ileostomy full of air and minimal drainage all shift. Drain from abscess has minimal drainage as well. Dressing change done on pt's abdomen and sacral region at 1730. Capellan catheter intact and draining. No needs noted at this time. Call light within reach.
[2019-04-29 19:30] VITALS: BP_SYST 130
--- NOTE | 2019-04-29 19:30 | NUR ---
INITIAL NOTE AT INITIAL ASSESSMENT, PATIENT IS RESTING IN BED, STABLE, NO SIGNS OF RESPIRATORY DISTRESS. PATIENT SHOWS NO PAIN PER FLACC SCALE USED. PATIENT IS UNABLE TO SUCCESSFULLY DEMONSTRATE USAGE OF CALL LIGHT AT THIS TIME DUE TO COGNITIVE IMPAIRMENT. FALL, SAFETY, ASPIRATION, SEIZURE, ISOLATION AND RESPIRATORY PRECAUTIONS WILL BE TAKEN THROUGHOUT THE SHIFT. BED IS LOCKED, ALARMED, AND AT THE LOWEST LEVEL. PATIENT IS IN A ROOM CLOSE TO THE NURSING STATION FOR CLOSE MONITORING.
[2019-04-29] MEDS ORDERED: [UNRECOGNIZED DRUG - OTHER] IV SCH ×12 (21:00)
[2019-04-29] MEDS ORDERED: SODIUM CHLORIDE IV SCH ×12 (21:00)
[2019-04-29] MEDS ORDERED: SODIUM ACETATE IV SCH ×12 (21:00)
[2019-04-29] MEDS ORDERED: TPN CENTRAL IV SCH ×12 (21:00)
--- NOTE | 2019-04-29 21:30 | NUR ---
NOTE SCHEDULED MEDICATIONS GIVEN AT THIS TIME. PATIENT IS RESTING IN BED, STABLE, NO SIGNS OF RESPIRATORY DISTRESS. BED IS LOCKED, ALARMED, AND AT THE LOWEST LEVEL.
[2019-04-29] MEDS: FAT EMULSIONS 250 ML IV SCH (21:45)
[2019-04-29] MEDS: TOBRAMYCIN SULFATE 80 MG in NS 50 ML IV SCH (21:53)
[2019-04-29] MEDS ORDERED: TOBRAMYCIN SULFATE 80 MG/2 ML VIAL ONE (21:58)
--- NOTE | 2019-04-29 23:30 | NUR ---
NOTE PATIENT'S HR IS NOTED TO BE ELEVATED, WILL MONITOR CLOSELY AND CALL MD IF HR REMAINS ELEVATED. PATIENT IS SYMPTOMATIC. BLOOD PRESSURE IS WNL. PATIENT IS RESTING IN BED, STABLE, NO SIGNS OF RESPIRATORY DISTRESS. BED IS LOCKED, ALARMED, AND AT THE LOWEST LEVEL.
[2019-04-30] VITALS: BP_SYST 124
--- NOTE | 2019-04-30 00:10 | NUR ---
COMMUNICATION W/ DR. ANTONIO ALVAREZ HAS CALLED BACK AT THIS TIME. PATIENT'S ELEVATED HR IS COMMUNICATED WITH THE MD. PATIENT IS ASYMPTOMATIC. NEW ORDERS RECEIVED. STAT EKG ORDERED. RT DONAVAN HAS ARRIVED TO PERFORM EKG. WILL CONTINUE TO MONITOR CLOSELY.
[2019-04-30] MEDS: DILTIAZEM HCL 25 MG/5 ML VIAL IVP PRN ×4 (00:21→18:29)
--- NOTE | 2019-04-30 02:10 | NUR ---
NOTE PATIENT'S HR HAS LOWERED SINCE LAST CARDIZEM DOSE TWO HOURS AGO, ALTHOUGH HR IS STILL SLIGHTLY ABOVE 110. PRN CARDIZEM DOSE WILL BE GIVEN AT THIS TIME PER PRN ORDERS. SHE IS ASYMPTOMATIC OTHERWISE FOR TACHYCARDIA. PATIENT IS REPOSITIONED FOR COMFORT. BED IS LOCKED, ALARMED, AND AT THE LOWEST LEVEL.
[2019-04-30] MEDS: TOBRAMYCIN SULFATE 80 MG in NS 50 ML IV SCH ×3 (02:41→16:59)
--- NOTE | 2019-04-30 03:15 | NUR ---
NOTE PATIENT IS SLEEPING, STABLE, NO SIGNS OF RESPIRATORY DISTRESS. CALL LIGHT IS WITHIN REACH. BED IS LOCKED, ALARMED, AND AT THE LOWEST LEVEL.
--- NOTE | 2019-04-30 05:00 | NUR ---
NOTE PATIENT IS SLEEPING, STABLE, NO SIGNS OF RESPIRATORY DISTRESS. CALL LIGHT IS WITHIN REACH. BED IS LOCKED, ALARMED, AND AT THE LOWEST LEVEL.
[2019-04-30] MEDS: METOCLOPRAMIDE HCL 10 MG/2 ML VIAL IVP SCH ×4 (05:23→23:00)
--- NOTE | 2019-04-30 06:30 | NUR ---
CLOSING NOTE AT THIS TIME, PATIENT IS RESTING IN BED, IS STABLE, NO SIGNS OF RESPIRATORY DISTRESS. BED IS LOCKED, ALARMED, AND AT THE LOWEST LEVEL. FALL, SAFETY, ASPIRATION, ISOLATION, SEIZURE, AND RESPIRATORY PRECAUTIONS WILL BE TAKEN THROUGHOUT THE SHIFT. BED IS LOCKED, ALARMED, AND AT THE LOWEST LEVEL. WILL CONTINUE TO MONITOR UNTIL SHIFT REPORT IS GIVEN AT BEDSIDE TO AM NURSE.
--- NOTE | 2019-04-30 07:43 | NUR ---
INITIAL NOTE PT RESTING IN BED, NO ACUTE DISTRESS NOTED, PT ON VENT. IVF INFUSING WELL. CALL LIGHT WITHIN REACH, BED IN LOW AND LOCKED POSITION WITH ED ALARM ON. SCDS IN PLACE. ISOLATION PRECAUTIONS IN PLACE. TUBE FEEDING STOPPED AT THIS TIME DUE TO PREVIOUS VOMITING EPISODE, WILL CONTINUE TO MONITOR.
[2019-04-30 08:00] VITALS: BP_SYST 140
[2019-04-30] MEDS: CYANOCOBALAMIN 1000 mCg TABLET GT SCH (09:00)
[2019-04-30] MEDS: ERGOCALCIFEROL 8000 UNITS/ML ORAL SOLUTION, 60 ML BOTTLE GT SCH (09:00)
[2019-04-30 09:07] LABS: CALCIUM 7.3 mg/dL (8.4-11.0); CREATININE 0.56 mg/dL (0.55-1.30); PHOSPHORUS 2.9 mg/dL (2.7-4.5); POTASSIUM 3.8 mmol/L (3.5-5.1)
[2019-04-30] MEDS: levETIRAcetam 500 MG in NS 100 ML IV SCH ×2 (09:36→22:50)
[2019-04-30] MEDS: cefTRIAXone 1 GM in D5W 50 ML IV SCH (09:36)
[2019-04-30] MEDS: BALSAM PERU/CASTOR OIL 60 GM OINT...G. TP SCH (09:37)
[2019-04-30] MEDS: FAMOTIDINE PF 20 MG/2 ML VIAL IVP SCH ×2 (09:37→22:51)
--- NOTE | 2019-04-30 09:51 | NUR ---
ELEVATED HR 115 PT AWAKE, NO ACUTE DISTRESS NOTED. PRN CARDIZEM INDICATED FOR HR>110. CARDIZEM ADMINISTERED, WILL CONTINUE TO MONITOR.
[2019-04-30] MEDS: CEFEPIME 1 GM in D5W 50 ML IV SCH ×2 (11:05→23:09)
--- NOTE | 2019-04-30 12:30 | NUR ---
DR. ANTONIO SANTIAGO AT BEDSIDE EXAMINING PT. INFORMED MD OF PT VOMITING, TUBE FEEDING HAS BEEN STOPPED FOR A DAY AND A HALF, NO VOMITING EPISODES THROUGHOUT PRESENT SHIFT. MD TO CONTINUE TUBE FEEDING AT 10ML/HR THEN 20ML/HR. VERIFIED ORDERS WITH READ BACK.
[2019-04-30 12:56] VITALS: BP_SYST 128
--- NOTE | 2019-04-30 14:30 | NUR ---
RN ROUNDS PT RESTING, NO ACUTE DISTRESS NOTED, BREATHING EVEN AND UNLABORED.
--- NOTE | 2019-04-30 16:30 | NUR ---
RN ROUNDS PT TOLERATING TUBE FEEDING WELL, NO VOMITING OR DIARRHEA. WILL CONTINUE TO MONITOR.
--- NOTE | 2019-04-30 17:12 | NUR ---
Nutrition F/U RD reviewed pt's current EMR including diet Hx, physician notes, nursing notes, pertinent labs/meds/procedures, care trends and care activity. Admitting Diagnosis: SBO Medical History Comment: Pt continues on vent support, s/p CT guided drainages, s/p exploratory laparotomy repair of leaking ileocolic anastomosis and loop ileostomy, and exploratory laparotomy and right hemicolectomy for carcinoma of the colon per MD note. Nutrition Support Order: TPN D40%, AA8.5% at 86.334 ml/hr, IL20% at 10ml/hr via central line Provides: 2312 kcal/day, 88 gm protein/day, 2312 ml total volume/day, and GIR: 3.2 gm CHO/kg/min Meets: 111% of estimated caloric needs and 106% of upper end of estimated protein needs + Jevity 1.5 at 20 ml/hr, Prosource TID, Free Water Flush: 100ML Q6H via GT x1 day Provides: 900 kcal/day, 76 gm protein/day, and 365 ml free water/day Meets: 43% of estimated caloric needs and 92% of upper end of estimated protein needs Subjective Information: Per RN, pt's TF was started at noon today, and was infusing at 10 ml/hr, but plans to increase to 20 ml/hr. RD also verified [employer] TID order w/ RN who acknowledged protein supplementation. TPN remains appropriate until pt is able to tolerate EN support to meet estimated nutritional needs. Estimated Energy Expenditure (kcals/day) 2092 kcal/day (MSJ x1.1x1.3 for sepsis and wound healing) Estimated Protein Required (g/day) 55-83 gm/day (1-1.5 gm/kg IBW for wound healing) Estimated Fluid Required (l/day) 2 L/day (1ml/calorie for maintenance) Problem/Etiology/Signs/Symptoms Inadequate nutrient intake r/t current TPN infusion AEB current TPN intake meets <65% of est needs. (*resolved*) Expected Outcomes/Goals Monitor TPN tolerance and intake w/ goal of pt meeting at least 80-100% of estimated nutritional needs, labs trending WNL, normal GI function, skin integrity/wt maintenance Dietitian Recommendations * Recommend TPN D40%, AA8.5% at 80 ml/hr, IL20% at 10ml/hr via central line Provides: 2114 kcal/day, 82 gm protein/day, 2160 ml free water/day, and GIR: 2.9 gm CHO/kg/min Meets: 101% of estimated caloric needs and 99% of upper end of estimated protein needs * Recommend continuing Jevity 1.5 at 20 ml/hr, [employer] TID, Free Water Flush: 100ML Q6H via GT Provides: 900 kcal/day, 76 gm protein/day, and 365 ml free water/day Meets: 43% of estimated caloric needs and 92% of upper end of estimated protein needs Follow Up High Risk: F/U in 2-3 days
--- NOTE | 2019-04-30 17:16 | NUR ---
Dietitian Recommendations * Recommend TPN D40%, AA8.5% at 80 ml/hr, IL20% at 10ml/hr via central line Provides: 2114 kcal/day, 82 gm protein/day, 2160 ml free water/day, and GIR: 2.9 gm CHO/kg/min Meets: 101% of estimated caloric needs and 99% of upper end of estimated protein needs * Recommend continuing Jevity 1.5 at 20 ml/hr, [employer] TID, Free Water Flush: 100ML Q6H via GT Provides: 900 kcal/day, 76 gm protein/day, and 365 ml free water/day Meets: 43% of estimated caloric needs and 92% of upper end of estimated protein needs LP, RD Please refer to Nutrition F/U for details.
[2019-04-30 17:21] VITALS: BP_SYST 119
--- NOTE | 2019-04-30 18:00 | NUR ---
WOUND CARE PT TOLERATED WOUND CARE WELL. PT INCONTINENT OF STOOL, STOOL WAS LOOSE AND WATERY. WILL CONTINUE TO MONITOR. ILLEOSTOMY BAG EMPTIED, OUTPUT 250, LOOSE AND GREEN.
--- NOTE | 2019-04-30 19:30 | NUR ---
CLOSING NOTE PT RESTING IN BED, NO ACUTE DISTRESS NOTED, BREATHING EVEN AND UNLABORED. IVF INFUSING WELL. ALL NEEDS MET THROUGH OUT SHIFT. CALL LIGHT WITHIN REACH, BED IN LOW AND LOCKED POSITION WITH BED ALARM ON. ISOLATION PRECAUTIONS IN PLACE. PT CARE ENDORSED TO LENS SHAPER GRINDER RN.
--- NOTE | 2019-04-30 19:50 | NUR ---
DR. CABRAL ROUNDS DR. CABRAL IS AT BEDSIDE TO VISUALIZE PATIENT'S SACRAL WOUND. DR. CABRAL VERBALIZED THAT THERE WILL BE NO NEED FOR SURGERY AND THAT THE CURRENT WOUND CARE TREATMENT SHOULD BE CONTINUED.
[2019-04-30 19:55] VITALS: BP_SYST 130
[2019-04-30] MEDS ORDERED: SODIUM ACETATE IV SCH ×12 (21:00)
[2019-04-30] MEDS ORDERED: SODIUM CHLORIDE IV SCH ×12 (21:00)
[2019-04-30] MEDS ORDERED: TPN CENTRAL IV SCH ×12 (21:00)
[2019-04-30] MEDS ORDERED: [UNRECOGNIZED DRUG - OTHER] IV SCH ×12 (21:00)
--- NOTE | 2019-04-30 21:45 | NUR ---
NOTE HYGIENE CARE IS PROVIDED AT THIS TIME, FRESH LINENS PROVIDED. PATIENT TOLERATED WELL. SHE IS REPOSITIONED FOR COMFORT. PATIENT IS STABLE, NO SIGNS OF RESPIRATORY DISTRESS. BED IS LOCKED, ALARMED, AND AT THE LOWEST LEVEL.
[2019-04-30] MEDS: FAT EMULSIONS 250 ML IV SCH (22:52)
--- NOTE | 2019-04-30 23:00 | NUR ---
NOTE BLOOD SUGAR CHECK AT THIS TIME IS 158. PER DR. ALVAREZ, NO COVERAGE NECESSARY AT THIS TIME. PATIENT IS RESTING IN BED, STABLE, NO SIGNS OF RESPIRATORY DISTRESS. BED IS LOCKED, ALARMED, AND AT THE LOWEST LEVEL.
[2019-05-01] VITALS (8 sets, daily range): BP systolic 113–140
--- NOTE | 2019-05-01 01:00 | NUR ---
NOTE PATIENT IS SLEEPING, STABLE, NO SIGNS OF RESPIRATORY DISTRESS. BED IS LOCKED, ALARMED, AND AT THE LOWEST LEVEL.
[2019-05-01] MEDS: TOBRAMYCIN SULFATE 80 MG in NS 50 ML IV SCH ×3 (01:40→17:38)
--- NOTE | 2019-05-01 03:00 | NUR ---
NOTE PATIENT IS SLEEPING, STABLE, NO SIGNS OF RESPIRATORY DISTRESS. BED IS LOCKED, ALARMED, AND AT THE LOWEST LEVEL.
[2019-05-01] MEDS: METOCLOPRAMIDE HCL 10 MG/2 ML VIAL IVP SCH ×3 (05:59→17:37)
[2019-05-01 09:09] LABS: ALBUMIN 1.7 g/dL (3.4-4.8); CALCIUM 7.3 mg/dL (8.4-11.0); CREATININE 0.51 mg/dL (0.55-1.30); PHOSPHORUS 2.6 mg/dL (2.7-4.5); TOTAL BILIRUBIN 0.4 mg/dL (0.0-1.0)
--- NOTE | 2019-05-01 09:30 | NUR ---
MORNING MEDICATION PT TOLERATED WELL. REPOSITION FOR COMFORT. ORAL CARE DONE. WILL CONTINUE TO MONITOR.
[2019-05-01] MEDS: BALSAM PERU/CASTOR OIL 60 GM OINT...G. TP SCH (10:16)
[2019-05-01] MEDS: CEFEPIME 1 GM in D5W 50 ML IV SCH (10:16)
[2019-05-01] MEDS: CYANOCOBALAMIN 1000 mCg TABLET GT SCH (10:17)
[2019-05-01] MEDS: levETIRAcetam 500 MG in NS 100 ML IV SCH ×2 (10:17→19:49)
[2019-05-01] MEDS: ERGOCALCIFEROL 8000 UNITS/ML ORAL SOLUTION, 60 ML BOTTLE GT SCH (10:17)
[2019-05-01] MEDS: cefTRIAXone 1 GM in D5W 50 ML IV SCH (10:17)
[2019-05-01] MEDS: FAMOTIDINE PF 20 MG/2 ML VIAL IVP SCH ×2 (10:17→19:48)
--- NOTE | 2019-05-01 11:55 | NUR ---
DR. ANTONIO SANTIAGO AT BEDSIDE EXAMINING PT. MD INCREASED TUBE FEEDING TO 30ML/HR. VERIFIED WITH READ BACK.
--- NOTE | 2019-05-01 13:50 | NUR ---
RN ROUNDS PT TOLERATING TUBE FEEDING WELL. NO VOMITING, OR DIARRHEA. WILL CONTINUE TO MONITOR.
[2019-05-01] MEDS ORDERED: LINEZOLID 300 ML IV ONE (14:00)
--- NOTE | 2019-05-01 17:35 | NUR ---
RN ROUNDS PT RESTING, NO ACUTE DISTRESS NOTED, WILL CONTINUE TO MONITOR.
--- NOTE | 2019-05-01 18:00 | NUR ---
INITIAL NOTE PT RESTING, NO ACUTE DISTRESS NOTED, BREATHING EVEN AND UNLABORED. IVF INFUSING WELL. CALL LIGHT WITHIN REACH, BED IN LOW AND LOCKED POSITION WITH BED ALARM ON. Addendum: 05/01/19 at 1802 by Shantell Delgadillo RN TUBE FEEDING INFUSING WELL. BRISENO DRAINING TO GRAVITY. ISOLATION PRECAUTIONS IN PLACE. Addendum: 05/01/19 at 1803 by Shantell Delgadillo RN [id number]
--- NOTE | 2019-05-01 19:15 | NUR ---
change of shift.pt.presets isolation status:mdro/microbiology lab manager,vre.pt.presents extremity x4 contractures.pt.presents trach/vent,picc line; lt bicept, g-tube,kellogg cath,ielostomy;rlq-abdomen.tpn/lipids iv fluids administration.
[2019-05-01] MEDS: FAT EMULSIONS 250 ML IV SCH (19:52)
--- NOTE | 2019-05-01 20:00 | NUR ---
pt assessed/v/s assessed.values w/in normal limits.cardio;s.tach.trach/vetn assd;settingstv;500,fio-2%=35%,a/c 10,p:5.i ahev atted to t the oral tarch care.i have atted to thorla/trach suction.pic clione inatct;patnbtt;tpn/lipids iv fluids infiosng.g-tub einatct ;tamir;ftgt feed infusing,kellogg cath inatct ;ppoatt urine emilie prsrtt.ielotrromy inatct.pt asd for c;lenliess.pt,..respined.call lihgt/telphoen placed w/in reach of the pt.
[2019-05-01] MEDS ORDERED: [UNRECOGNIZED DRUG - OTHER] IV SCH ×12 (21:00)
[2019-05-01] MEDS ORDERED: SODIUM CHLORIDE IV SCH ×12 (21:00)
[2019-05-01] MEDS ORDERED: SODIUM ACETATE IV SCH ×12 (21:00)
[2019-05-01] MEDS ORDERED: TPN CENTRAL IV SCH ×12 (21:00)
--- NOTE | 2019-05-01 21:00 | NUR ---
2100p medications administered.i have administered tpn/lipids:i have changed the tubing.g-tube intact;patent picc line intact patent.blood glucose assessed:value;162mg/dl.no sliding scale.insulin;regular;4units added to the tpn.
--- NOTE | 2019-05-01 22:00 | NUR ---
pt assessed pt assessed for cleanliness.pt repositioned.i have attended to the oral/trach care the oral/trach suction.picc line intact.patent,tpn/lipids iv fluids infusing.g-tube intact;patent gt feed infusing kellogg cath intact;patent ileostomy intact; patent.call light/telephone placed w/in reach of the pt.
[2019-05-01] MEDS: DILTIAZEM HCL 25 MG/5 ML VIAL IVP PRN (22:49)
--- NOTE | 2019-05-01 23:00 | NUR ---
pt presents h/r rapid;120's.cardizem;10mg iv p administered per shinping;rn/chg.to f/u re;medication efficacy.
--- NOTE | 2019-05-02 | NUR ---
pt assessed.v/s assessed;values w/in normal limits;note h/r preset s/tach:110's.i have attended to the oral/trach care.the oral trach suction.g-tube intact;patent;gt feed infusing picc line intact;patent;tpn/lipids iv fluids infusing.pt assessed for cleanliness. pt., repositioned.call light/telephone placed w/in reach of the pt.
[2019-05-02] MEDS: METOCLOPRAMIDE HCL 10 MG/2 ML VIAL IVP SCH ×5 (00:07→23:37)
[2019-05-02] MEDS: LINEZOLID 300 ML IV SCH ×3 (00:07→23:37)
[2019-05-02] MEDS: DILTIAZEM HCL 25 MG/5 ML VIAL IVP PRN ×2 (01:39→08:26)
[2019-05-02] MEDS: TOBRAMYCIN SULFATE 80 MG in NS 50 ML IV SCH ×3 (01:41→18:00)
--- NOTE | 2019-05-02 01:45 | NUR ---
pt presents h/r rapid;130's.i have administered cardizem;10mg ivp.to f/u re;medication efficacy. dr.hakak cardozo;pt presents anxiety status.
[2019-05-02] MEDS ORDERED: LORazepam 2 MG/ML VIAL IVP PRN (02:00)
--- NOTE | 2019-05-02 02:00 | NUR ---
returned page; apprised of the pt's status. ordered ativan;0.5mg ivp.i have administered the ativan. pt. assessed for cleanliness.pt.repositioned.g-tube intact patent.gt feed infusing.picc line intact patent;tpn/lipid iv fluids infusing.kellogg cath intact;patent, ileostomy intact patent.i have attended to the oral/trach care the oral/trach suction.call light/telephone placed w/in reach of the pt.
--- NOTE | 2019-05-02 04:00 | NUR ---
pt assessed pt assessed for cleanliness.pt repositioned.i have attend to the oral/trach care the oral/trach suction. picc line intact;patent:tpn/lipids iv fluids infusing.g-tube intact patent gt-feed infusing.kellogg cath intact patent urine content present.pt preents h/r s.tach; monitoring. ileotomy intact;patent.call light/telephone placed w/in reach of the pt.
--- NOTE | 2019-05-02 06:00 | NUR ---
pt assessed.pt assessed for cleanliness.pt repositioned.i have attended to the wound care;i have attended to the oral/trach care,the oral trach suction.picc line intatct;patent;tpn/lipids iv fluids infusing.g-tube intact;pattn;g-tube feed infusing.kellogg cath intact;patent;urine content present,ileostomy intact;patent.general status stable;h/r presents rapid rhythym;s.tachycardia monitored.respiratory status stable;unlabored.blood glucose assessed;[id number]/dl.no sliding scale ordered.call light/telephone placed w/in reach of the pt.
[2019-05-02 07:42] LABS: ALBUMIN 1.7 g/dL (3.4-4.8); CREATININE 0.59 mg/dL (0.55-1.30); PHOSPHORUS 2.1 mg/dL (2.7-4.5); POTASSIUM 3.9 mmol/L (3.5-5.1); TOTAL BILIRUBIN 0.4 mg/dL (0.0-1.0)
--- NOTE | 2019-05-02 07:58 | NUR ---
Opening Note Received bedside SBAR report from lvn RN, patient in bed resting, respirations even and unlabored on mechanical ventilator, no acute distress noted, side rails padded, bed in low and locked position with bed alarm on, call light in reach
[2019-05-02 08:00] VITALS: BP_SYST 118
[2019-05-02] MEDS: CYANOCOBALAMIN 1000 mCg TABLET GT SCH (08:25)
[2019-05-02] MEDS: FAMOTIDINE PF 20 MG/2 ML VIAL IVP SCH ×2 (08:25→22:07)
[2019-05-02] MEDS: BALSAM PERU/CASTOR OIL 60 GM OINT...G. TP SCH (08:26)
[2019-05-02] MEDS: ERGOCALCIFEROL 8000 UNITS/ML ORAL SOLUTION, 60 ML BOTTLE GT SCH (08:27)
[2019-05-02] MEDS: levETIRAcetam 500 MG in NS 100 ML IV SCH ×2 (08:27→22:07)
--- NOTE | 2019-05-02 09:00 | NUR ---
Tube Feeding/ oral care New tube feeding with tubing hung, head of bed elevated to 30 degrees, patient tolerating tube feeding well, no residuals, oral care provided
--- NOTE | 2019-05-02 11:00 | NUR ---
RN Rounds Patient in bed resting, no pain noted using FLACC scale, IV fluids infusing well to left upper arm PICC, respirations even and unlabored on mechanical ventilator
[2019-05-02 12:39] VITALS: BP_SYST 147
--- NOTE | 2019-05-02 12:45 | NUR ---
Removal of Drain Per Dr. Hansen he would like geronimo-close drain to right abdomen removed by radiology, zero drainage noted from geronimo-close drain, Dr. Hernandez at bedside for removal of drain, Dr. Hernandez removed drain, drain intact, patient tolerated well, no bleeding noted
--- NOTE | 2019-05-02 15:22 | NUR ---
Physician Rounds Dr. Mariano at nursing station, informed Dr. Mariano of patients blood sugar of 202 with no sliding scale ordered, new orders received and verified with read back
[2019-05-02] MEDS: INSULIN REGULAR, HUMAN 100 UNITS/ML, 10 ML VIAL (humuLIN R) SUBCUT PRN (15:50)
[2019-05-02 16:14] VITALS: BP_SYST 140
--- NOTE | 2019-05-02 16:30 | NUR ---
Physician Rounds Dr. Mariano at bedside examining patient, per Dr. Mariano increase tube feeding to 40mL/ hour and decrease TPN to 60mL/ hour, verified with read back
[2019-05-02] MEDS ORDERED: COMMUNICATION ORDER XX ONE (17:15)
--- NOTE | 2019-05-02 18:35 | NUR ---
RN Rounds Patient in bed resting, respirations even and unlabored on mechanical ventilator, tube feeding infusing well, head of bed elevated 30 degrees, no pain noted using FLACC scale
[2019-05-02 19:29] VITALS: BP_SYST 132
--- NOTE | 2019-05-02 19:30 | NUR ---
initial notes; pt is on bed. resting, wakes up when called by name. non verbal. no sign of pain. pt is on trach to vent. setting of tv-500, fio2-35%, ac-10, pep-5. pt has contracted upper extremities and lower extremities. pt has tpn and lipids infusing to left picc line- intact and patent. pt has ongoing gtube feeding at 40 cc/ hr. kellogg catheter draining gravity to yellow urine. pt has multiple wound. ileostomy to right lower abdomen with brown liquid stool. on contact isolation. needs attended.safety on. side railsup. low bed position. will monitor.
--- NOTE | 2019-05-02 19:31 | NUR ---
Closing Note Bedside SBAR report given to scene shifter RN, patient in bed resting, respirations even and unlabored on mechanical ventilator, no acute distress noted, bed in low and locked position with bed alarm on, seizure precautions in place, call light in reach, dressing clean, dry and intact, endorsed care to scene shifter RN
--- NOTE | 2019-05-02 22:09 | NUR ---
sleeping,no distress. blood sugar 126. needs attended. safety on. on contact isolation. will monitor.
[2019-05-02] MEDS: FAT EMULSIONS 250 ML IV SCH (23:00)
[2019-05-02] MEDS: SODIUM ACETATE IV SCH ×12 (23:01)
[2019-05-02] MEDS: SODIUM CHLORIDE IV SCH ×12 (23:01)
[2019-05-02] MEDS: TPN CENTRAL IV SCH ×12 (23:01)
[2019-05-02] MEDS: [UNRECOGNIZED DRUG - OTHER] IV SCH ×12 (23:01)
--- NOTE | 2019-05-03 | NUR ---
sleeping, eye close. no distress. no pain. stable. will monitor.
[2019-05-03 01:13] VITALS: BP_SYST 155
--- NOTE | 2019-05-03 02:00 | NUR ---
sleeping, no distress. no sign of pain. stable. safety on, isolation. will monitor.
[2019-05-03] MEDS: TOBRAMYCIN SULFATE 80 MG in NS 50 ML IV SCH ×3 (03:02→17:35)
--- NOTE | 2019-05-03 04:13 | NUR ---
pt is sleeping, quietly. no sign of distress. no pain. tpn and lipid infusing well. gtube feeding flowing well. safety opn. contact isolation. will monitor.
[2019-05-03 05:15] VITALS: BP_SYST 122
[2019-05-03] MEDS: METOCLOPRAMIDE HCL 10 MG/2 ML VIAL IVP SCH ×3 (06:18→17:35)
--- NOTE | 2019-05-03 06:30 | NUR ---
clean pt, dressing change done on coccyx region. blood sugar 140. needs attended. safety on maintained on contact isolation. will monitor.
--- NOTE | 2019-05-03 07:20 | NUR ---
closing pt is resting, stable. tolerating vent and gtube feeding. maintained on contact isolation. tpn and lipids infusing well. bedside report given to florian hyman.
--- NOTE | 2019-05-03 07:22 | NUR ---
Opening note Received bedside SBAR report from overnight cashier RN, patient in bed resting, respirations even and unlabored on mechanical ventilator, Capellan catheter draining to gravity, PICC line dressing clean, dry and intact, bed in low and locked position with bed alarm on, call light in reach
[2019-05-03 07:59] LABS: CREATININE 0.53 mg/dL (0.55-1.30); PHOSPHORUS 2.7 mg/dL (2.7-4.5); POTASSIUM 3.8 mmol/L (3.5-5.1)
[2019-05-03 08:00] VITALS: BP_SYST 132
[2019-05-03] MEDS: FAMOTIDINE PF 20 MG/2 ML VIAL IVP SCH ×2 (08:15→22:58)
[2019-05-03] MEDS: CYANOCOBALAMIN 1000 mCg TABLET GT SCH (08:16)
[2019-05-03] MEDS: ERGOCALCIFEROL 8000 UNITS/ML ORAL SOLUTION, 60 ML BOTTLE GT SCH (08:16)
[2019-05-03] MEDS: levETIRAcetam 500 MG in NS 100 ML IV SCH ×2 (08:16→22:58)
[2019-05-03] MEDS: BALSAM PERU/CASTOR OIL 60 GM OINT...G. TP SCH (08:17)
--- NOTE | 2019-05-03 10:00 | NUR ---
Tube Feeding Patients tube feeding and tubing changed, patient is tolerating tube feeding well, no residuals noted, head of bed elevated 30 degrees
[2019-05-03] MEDS: LINEZOLID 300 ML IV SCH (11:53)
--- NOTE | 2019-05-03 12:08 | NUR ---
RN Rounds Patient in bed resting, no acute distress noted, respirations even and unlabored on mechanical ventilator
--- NOTE | 2019-05-03 12:27 | NUR ---
Physician Rounds Dr. Mariano at bedside, new orders received regarding TPN discontinuation, verified with read back
[2019-05-03 12:50] VITALS: BP_SYST 144
--- NOTE | 2019-05-03 14:10 | NUR ---
RN Rounds Patient in bed resting, patient tolerating tube feeding well, zero residuals, head of bed elevated 30 degrees, no acute distress noted
[2019-05-03] MEDS: INSULIN REGULAR, HUMAN 100 UNITS/ML, 10 ML VIAL (humuLIN R) SUBCUT PRN (14:32)
--- NOTE | 2019-05-03 14:35 | NUR ---
Discharge Planning: DCP faxed pt referral to [facility] (f [phone] p [phone]) DCP to follow up.
[2019-05-03] MEDS ORDERED: COMMUNICATION ORDER XX ONE (15:30)
--- NOTE | 2019-05-03 16:20 | NUR ---
RN Rounds Patient in bed resting, respirations even and unlabored on mechanical ventilator, no acute distress noted using FLACC scale
[2019-05-03 16:39] VITALS: BP_SYST 140
[2019-05-03] MEDS: DILTIAZEM HCL 25 MG/5 ML VIAL IVP PRN (17:45)
--- NOTE | 2019-05-03 17:50 | NUR ---
Nutrition F/U RD reviewed pt's current EMR including diet Hx, physician notes, nursing notes, pertinent labs/meds/procedures, care trends and care activity. Admitting Diagnosis: SBO Medical History Comment: Pt continues on vent support, s/p CT guided drainages, s/p exploratory laparotomy repair of leaking ileocolic anastomosis and loop ileostomy, and exploratory laparotomy and right hemicolectomy for carcinoma of the colon per MD note. Nutrition Support Order: TPN D40%, AA8.5% at 30ml/hr, IL20% at 10ml/hr via central line Provides: 1092 kcal/day, 31 gm protein/day, 960 ml total volume/day, and GIR: 1 gm CHO/kg/min Meets: 52% of estimated caloric needs and 56% of upper end of estimated protein needs + Jevity 1.5 at 50 ml/hr, Prosource TID, Free Water Flush: 100 mL q6h via GT x1 day Provides: 1980 kcal/day, 122 gm protein/day, and 1312 ml free water/day Meets: 95% of estimated caloric needs and 147% of upper end of estimated protein needs Subjective Information: Per RN, pt is tolerating and meeting goal rate of TF at 50 ml/hr, and receiving Prosource TID w/ water flush as per physician order. RD received plans for D/C of TPN today at 1900. RN acknowledged. Pt may be receiving too much protein w/ Prosource TID -- recommend Prosource BID instead. Estimated Energy Expenditure (kcals/day) 2092 kcal/day (MSJ x1.1x1.3 for sepsis and wound healing) Estimated Protein Required (g/day) 55-83 gm/day (1-1.5 gm/kg IBW for wound healing) Estimated Fluid Required (l/day) 2 L/day (1ml/calorie for maintenance) Problem/Etiology/Signs/Symptoms Inadequate nutrient intake r/t current TPN infusion AEB current TPN intake meets <65% of est needs. (*resolved*) Excessive protein intakes related to possible overfeeding as evidenced by current TF order provides 122 gm protein/day and exceeds 147% of upper end of estimated protein needs. Expected Outcomes/Goals Monitor TPN tolerance and intake w/ goal of pt meeting at least 80-100% of estimated nutritional needs, labs trending WNL, normal GI function, skin integrity/wt maintenance Dietitian Recommendations * Recommend Jevity 1.5 at 20 ml/hr, Prosource BID, Free Water Flush: 100ML Q6H via GT Provides: 1920 kcal/day, 107 gm protein/day, and 1312 ml free water/day Meets: 92% of estimated caloric needs and 129% of upper end of estimated protein needs Follow Up High Risk: F/U in 2-3 days Addendum: 05/06/19 at [address] CORRECTION: Dietitian Recommendations * Recommend Jevity 1.5 at 50 ml/hr, Prosource BID, Free Water Flush: 100ML Q6H via GT Provides: 1920 kcal/day, 107 gm protein/day, and 1312 ml free water/day Meets: 92% of estimated caloric needs and 129% of upper end of estimated protein needs
--- NOTE | 2019-05-03 18:02 | NUR ---
Dietitian Recommendations * Recommend Jevity 1.5 at 20 ml/hr, Prosource BID, Free Water Flush: 100ML Q6H via GT Provides: 1920 kcal/day, 107 gm protein/day, and 1312 ml free water/day Meets: 92% of estimated caloric needs and 129% of upper end of estimated protein needs LP, RD Please refer to Nutrition F/U for details.
--- NOTE | 2019-05-03 18:15 | NUR ---
Wound Care Educated patient on purpose and procedure of wound care, wound care completed, patient tolerated well, no pain noted during or after wound care, see MST shift assessment for wound care
--- NOTE | 2019-05-03 19:10 | NUR ---
Closing note Bedside SBAR report given to sports therapist RN, patient in bed resting, respirations even and unlabored on mechanical ventilator, Capellan catheter draining to gravity, bed in low and locked position with bed alarm on, call light in reach, endorsed care to sports therapist RN Addendum: 05/03/19 at 1935 by Gagandeep Geronimo RN TPN and lipids discontinued at 1900 per orders, tube feeding infusing well
--- NOTE | 2019-05-03 19:15 | NUR ---
initial notes; pt is on bed. resting, wakes up when touch. non verbal. no sign of pain. pt is on trach to vent. setting of tv-500, fio2-35%, ac-10, pep-5. pt has contracted upper extremities and lower extremities. tpn and lipids discontinued. left upper arm picc line- intact and patent. pt has ongoing gtube feeding at 50 cc/ hr.- 0 residual. kellogg catheter draining gravity to yellow urine. pt has multiple wound. ileostomy to right lower abdomen with brown liquid stool- leaking. on contact isolation. needs attended.safety on. side rails up. low bed position. will monitor.
[2019-05-03 20:00] VITALS: BP_SYST 117
[2019-05-03] MEDS: SODIUM CHLORIDE IV SCH ×12 (21:00)
[2019-05-03] MEDS: SODIUM ACETATE IV SCH ×12 (21:00)
[2019-05-03] MEDS ORDERED: SODIUM ACETATE IV SCH ×12 (21:00)
[2019-05-03] MEDS: TPN CENTRAL IV SCH ×12 (21:00)
[2019-05-03] MEDS: FAT EMULSIONS 250 ML IV SCH (21:00)
[2019-05-03] MEDS ORDERED: SODIUM CHLORIDE IV SCH ×12 (21:00)
[2019-05-03] MEDS: [UNRECOGNIZED DRUG - OTHER] IV SCH ×12 (21:00)
[2019-05-03] MEDS ORDERED: TPN CENTRAL IV SCH ×12 (21:00)
[2019-05-03] MEDS ORDERED: [UNRECOGNIZED DRUG - OTHER] IV SCH ×12 (21:00)
--- NOTE | 2019-05-03 21:30 | NUR ---
change pt ileostomy bag, secure well. pt tolerate well. needs attended. will monitor.
[2019-05-04] MEDS: METOCLOPRAMIDE HCL 10 MG/2 ML VIAL IVP SCH ×5 (00:24→23:05)
[2019-05-04] MEDS: LINEZOLID 300 ML IV SCH ×3 (00:27→23:05)
--- NOTE | 2019-05-04 00:30 | NUR ---
clean pt reposition. dressing change to coccyx wound done, pt tolerate well needs attended. will monitor.
--- NOTE | 2019-05-04 02:03 | NUR ---
sleeping, no distress. no sign of pain and discomfort. stable. safety on, isolation. will monitor.
[2019-05-04] MEDS: TOBRAMYCIN SULFATE 80 MG in NS 50 ML IV SCH ×3 (02:27→17:38)
[2019-05-04 02:35] VITALS: BP_SYST 120
--- NOTE | 2019-05-04 04:00 | NUR ---
closing: sleeping, no pain. stable. needs attended, will monitor..
--- NOTE | 2019-05-04 06:00 | NUR ---
sleeping, tolerating mech vent. stable. isolation. will monitor.
--- NOTE | 2019-05-04 07:25 | NUR ---
closing pt is resting, stable. tolerating vent and gtube feeding. picc line intact and flushing well. maintained on contact isolation. bedside report given to florian hyman.
[2019-05-04 07:48] VITALS: BP_SYST 110
--- NOTE | 2019-05-04 07:56 | NUR ---
opening notes, received pt in bed, pt is trach to vent, non verbal, no s/s pain, no sob. per night nurse, no change in vent setting. g-tube feeding infusing well. no residual. safety precaution in place. call light in reach, bed in low position. will cont to monitor.
[2019-05-04 08:15] LABS: BASOPHILS % (AUTO) 0.6 % (0.0-2.0); EOSINOPHILS # (AUTO) 0.4 K/uL (0.0-0.4); EOSINOPHILS % (AUTO) 6.5 % (0.0-4.0); HEMOGLOBIN 9.9 g/dL (12.0-16.0); LYMPHOCYTES # (AUTO) 1.8 K/uL (1.0-5.5); LYMPHOCYTES % (AUTO) 25.9 % (20.5-51.5); MEAN CORPUSCULAR HEMOGLOBIN 28 pg (27-31); MEAN CORPUSCULAR HGB CONC 32 % (32-36); MEAN CORPUSCULAR VOLUME 88 fL (79.0-98.0); MONOCYTES % (AUTO) 14.7 % (1.7-9.3); NEUTROPHILS # (AUTO) 3.6 K/uL (1.8-7.7); NEUTROPHILS % (AUTO) 52.3 % (40.0-70.0); PLATELET COUNT (AUTO) 304 K/uL (130-430); RED BLOOD CELL COUNT(AUTO) 3.51 MIL/uL (4.2-6.2); RED CELL DISTRIBUTION WIDTH 25.2 % (9.0-15.0); WHITE BLOOD COUNT (AUTO) 6.8 K/uL (4.8-10.8)
[2019-05-04] MEDS: ERGOCALCIFEROL 8000 UNITS/ML ORAL SOLUTION, 60 ML BOTTLE GT SCH (09:09)
[2019-05-04] MEDS: FAMOTIDINE PF 20 MG/2 ML VIAL IVP SCH ×2 (09:09→20:26)
[2019-05-04] MEDS: CYANOCOBALAMIN 1000 mCg TABLET GT SCH (09:09)
[2019-05-04 09:13] LABS: CALCIUM 7.9 mg/dL (8.4-11.0); CREATININE 0.56 mg/dL (0.55-1.30); PHOSPHORUS 3.5 mg/dL (2.7-4.5); POTASSIUM 3.7 mmol/L (3.5-5.1)
[2019-05-04] MEDS: levETIRAcetam 500 MG in NS 100 ML IV SCH ×2 (09:13→20:27)
[2019-05-04] MEDS: BALSAM PERU/CASTOR OIL 60 GM OINT...G. TP SCH (09:14)
--- NOTE | 2019-05-04 09:33 | NUR ---
9 am meds given. pt has 10 cc residual from g-tube, g-tube feeding infusing well.
[2019-05-04] MEDS ORDERED: SODIUM CHLORIDE 500 MG TABLET GT ONE (11:00)
[2019-05-04 12:45] VITALS: BP_SYST 110
[2019-05-04 12:51] VITALS: BP_SYST 128
--- NOTE | 2019-05-04 13:13 | NUR ---
dr fung called back and okayed to dc pt back to [facility] md ordered to dc retention sutures and ellen. Addendum: 05/04/19 at 1331 by Neil Castillo RN dr bates made aware of dr fung's order.
[2019-05-04] MEDS: SODIUM CHLORIDE 500 MG TABLET GT SCH ×2 (14:29→20:27)
[2019-05-04 17:24] VITALS: BP_SYST 128
--- NOTE | 2019-05-04 19:35 | NUR ---
ROUNDS PATIENT IN BED, NON VERBAL, ON VENT TO TRACH, VITAL STABLE, NO SIGNS OF ANY PAIN AND DISCOMFORT NOTED. ASSESSMENT DONE AND DOCUEMNTED. SEE FLOW SHEET. NEEDS ATTENDED TO. SAFETY MEASURES MAINTAINED. WILL CONTINUE TO MONITOR.
--- NOTE | 2019-05-04 19:57 | NUR ---
endorsed to night nurse pranay to do woundcare of the sacral and take pictures of the abdominal sounds.
--- NOTE | 2019-05-04 21:14 | NUR ---
MEDICATIONS DUE MEDICATIONS GIVEN ORDERED, TOLERATED WELL. WILL CONTINUE TO MONITOR.
--- NOTE | 2019-05-05 00:15 | NUR ---
PATIENT RESTING: Patient resting quietly. No acute distress noted. Vital signs within normal range.
[2019-05-05 02:33] VITALS: BP_SYST 133
[2019-05-05] MEDS: TOBRAMYCIN SULFATE 80 MG in NS 50 ML IV SCH ×3 (02:52→17:08)
--- NOTE | 2019-05-05 04:13 | NUR ---
NOTES PATIENT CLEANED, BED BATH GIVEN, WOUND CARE DONE. NEEDS ATTENDED TO. WILL CONTINUE TO MONITOR.
[2019-05-05] MEDS: METOCLOPRAMIDE HCL 10 MG/2 ML VIAL IVP SCH ×3 (06:16→17:08)
--- NOTE | 2019-05-05 06:50 | NUR ---
CLOSING NOTES PATIENT RESTING COMFORTABLY AT THIS TIME, VITALS STABLE. ALL NEEDS ATTENDED TO. SAFETY MEASURES MAINTAINED. CALL LIGHT PLACED WITHIN REACH.
[2019-05-05 07:17] LABS: BASOPHILS # (AUTO) 0.1 K/uL (0.0-0.2); BASOPHILS % (AUTO) 1.2 % (0.0-2.0); EOSINOPHILS # (AUTO) 0.3 K/uL (0.0-0.4); EOSINOPHILS % (AUTO) 4.9 % (0.0-4.0); HEMATOCRIT 33.2 % (36-48); HEMOGLOBIN 10.6 g/dL (12.0-16.0); LYMPHOCYTES # (AUTO) 1.8 K/uL (1.0-5.5); MEAN CORPUSCULAR HEMOGLOBIN 28 pg (27-31); MEAN CORPUSCULAR HGB CONC 32 % (32-36); MEAN CORPUSCULAR VOLUME 89 fL (79.0-98.0); MONOCYTES # (AUTO) 0.8 K/uL (0.0-1.0); MONOCYTES % (AUTO) 12.9 % (1.7-9.3); NEUTROPHILS # (AUTO) 3.4 K/uL (1.8-7.7); PLATELET COUNT (AUTO) 284 K/uL (130-430); RED BLOOD CELL COUNT(AUTO) 3.74 MIL/uL (4.2-6.2); WHITE BLOOD COUNT (AUTO) 6.5 K/uL (4.8-10.8)
[2019-05-05 07:47] LABS: CALCIUM 8.2 mg/dL (8.4-11.0); CREATININE 0.56 mg/dL (0.55-1.30); POTASSIUM 3.9 mmol/L (3.5-5.1)
[2019-05-05 07:50] VITALS: BP_SYST 126
--- NOTE | 2019-05-05 08:00 | NUR ---
Opening notes, Received pt in bed, pt is trach to vent, non verbal, no s/s pain, no sob. per night nurse, no change in vent setting. g-tube feeding infusing well. no residual. safety precaution in place. call light in reach, bed in low position. will cont to monitor.
[2019-05-05] MEDS: CYANOCOBALAMIN 1000 mCg TABLET GT SCH (09:59)
[2019-05-05] MEDS: SODIUM CHLORIDE 500 MG TABLET GT SCH ×3 (09:59→21:08)
[2019-05-05] MEDS: FAMOTIDINE PF 20 MG/2 ML VIAL IVP SCH ×2 (09:59→21:08)
[2019-05-05] MEDS: levETIRAcetam 500 MG in NS 100 ML IV SCH ×2 (10:00→21:08)
[2019-05-05] MEDS: ERGOCALCIFEROL 8000 UNITS/ML ORAL SOLUTION, 60 ML BOTTLE GT SCH (10:01)
--- NOTE | 2019-05-05 10:30 | NUR ---
DC PLANNING: [facility]TA[facility]ED [facility] @ , SPOKE WITH [facility] TO OBTAIN ROOM FOR PATIENT. PER [facility], THEY DO NOT HAVE ISOLATION BED AVAILABLE AT THIS TIME. WILL HAVE [facility] ([facility]) CONTACT BACK FOR BED ONCE AVAILABLE
[2019-05-05 11:00] LABS: RED CELL DISTRIBUTION WIDTH 25.7 % (9.0-15.0)
[2019-05-05 12:00] VITALS: BP_SYST 133
[2019-05-05] MEDS: BALSAM PERU/CASTOR OIL 60 GM OINT...G. TP SCH (12:31)
[2019-05-05] MEDS: LINEZOLID 300 ML IV SCH (12:32)
--- NOTE | 2019-05-05 15:33 | NUR ---
Wound Re-Evaluation: Patient received in a [place] bed with an Isoflex SERGIO mattress with low air loss therapy, awake, non-verbal. Nate score is a 14. Patient needs to be turned in bed. Past medical history: Anoxic Brain Injury, ventilator dependent, Colon Cancer, GT feeding, GERD, PUD, profound Anemia secondary to Colon Cancer, lower GI bleeding, colonic mass/colon carcinoma with ulceration, right hemicolectomy on 03/24/19, acute blood loss anemia, iron deficiency anemia, acute gastritis, respiratory failure, Seizure disorder, anoxic encephalopathy, hypothyroidism, spastic quadriplegia, dysphagia on G-tube feeding, obesity, moderate protein malnutrition, hypocalcemia, anasarca, ileus, enterocutaneous fistula, exploratory laparoscopy and ileostomy on 04/04/19, sepsis, peritonitis. Microbiology: MRSA screen results negative. Stool OB culture results positive. Abdominal abscess culture results in progress. Skin assessment: Retention sutures were removed. 1. Inferior aspect of patient side's left lateral Abdominal surgical incision: Small dehisced area of incision, present on admission. Wound bed has 100% red tissue. No odor, no drainage. Periwound intact. Surrounding tissue has dark brown discoloration. Site measures 3.6 cm x 1.3 cm. 2. Abdomen, inferior to site 1: Small wound, possibly from retention suture, present on admission. Wound bed has 100% red tissue. No odor, no drainage. Periwound intact. Site measures 1.4 cm x 1.5 cm. 3. Abdomen, inferior to site 2: Wound, possibly from retention suture, present on admission. Wound bed has 100% red tissue. No odor, no drainage. Periwound intact. Site measures 2.1 cm x 1.7 cm. 4. Abdomen, right lateral to site 1: Wound, possibly from retention suture, present on admission. Wound bed has 100% red tissue. No odor, no drainage. Periwound intact. Site measures 1.1 cm x 1.0 cm. 5. Abdomen, inferior to site 4: Wound, present on admission. Wound bed has 100% black scab. No odor, no drainage. Periwound intact. Site measures 1.5 x 0.5 cm. 6. Abdomen, right lateral to site 4: : Wound, present on admission. Wound bed has 90% pink tissue, 10% red tissue. No odor, no drainage. Periwound intact. Site measures 1.5 cm x 1.1 cm. Recommend: Cleanse open areas with normal saline. Pat dry. Apply moisture barrier cream to maria del rosario-wounds. Apply Venelex ointment to open wound beds. Cover with foam dressings. Perform wound care daily, and prn for dressing soiling or dislodgment. 7. Abdomen: Surgical incision (horizontal), present on admission. Site is approximated. Recommend: No dressing needed. Continue to monitor site every shift. 8. Right lower abdomen: Ileostomy site. Stoma has red tissue, oval-shaped, measuring 1.0 cm x 2.4 cm. Recommend: Cleanse involved area with mild soap and water. Perform crusting procedure to maria del rosario-stoma and surrounding tissue: Apply Stomahesive powder to involved areas. [place] off excess powder with clean gauze. Repeat 3 times. Apply sure prep to maria del rosario-stoma and surrounding tissue. Apply Eakins ring to peristomal area. Apply ostomy pouch to involved area. Hold in place with hand for 1 minute to allow better adhesion. 9. Sacral-Coccygeal area: Unstageable Pressure Injury, present on admission. Wound care performed by dy shift nurse. Dressing not removed for assessment secondary to doing so would decrease wound temperature and retard wound healing rate. Recommend continue: Cleanse wound normal Saline. Apply moisture barrier cream to maria del rosario-wound. Apply Venelex ointment to wound bed. Pack wound with TenderWet dressings. Cover with Sacral foam dressing. Perform wound care daily, and prn for dressing soiling or dislodgment. 10. Right Buttock, right lateral and inferior to grouped wounds in Site 8: Stage II pressure ulcer, present on admission. Wound care performed by dy shift nurse. Wound dressing not removed for assessment secondary to doing so would decrease wound temperature and retard wound healing rate. Recommend continue: Cleanse wound with normal Saline. Apply moisture barrier cream to maria del rosario-wound. Apply Venelex ointment to wound bed. Cover with Sacral foam dressing. Perform wound care daily, and prn for dressing soiling or dislodgment. 11. Right Knee: Abrasion. Wound care performed by dy shift nurse. Dressing not removed for assessment secondary to doing so would decrease wound temperature and retard wound healing rate. Recommend continue: Cleanse wound normal Saline. Apply moisture barrier cream to maria del rosario-wound. Apply Venelex ointment to wound bed. Cover with foam dressing. Perform wound care daily, and prn for dressing soiling or dislodgment. Recommend continue: Reposition patient side to side only every 2 hours with pillow support. When turning patient, place one pillow underneath trunk and one pillow underneath Pelvis to allow Sacral area to float. Elevate, off-load and float bilateral heels with pillows. Offload pressure areas with pillows for pressure re-distribution. Perform skin care and monitor skin integrity Q shift. Use moisture barrier cream on moisture susceptible areas QID and PRN for soiling. Maintain patient on a low air-loss mattress. Addendum: 05/05/19 at 1852 by Dangelo Robison RN Addendum: Paged Dr. Mariano on 05/03/19 to discuss possible Sacral-Coccygeal pressure ulcer debridement (Dr. Hansen chose not to debride wound when he was asked to consult). No return call received.
[2019-05-05 16:00] VITALS: BP_SYST 121
--- NOTE | 2019-05-05 16:54 | NUR ---
Discharge Planning: Per CM pt is [facility] to [facility]; [facility] would like pt today. [facility] has called multiple transportation facilities and cannot get a CCT transport today. [facility]-No CCT available today. [facility]- No CCT available today and will have to call back in the morning to attempt to set it up, will not allow [facility] to set up a transport for tomorrow (05/06/19). [facility]- No CCT available today. [facility]- will not transport pt due to [employer] insurance. [facility]- does not have CCT in [facility]. [facility] has updated CM.
--- NOTE | 2019-05-05 18:52 | NUR ---
FOLLOW UP ON TRANSPORTS CALLED CARE - NO CCT NURSE AVAIL [facility]-- NO CCT NURSE AVAIL [facility]-- NO CCT NURSE AVAIL [facility]-- NO CCT NURSE AVAIL WILL FOLLOW UP ON THE ONE CONTRACT COORDINATOR CALLED IN THE MORNING
--- NOTE | 2019-05-05 19:55 | NUR ---
Closing notes, endorsed to night nurse shakir. pt has been stable the whole shift, no fever no sob, no resp distress. oral care done, suctioned prn via trach. wound care done, re evaluated by wound nurse christiano. all meds given, pt tolerated tube feeding. no change in vent settings.
[2019-05-05 20:00] VITALS: BP_SYST 156
--- NOTE | 2019-05-05 20:00 | NUR ---
Initial note: Report received from dayshift RN. Patient is awake in bed, non-verbal, tracks with eyes, unable to follow commands. Tolerating trach to vent with settings AC 10, TV 500, FiO2 35%, PEEP 5.0. WILLIAMS PICC line is saline locked. Ileostomy noted to right abdomen, contains loose brown stool. Capellan catheter draining yellow urine to gravity. Contact isolation in place for MDRO/NURSE MIDWIFE of wound. Call light with patient. Safety, fall, seizure precautions in place. Will continue with plan of care.
--- NOTE | 2019-05-05 21:19 | NUR ---
Blood sugar: Patient's blood sugar is 88. Insulin not indicated per sliding scale.
--- NOTE | 2019-05-06 00:12 | NUR ---
G-tube flush: Patient's G-tube flushed with 100 ML sterile water per MD order. 10 ML gastric residual prior to flush. Will continue monitoring.
[2019-05-06] MEDS: METOCLOPRAMIDE HCL 10 MG/2 ML VIAL IVP SCH ×3 (00:44→11:21)
[2019-05-06] MEDS: LINEZOLID 300 ML IV SCH ×2 (00:44→11:21)
[2019-05-06 02:16] VITALS: BP_SYST 131
--- NOTE | 2019-05-06 03:00 | NUR ---
Wound care: Provided wound care for sacral wound per MD order and wound care nurse recommendations. Patient tolerated well. Ileostomy bag noted to be leaking. Bag changed, contained 100 ML loose brown stool. Will continue to monitor.
[2019-05-06] MEDS: TOBRAMYCIN SULFATE 80 MG in NS 50 ML IV SCH ×2 (03:54→10:12)
--- NOTE | 2019-05-06 04:52 | NUR ---
[facility] CALLED AND SET UP TRANSPORT FOR 1100AM PER TRANSPORT THEY SAID THEY DO NOT NEED CCT ONLY A RT TO GO WITH PT SINCE SHE IS ONLY GOING WITH VENT . CCT IS NEEDED IF PT IS GOING ON TELE AND OR ON DRIPS. PER RN PT IS ONLY GOING WITH [facility]. CHARGE NURSE AND RN AWARE
--- NOTE | 2019-05-06 05:54 | NUR ---
Wound care: Performed wound care for abdominal wounds and left breast at this time per MD order and wound care nurse recommendations. Patient tolerated well. Will continue to monitor.
--- NOTE | 2019-05-06 06:00 | NUR ---
PICC line care: Performed dressing change for WILLIAMS PICC line. Sterile technique observed. Patient tolerated well. Site flushes well with NS and has good blood return. Will continue monitoring.
--- NOTE | 2019-05-06 06:52 | NUR ---
Closing note: Patient is asleep in bed. Tolerating trach to vent with settings AC 10, TV 500, FiO2 35%, PEEP 5.0. WILLIAMS PICC line is saline locked. Ileostomy noted to right abdomen, contains loose brown stool. Capellan catheter draining yellow urine to gravity. Contact isolation in place for MDRO/VP DIGITAL MARKETING of wound. All needs met. Hourly rounding performed throughout shift. Safety, fall, seizure, contact isolation precautions in place. Will endorse care to dayshift RN.
--- NOTE | 2019-05-06 08:00 | NUR ---
AM rounds: Patient is awake in bed, non-verbal, tracks with eyes, unable to follow commands. Vent with settings AC 10, TV 500, FiO2 35%, PEEP 5.0. WILLIAMS PICC with two ports flushes easily but no blood return. Ileostomy to right abdomen with loose brown stool. Capellan catheter draining yellow urine to gravity. Contact isolation for MDRO/OCULAR CARE TECHNOLOGIST of wound. Call light with patient. Safety, fall, seizure precautions in place.
[2019-05-06] MEDS: SODIUM CHLORIDE 500 MG TABLET GT SCH ×2 (09:00→14:54)
[2019-05-06] MEDS: FAMOTIDINE PF 20 MG/2 ML VIAL IVP SCH (09:00)
[2019-05-06] MEDS: CYANOCOBALAMIN 1000 mCg TABLET GT SCH (09:00)
[2019-05-06] MEDS: levETIRAcetam 500 MG in NS 100 ML IV SCH (09:01)
[2019-05-06 09:19] VITALS: BP_SYST 147
[2019-05-06] MEDS: ERGOCALCIFEROL 8000 UNITS/ML ORAL SOLUTION, 60 ML BOTTLE GT SCH (09:21)
--- NOTE | 2019-05-06 10:00 | NUR ---
Report: Called [facility] for report, was told that they are not aware of the admission. Spoke with Romina.
--- NOTE | 2019-05-06 10:24 | NUR ---
CONFIRMED WITH [facility]. CALLED [facility] TO CHANGE DISTRIBUTION CENTER ASSOCIATE TIME TO 1400. SPOKE TO KRAIG.
[2019-05-06 12:45] VITALS: BP_SYST 112
--- NOTE | 2019-05-06 13:30 | NUR ---
Report: Report given to Ursula, requested metal pickling equipment operator time to be pushed to 1600, bed is not ready.
--- NOTE | 2019-05-06 13:51 | NUR ---
Change of Marine Architect time: Changed oyster picker time to 1600, confirmed with Crystal ([facility]).
[2019-05-06 16:46] VITALS: BP_SYST 127
--- NOTE | 2019-05-06 17:05 | NUR ---
Discharge: Discharged to [facility] with [facility].
[2019-05-06] MEDS ORDERED: TOBRAMYCIN SULFATE 100 MG in NS 50 ML IV SCH (18:00)
== END 2019-05-06 17:02 | DRG 720 ==
LOC: SED 17:01 → STU 04-17 00:30
PROVIDERS: ADMIT Internal Medicine; ATTEND Internal Medicine
PROC: 5A1955Z Respiratory Ventilation, Greater than 96 Consecutive Hours (ICD-10-PCS; principal; 2019-04-17)
PROC: 0W9G30Z Drainage of Peritoneal Cavity with Drainage Device, Percutaneous Approach (ICD-10-PCS; 2019-04-21)
PROC: 0D9670Z Drainage of Stomach with Drainage Device, Via Natural or Artificial Opening (ICD-10-PCS; 2019-04-26)
DX: A41.9 Sepsis, unspecified organism (principal); K65.1 Peritoneal abscess; G82.50 Quadriplegia, unspecified; E43 Unspecified severe protein-calorie malnutrition; G93.1 Anoxic brain damage, not elsewhere classified; Z99.11 Dependence on respirator [ventilator] status; J96.10 Chronic respiratory failure, unspecified whether with hypoxia or hypercapnia; L89.153 Pressure ulcer of sacral region, stage 3; K56.609 Unspecified intestinal obstruction, unspecified as to partial versus complete obstruction; K65.9 Peritonitis, unspecified; E87.6 Hypokalemia; G40.909 Epilepsy, unspecified, not intractable, without status epilepticus; E03.9 Hypothyroidism, unspecified; E83.39 Other disorders of phosphorus metabolism; E66.9 Obesity, unspecified; K56.7 Ileus, unspecified; D50.9 Iron deficiency anemia, unspecified; D62 Acute posthemorrhagic anemia; K21.9 Gastro-esophageal reflux disease without esophagitis; Z93.0 Tracheostomy status; Z85.038 Personal history of other malignant neoplasm of large intestine; Z90.49 Acquired absence of other specified parts of digestive tract; Z79.899 Other long term (current) drug therapy; Z88.1 Allergy status to other antibiotic agents; Z88.2 Allergy status to sulfonamides; Z86.73 Personal history of transient ischemic attack (TIA), and cerebral infarction without residual deficits; Z68.34 Body mass index [BMI] 34.0-34.9, adult; C18.9 Malignant neoplasm of colon, unspecified
CPT/HCPCS: 36415; 36600; 71045; 74021; 75989-TC; 80048; 80053; 80076; 80200; 81000-TC; 81003; 82272; 82607; 82728; 82746; 82803-TC; 82962; 83540-TC; 83550-TC; 83605; 83690-TC; 83735-TC; 84100-TC; 84478-TC; 84484; 85007; 85025; 85027; 85610-TC; 85730-TC; 87040-TC; 87070-TC; 87081; 87086; 87186-TC; 93005; 94002; 94003; 94640; 94760; 96365; 96368; 96374; 96375; 99285; A4371; A4409; A5061; C1729; C1769; G0378; J0610; J0692; J0696; J1953; J2020; J2060; J2405; J2543; J2765; J3260; J3475; J3480; J3490; J7040; J7050; J7060; J7131; Q9964; Q9967

== ENCOUNTER 2020-06-18 21:14 | Inpatient (IN) | payer MEDICAID, SELFPAY ==
[~2020-06-18] VITALS: Ht 162.6 cm; Wt 78.5 kg
[2020-06-18 21:20] VITALS: BP_SYST 102
[2020-06-18] MEDS ORDERED: NOREPINEPHRINE BITARTRATE 4 MG in D5W 246 ML IV ONE (21:30)
[2020-06-18] MEDS ORDERED: NACL 0.9% 1,000 ML IV ONE (21:30)
[2020-06-18] MEDS ORDERED: VANCOMYCIN HCL 1,000 MG in D5W 250 ML IV ONE (21:30)
[2020-06-18] MEDS ORDERED: cefTRIAXone 1 GM IVPB PREMIX 50 ML IV ONE (21:30)
[2020-06-18] MEDS ORDERED: VANCOMYCIN HCL 1000 MG/VIAL IV ONE (21:35)
[2020-06-18 21:53] LABS: BASOPHILS % (AUTO) 0.2 % (0.0-2.0); HEMATOCRIT 44.2 % (36-48); HEMOGLOBIN 14.9 g/dL (12.0-16.0); LYMPHOCYTES # (AUTO) 0.5 K/uL (1.0-5.5); LYMPHOCYTES % (AUTO) 4.1 % (20.5-51.5); MEAN CORPUSCULAR HEMOGLOBIN 30 pg (27-31); MEAN CORPUSCULAR HGB CONC 34 % (32-36); MEAN CORPUSCULAR VOLUME 90 fL (79.0-98.0); MONOCYTES # (AUTO) 0.1 K/uL (0.0-1.0); MONOCYTES % (AUTO) 1.2 % (1.7-9.3); NEUTROPHILS # (AUTO) 10.8 K/uL (1.8-7.7); NEUTROPHILS % (AUTO) 94.5 % (40.0-70.0); PLATELET COUNT (AUTO) 298 K/uL (130-430); RED CELL DISTRIBUTION WIDTH 12.3 % (9.0-15.0); WHITE BLOOD COUNT (AUTO) 11.4 K/uL (4.8-10.8)
[2020-06-18] MEDS ORDERED: ACET-2051 PO (22:26)
[2020-06-18] MEDS ORDERED: OMEP20CA15 GT (22:26)
[2020-06-18] MEDS ORDERED: POTA20TA83 GT (22:26)
[2020-06-18] MEDS ORDERED: CHLO473M5 PO (22:26)
[2020-06-18] MEDS ORDERED: MULT-1100 GT (22:26)
[2020-06-18] MEDS ORDERED: CARB15DR BOTH EYES (22:37)
[2020-06-18] MEDS ORDERED: ALBU8.5H8 INH ×2 (22:37)
[2020-06-18] MEDS ORDERED: ASCO500S10 GT (22:39)
[2020-06-18 22:51] LABS: BILIRUBIN,URINE 1+ (NEGATIVE); BLOOD, URINE 2+ (NEGATIVE); CLARITY/URINE CLOUDY (CLEAR); COLOR,URINE YELLOW (YELLOW); GLUCOSE,URINE NEGATIVE (NEGATIVE); KETONES,URINE NEGATIVE (NEGATIVE); LEUKOCYTE ESTERASE ,URINE 2+ (NEGATIVE); NITRITE, URINE NEGATIVE (NEGATIVE); PH,URINE 5.5 (5.0-8.0); PROTEIN URINE 1+ (NEGATIVE)
[2020-06-18] MEDS ORDERED: ONDANSETRON HCL 4 MG/2 ML VIAL IVP ONE (23:00)
[2020-06-18] MEDS ORDERED: MORPHINE 4 MG/ML INJ. SYRINGE IVP ONE (23:00)
[2020-06-18 23:11] LABS: CALCIUM 9.8 mg/dL (8.4-11.0); CREATININE 1.06 mg/dL (0.55-1.30); POTASSIUM 4.1 mmol/L (3.5-5.1)
[2020-06-18 23:12] LABS: BACTERIA,URINE MODERATE /HPF (None Seen); WBC,URINE 20-50 /HPF (0-3)
[2020-06-18] MEDS ORDERED: KETOROLAC TROMETHAMINE 15 MG VIAL IVP ONE (23:15)
[2020-06-18 23:17] LABS: ALBUMIN 2.7 g/dL (3.4-4.8); TOTAL BILIRUBIN 1.5 mg/dL (0.0-1.0)
[2020-06-18 23:24] LABS: INR 1.2 (0.8-1.2); PROTHROMBIN TIME 12.6 SECS (9.5-12.5)
[2020-06-18] MEDS ORDERED: NS 1000 ML IV.SOLN IV ONE (23:30)
[2020-06-18] MEDS ORDERED: MORPHINE 4 MG/ML INJ. SYRINGE ONE (23:41)
[2020-06-18] MEDS ORDERED: ONDANSETRON HCL 4 MG/2 ML VIAL ONE (23:41)
[2020-06-18] MEDS ORDERED: KETOROLAC TROMETHAMINE 15 MG VIAL ONE (23:48)
[2020-06-19] VITALS (23 sets, daily range): BP systolic 73–127
[2020-06-19] MEDS ORDERED: PIPERACILLIN/TAZOBACTAM 3.375 GM/VIAL (ZOSYN) IV ONE (02:16)
[2020-06-19] MEDS ORDERED: KCL 20 mEq in 100 mL (PREMIX) 100 ML IV ONE (02:20)
[2020-06-19] MEDS ORDERED: DILTIAZEM HCL 25 MG/5 ML VIAL ONE (02:28)
[2020-06-19] MEDS ORDERED: DILTIAZEM HCL 25 MG/5 ML VIAL IVP ONE (02:30)
[2020-06-19] MEDS ORDERED: DILTIAZEM HCL 125 MG/25 ML VIAL IV ONE (02:57)
[2020-06-19] MEDS ORDERED: KCL 20 mEq in NS 1000 mL 1,000 ML IV ONE (03:00)
[2020-06-19] MEDS ORDERED: PIPERACILLIN/TAZO 3.375 GM in NS 50 ML IV ONE (03:00)
[2020-06-19] MEDS ORDERED: ACETAMINOPHEN 325 MG TABLET ONE ×2 (05:40→23:55)
[2020-06-19] MEDS: ACETAMINOPHEN 325 MG TABLET PO PRN ×2 (05:45→23:57)
[2020-06-19] MEDS ORDERED: NOREPINEPHRINE 4 MG/4 ML VIAL IV ONE (05:49)
[2020-06-19] MEDS: NOREPINEPHRINE BITARTRATE 4 MG in NS 246 ML IV PRN ×4 (06:25→20:00)
[2020-06-19 06:33] LABS: BASOPHILS % (AUTO) 0.1 % (0.0-2.0); EOSINOPHILS % (AUTO) 0.1 % (0.0-4.0); HEMATOCRIT 39.9 % (36-48); HEMOGLOBIN 13.3 g/dL (12.0-16.0); LYMPHOCYTES # (AUTO) 0.2 K/uL (1.0-5.5); LYMPHOCYTES % (AUTO) 1.8 % (20.5-51.5); MEAN CORPUSCULAR HEMOGLOBIN 31 pg (27-31); MEAN CORPUSCULAR HGB CONC 33 % (32-36); MEAN CORPUSCULAR VOLUME 92 fL (79.0-98.0); MONOCYTES # (AUTO) 0.4 K/uL (0.0-1.0); MONOCYTES % (AUTO) 4.6 % (1.7-9.3); NEUTROPHILS # (AUTO) 8.3 K/uL (1.8-7.7); NEUTROPHILS % (AUTO) 93.4 % (40.0-70.0); PLATELET COUNT (AUTO) 213 K/uL (130-430); RED BLOOD CELL COUNT(AUTO) 4.34 MIL/uL (4.2-6.2); RED CELL DISTRIBUTION WIDTH 12.5 % (9.0-15.0); WHITE BLOOD COUNT (AUTO) 8.9 K/uL (4.8-10.8)
[2020-06-19 06:51] LABS: CALCIUM 8.5 mg/dL (8.4-11.0); CREATININE 1.26 mg/dL (0.55-1.30); POTASSIUM 3.7 mmol/L (3.5-5.1)
[2020-06-19] MEDS ORDERED: FLU VACC QS2020-21 (6 mos & up) 0.5 ML/SYRINGE I.M. PRN (08:00)
[2020-06-19] MEDS: ALBUMIN HUMAN 25% 50 ML IV SCH ×3 (10:15→16:07)
[2020-06-19] MEDS ORDERED: SODIUM BICARBONATE 8.4% JECT 50 MEQ/50 ML SYRINGE IVP ONE (12:15)
[2020-06-19] MEDS ORDERED: POTASSIUM CHLORIDE 20 MEQ/PKT PACKET PO ONE (12:15)
[2020-06-19] MEDS ORDERED: ALBUMIN HUMAN 25% 50 ML IV PRN (12:15)
[2020-06-19] MEDS ORDERED: LevALBUTEROL HCL 1.25 MG/0.5 ML *CONC.* VIAL.NEB (XOPENEX CONC.) INH PRN (14:00)
[2020-06-19] MEDS: NACL 0.9% 1,000 ML IV SCH ×2 (14:33→21:09)
[2020-06-19] MEDS: LevALBUTEROL HCL 1.25 MG/0.5 ML *CONC.* VIAL.NEB (XOPENEX CONC.) INH SCH ×2 (15:00→23:41)
[2020-06-19] MEDS: LevETIRAcetam 500 MG/5 ML UDC ORAL LIQUID GT SCH ×2 (15:20→21:32)
[2020-06-19] MEDS: metroNIDAZOLE 500 mg/NS 100 ML IV SCH (21:00)
[2020-06-19] MEDS: BACLOFEN 10 MG TABLET GT SCH (21:30)
[2020-06-19] MEDS: FERROUS SULFATE 300 MG/5 ML UDC GT SCH (21:31)
[2020-06-19] MEDS: CEFEPIME 0.5 GM in D5W 50 ML IV SCH (21:32)
[2020-06-19] MEDS: SODIUM BICARBONATE 650 MG TABLET GT SCH (21:32)
[2020-06-19] MEDS: FUROSEMIDE 20 MG/2 ML VIAL IVP SCH (21:40)
[2020-06-19] MEDS: ENOXAPARIN SODIUM 30 MG/0.3 ML SYRINGE SUBCUT SCH (21:41)
[2020-06-19] MEDS: CHLORHEXIDINE GLUCONATE 15 ML/DOSE, 480 ML MM SCH (21:41)
[2020-06-19] MEDS ORDERED: VANCOMYCIN HCL 1,000 MG in NS 250 ML IV SCH (22:00)
[2020-06-20] VITALS (30 sets, daily range): BP systolic 93–126
[2020-06-20] MEDS ORDERED: DILTIAZEM HCL 125 MG/25 ML VIAL IV ONE (03:43)
[2020-06-20] MEDS ORDERED: NOREPINEPHRINE 4 MG/4 ML VIAL IV ONE (05:07)
[2020-06-20] MEDS: NOREPINEPHRINE BITARTRATE 4 MG in NS 246 ML IV PRN ×3 (05:15→15:23)
[2020-06-20] MEDS: NACL 0.9% 1,000 ML IV SCH ×4 (05:17→19:34)
[2020-06-20] MEDS: LANSOPRAZOLE 30 MG CAPSULE.DR GT SCH (06:10)
[2020-06-20 06:20] LABS: BASOPHILS # (AUTO) 0.1 K/uL (0.0-0.2); BASOPHILS % (AUTO) 0.2 % (0.0-2.0); EOSINOPHILS % (AUTO) 9.5 % (0.0-4.0); HEMATOCRIT 34.5 % (36-48); HEMOGLOBIN 11.4 g/dL (12.0-16.0); LYMPHOCYTES # (AUTO) 0.9 K/uL (1.0-5.5); LYMPHOCYTES % (AUTO) 4.4 % (20.5-51.5); MEAN CORPUSCULAR HEMOGLOBIN 30 pg (27-31); MEAN CORPUSCULAR HGB CONC 33 % (32-36); MEAN CORPUSCULAR VOLUME 92 fL (79.0-98.0); MONOCYTES # (AUTO) 2.1 K/uL (0.0-1.0); MONOCYTES % (AUTO) 9.7 % (1.7-9.3); NEUTROPHILS # (AUTO) 16.5 K/uL (1.8-7.7); NEUTROPHILS % (AUTO) 76.2 % (40.0-70.0); PLATELET COUNT (AUTO) 196 K/uL (130-430); RED BLOOD CELL COUNT(AUTO) 3.75 MIL/uL (4.2-6.2); RED CELL DISTRIBUTION WIDTH 13.2 % (9.0-15.0); WHITE BLOOD COUNT (AUTO) 21.6 K/uL (4.8-10.8)
[2020-06-20 06:55] LABS: CALCIUM 7.8 mg/dL (8.4-11.0); CREATININE 1.29 mg/dL (0.55-1.30); POTASSIUM 3.5 mmol/L (3.5-5.1)
[2020-06-20] MEDS: LevALBUTEROL HCL 1.25 MG/0.5 ML *CONC.* VIAL.NEB (XOPENEX CONC.) INH SCH ×3 (07:20→23:54)
[2020-06-20] MEDS: CEFEPIME 0.5 GM in D5W 50 ML IV SCH (08:28)
[2020-06-20] MEDS: metroNIDAZOLE 500 mg/NS 100 ML IV SCH (08:29)
[2020-06-20] MEDS: LevETIRAcetam 500 MG/5 ML UDC ORAL LIQUID GT SCH ×2 (08:29→21:00)
[2020-06-20] MEDS: SODIUM BICARBONATE 650 MG TABLET GT SCH ×4 (08:29→21:00)
[2020-06-20] MEDS: CHLORHEXIDINE GLUCONATE 15 ML/DOSE, 480 ML MM SCH ×2 (08:29→21:00)
[2020-06-20] MEDS: FERROUS SULFATE 300 MG/5 ML UDC GT SCH ×2 (08:29→21:00)
[2020-06-20] MEDS: MULTIVITS,CA,MINERALS/IRON/FA 1 TABLET GT SCH (08:29)
[2020-06-20] MEDS: PEG 400/HYPROMELLOSE/GLYCERIN 15 ML DROPS BOTH EYES SCH (08:29)
[2020-06-20] MEDS: ASCORBIC ACID 500 MG TABLET GT SCH (08:29)
[2020-06-20] MEDS: BACLOFEN 10 MG TABLET GT SCH ×2 (08:29→21:00)
[2020-06-20] MEDS: FUROSEMIDE 20 MG/2 ML VIAL IVP SCH ×2 (08:30→21:00)
[2020-06-20] MEDS ORDERED: OMEPRAZOLE Non-Formulary 20 MG CAPSULE.DR GT SCH (09:00)
[2020-06-20] MEDS ORDERED: DILTIAZEM HCL 60 MG TABLET PO ONE (09:45)
[2020-06-20] MEDS: PIPERACILLIN/TAZO 2.25G/DEX-IS 50 ML IV SCH ×2 (12:21→17:13)
[2020-06-20] MEDS: SODIUM BICARBONATE 8.4% VIAL 100 MEQ in 0.45% NACL 1,000 ML IV SCH ×2 (12:21→22:00)
[2020-06-20] MEDS ORDERED: LORazepam 2 MG/ML VIAL ONE (20:05)
[2020-06-20] MEDS: LORazepam 2 MG/ML VIAL IVP PRN (20:10)
[2020-06-20] MEDS: ENOXAPARIN SODIUM 30 MG/0.3 ML SYRINGE SUBCUT SCH (21:00)
[2020-06-20] MEDS: DILTIAZEM HCL 60 MG TABLET PO SCH (22:00)
[2020-06-21] VITALS (30 sets, daily range): BP systolic 94–123
[2020-06-21] MEDS: PIPERACILLIN/TAZO 2.25G/DEX-IS 50 ML IV SCH ×5 (00:09→23:31)
[2020-06-21] MEDS: ACETAMINOPHEN 325 MG TABLET PO PRN (00:50)
[2020-06-21] MEDS ORDERED: ACETAMINOPHEN 650 MG/20.3 ML UDC ONE (00:51)
[2020-06-21] MEDS: NACL 0.9% 1,000 ML IV SCH ×4 (04:39→23:31)
[2020-06-21] MEDS: DILTIAZEM HCL 60 MG TABLET PO SCH ×3 (04:39→22:00)
[2020-06-21 06:05] LABS: ALBUMIN 1.8 g/dL (3.4-4.8); CALCIUM 8.2 mg/dL (8.4-11.0); CREATININE 1.33 mg/dL (0.55-1.30); TOTAL BILIRUBIN 5.1 mg/dL (0.0-1.0)
[2020-06-21 06:42] LABS: HEMATOCRIT 33.9 % (36-48); HEMOGLOBIN 11.3 g/dL (12.0-16.0); MEAN CORPUSCULAR HEMOGLOBIN 30 pg (27-31); MEAN CORPUSCULAR HGB CONC 33 % (32-36); MEAN CORPUSCULAR VOLUME 91 fL (79.0-98.0); PLATELET COUNT (AUTO) 171 K/uL (130-430); RED BLOOD CELL COUNT(AUTO) 3.73 MIL/uL (4.2-6.2); RED CELL DISTRIBUTION WIDTH 12.9 % (9.0-15.0)
[2020-06-21] MEDS: LevALBUTEROL HCL 1.25 MG/0.5 ML *CONC.* VIAL.NEB (XOPENEX CONC.) INH SCH ×3 (07:20→23:58)
[2020-06-21 07:25] LABS: POTASSIUM 2.7 mmol/L (3.5-5.1)
[2020-06-21] MEDS ORDERED: NOREPINEPHRINE 4 MG/4 ML VIAL IV ONE (07:43)
[2020-06-21] MEDS: ASCORBIC ACID 500 MG TABLET GT SCH (08:35)
[2020-06-21] MEDS: FERROUS SULFATE 300 MG/5 ML UDC GT SCH ×2 (08:35→22:20)
[2020-06-21] MEDS: SODIUM BICARBONATE 650 MG TABLET GT SCH ×4 (08:36→22:20)
[2020-06-21] MEDS: MULTIVITS,CA,MINERALS/IRON/FA 1 TABLET GT SCH (08:36)
[2020-06-21] MEDS: BACLOFEN 10 MG TABLET GT SCH ×2 (08:36→22:20)
[2020-06-21] MEDS: LevETIRAcetam 500 MG/5 ML UDC ORAL LIQUID GT SCH ×2 (08:38→22:20)
[2020-06-21] MEDS: FUROSEMIDE 20 MG/2 ML VIAL IVP SCH ×2 (08:39→22:26)
[2020-06-21] MEDS: CHLORHEXIDINE GLUCONATE 15 ML/DOSE, 480 ML MM SCH ×2 (08:39→22:20)
[2020-06-21] MEDS: LANSOPRAZOLE 30 MG CAPSULE.DR GT SCH (08:39)
[2020-06-21] MEDS: SODIUM BICARBONATE 8.4% VIAL 100 MEQ in 0.45% NACL 1,000 ML IV SCH ×2 (08:40→20:00)
[2020-06-21] MEDS: PEG 400/HYPROMELLOSE/GLYCERIN 15 ML DROPS BOTH EYES SCH (08:40)
[2020-06-21] MEDS ORDERED: POTASSIUM CHLORIDE 40 MEQ in NS 250 ML IV ONE (10:00)
[2020-06-21 12:33] LABS: BAND % (MANUAL) 9 % (0-6); BASOPHILS % (MANUAL) 0 % (0-2); EOSINOPHILS % (MANUAL) 0 % (0-7); LYMPHOCYTES % (MANUAL) 11 % (20-46); MONOCYTES % (MANUAL) 13 % (0-11)
[2020-06-21] MEDS: ENOXAPARIN SODIUM 30 MG/0.3 ML SYRINGE SUBCUT SCH (22:20)
[2020-06-22] VITALS (28 sets, daily range): BP systolic 89–119
[2020-06-22] MEDS ORDERED: ACETAMINOPHEN 650 MG/20.3 ML UDC ONE (05:08)
[2020-06-22] MEDS: PIPERACILLIN/TAZO 2.25G/DEX-IS 50 ML IV SCH (05:54)
[2020-06-22] MEDS: DILTIAZEM HCL 60 MG TABLET PO SCH ×3 (05:55→22:00)
[2020-06-22] MEDS: SODIUM BICARBONATE 8.4% VIAL 100 MEQ in 0.45% NACL 1,000 ML IV SCH (05:55)
[2020-06-22] MEDS: LANSOPRAZOLE 30 MG CAPSULE.DR GT SCH (05:55)
[2020-06-22] MEDS: LevALBUTEROL HCL 1.25 MG/0.5 ML *CONC.* VIAL.NEB (XOPENEX CONC.) INH SCH ×2 (07:35→15:30)
[2020-06-22] MEDS: ASCORBIC ACID 500 MG TABLET GT SCH (09:05)
[2020-06-22] MEDS: FERROUS SULFATE 300 MG/5 ML UDC GT SCH ×2 (09:05→23:14)
[2020-06-22] MEDS: PEG 400/HYPROMELLOSE/GLYCERIN 15 ML DROPS BOTH EYES SCH (09:05)
[2020-06-22] MEDS: BACLOFEN 10 MG TABLET GT SCH ×2 (09:05→21:00)
[2020-06-22] MEDS: MULTIVITS,CA,MINERALS/IRON/FA 1 TABLET GT SCH (09:05)
[2020-06-22] MEDS: LevETIRAcetam 500 MG/5 ML UDC ORAL LIQUID GT SCH ×2 (09:05→23:14)
[2020-06-22] MEDS: SODIUM BICARBONATE 650 MG TABLET GT SCH ×4 (09:05→23:14)
[2020-06-22] MEDS: FUROSEMIDE 20 MG/2 ML VIAL IVP SCH ×2 (09:06→21:00)
[2020-06-22] MEDS: CHLORHEXIDINE GLUCONATE 15 ML/DOSE, 480 ML MM SCH ×2 (09:06→23:14)
[2020-06-22 21:47] LABS: CALCIUM 8.3 mg/dL (8.4-11.0); CREATININE 1.31 mg/dL (0.55-1.30); POTASSIUM 3.3 mmol/L (3.5-5.1)
[2020-06-22] MEDS: ENOXAPARIN SODIUM 30 MG/0.3 ML SYRINGE SUBCUT SCH (23:14)
[2020-06-22] MEDS ORDERED: KCL 40 mEq in 100 mL (PREMIX) 100 ML IV ONE (23:45)
[2020-06-22] MEDS ORDERED: NOREPINEPHRINE 4 MG/4 ML VIAL IV ONE (23:50)
[2020-06-22] MEDS ORDERED: SODIUM BICARBONATE 8.4% JECT 50 MEQ/50 ML SYRINGE ONE (23:51)
[2020-06-23] VITALS (25 sets, daily range): BP systolic 50–154
[2020-06-23] MEDS ORDERED: POTASSIUM CHLORIDE 40 MEQ in D5W 250 ML IV SCH ×2
[2020-06-23] MEDS: PIPERACILLIN/TAZO 2.25G/DEX-IS 50 ML IV SCH ×6 (00:13→18:06)
[2020-06-23] MEDS: KCL 20 mEq in 100 mL (PREMIX) 100 ML IV SCH ×4 (00:30→08:53)
[2020-06-23] MEDS: SODIUM BICARBONATE 8.4% JECT 100 MEQ in D5W 1,000 ML IVP SCH ×3 (00:43→23:44)
[2020-06-23] MEDS: NOREPINEPHRINE BITARTRATE 4 MG in D5W 246 ML IV PRN ×3 (00:44→08:46)
[2020-06-23 01:44] LABS: INR 1.5 (0.8-1.2); PROTHROMBIN TIME 15.4 SECS (9.5-12.5)
[2020-06-23] MEDS ORDERED: LORazepam 2 MG/ML VIAL ONE (02:09)
[2020-06-23] MEDS ORDERED: NOREPINEPHRINE 4 MG/4 ML VIAL IV ONE ×4 (02:16→08:32)
[2020-06-23] MEDS: LORazepam 2 MG/ML VIAL IVP PRN (03:23)
[2020-06-23] MEDS: DILTIAZEM HCL 60 MG TABLET PO SCH ×3 (04:51→23:44)
[2020-06-23 06:55] LABS: BASOPHILS # (AUTO) 0.1 K/uL (0.0-0.2); BASOPHILS % (AUTO) 0.6 % (0.0-2.0); EOSINOPHILS % (AUTO) 0.3 % (0.0-4.0); HEMATOCRIT 38.6 % (36-48); HEMOGLOBIN 12.8 g/dL (12.0-16.0); LYMPHOCYTES # (AUTO) 1.2 K/uL (1.0-5.5); MEAN CORPUSCULAR HEMOGLOBIN 30 pg (27-31); MEAN CORPUSCULAR HGB CONC 33 % (32-36); MEAN CORPUSCULAR VOLUME 90 fL (79.0-98.0); MONOCYTES # (AUTO) 1.6 K/uL (0.0-1.0); MONOCYTES % (AUTO) 8.7 % (1.7-9.3); NEUTROPHILS # (AUTO) 14.9 K/uL (1.8-7.7); PLATELET COUNT (AUTO) 203 K/uL (130-430); RED BLOOD CELL COUNT(AUTO) 4.29 MIL/uL (4.2-6.2); WHITE BLOOD COUNT (AUTO) 17.8 K/uL (4.8-10.8)
[2020-06-23 07:56] LABS: NEUTROPHILS % (AUTO) 83.4 % (40.0-70.0)
[2020-06-23 08:13] LABS: ALBUMIN 1.6 g/dL (3.4-4.8)
[2020-06-23] MEDS: ASCORBIC ACID 500 MG TABLET GT SCH (08:53)
[2020-06-23] MEDS: SODIUM BICARBONATE 650 MG TABLET GT SCH ×4 (08:53→21:39)
[2020-06-23] MEDS: BACLOFEN 10 MG TABLET GT SCH ×2 (08:53→21:39)
[2020-06-23] MEDS: MULTIVITS,CA,MINERALS/IRON/FA 1 TABLET GT SCH (08:53)
[2020-06-23] MEDS: LANSOPRAZOLE 30 MG CAPSULE.DR GT SCH (08:53)
[2020-06-23] MEDS: FERROUS SULFATE 300 MG/5 ML UDC GT SCH ×2 (08:54→21:39)
[2020-06-23] MEDS: FUROSEMIDE 20 MG/2 ML VIAL IVP SCH ×2 (08:54→21:40)
[2020-06-23] MEDS: PEG 400/HYPROMELLOSE/GLYCERIN 15 ML DROPS BOTH EYES SCH (08:58)
[2020-06-23] MEDS: CHLORHEXIDINE GLUCONATE 15 ML/DOSE, 480 ML MM SCH ×2 (09:00→21:40)
[2020-06-23] MEDS: BISACODYL 10 MG/SUPPOSITORY RC SCH (09:02)
[2020-06-23] MEDS: LevETIRAcetam 500 MG/5 ML UDC ORAL LIQUID GT SCH ×2 (09:02→21:39)
[2020-06-23 09:18] LABS: CALCIUM 8.6 mg/dL (8.4-11.0); CREATININE 1.4 mg/dL (0.55-1.30); POTASSIUM 3.6 mmol/L (3.5-5.1); TOTAL BILIRUBIN 6.1 mg/dL (0.0-1.0)
[2020-06-23 09:23] LABS: PHOSPHORUS 0.9 mg/dL (2.7-4.5)
[2020-06-23] MEDS: NOREPINEPHRINE BITARTRATE 32 MG in D5W 218 ML IV PRN ×3 (11:00→23:52)
[2020-06-23] MEDS ORDERED: KCL 20 mEq in 100 mL (PREMIX) 100 ML IV ONE ×2 (11:30→13:30)
[2020-06-23] MEDS: LevALBUTEROL HCL 1.25 MG/0.5 ML *CONC.* VIAL.NEB (XOPENEX CONC.) INH SCH ×2 (16:39→23:38)
[2020-06-23] MEDS: ENOXAPARIN SODIUM 30 MG/0.3 ML SYRINGE SUBCUT SCH (21:40)
[2020-06-24] MEDS: PIPERACILLIN/TAZO 2.25G/DEX-IS 50 ML IV SCH ×2 (00:11→06:43)
[2020-06-24 00:30] VITALS: BP_SYST 100
[2020-06-24] MEDS ORDERED: SODIUM BICARBONATE 8.4% JECT 50 MEQ/50 ML SYRINGE ONE (02:07)
[2020-06-24] MEDS ORDERED: PHENYLEPHRINE HCL 10 MG/ML VIAL (NEOSYNEPHRINE) ONE ×3 (02:30→09:00)
[2020-06-24] MEDS ORDERED: PHENYLEPHRINE HCL 100 MG in NS 240 ML IV PRN (02:30)
[2020-06-24] MEDS: ACETAMINOPHEN 325 MG TABLET GT PRN ×3 (02:44→05:36)
[2020-06-24] MEDS ORDERED: VASOPRESSIN 20 UNITS/ML VIAL IV ONE (03:55)
[2020-06-24] MEDS ORDERED: VASOPRESSIN 40 UNITS in NS 38 ML IV PRN (04:00)
[2020-06-24] MEDS ORDERED: NOREPINEPHRINE 4 MG/4 ML VIAL IV ONE (05:19)
[2020-06-24] MEDS: DILTIAZEM HCL 60 MG TABLET PO SCH (06:00)
[2020-06-24] MEDS: LevALBUTEROL HCL 1.25 MG/0.5 ML *CONC.* VIAL.NEB (XOPENEX CONC.) INH SCH (07:49)
[2020-06-24] MEDS: ASCORBIC ACID 500 MG TABLET GT SCH (09:00)
[2020-06-24] MEDS: SODIUM BICARBONATE 650 MG TABLET GT SCH (09:00)
[2020-06-24] MEDS: BACLOFEN 10 MG TABLET GT SCH (09:00)
[2020-06-24] MEDS: FUROSEMIDE 20 MG/2 ML VIAL IVP SCH (09:00)
[2020-06-24] MEDS: BISACODYL 10 MG/SUPPOSITORY RC SCH (09:00)
[2020-06-24] MEDS: MULTIVITS,CA,MINERALS/IRON/FA 1 TABLET GT SCH (09:00)
[2020-06-24] MEDS: LANSOPRAZOLE 30 MG CAPSULE.DR GT SCH (09:00)
[2020-06-24] MEDS ORDERED: MEROPENEM 1 GM in NS 100 ML IV SCH (09:00)
[2020-06-24] MEDS: PEG 400/HYPROMELLOSE/GLYCERIN 15 ML DROPS BOTH EYES SCH (09:00)
[2020-06-24] MEDS: LevETIRAcetam 500 MG/5 ML UDC ORAL LIQUID GT SCH (11:10)
[2020-06-24] MEDS: FERROUS SULFATE 300 MG/5 ML UDC GT SCH (11:10)
== END 2020-06-24 12:47 | disposition expired | DRG 720 ==
LOC: SED 21:14 → SIC 23:46
PROVIDERS: ADMIT Family Medicine; ATTEND Family Medicine
PROC: 5A1955Z Respiratory Ventilation, Greater than 96 Consecutive Hours (ICD-10-PCS; principal; 2020-06-19)
PROC: 5A12012 Performance of Cardiac Output, Single, Manual (ICD-10-PCS; 2020-06-24)
DX: A41.51 Sepsis due to Escherichia coli [E. coli] (principal); E43 Unspecified severe protein-calorie malnutrition; E86.0 Dehydration; R65.21 Severe sepsis with septic shock; G93.1 Anoxic brain damage, not elsewhere classified; K21.9 Gastro-esophageal reflux disease without esophagitis; G40.909 Epilepsy, unspecified, not intractable, without status epilepticus; N39.0 Urinary tract infection, site not specified; G93.40 Encephalopathy, unspecified; J15.9 Unspecified bacterial pneumonia; J96.20 Acute and chronic respiratory failure, unspecified whether with hypoxia or hypercapnia; N17.9 Acute kidney failure, unspecified; E87.2 Acidosis; Z20.822 Contact with and (suspected) exposure to COVID-19; Y95 Nosocomial condition; Z66 Do not resuscitate; R13.10 Dysphagia, unspecified; E03.9 Hypothyroidism, unspecified; E11.9 Type 2 diabetes mellitus without complications; I10 Essential (primary) hypertension; I46.9 Cardiac arrest, cause unspecified; K56.609 Unspecified intestinal obstruction, unspecified as to partial versus complete obstruction; K65.1 Peritoneal abscess; Z88.2 Allergy status to sulfonamides; Z88.8 Allergy status to other drugs, medicaments and biological substances; Z79.1 Long term (current) use of non-steroidal anti-inflammatories (NSAID); Z79.899 Other long term (current) drug therapy; Z87.820 Personal history of traumatic brain injury; Z68.29 Body mass index [BMI] 29.0-29.9, adult; Z93.3 Colostomy status; Z85.038 Personal history of other malignant neoplasm of large intestine; Z93.0 Tracheostomy status; Z99.11 Dependence on respirator [ventilator] status; Z93.1 Gastrostomy status; Z93.2 Ileostomy status
CPT/HCPCS: 36415; 36600; 71045; 74018; 76700-TC; 80048; 80053; 81000-TC; 82040-TC; 82803-TC; 83605; 83735-TC; 84100-TC; 84484; 85007; 85025; 85027; 85610-TC; 85730-TC; 87040-TC; 87081; 87086; 92950; 93005; 93306; 94002; 94003; 94640; 96361; 96365; 96367; 96375; J0692; J0696; J1650; J1885; J1940; J2060; J2185; J2270; J2370; J2405; J2543; J3370; J3480; J3490; J7050; J7060; J7612; P9046; U0003